=== PATIENT | male | born 1935 | race African-American/Black ===

== ENCOUNTER 2017-02-04 09:37 | Day surgery (SDC) | payer MEDICARE, MEDICAID ==
--- NOTE | 2017-02-03 21:59 | Pre-op HX & Phy Repo 2 SIG ---
DATE OF ADMISSION: 02/04/2017 DATE OF SURGERY: This patient is scheduled for surgery tomorrow, which is 02/04/2017. CHIEF COMPLAINT: Lump in the right groin. HISTORY OF PRESENT ILLNESS: This is an 81-year-old male, who presented with a lump in the right groin for about for 7-8 months. The patient stated that the lump has gradually enlarged and in the mornings it is small, but at night it gets larger. He claimed that there is no pain. He denies any signs and symptoms of strangulation. PAST MEDICAL HISTORY: The patient denied allergies, asthma or renal diseases. He has a history of hypertension, diabetes and cardiac arrhythmia. PAST SURGICAL HISTORY: TURP 30 years ago. MEDICATIONS: Pradaxa, amlodipine, simvastatin, metoprolol, metformin, amiodarone, and omeprazole. SOCIAL HISTORY: The patient is an 81-year-old male, who is single without children. He is a retired nurse's aide. He claimed that he quit smoking and drinking many years ago. REVIEW OF SYSTEMS: He complains of back pain and weakness. PHYSICAL EXAMINATION: GENERAL: The patient appeared to be a well-developed and well-nourished, moderately obese, 81-year-old male, who walks with a cane. VITAL SIGNS: Blood pressure 155/72 and pulse rate 107. HEENT: Head is normocephalic and atraumatic. Eyes, pupils are equal, round, and reactive to light. Mouth is clear. NECK: There is no palpable thyromegaly or adenopathy. CHEST: Clear to auscultation and percussion. HEART: There is no gallop or murmur. S1 and S2 are within normal limits. ABDOMEN: Obese, but soft and nontender. There is no palpable organomegaly and bowel sounds are audible. GENITAL: He has a normal uncircumcised penis. His testicles are normal for his age. He has right inguinal hernia, which extends to his testicle and difficult to reduce. EXTREMITIES: Within normal limits. ASSESSMENT: Right inguinal hernia. PLAN: The patient has been scheduled for right inguinal herniorrhaphy with application of mesh on 02/04/2017. The risks and benefits have been explained to him. He understood and will jeremias the consent form. Brad Morrison M.D. DR: ROMI JOB#: [id number] CC:
[~2017-02-04] VITALS: Ht 172.7 cm; Wt 106.6 kg
[2017-02-04] VITALS (12 sets, daily range): BP systolic 108–144; BP diastolic 56–76
[~2017-02-04 09:37] MED LIST: ALLOPURINOL300 M1 ORAL; AMLODIPINE BESY10 MG ORAL; DICYCLOMINE HCL10 MG PO; DIURIL25 MG ORAL; GLYBURIDE-METF1 EAC1 PO; HYDROCHLOROTHIA50 MG ORAL; JANUMET 50-5001 EACH ORAL; METOPROLOL TAR100 M1 ORAL; METOPROLOL TAR100 MG ORAL; OMEPRAZOLE20 M2 ORAL; POTASSIUM CHLO10 MEQ ORAL; SIMVASTATIN20 MG ORAL; VITAMIN D35000 UNIT PO; XARELTO10 MG ORAL
[2017-02-04] MEDS ORDERED: SIMVASTATIN20 MG ORAL (10:53)
[2017-02-04] MEDS ORDERED: AMIODARONE HCL200 MG ORAL (10:53)
[2017-02-04] MEDS ORDERED: FERROUS SULFAT325 M2 ORAL (10:53)
[2017-02-04] MEDS ORDERED: METFORMIN HCL500 M5 PO (10:53)
[2017-02-04] MEDS ORDERED: SYNTHROID50 MCG ORAL (10:53)
[2017-02-04] MEDS ORDERED: PRADAXA150 MG ORAL (10:53)
[2017-02-04] MEDS ORDERED: CIPRO500 MG PO (10:53)
[2017-02-04] MEDS ORDERED: ceFAZolin sod 1 GM in NS 55 ML IVPB ONE (11:00)
[2017-02-04] MEDS ORDERED: Bupivacaine 0.25% Inj 30ml INJ ONE (11:41)
[2017-02-04] MEDS ORDERED: Bupivacaine w/Epi 0.25% 30ml Vial INJ ONE (11:41)
[2017-02-04] MEDS ORDERED: Bacitracin 50000 Units Vial ONE (11:41)
[2017-02-04] MEDS ORDERED: Lidocaine 1% MPF 10mg/ml 5ml ONE (12:00)
[2017-02-04] MEDS ORDERED: LR 1000ml ONE (12:00)
[2017-02-04] MEDS ORDERED: Glycopyrrolate 0.2mg/ml 1ml Vial ONE (12:00)
[2017-02-04] MEDS ORDERED: Midazolam 2mg/2ml Inj ONE (12:00)
[2017-02-04] MEDS ORDERED: NS Irrig 1000ml ONE (12:00)
[2017-02-04] MEDS ORDERED: Zemuron 50mg/5ml Inj IV ONE (12:00)
[2017-02-04] MEDS ORDERED: Alfentanil 2ml Inj ONE (12:00)
[2017-02-04] MEDS ORDERED: Propofol 10mg/ml 20ml IV ONE (12:00)
[2017-02-04] MEDS ORDERED: Neostigmine 1mg/ml 10ml Inj ONE (12:00)
[2017-02-04] MEDS ORDERED: Sterile Water Irrig 1000ml IRRIG ONE (12:00)
--- NOTE | 2017-02-04 12:12 | Pre-Procedure Note/Attestation ---
Pre-Procedure Note/Attestation Complete Prior to Procedure Planned Procedure: right Procedure Narrative: Right Inguinal Herniorrhaphy Indications for Procedure Pre-Operative Diagnosis: Right Inguinal Hernia Attestation I attest that I discussed the nature of the procedure; its benefits; risks and complications; and alternatives (and the risks and benefits of such alternatives ), prior to the procedure, with the patient (or the patient's legal sales representative malt liquors). I attest that, if there was a reasonable possibility of needing a blood transfusion, the patient (or the patient's legal sales representative malt liquors) was given the [facility] standardized written summary, pursuant to the Earl Axel Blood Safety Act ([place] Health and Safety Code # 1645, as amended). I attest that I re-evaluated the patient just prior to the surgery and that there has been no change in the patient's H&P, except as documented below: BABS THOMAS February 04, 2017 12:12
[2017-02-04] MEDS ORDERED: Metoclopramide 10mg/2ml Inj IVP PRN (12:15)
[2017-02-04] MEDS ORDERED: Atropine Inj 1mg/10ml Syr IV PRN (12:15)
[2017-02-04] MEDS ORDERED: Hydromorphone 0.5mg/0.5ml inj IVP PRN (12:15)
[2017-02-04] MEDS ORDERED: Meperidine 25mg/0.5ml Inj IV PRN (12:15)
[2017-02-04] MEDS ORDERED: LR 1000ml 1,000 ML IVLG SCH (12:15)
[2017-02-04] MEDS ORDERED: Ketorolac 60mg Inj IV PRN (12:15)
[2017-02-04] MEDS ORDERED: Norco 5mg/325mg tab ORAL PRN (12:15)
[2017-02-04] MEDS ORDERED: Norco 7.5mg/325mg tab ORAL PRN (12:15)
[2017-02-04] MEDS ORDERED: Oxycodone/Acetaminophen 5-325 ORAL PRN (12:15)
[2017-02-04] MEDS ORDERED: fentaNYL 100 mcg/2 mL IV PRN (12:15)
[2017-02-04] MEDS ORDERED: LORazepam Inj 2mg/ml 1ml IV PRN (12:15)
[2017-02-04] MEDS ORDERED: Midazolam 2mg/2ml Inj IVP PRN (12:15)
[2017-02-04] MEDS ORDERED: Ketorolac 30mg Inj IV PRN (12:15)
[2017-02-04] MEDS ORDERED: DiphenhydrAMINE 50mg/ml Inj IVP PRN (12:15)
--- NOTE | 2017-02-04 12:17 | Anethesia Preoperative Eval ---
Anesthesia Pre-op PMH/ROS General Date of Evaluation: February 04, 2017 Time of Evaluation: 12:07 Anesthesiologist: Flor ASA Score: ASA 3 Mallampati Score Class I : Soft palate, uvula, fauces, pillars visible Class II: Soft palate, uvula, fauces visible Class III: Soft palate, base of uvula visible Class IV: Only hard plate visible Mallampati Classification: Class III Surgeon: Prince Diagnosis: R Inguinal Hernia Surgical Procedure: R Inguinal Hernia Repair Anesthesia History: none Family History: no anesthesia problems Allergies: Coded Allergies: No Known Allergies (Verified Allergy, Mild, 06/18/10) Medications: see eMAR Past Medical History Cardiovascular: Reports: HTN, other - HL Gastrointestinal/Genitourinary: Reports: GERD, other - Prostate Hypertrophy, GI Bleed Endocrine: Reports: DM Hematology/Immune: Reports: anemia Musculoskeletal/Integumentary: Reports: other - Gout Other: obesity - BMI 36 PSxH Narrative: Prostatectomy Anesthesia Pre-op Phys. Exam Physician Exam Last Vital Signs Date Time Temp Pulse Resp B/P Pulse Ox O2 Delivery O2 Flow Rate FiO2 02/04/17 10:13 98.5 65 18 144/75 99 Room Air Constitutional: NAD Neurologic: CN 2-12 intact Cardiovascular: RRR Respiratory: CTA Gastrointestinal: S/NT/ND Airway Exam Mallampati Score: Class III MO: full ROM: limited Teeth: missing, intact Anesthesia Pre-op A/P Pre-Antibiotics Dru Grams Ancef IV Given Within 1 Hr of Incision: Yes Time Given: 12:26 Alexander Ray MD February 04, 2017 12:17
--- NOTE | 2017-02-04 12:47 | Immediate Post-Op Evaluation ---
Immediate Post-Op Evalulation Immediate Post-Op Evalulation Procedure: R Inguinal Hernia Repair Date of Evaluation: February 04, 2017 Time of Evaluation: 14:34 IV Fluids: 900 LR Blood Products: 0 Estimated Blood Loss: 15 Urinary Output: 0 Blood Pressure Systolic: 132 Blood Pressure Diastolic: 71 Pulse Rate: 66 Respiratory Rate: 16 O2 Sat by Pulse Oximetry: 98 Temperature (Fahrenheit): 97.9 Pain Score (1-10): 2 Nausea: No Vomiting: No Complications 0 Patient Status: awake, reacts, patent, extubated, none Hydration Status: adequate Dru Grams Ancef IV Given Within 1 Hr of Incision: Yes Time Given: 12:26 Alexander Ray MD February 04, 2017 12:47
--- NOTE | 2017-02-04 12:48 | 48 Hour Post Anesthesia Eval ---
Post Anesthesia Evaluation Procedure: R Inguinal Hernia Repair Date of Evaluation: February 04, 2017 Time of Evaluation: 16:53 Blood Pressure Systolic: 128 0: 68 Pulse Rate: 61 Respiratory Rate: 18 Temperature (Fahrenheit): 98.2 O2 Sat by Pulse Oximetry: 99 Airway: patent Nausea: No Vomiting: No Pain Intensity: 2 Hydration Status: adequate Cardiopulmonary Status: Stable Mental Status/LOC: patient returned to baseline Follow-up Care/Observations: 0 Post-Anesthesia Complications: 0 Follow-up care needed: ready to discharge Alexander Ray MD February 04, 2017 12:48
--- NOTE | 2017-02-04 14:26 | Brief Operative Note ---
Immediate Post Operative Note Operative Note Pre-op Diagnosis: Right Inguinal Hernia Post-op Diagnosis: sliding right inguinal hernia Findings: consistent w/pre-op dx studies Surgeon: Joseph Byproducts Maker: none Anesthesiologist: Dr. Ray Anesthesia: general Specimen: yes Complications: none Condition: stable Estimated Blood Loss: volume - 20ml Drains: none Implant(s) used?: Yes BABS THOMAS February 04, 2017 14:26
--- NOTE | 2017-02-04 14:30 | Discharge Instructions ---
Discharge Instructions Discharge Instructions Follow up with: my office one week Diet: 4 GM sodium (no salt added), low fat Additional Diet Information: continue his own diet Resume Normal Activity?: Yes Activity: as tolerated Special Instructions apply ice pack on right groin. continue home meds as before except for Paradaxa start it tomorrow For Surgical Patients Dressing Care: other - will be removed by surgeon May shower: Yes For Congestive Heart Failure Reminder Report to your physician any weight gain of 5 pounds or more in one week. BABS THOMAS February 04, 2017 14:30
--- NOTE | 2017-02-05 00:08 | Operative Note - Dictated ---
DATE OF OPERATION: 02/04/2017 PREOPERATIVE DIAGNOSIS: Right inguinal hernia. POSTOPERATIVE DIAGNOSIS: Sliding indirect right inguinal hernia. OPERATION: 1. Right inguinal herniorrhaphy with application of mesh. 2. Resection of the lipoma of the cord. 3. Blockage of the nerves to the right groin for the postoperative pain control. COMPLICATIONS: None. SURGEON: Brad Morrison M.D. SENIOR NET SOFTWARE DEVELOPER: None ANESTHESIA: General with endotracheal tube. ANESTHESIOLOGIST: Dr. Ray. INDICATION: This is an 81-year-old male who presented with a lump in the right groin for about 8 to 9 months. Lump has gradually enlarged and protrudes with standing and straining. Physical examination showed very large right inguinal hernia which extended to his testicle and was difficult to reduce. PROCEDURE: The patient was placed supine on the operating table and after general anesthesia with endotracheal tube initially under the anesthesia the hernia was reduced and then the right groin was properly prepped and draped. Large transverse right inguinal incision was given and was carried sharply through the subcutaneous tissue and Halley's fascia. The aponeurosis of the external oblique was reached and was opened along the fibers towards the external ring. The spermatic cord was identified and isolated. The exploration of the cord was performed which showed very large indirect sac which extended all the way to the testicle. The sac was gradually dissected and isolated. It was opened up. It was noticed that there was sliding component of bowel. This was gradually released and returned into the intraperitoneal cavity. The sac was trans ligated with 4-0 silk at the neck and the distal part resected and removed. Extreme care was exercised not to harm the organs in the abdomen. The sac was opened up and it was noticed that there was a small component of the sliding. The sliding was released and returned into the intraperitoneal cavity and then the hernia sac was first ligated at the neck with 0 silk and distal part was transected and removed. At the time of removal of the sac extreme care was exercised not to injure the intraabdominal organs. After the removal of the sac, attention was given to the spermatic cord which did contain a few large lipomas. At least three lipomas were dissected and isolated and removed. After this attention was given to the floor of the inguinal canal and a piece of Prolene mesh was selected and was tailored to size of the floor of the inguinal canal. This mesh was secured in place with multiple interrupted suture of 2-0 Vicryl. The spermatic cord was mostly at the lower part of the mesh. During the dissection and repair, both the ilioinguinal and iliohypogastric nerves were identified and preserved. After the application of the mesh, the incision was thoroughly irrigated with antibiotic solution and was infiltrated with total of 20 mL of Marcaine 0.25%. The nerves to the right groin were blocked with infiltration of 10 mL of Marcaine for the postoperative pain control. after this, the aponeurosis on the external oblique was approximated with running suture of 2-0 Vicryl. The subcutaneous tissue was approximated in two layers with 3-0 plain catgut and the skin incision was approximated with running subcuticular suture of 4-0 chromic. The patient tolerated the procedure very well and was transferred to recovery room in stable condition and extubated. The sponge and needle count correct. ESTIMATED BLOOD LOSS: 20 mL. CONDITION: Condition of the patient at the end of the procedure is stable. Brad Morrison M.D. DR: Twin JOB#: [id number] CC: JOI
== END 2017-02-04 11:30 | disposition home or self-care (01) ==
LOC: SUR 09:37
DX: K40.90 Unilateral inguinal hernia, without obstruction or gangrene, not specified as recurrent (principal); D17.6 Benign lipomatous neoplasm of spermatic cord; I10 Essential (primary) hypertension; E11.9 Type 2 diabetes mellitus without complications; I49.9 Cardiac arrhythmia, unspecified; D64.9 Anemia, unspecified; E66.9 Obesity, unspecified; Z68.36 Body mass index [BMI] 36.0-36.9, adult; K21.9 Gastro-esophageal reflux disease without esophagitis; E78.5 Hyperlipidemia, unspecified; N40.0 Benign prostatic hyperplasia without lower urinary tract symptoms; M10.9 Gout, unspecified; Z90.79 Acquired absence of other genital organ(s); Z79.84 Long term (current) use of oral hypoglycemic drugs; Z87.891 Personal history of nicotine dependence
CPT/HCPCS: 49525; 82962; C1781; J2250; J2405; J2704; J2710; J2765; J3490; J7120; 94003; 94150

== ENCOUNTER 2020-09-11 11:24 | Inpatient (IN) | payer MEDICAID, MEDICARE ==
[~2020-09-11] VITALS: Ht 167.6 cm; Wt 84.4 kg
[~2020-09-11 11:24] MED LIST changes: +AMIODARONE HCL200 MG ORAL; +CIPRO500 MG PO; +FERROUS SULFAT325 M2 ORAL; +METFORMIN HCL500 M5 PO; +PRADAXA150 MG ORAL; +SYNTHROID50 MCG ORAL
--- NOTE | 2020-09-11 11:40 | NUR ---
ED Nurse Note: patient walked in from home s/p fall and head injury two weeks ago. pt states that Dr. Tse sent him in to get checked out. pt denies LOC, states he is taking xarelto, appears to have a knot on L side of forehead. bp 151/77, other vss. nad noted.
[2020-09-11] MEDS ORDERED: Omnipaque 350 100ml vial INJ PRN (11:45)
[2020-09-11 11:46] VITALS: BP 151/77
[2020-09-11 12:23] LABS: BASOPHILS % (AUTO) 1.3 % (0.0-2.0); EOSINOPHILS % (AUTO) 2.9 % (0.0-3.0); HEMATOCRIT 36.3 % (42.0-52.0); HEMOGLOBIN 11.7 G/DL (14.2-18.0); LYMPHOCYTES % (AUTO) 23.6 % (20.0-45.0); MEAN CORPUSCULAR VOLUME 86 FL (80-99); MONOCYTES % (AUTO) 9.2 % (1.0-10.0); PLATELET COUNT 205 K/UL (150-450); RED BLOOD COUNT 4.21 M/UL (4.70-6.10); RED CELL DISTRIBUTION WIDTH 15.2 % (11.6-14.8); WHITE BLOOD COUNT 4.4 K/UL (4.8-10.8)
--- NOTE | 2020-09-11 12:24 | NUR ---
ED Nurse Note: patient off floor for ct scan.
[2020-09-11 12:33] LABS: CALCIUM 9.3 MG/DL (8.5-10.1); CREATININE 1.6 MG/DL (0.55-1.30); POTASSIUM 5.1 MMOL/L (3.5-5.1)
[2020-09-11 12:34] LABS: INR 1.1 (0.9-1.1)
[2020-09-11 12:38] LABS: ALBUMIN/GLOBULIN RATIO 1.2 (1.0-2.7); BILIRUBIN,TOTAL 0.3 MG/DL (0.2-1.0)
--- NOTE | 2020-09-11 12:38 | Emergency Room Report ---
History of Present Illness General Chief Complaint: Head Injury Present Illness HPI Disclaimer: Please note that this report is being documented using [employer] technology. This can lead to erroneous entry secondary to incorrect interpretation by the dictating instrument. HPI: 84-year-old male presents for hematoma. Patient has a history of hypertension, heart disease, diabetes, reports a mechanical fall about 2 weeks ago. Was seen by his primary doctor and noted to have a hematoma of the left forehead and was referred to surgery seen by surgery today in clinic and the hematoma was noted to be pulsatile. Patient denies any headache nausea vomiting or vision changes. He was ambulatory and neurologically intact on arrival. PMH: As above Allergies: Coded Allergies: No Known Allergies (Verified Allergy, Mild, 06/18/10) COVID-19 Screening Contact w/high risk pt: No Experienced COVID-19 symptoms?: No COVID-19 Testing performed PLASTERER MAINTENANCE: No Patient History Reviewed Nursing Documentation: PMH: Agreed; PSxH: Agreed Nursing Documentation-PMH Hx Cardiac Problems: Yes Hx Hypertension: Yes Hx Diabetes: Yes Hx Cancer: No Hx Gastrointestinal Problems: Yes - GI bleed in 2008 Hx Neurological Problems: No Review of Systems All Other Systems: negative except mentioned in HPI Physical Exam Vital Signs Date Time Temp Pulse Resp B/P (MAP) Pulse Ox O2 Delivery O2 Flow Rate FiO2 09/11/20 11:26 97.9 88 18 151/77 (101) 97 Room Air Sp02 EP Interpretation: reviewed, normal General Appearance: well appearing, no apparent distress Head: normocephalic, other - Cystic-like lesion noted to the left frontal scalp, ballotable and pulsatile, approximately 2 x 2 centimeter Eyes: bilateral eye PERRL, bilateral eye EOMI ENT: hearing grossly normal, moist mucus membranes Neck: full range of motion, supple Respiratory: lungs clear, normal breath sounds, no rhonchi, no respiratory distress, no retraction, no wheezing Cardiovascular #1: normal peripheral pulses, regular rate, rhythm, no murmur Gastrointestinal: non tender, soft, non-distended, no guarding Neurologic: alert, oriented x3, no focal defects Skin: normal color, warm/dry Medical Decision Making Diagnostic Impression: Primary Impression: Pseudoaneurysm ER Course MDM: Differential included hematoma, aneurysm, cyst Clinical course-IV inserted basic laboratory studies were sent CT angiogram of the head ordered. CT angiogram of the head did demonstrate pseudoaneurysm of the scalp. Measuring approximately 2 cm. The case was discussed with general surgery, Dr. betts who wished to admit for resection. Patient will be admitted to the medical floor. Labs - Laboratory Tests Test 09/11/20 11:54 White Blood Count 4.4 K/UL (4.8-10.8) L Red Blood Count 4.21 M/UL (4.70-6.10) L Hemoglobin 11.7 G/DL (14.2-18.0) L Hematocrit 36.3 % (42.0-52.0) L Mean Corpuscular Volume 86 FL (80-99) Mean Corpuscular Hemoglobin 27.9 PG (27.0-31.0) Mean Corpuscular Hemoglobin Concent 32.3 G/DL (32.0-36.0) Red Cell Distribution Width 15.2 % (11.6-14.8) H Platelet Count 205 K/UL (150-450) Mean Platelet Volume 7.6 FL (6.5-10.1) Neutrophils (%) (Auto) 63.0 % (45.0-75.0) Lymphocytes (%) (Auto) 23.6 % (20.0-45.0) Monocytes (%) (Auto) 9.2 % (1.0-10.0) Eosinophils (%) (Auto) 2.9 % (0.0-3.0) Basophils (%) (Auto) 1.3 % (0.0-2.0) Prothrombin Time 11.6 SEC (9.30-11.50) H Prothrombin Time INR 1.1 (0.9-1.1) Activated Partial Thromboplast Time 27 SEC (23-33) Sodium Level 142 MMOL/L (136-145) Potassium Level 5.1 MMOL/L (3.5-5.1) Chloride Level 106 MMOL/L (98-107) Carbon Dioxide Level 26 MMOL/L (21-32) Anion Gap 10 mmol/L (5-15) Blood Urea Nitrogen 21 mg/dL (7-18) H Creatinine 1.6 MG/DL (0.55-1.30) H Estimated Glomerular Filtration Rate 50.2 mL/min (>60) Glucose Level 137 MG/DL (74-106) H Calcium Level 9.3 MG/DL (8.5-10.1) Total Bilirubin 0.3 MG/DL (0.2-1.0) Aspartate Amino Transferase (AST) 19 U/L (15-37) Alanine Aminotransferase (ALT) 18 U/L (12-78) Alkaline Phosphatase 70 U/L (46-116) Total Protein 7.4 G/DL (6.4-8.2) Albumin 4.0 G/DL (3.4-5.0) Globulin 3.4 g/dL Albumin/Globulin Ratio 1.2 (1.0-2.7) On reevaluation: Patient remained in no acute distress Plan-admission to the medical floor CT/MRI/US Diagnostic Results CT/MRI/US Diagnostic Results : Imaging Test Ordered: CT angio Impression Discussed with radiology noted pseudoaneurysm of the left scalp approximately 17 mm Last Vital Signs Date Time Temp Pulse Resp B/P (MAP) Pulse Ox O2 Delivery O2 Flow Rate FiO2 09/11/20 11:46 97.9 18 151/77 97 Room Air 09/11/20 11:26 88 Status: unchanged Disposition: ADMITTED INPATIENT Condition: Serious Referrals: Amy Dodd MD (PCP) Bandar Cho M.D. Sep 11, 2020 12:38
--- NOTE | 2020-09-11 12:50 | NUR ---
ED Nurse Note: Patient went down for CTA via wheelchair in stable condition.
[2020-09-11] MEDS ORDERED: Sodium Chloride 550 ML IV SCH (13:00)
--- NOTE | 2020-09-11 13:00 | NUR ---
ED Nurse Note: dr. betts at bedside.
--- NOTE | 2020-09-11 13:16 | NUR ---
ED Nurse Note: patient back on floor from ct scan.
[2020-09-11 13:27] VITALS: BP 149/71
--- NOTE | 2020-09-11 14:35 | Diagnostic Imaging Report ---
Indication: Head trauma, left forehead pulsatile mass Technique: Precontrast spiral acquisitions obtained through the brain. IV administration nonionic contrast. Arterial and delayed phase spiral acquisitions obtained through the brain. Multiplanar and 3-D reconstructions were generated on an integrated workstation. Total dose length product 2982 mGycm. CTDIvol(s) 53, 5, 112, 53, 53 mGy. Dose reduction achieved using automated exposure control Comparison: none Findings: In the left frontal region, presumably corresponding to the palpable abnormality, there is an intensely enhancing lesion, consistent with an arterial pseudoaneurysm, measuring 11 x 17 x 13 mm. This demonstrates a neck that is approximately 3 mm in length. The proximal portion of the neck measures 4 mm in diameter but then abruptly narrows to 3 mm diameter just proximal to the fundus. This comes off of the anterior division of the superficial temporal artery approximately 2 cm beyond the anterior division origin. A downward going branch vessel takes off just before the pseudoaneurysm. No definite outflow vessel is seen coming off of the neck. There is an arterial branch which appears to head cephalad and medial from the pseudoaneurysm, but a definite connection to the lumen of the pseudoaneurysm is not visualized, and on the sagittal and coronal reconstructed images, there appears to be approximately 2 mm of nonenhancing tissue this vessel from the lumen of the pseudoaneurysm, so this vessel may be reconstituting via retrograde flow. No active extravasation of contrast is visualized. No rapid venous filling to suggest arteriovenous fistula is demonstrated. Precontrast images demonstrate no acute intracranial hemorrhage or edema. There is mild age-related enlargement of ventricles and extra-axial CSF spaces. There is minimal periventricular deep white matter high attenuation, consistent with chronic microvascular ischemic change. The calvarium is intact. The mastoids are clear. Somewhat unusual calcifications are seen in the right supraorbital subcutaneous fat. The bilateral distal vertebral arteries are codominant. The bilateral PICAs are patent. The bilateral anterior inferior cerebellar arteries and superior cerebellar arteries are patent. No significant stenosis of the basilar artery is noted. The posterior cerebral arteries are patent and nonstenotic. A sizable patent right posterior communicating artery is demonstrated. No left posterior communicating artery is visualized. Anterior circulation demonstrates patent bilateral distal internal carotid arteries without evidence of significant stenosis. Patent bilateral middle cerebral arteries and proximal branches. Patent bilateral anterior cerebral arteries and proximal branches. There is increasing equivocal demonstration of a small anterior communicating artery. There is no evidence of cerebral aneurysm or vascular malformation. No unusual contrast enhancement is demonstrated on the delayed phase images. 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 No evidence of active extravasation or arteriovenous fistula Negative for acute intracranial bleed or mass effect Mild age-related volume loss Negative for evidence of intracranial cerebrovascular insufficiency, vascular malformation, or aneurysm No intracranial contrast enhancing lesion demonstrated. The CT scanner at [facility] is accredited by the [employer] and the scans are performed using protocols designed to limit radiation exposure to as low as reasonably achievable to attain images of sufficient resolution adequate for diagnostic evaluation. Brain
--- NOTE | 2020-09-11 15:43 | Consultation ---
History of Present Illness General Date patient seen: Sep 11, 2020 Reason for Hospitalization: Head Injury Present Illness HPI This is a very pleasant 84-year-old male with multiple medical comorbidities on Xarelto that was referred to my office by his primary care physician Dr. Amy Dodd for evaluation of of left forehead hematoma status post fall. Patient states that he has been having falls recently. He tripped over something few days ago fell and hit his head. Denies loss of consciousness but cannot recall how he fell or where he hit his head or what he hit his head on. Has since had a lump on his left forehead which may have been increasing in size. When seen in the office patient was identified to have a pulsatile mass with above history on his left forehead was urgently sent to the emergency department for evaluation. 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 Patient needed further care and management surgery for evaluation. Allergies: Coded Allergies: No Known Allergies (Verified Allergy, Mild, 06/18/10) COVID-19 Screening Contact w/high risk pt: No Experienced COVID-19 symptoms?: No Medication History Scheduled Amiodarone Hcl* (Cordarone*), 200 MG ORAL DAILY, (Reported) Amlodipine Besylate* (Amlodipine Besylate*), 10 MG ORAL DAILY, (Reported) Ciprofloxacin* (Cipro*), 500 MG PO BID, (Reported) Dabigatran Etexilate Mesylate* (Pradaxa*), 150 MG ORAL EVERY 12 HOURS, (Repo rted) Dicyclomine Hcl* (Dicyclomine Hcl*), 20 MG PO PRN, (Reported) Ferrous Sulfate (Ferrous Sulfate), 325 MG ORAL DAILY, (Reported) Levothyroxine Sodium (Synthroid*), 50 MCG ORAL DAILY, (Reported) Metformin HCl (Metformin HCl ER), 500 MG PO BID, (Reported) Metoprolol Tartrate* (Metoprolol Tartrate*), 100 MG ORAL Q12HR Omeprazole (Omeprazole), 20 MG ORAL BID, (Reported) Simvastatin (Zocor), 20 MG ORAL BEDTIME, (Reported) Patient History History Provided By: Patient, Medical Record, PMD Healthcare decision maker Resuscitation status Advanced Directive on File Past Medical/Surgical History Past Medical/Surgical History: (1) Hyperlipidemia (2) Hypertension (3) Diabetes (4) Arrhythmia (5) Abdominal pain (6) Hematoma (7) Pseudoaneurysm Review of Systems Review of Symptoms General ROS: no weight loss or fever Psychological ROS: no depression or mood changes, no memory loss Ophthalmic ROS: no visual changes or eye irritation ENT ROS: no nasal congestion, hearing loss, dizziness Allergy and Immunology ROS: no allergic symptoms or urticaria Hematological and Lymphatic ROS: no swollen glands, unusual bleeding or bruising Endocrine ROS: no polyuria, polydipsia, weight changes, temperature intolerance Respiratory ROS: no cough, shortness of breath, or wheezing Cardiovascular ROS: no chest pain or dyspnea on exertion Gastrointestinal ROS: denies abdominal pain, bright red blood in stool. Musculoskeletal ROS: no myalgias or arthralgias Neurological ROS: no TIA or stroke symptoms Dermatological ROS: no new or changing skin lesions, rashes or pruritis Physical Exam Physical Exam General appearance: alert, cooperative, no distress, appears stated age Head: Normocephalic, traumatic left forehead pulsating mass Eyes: conjunctivae/corneas clear. PERRL, EOM's intact. Fundi benign Throat: Lips, mucosa, and tongue normal. Teeth and gums normal Neck: supple, symmetrical, trachea midline, no adenopathy, thyroid: not enlarged, symmetric, no tenderness/mass/nodules, no carotid bruit and no JVD Lungs: clear to auscultation bilaterally Heart: regular rate and rhythm, S1, S2 normal, no murmur, click, rub or gallop Abdomen: soft, non-tender. Bowel sounds normal. No masses, no organomegaly Extremities: extremities normal, atraumatic, no cyanosis or edema Pulses: 2+ and symmetric Skin: Skin color, texture, turgor normal. No rashes or lesions Neurologic: Grossly normal Last 24 Hour Vital Signs Date Time Temp Pulse Resp B/P (MAP) Pulse Ox O2 Delivery O2 Flow Rate FiO2 09/11/20 13:27 97.9 75 18 149/71 97 Room Air 09/11/20 11:46 97.9 18 151/77 97 Room Air 09/11/20 11:26 97.9 88 18 151/77 (101) 97 Room Air Laboratory Tests Test 09/11/20 11:54 White Blood Count 4.4 K/UL (4.8-10.8) L Red Blood Count 4.21 M/UL (4.70-6.10) L Hemoglobin 11.7 G/DL (14.2-18.0) L Hematocrit 36.3 % (42.0-52.0) L Mean Corpuscular Volume 86 FL (80-99) Mean Corpuscular Hemoglobin 27.9 PG (27.0-31.0) Mean Corpuscular Hemoglobin Concent 32.3 G/DL (32.0-36.0) Red Cell Distribution Width 15.2 % (11.6-14.8) H Platelet Count 205 K/UL (150-450) Mean Platelet Volume 7.6 FL (6.5-10.1) Neutrophils (%) (Auto) 63.0 % (45.0-75.0) Lymphocytes (%) (Auto) 23.6 % (20.0-45.0) Monocytes (%) (Auto) 9.2 % (1.0-10.0) Eosinophils (%) (Auto) 2.9 % (0.0-3.0) Basophils (%) (Auto) 1.3 % (0.0-2.0) Prothrombin Time 11.6 SEC (9.30-11.50) H Prothromb Time International Ratio 1.1 (0.9-1.1) Activated Partial Thromboplast Time 27 SEC (23-33) Sodium Level 142 MMOL/L (136-145) Potassium Level 5.1 MMOL/L (3.5-5.1) Chloride Level 106 MMOL/L (98-107) Carbon Dioxide Level 26 MMOL/L (21-32) Anion Gap 10 mmol/L (5-15) Blood Urea Nitrogen 21 mg/dL (7-18) H Creatinine 1.6 MG/DL (0.55-1.30) H Estimat Glomerular Filtration Rate 50.2 mL/min (>60) Glucose Level 137 MG/DL (74-106) H Calcium Level 9.3 MG/DL (8.5-10.1) Total Bilirubin 0.3 MG/DL (0.2-1.0) Aspartate Amino Transf (AST/SGOT) 19 U/L (15-37) Alanine Aminotransferase (ALT/SGPT) 18 U/L (12-78) Alkaline Phosphatase 70 U/L (46-116) Total Protein 7.4 G/DL (6.4-8.2) Albumin 4.0 G/DL (3.4-5.0) Globulin 3.4 g/dL Albumin/Globulin Ratio 1.2 (1.0-2.7) Microbiology Date/Time Source Procedure Growth Status 09/11/20 14:00 Nasopharynx SARS-CoV-2 RdRp Gene Assay - Final Complete Height (Feet): 5 Height (Inches): 7.00 Weight (Pounds): 195 Medications Current Medications Medications (Trade) Dose Ordered Sig/Radha Route PRN Reason Start Time Stop Time Status Last Admin Dose Admin Iohexol (Omnipaque 350 100ml) 100 ml NOW PRN INJ Radiology Procedure 09/11/20 11:45 09/13/20 11:44 Sodium Chloride 550 ml @ 0 mls/hr Q0M IV 09/11/20 13:00 10/11/20 12:59 Assessment/Plan Problem List: (1) Hematoma ICD Codes: T14.8XXA - Other injury of unspecified body region, initial encounter SNOMED: 294533690 (2) Pseudoaneurysm Assessment & Plan: This is a 84-year-old male 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 Patient identified abnormal labs. I had a long session with the patient and his family. He has been falling recently had multiple falls but does not recall all of them. Patient furthermore has multiple medications though may not have full compliance or understanding. Patient with a pulsatile potentially expanding mass in his left forehead aneurysm CT noted discussed with radiology. Given the above I do not feel safe for patient to go home and electively participate in ligation. He is at high risk for another fall potential injury potential aneurysm expansion or even worse potential rupture with potential catastrophic event and considerations given this discussion with the family and patient's interest given his medical history and abnormal labs and work-up necessary it is in his interest to be admitted worked up and taken to the operating room when stable and off anticoagulation for ligation of the pseudoaneurysm and removal. Admit to medical service Consultants as below Okay for diet for now Hold anticoagulation Monitor for bleeding or expansion We will take the operating room in stable Preop work-up thank you for let me participation's care Covid test ICD Codes: I72.9 - Aneurysm of unspecified site SNOMED: 605126130, 47029777, 10461949 (3) Arrhythmia ICD Codes: I49.9 - Arrhythmia SNOMED: 01294016 (4) Diabetes ICD Codes: E11.9 - Diabetes SNOMED: 82396217 (5) Hyperlipidemia ICD Codes: E78.5 - Hyperlipidemia SNOMED: 30357289 (6) Abdominal pain ICD Codes: R10.9 - Abdominal pain SNOMED: 90730538 (7) Hypertension ICD Codes: I10 - Hypertension SNOMED: 52055554 Vernon Tse Sep 11, 2020 15:43
[2020-09-11] MEDS ORDERED: LORazepam 1mg tab ORAL PRN (15:45)
[2020-09-11] MEDS ORDERED: Mylanta II UD 30ml ORAL PRN (15:45)
[2020-09-11] MEDS ORDERED: Milk of Magnesia 30ml Ud ORAL PRN (15:45)
[2020-09-11] MEDS ORDERED: Nitroglycerin Subl 0.4mg tab SL PRN (15:45)
[2020-09-11] MEDS ORDERED: Morphine Sulfate 2mg/ml Inj(IV/IM USE ONLY) IVP PRN (15:45)
[2020-09-11 15:54] VITALS: BP 126/66
--- NOTE | 2020-09-11 16:13 | NUR ---
ED Nurse Note: gave report to ulisses brown
--- NOTE | 2020-09-11 16:20 | NUR ---
ED Nurse Note: patient admitted to med surg unit for pseudoanuerysm. pt transferred via wheelchair with all belongings in stable condition. vss, nad noted.
[2020-09-11] MEDS ORDERED: XARELTO10 MG ORAL (17:39)
[2020-09-11] MEDS ORDERED: ALLOPURINOL100 M1 ORAL (17:40)
[2020-09-11] MEDS ORDERED: URECHOLINE25 MG ORAL (17:43)
[2020-09-11] MEDS ORDERED: D5NS 1,000 ML IV SCH (18:00)
[2020-09-11 19:01] VITALS: BP 146/72
--- NOTE | 2020-09-11 19:11 | NUR ---
NURSE NOTES: Patient admitted from emergency room, [facility], Charge Nurse took report. Patient's family picked up wallet, car keys, and medications. Dr. Uriarte placed order to transfer to medical surgical. Began admission orders and will transfer to telemetry.
--- NOTE | 2020-09-11 19:25 | Consultation ---
History of Present Illness General Chief Complaint: Head Injury Reason for Consultation: ERIK Present Illness HPI 84 year old male with a PMHx DM, HTN, atrial fibrillation on Xarelto and gout who presents for head pain. Recently the patient had a mechanical fall although hazy on the details. Does not think he lost consciousness but not a good historian. No associated chest pain or SOB or palpitations. He has had other falls recently due to mechanical fall. C/o LE weakness. No focal symptoms. No back pain. No urinary symptoms, dysuria, fever or chills or nausea. He has felt well otherwise recently. The patient's most recent fall resulted in head trauma resultin in lump on left forehead. No headaches, blurry vision or double vision. He was seen by his PCP and then referred to Gen Surgery who sent to ER to be evaluated. 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 Surgery recommending admission for possible surgery. Holding xarelto. Allergies: Coded Allergies: No Known Allergies (Verified Allergy, Mild, 06/18/10) Medication History Scheduled Allopurinol* (Allopurinol*), 100 MG ORAL DAILY, (Reported) Amiodarone Hcl* (Cordarone*), 200 MG ORAL DAILY, (Reported) Amlodipine Besylate* (Amlodipine Besylate*), 10 MG ORAL DAILY, (Reported) Bethanechol Chl (Bethanechol Chloride), 25 MG ORAL THREE TIMES A DAY, (Reported) Ciprofloxacin* (Cipro*), 500 MG PO BID, (Reported) Dabigatran Etexilate Mesylate* (Pradaxa*), 150 MG ORAL EVERY 12 HOURS, (Reported) Dicyclomine Hcl* (Dicyclomine Hcl*), 20 MG PO PRN, (Reported) Ferrous Sulfate (Ferrous Sulfate), 325 MG ORAL DAILY, (Reported) Levothyroxine Sodium (Synthroid*), 44 MCG ORAL DAILY, (Reported) Metformin HCl (Metformin HCl ER), 1,000 MG PO BID, (Reported) Metoprolol Tartrate* (Metoprolol Tartrate*), 100 MG ORAL Q12HR Omeprazole (Omeprazole), 20 MG ORAL BID, (Reported) Rivaroxaban (Xarelto*), 15 MG ORAL DAILY, (Reported) Simvastatin (Zocor), 20 MG ORAL BEDTIME, (Reported) Patient History Healthcare decision maker Resuscitation status Advanced Directive on File Review of Systems All Other Systems: negative except mentioned in HPI Physical Exam General Appearance: no apparent distress Lines, tubes and drains: peripheral, central line HEENT: normocephalic, atraumatic Neck: non-tender, normal alignment Respiratory/Chest: chest wall non-tender, lungs clear, normal breath sounds Cardiovascular/Chest: normal peripheral pulses, normal rate Abdomen: normal bowel sounds, non tender, soft Extremities: normal range of motion, non-tender Neurologic: alert, oriented x 3 Last 24 Hour Vital Signs Date Time Temp Pulse Resp B/P (MAP) Pulse Ox O2 Delivery O2 Flow Rate FiO2 09/11/20 19:01 97.7 91 16 146/72 (96) 97 09/11/20 16:19 97.9 76 18 126/66 97 Room Air 09/11/20 15:54 97.9 76 18 126/66 97 Room Air 09/11/20 13:27 97.9 75 18 149/71 97 Room Air 09/11/20 11:46 97.9 18 151/77 97 Room Air 09/11/20 11:26 97.9 88 18 151/77 (101) 97 Room Air Laboratory Tests Test 09/11/20 11:54 White Blood Count 4.4 K/UL (4.8-10.8) L Red Blood Count 4.21 M/UL (4.70-6.10) L Hemoglobin 11.7 G/DL (14.2-18.0) L Hematocrit 36.3 % (42.0-52.0) L Mean Corpuscular Volume 86 FL (80-99) Mean Corpuscular Hemoglobin 27.9 PG (27.0-31.0) Mean Corpuscular Hemoglobin Concent 32.3 G/DL (32.0-36.0) Red Cell Distribution Width 15.2 % (11.6-14.8) H Platelet Count 205 K/UL (150-450) Mean Platelet Volume 7.6 FL (6.5-10.1) Neutrophils (%) (Auto) 63.0 % (45.0-75.0) Lymphocytes (%) (Auto) 23.6 % (20.0-45.0) Monocytes (%) (Auto) 9.2 % (1.0-10.0) Eosinophils (%) (Auto) 2.9 % (0.0-3.0) Basophils (%) (Auto) 1.3 % (0.0-2.0) Prothrombin Time 11.6 SEC (9.30-11.50) H Prothromb Time International Ratio 1.1 (0.9-1.1) Activated Partial Thromboplast Time 27 SEC (23-33) Sodium Level 142 MMOL/L (136-145) Potassium Level 5.1 MMOL/L (3.5-5.1) Chloride Level 106 MMOL/L (98-107) Carbon Dioxide Level 26 MMOL/L (21-32) Anion Gap 10 mmol/L (5-15) Blood Urea Nitrogen 21 mg/dL (7-18) H Creatinine 1.6 MG/DL (0.55-1.30) H Estimat Glomerular Filtration Rate 50.2 mL/min (>60) Glucose Level 137 MG/DL (74-106) H Calcium Level 9.3 MG/DL (8.5-10.1) Total Bilirubin 0.3 MG/DL (0.2-1.0) Aspartate Amino Transf (AST/SGOT) 19 U/L (15-37) Alanine Aminotransferase (ALT/SGPT) 18 U/L (12-78) Alkaline Phosphatase 70 U/L (46-116) Total Protein 7.4 G/DL (6.4-8.2) Albumin 4.0 G/DL (3.4-5.0) Globulin 3.4 g/dL Albumin/Globulin Ratio 1.2 (1.0-2.7) Microbiology Date/Time Source Procedure Growth Status 09/11/20 14:00 Nasopharynx SARS-CoV-2 RdRp Gene Assay - Final Complete Height (Feet): 5 Height (Inches): 7.00 Weight (Pounds): 195 Medications Current Medications Medications (Trade) Dose Ordered Sig/Radha Route PRN Reason Start Time Stop Time Status Last Admin Dose Admin Acetaminophen (Tylenol) 650 mg Q4H PRN ORAL Temp >100.5 09/11/20 15:45 10/11/20 15:44 Al Hydroxide/Mg Hydroxide (Mylanta II) 30 ml Q6H PRN ORAL dyspepsia 09/11/20 15:45 10/11/20 15:44 Amiodarone HCl (Cordarone) 200 mg DAILY ORAL 09/11/20 19:00 12/10/20 18:59 Amlodipine Besylate (Norvasc) 10 mg DAILY ORAL 09/11/20 19:00 10/11/20 18:59 Bisacodyl (Dulcolax) 10 mg HSPRN PRN RECTAL Constipation 09/11/20 15:45 12/10/20 15:44 Dextrose (Dextrose 50%) 25 ml Q30M PRN IV Hypoglycemia 09/11/20 18:00 12/10/20 17:59 Dextrose (Dextrose 50%) 50 ml Q30M PRN IV Hypoglycemia 09/11/20 18:00 12/10/20 17:59 Dextrose/Sodium Chloride 1,000 ml @ 50 mls/hr Q20H IV 09/11/20 18:00 10/11/20 17:59 Diphenhydramine HCl (Benadryl) 25 mg Q6H PRN ORAL Itching/Pruritis 09/11/20 15:45 10/11/20 15:44 Docusate Sodium (Colace) 100 mg EVERY 12 HOURS ORAL 09/11/20 21:00 10/11/20 20:59 Famotidine (Pepcid) 40 mg DAILY ORAL 09/12/20 09:00 12/11/20 08:59 Insulin Aspart (NovoLOG) BEFORE MEALS AND HS SUBQ 09/11/20 21:00 12/10/20 20:59 Iohexol (Omnipaque 350 100ml) 100 ml NOW PRN INJ Radiology Procedure 09/11/20 11:45 09/13/20 11:44 Levothyroxine Sodium (Synthroid) 44 mcg DAILY@0630 ORAL 09/12/20 06:30 10/12/20 06:29 Lorazepam (Ativan) 1 mg Q4H PRN ORAL For Anxiety 09/11/20 15:45 09/18/20 15:44 Magnesium Hydroxide (Mom) 30 ml HSPRN PRN ORAL Constipation 09/11/20 15:45 10/11/20 15:44 Morphine Sulfate (Morphine Sulfate) 2 mg Q4H PRN IVP pain 4-10 09/11/20 15:45 09/18/20 15:44 Nitroglycerin (Ntg) 0.4 mg Q5M X 3 DOSES PRN SL Prn Chest Pain 09/11/20 15:45 10/11/20 15:44 Ondansetron HCl (Zofran) 4 mg Q6H PRN IVP Nausea & Vomiting 09/11/20 15:45 10/11/20 15:44 Sodium Chloride 550 ml @ 0 mls/hr Q0M IV 09/11/20 13:00 10/11/20 12:59 Temazepam (Restoril) 15 mg HSPRN PRN ORAL Insomnia 09/11/20 15:45 09/18/20 15:44 Assessment/Plan Diagnosis [place]: #ERIK #HTN #Left temporal artery pseudoanerysm #head trauma #Mechanical Fall #DM #BPH - continue IVF - monitor UOP - defer renal US for now - neurology eval - continue flomax 0.4mg daily - continue amlodipine 10mg daily - on amiodarone - holding xarelto - monitor renal function - avoid nephrotoxins time spent 65 min Judah Richmond M.D. Sep 11, 2020 19:25
--- NOTE | 2020-09-11 19:38 | History and Physical ---
History of Present Illness General Reason for Hospitalization: Head Injury Present Illness HPI This is an 84 year old male with a PMHx DM, HTN, atrial fibrillation on Xarelto and gout who presents for head pain. Recently the patient had a mechanical fall although hazy on the details. Does not think he lost consciousness but not a good historian. No associated chest pain or SOB or palpitations. He has had other falls recently due to mechanical fall. C/o LE weakness. No focal symptoms. No back pain. No urinary symptoms, dysuria, fever or chills or nausea. He has felt well otherwise recently. The patient's most recent fall resulted in head trauma resultin in lump on left forehead. No headaches, blurry vision or double vision. He was seen by his PCP and then referred to Gen Surgery who sent to ER to be evaluated. 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 Surgery recommending admission for possible surgery. Holding xarelto. Allergies: NKDA Meds: reviewed PMHx: See HPI Surg Hx: Hernia repair, Colonoscopy Family history: No cancers Social history: Quit tobacco and alcohol 60 years ago. No drug use LIves alone in apartment. Has family around Allergies: Coded Allergies: No Known Allergies (Verified Allergy, Mild, 06/18/10) COVID-19 Screening Contact w/high risk pt: No Experienced COVID-19 symptoms?: No Medication History Scheduled Allopurinol* (Allopurinol*), 100 MG ORAL DAILY, (Reported) Amiodarone Hcl* (Cordarone*), 200 MG ORAL DAILY, (Reported) Amlodipine Besylate* (Amlodipine Besylate*), 10 MG ORAL DAILY, (Reported) Bethanechol Chl (Bethanechol Chloride), 25 MG ORAL THREE TIMES A DAY, (Reported) Ciprofloxacin* (Cipro*), 500 MG PO BID, (Reported) Dabigatran Etexilate Mesylate* (Pradaxa*), 150 MG ORAL EVERY 12 HOURS, (Reported) Dicyclomine Hcl* (Dicyclomine Hcl*), 20 MG PO PRN, (Reported) Ferrous Sulfate (Ferrous Sulfate), 325 MG ORAL DAILY, (Reported) Levothyroxine Sodium (Synthroid*), 44 MCG ORAL DAILY, (Reported) Metformin HCl (Metformin HCl ER), 1,000 MG PO BID, (Reported) Metoprolol Tartrate* (Metoprolol Tartrate*), 100 MG ORAL Q12HR Omeprazole (Omeprazole), 20 MG ORAL BID, (Reported) Rivaroxaban (Xarelto*), 15 MG ORAL DAILY, (Reported) Simvastatin (Zocor), 20 MG ORAL BEDTIME, (Reported) Patient History Healthcare decision maker Resuscitation status Advanced Directive on File Review of Systems ROS Narrative Review of systems: Constitutional: Denies: chills, diaphoresis, fever, malaise, weakness, HEENT: See HPI Cardiovascular: Denies: chest pain, edema, lightheadedness, palpitations, syncope, Respiratory: Denies: cough, orthopnea, shortness of breath, SOB with excertion, SOB at rest, Gastrointestinal/Abdominal: Denies: abdomen distended, abdominal pain, black stools, tarry stools, blood in stool, constipated, diarrhea, difficulty swallowing, nausea, poor appetite, poor fluid intake, rectal bleeding, vomiting, other Genitourinary: Denies: burning, discharge, frequency, flank pain, hematuria, in continence, pain, urgency, other Neurologic/Psychiatric: Denies: anxiety, depressed, emotional problems, headache, numbness, paresthesia, pre-existing deficit, seizure, tingling, tremors, weakness, other Endocrine: Denies: excessive sweating, flushing, intolerance to cold, intolerance to heat, increased hunger, increased thirst MSK: denies joint pains, swelling, stiffness Hematologic/Lymphatic: Denies: anemia, easy bleeding, easy bruising, Physical Exam Physical Exam Narrative General: WDWN male/female in NAD, A&O x 4 HEENT: Normocephalic cephalic atraumatic, pupils equal round reactive to light and accommodation, nares patent and no symmetrical, no tonsillar exudates, mucous membranes moist + left temporal mass No bleeding CV: Regular rate regular rhythm, no murmurs, rubs, or gallops Pulm: Lungs clear to auscultation bilaterally. No wheezes, rhonchi, or rales GI: Soft, nontender, nondistended, bowel sounds present Neuro: CN 2-12 intact bilaterally, no focal signs. Ext: No lower extremity edema bilaterally + 3+ LE edema Skin: no rashes lesions or ulcers Msk: Joints symmetrical in upper extremity and lower extremity bilaterally, no joint swelling. Lymph: No lymphadenopathy in upper extremity and lower extremity Last 24 Hour Vital Signs Date Time Temp Pulse Resp B/P (MAP) Pulse Ox O2 Delivery O2 Flow Rate FiO2 09/11/20 19:01 97.7 91 16 146/72 (96) 97 09/11/20 16:19 97.9 76 18 126/66 97 Room Air 09/11/20 15:54 97.9 76 18 126/66 97 Room Air 09/11/20 13:27 97.9 75 18 149/71 97 Room Air 09/11/20 11:46 97.9 18 151/77 97 Room Air 09/11/20 11:26 97.9 88 18 151/77 (101) 97 Room Air Laboratory Tests Test 09/11/20 11:54 White Blood Count 4.4 K/UL (4.8-10.8) L Red Blood Count 4.21 M/UL (4.70-6.10) L Hemoglobin 11.7 G/DL (14.2-18.0) L Hematocrit 36.3 % (42.0-52.0) L Mean Corpuscular Volume 86 FL (80-99) Mean Corpuscular Hemoglobin 27.9 PG (27.0-31.0) Mean Corpuscular Hemoglobin Concent 32.3 G/DL (32.0-36.0) Red Cell Distribution Width 15.2 % (11.6-14.8) H Platelet Count 205 K/UL (150-450) Mean Platelet Volume 7.6 FL (6.5-10.1) Neutrophils (%) (Auto) 63.0 % (45.0-75.0) Lymphocytes (%) (Auto) 23.6 % (20.0-45.0) Monocytes (%) (Auto) 9.2 % (1.0-10.0) Eosinophils (%) (Auto) 2.9 % (0.0-3.0) Basophils (%) (Auto) 1.3 % (0.0-2.0) Prothrombin Time 11.6 SEC (9.30-11.50) H Prothromb Time International Ratio 1.1 (0.9-1.1) Activated Partial Thromboplast Time 27 SEC (23-33) Sodium Level 142 MMOL/L (136-145) Potassium Level 5.1 MMOL/L (3.5-5.1) Chloride Level 106 MMOL/L (98-107) Carbon Dioxide Level 26 MMOL/L (21-32) Anion Gap 10 mmol/L (5-15) Blood Urea Nitrogen 21 mg/dL (7-18) H Creatinine 1.6 MG/DL (0.55-1.30) H Estimat Glomerular Filtration Rate 50.2 mL/min (>60) Glucose Level 137 MG/DL (74-106) H Calcium Level 9.3 MG/DL (8.5-10.1) Total Bilirubin 0.3 MG/DL (0.2-1.0) Aspartate Amino Transf (AST/SGOT) 19 U/L (15-37) Alanine Aminotransferase (ALT/SGPT) 18 U/L (12-78) Alkaline Phosphatase 70 U/L (46-116) Total Protein 7.4 G/DL (6.4-8.2) Albumin 4.0 G/DL (3.4-5.0) Globulin 3.4 g/dL Albumin/Globulin Ratio 1.2 (1.0-2.7) Microbiology Date/Time Source Procedure Growth Status 09/11/20 14:00 Nasopharynx SARS-CoV-2 RdRp Gene Assay - Final Complete Height (Feet): 5 Height (Inches): 7.00 Weight (Pounds): 195 Medications Current Medications Medications (Trade) Dose Ordered Sig/Radha Route PRN Reason Start Time Stop Time Status Last Admin Dose Admin Acetaminophen (Tylenol) 650 mg Q4H PRN ORAL Temp >100.5 09/11/20 15:45 10/11/20 15:44 Al Hydroxide/Mg Hydroxide (Mylanta II) 30 ml Q6H PRN ORAL dyspepsia 09/11/20 15:45 10/11/20 15:44 Amiodarone HCl (Cordarone) 200 mg DAILY ORAL 09/11/20 19:00 12/10/20 18:59 Amlodipine Besylate (Norvasc) 10 mg DAILY ORAL 09/11/20 19:00 10/11/20 18:59 Bisacodyl (Dulcolax) 10 mg HSPRN PRN RECTAL Constipation 09/11/20 15:45 12/10/20 15:44 Dextrose (Dextrose 50%) 25 ml Q30M PRN IV Hypoglycemia 09/11/20 18:00 12/10/20 17:59 Dextrose (Dextrose 50%) 50 ml Q30M PRN IV Hypoglycemia 09/11/20 18:00 12/10/20 17:59 Dextrose/Sodium Chloride 1,000 ml @ 50 mls/hr Q20H IV 09/11/20 18:00 10/11/20 17:59 Diphenhydramine HCl (Benadryl) 25 mg Q6H PRN ORAL Itching/Pruritis 09/11/20 15:45 10/11/20 15:44 Docusate Sodium (Colace) 100 mg EVERY 12 HOURS ORAL 09/11/20 21:00 10/11/20 20:59 Famotidine (Pepcid) 40 mg DAILY ORAL 09/12/20 09:00 12/11/20 08:59 Insulin Aspart (NovoLOG) BEFORE MEALS AND HS SUBQ 09/11/20 21:00 12/10/20 20:59 Iohexol (Omnipaque 350 100ml) 100 ml NOW PRN INJ Radiology Procedure 09/11/20 11:45 09/13/20 11:44 Levothyroxine Sodium (Synthroid) 44 mcg DAILY@0630 ORAL 09/12/20 06:30 10/12/20 06:29 Lorazepam (Ativan) 1 mg Q4H PRN ORAL For Anxiety 09/11/20 15:45 09/18/20 15:44 Magnesium Hydroxide (Mom) 30 ml HSPRN PRN ORAL Constipation 09/11/20 15:45 10/11/20 15:44 Morphine Sulfate (Morphine Sulfate) 2 mg Q4H PRN IVP pain 4-10 09/11/20 15:45 09/18/20 15:44 Nitroglycerin (Ntg) 0.4 mg Q5M X 3 DOSES PRN SL Prn Chest Pain 09/11/20 15:45 10/11/20 15:44 Ondansetron HCl (Zofran) 4 mg Q6H PRN IVP Nausea & Vomiting 09/11/20 15:45 10/11/20 15:44 Sodium Chloride 550 ml @ 0 mls/hr Q0M IV 09/11/20 13:00 10/11/20 12:59 Temazepam (Restoril) 15 mg HSPRN PRN ORAL Insomnia 09/11/20 15:45 09/18/20 15:44 Assessment/Plan Assessment/Plan: #Left temporal artery pseudoanerysm #head trauma #Mechanical Fall #Rule out syncope/near syncope #LE weakness, suspect due to deconditioning - Admit to telemetry - EKG - Orthostatics - Gentle IV fluids - Appreciate Cardiology Consult: Dr. Elaine (patient's Payroll Human Resources Assistant) - Troponin - Appreciate Neurology consult: Dr. Brown - Appreciate gen surgery consult: Dr. Tse - Possible ligation in next days per surgery - check CK #Pre-op risk stratification - METS >4. Patient able to walk up flight of stairs without chest pain or SOB. No difficulty with anesthesia in the past. - CXR - EKG - Coags #Atrial fibrillation on Xarelto - Continue amiodarone - Continue Metoprolol - Holding Xarelto as above - Appreciate Cards consult - check CK #HTN - continue metop - COntinue amlodipine #ERIK, suspect pre-renal etiology #h/o BPH s/p TURP - IV fluids - urine lytes - renal ultrasound - outside urologist is Dr. Dunlap #Chronic LE edema, non painful - Venous duplex LE bilaterally - CTM - diuretics per cardiology #Diabetes Mellitus Type 2 - holding home metformin - SSI - Accuchecks - hypoglycemia protocol 72 minutes spent on this encounter, and 40 minutes spent on counseling and care coordination. Discussed with Surgery, Cardiology, Neurology. Time of note may not reflect time patient was seen. Harpreet Waters D.O. Sep 11, 2020 19:38
[2020-09-11 20:00] VITALS: BP 135/78
--- NOTE | 2020-09-11 20:15 | NUR ---
NURSE NOTES: Received pt via hospital bed from 4E with 2 RNs; report given by Wei RN and Jairo RN; pt AOX4; able to verbalize needs; ambulatory with supervision; pt in stable condition. call light within reach; bed locked and in low position; side rails x 2; will continue to monitor.
--- NOTE | 2020-09-11 20:23 | NUR ---
NURSE HAND-OFF: Important Events on Shift: Diamond Piper RN Patient Status: Stable Diet: Renal Pending Orders: Admission Orders Pending Results/Labs:am labs. Pending MD notification:EKG results when given. Latest Vital Signs: Temperature 97.7 , Pulse 91 , B/P 146 /72 , Respiratory Rate 16 , O2 SAT 97 , Room Air, O2 Flow Rate . Vital Sign Comment: Stable Latest Yang Fall Score: 85 Fall Risk: High Risk Safety Measures: Call light Within Reach, Bed Alarm Zone 2, Side Rails Side Rails x2, Bed position Low and Locked. Fall Precautions: Report given to Diamond Piper RN.
[2020-09-11 20:27] LABS: CREATINE KINASE 73 U/L (26-308)
--- NOTE | 2020-09-11 20:52 | NUR ---
NURSE NOTES: HARSH Gill handed me paper report about this patient. Transferred patient to tele unit with charge nurse help. Belongings with the patient. Report given to Erika.
[2020-09-11] MEDS: NovoLOG Insulin Flexpen SUBQ SCH (21:00)
--- NOTE | 2020-09-11 22:59 | Neurology Progress Note ---
Interim History Interim History Interim History 84 year old male with a PMHx DM, HTN, atrial fibrillation on Xarelto and gout who presents for head pain. Recently the patient had a mechanical fall although hazy on the details. Does not think he lost consciousness but not a good historian. No associated chest pain or SOB or palpitations. He has had other falls recently due to mechanical fall. C/o LE weakness. No focal symptoms. No back pain. No urinary symptoms, dysuria, fever or chills or nausea. He has felt well otherwise recently. The patient's most recent fall resulted in head trauma resultin in lump on left forehead. No headaches, blurry vision or double vision. He was seen by his PCP and then referred to Gen Surgery who sent to ER to be evaluated. 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 Surgery recommending admission for possible surgery. Holding xarelto. Allergies: NKDA Objective Physical Exam Last Vital Signs Date Time Temp Pulse Resp B/P (MAP) Pulse Ox O2 Delivery O2 Flow Rate FiO2 09/11/20 19:34 Room Air 09/11/20 19:01 97.7 91 16 146/72 (96) 97 Laboratory Tests Test 09/11/20 11:54 09/11/20 19:25 White Blood Count 4.4 K/UL (4.8-10.8) L Red Blood Count 4.21 M/UL (4.70-6.10) L Hemoglobin 11.7 G/DL (14.2-18.0) L Hematocrit 36.3 % (42.0-52.0) L Mean Corpuscular Volume 86 FL (80-99) Mean Corpuscular Hemoglobin 27.9 PG (27.0-31.0) Mean Corpuscular Hemoglobin Concent 32.3 G/DL (32.0-36.0) Red Cell Distribution Width 15.2 % (11.6-14.8) H Platelet Count 205 K/UL (150-450) Mean Platelet Volume 7.6 FL (6.5-10.1) Neutrophils (%) (Auto) 63.0 % (45.0-75.0) Lymphocytes (%) (Auto) 23.6 % (20.0-45.0) Monocytes (%) (Auto) 9.2 % (1.0-10.0) Eosinophils (%) (Auto) 2.9 % (0.0-3.0) Basophils (%) (Auto) 1.3 % (0.0-2.0) Prothrombin Time 11.6 SEC (9.30-11.50) H Prothromb Time International Ratio 1.1 (0.9-1.1) Activated Partial Thromboplast Time 27 SEC (23-33) Sodium Level 142 MMOL/L (136-145) Potassium Level 5.1 MMOL/L (3.5-5.1) Chloride Level 106 MMOL/L (98-107) Carbon Dioxide Level 26 MMOL/L (21-32) Anion Gap 10 mmol/L (5-15) Blood Urea Nitrogen 21 mg/dL (7-18) H Creatinine 1.6 MG/DL (0.55-1.30) H Estimat Glomerular Filtration Rate 50.2 mL/min (>60) Glucose Level 137 MG/DL (74-106) H Calcium Level 9.3 MG/DL (8.5-10.1) Total Bilirubin 0.3 MG/DL (0.2-1.0) Aspartate Amino Transf (AST/SGOT) 19 U/L (15-37) Alanine Aminotransferase (ALT/SGPT) 18 U/L (12-78) Alkaline Phosphatase 70 U/L (46-116) Total Protein 7.4 G/DL (6.4-8.2) Albumin 4.0 G/DL (3.4-5.0) Globulin 3.4 g/dL Albumin/Globulin Ratio 1.2 (1.0-2.7) Total Creatine Kinase 73 U/L (26-308) Troponin I 0.016 ng/mL (0.000-0.056) Head: normocophalic Neck: no rigidity EENT: benign Neurologic Exam Mental Status: awake, alert Cranial Nerve II: fundus normal Cranial Nerves III, IV, : PERRLA Cranial Nerve V: normal facial sensations Cranial Nerve VII: no facial asymmetry Cranial Nerve VIII: normal hearing Cranial Nerve IX: normal palate elevation Cranial Nerve X: no voice hoarseness Cranial Nerve XI: SCM symmetric Cranial Nerve XII: tongue midline Motor System: normal muscle tone Objective non focal exam ataxic Impression/Recommendations Problems: (1) Hematoma (2) Arrhythmia (3) Diabetes (4) Hyperlipidemia (5) Abdominal pain (6) Hypertension (7) Pseudoaneurysm Diagnostic Impression sp fall , seems mechanical more than syncope left forehead expansile mass, pseudoaneurysm cta noted tele mri brain agree with OR Marbin Brown MD Sep 11, 2020 22:58
[2020-09-11] MEDS: Docusate 100mg cap ORAL SCH (23:11)
[2020-09-11] MEDS: Amiodarone 200mg tab ORAL SCH (23:12)
[2020-09-12] VITALS: BP 130/74
--- NOTE | 2020-09-12 00:25 | NUR ---
NURSE NOTES: Left message to Dr. Ruano for DVT prophylaxis order; pt ambulatory; awaiting response
[2020-09-12 04:00] VITALS: BP 128/57
[2020-09-12] MEDS: NovoLOG Insulin Flexpen SUBQ SCH ×4 (06:08→21:00)
--- NOTE | 2020-09-12 07:15 | NUR ---
NURSE HAND-OFF REPORT: Important Events on Shift: Transferred from 4E to 2E room 203-2; EKG done at bedside; urine specimen collected, cxr AND mri BRAIN WITHOUT CONTRAST for today Patient Status: AOX4; stable Diet: CCHO, low Pending Orders: DVT px Pending Results/Labs: morning labs Pending notification: Dr. Ruano Latest Vital Signs: Temperature 98.2 , Pulse 69 , B/P 128 /57 , Respiratory Rate 18 , O2 SAT 97 , Room Air, O2 Flow Rate . Vital Sign Comment: stable EKG Rhythm: SR WITH BBB Rhythm change?: N Notified?: - N Response: Latest Yang Fall Score: 85 Fall Risk: High Risk Safety Measures: Call light Within Reach, Bed Alarm Zone 1, Side Rails Side Rails x2, Bed position Low and Locked. Fall Precautions: Yellow Gown Patient Fall Education Report given to HARSH Gan.
--- NOTE | 2020-09-12 07:35 | NUR ---
NURSE NOTES: Received patient in bed. Awake, A/O x4. On room air, respirations unlabored. Iv in the Right Ac, site intact. Left temporal skin raised. Patient denies pain. Bed at the lowest position, bed alarm on high sensitivity, side rails up x2, yellow gown on, yellow socks on, call light within reach with return demonstration. Patient placed in a room close to the nurse's station for safety. CN and OFFSET PRESS OPERATOR made aware.
[2020-09-12 08:00] VITALS: BP 139/68
--- NOTE | 2020-09-12 08:15 | NUR ---
CASE MANAGEMENT:REVIEW WALKED INTO ER CC: S/P FALL AND HEAD INJURY [address] MACDONALD REFERRED PATIENT TO ER SI:HEMATOMA. PSEUDOANEURYSM 97.9 88 18 151/77 97% ON RA PT+11.6 INR=1.1 APTT=27 BUN+21 CR+1.6 IS: 500CC NS BOLUS CTA HEAD : TO TELEMETRY PLAN: LIGATION AND REMOVAL OF PSEUDOANEURYSM WHEN STABLE HOLD ANTICOAGULATION MONITOR FOR BLEEDING OR EXPANSION
[2020-09-12 08:34] LABS: PHOSPHORUS 3.3 MG/DL (2.5-4.9)
[2020-09-12 08:46] LABS: BASOPHILS % (AUTO) 0.8 % (0.0-2.0); EOSINOPHILS % (AUTO) 3.2 % (0.0-3.0); HEMATOCRIT 32.5 % (42.0-52.0); HEMOGLOBIN 10.5 G/DL (14.2-18.0); LYMPHOCYTES % (AUTO) 25.4 % (20.0-45.0); MEAN CORPUSCULAR VOLUME 86 FL (80-99); MONOCYTES % (AUTO) 11.6 % (1.0-10.0); PLATELET COUNT 172 K/UL (150-450); RED BLOOD COUNT 3.78 M/UL (4.70-6.10); RED CELL DISTRIBUTION WIDTH 14.7 % (11.6-14.8); WHITE BLOOD COUNT 3.6 K/UL (4.8-10.8)
[2020-09-12 09:02] LABS: ALANINE AMINOTRANSFERASE 18 U/L (12-78); ALBUMIN 3.4 G/DL (3.4-5.0); ALBUMIN/GLOBULIN RATIO 1.2 (1.0-2.7); ALKALINE PHOSPHATASE 57 U/L (46-116); ANION GAP 8 mmol/L (5-15); ASPARTATE AMINO TRANSFERASE 14 U/L (15-37); BILIRUBIN,TOTAL 0.3 MG/DL (0.2-1.0); BLOOD UREA NITROGEN 16 mg/dL (7-18); CALCIUM 8.7 MG/DL (8.5-10.1); CARBON DIOXIDE 27 MMOL/L (21-32); CHLORIDE 107 MMOL/L (98-107); CHOLESTEROL 135 MG/DL (< 200); CREATININE 1.3 MG/DL (0.55-1.30); HDL CHOLESTEROL 57 MG/DL (40-60); SODIUM 142 MMOL/L (136-145); TRIGLYCERIDES 46 MG/DL (30-150)
[2020-09-12] MEDS: Docusate 100mg cap ORAL SCH ×2 (09:23→21:00)
[2020-09-12] MEDS: Amiodarone 200mg tab ORAL SCH (09:24)
--- NOTE | 2020-09-12 09:54 | Diagnostic Imaging Report ---
Indication: Bilateral lower extremity edema Technique: Grayscale and duplex images of the bilateral lower extremity veins Comparison: Findings: Bilaterally, grayscale and duplex images demonstrate no evidence of intraluminal thrombus. Normal phasic Doppler waveforms, demonstrating normal augmentation response and no evidence of valvular insufficiency. Greater saphenous vein(s) and tibial veins are patent. Normal compressibility. Impression: Negative for evidence of lower extremity deep venous thrombosis bilaterally
--- NOTE | 2020-09-12 09:58 | Diagnostic Imaging Report ---
Indication: Acute renal failure, abnormal renal function tests Technique: Grayscale and duplex images of the kidneys, retroperitoneum, and bladder were obtained. Comparison: none Findings: Right kidney measures 10.5 cm in length. Left kidney measures 11.5 cm in length. Both kidneys demonstrate slightly increased echogenicity. Mild left hydronephrosis. However, bilateral urinary jets are demonstrated. The right kidney demonstrates a tiny cyst. With kidneys demonstrates small echogenic renal sinus foci which could represent small calyceal calculi. Normal inferior vena cava. Bladder is distended. Calculated volume is at 496 mL. Impression: Mild left hydronephrosis. Etiology/significance uncertain; note that a left ureteral jet was visualized, indicating at least partial patency of the left ureter. Mildly echogenic kidneys bilaterally, likely indicating medical renal disease Possible nonobstructive bilateral intrarenal calyceal calculi Incidental finding tiny left renal cyst.
--- NOTE | 2020-09-12 10:15 | Diagnostic Imaging Report ---
Indication: Trauma, left superficial temporal artery pseudoaneurysm seen on prior imaging studies Technique: sagittal T1 fast spin echo, axial T1 FLAIR, axial T2 FLAIR, axial T2 FS PROPELLER, axial T2* GRE, axial diffusion weighted images. ADC and exponential ADC maps generated. Axial 3-D [id number] ASSET angiographic images were also obtained and MIP reconstructions generated Comparison: No comparison MRI. Reference made to recent CT scan dated 09/11/2020 Findings: In the left superficial frontal scalp, there is an area of signal abnormality corresponding to the pseudoaneurysm described on recent CT scan. This does not demonstrates grade flow related enhancement on the angiographic images. There is absence of signal void on all of the conventional sequences. The lesion is heterogeneous, with a hyperintense periphery and central intermediate signal on the T2 and T2 FLAIR images, mostly intermediate with some low signal on the T1-weighted images, heterogeneous signal on the GRE images with central mixed high and intermediate signal, peripheral low signal, and nearly absent signal on the diffusion-weighted images. No abnormal areas of restricted diffusion to suggest acute infarction. There is a punctate focus of susceptibility artifact in the right posterior cranial radiata on the GRE images.. No acute hemorrhage or edema. No mass effect nor midline shift. There is mild age-related enlargement of the ventricles and extra axial CSF spaces. There is minimal confluent and punctate periventricular deep white matter high T2 signal. Visualized orbits and sinuses are unremarkable. The mastoids are clear. Impression: Left frontal scalp lesion, demonstrated to be a pseudoaneurysm on recent CT angiogram, is noted. On the current exam, there is signal within the lesion on the conventional sequences and absence of flow related enhancement on angiographic images. This may indicate interim thrombosis, or could just be an artifact of sluggish/to and fro flow Negative for acute intracranial bleed or mass effect Chronic and age-related changes as described
--- NOTE | 2020-09-12 10:21 | Diagnostic Imaging Report ---
Indication: Cough Technique: One view of the chest Comparison: none Findings: Lungs and pleural spaces are clear. Heart size is normal. Impression: No acute process
[2020-09-12 11:59] VITALS: BP 125/67
--- NOTE | 2020-09-12 13:19 | Nephrology Progress Note ---
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 #DM #BPH - continue IVF - plan for ligation of the pseudoaneurysm and removal - monitor UOP - defer renal US for now - neurology eval - continue flomax 0.4mg daily - continue amlodipine 10mg daily - on amiodarone - holding xarelto - monitor renal function - avoid nephrotoxins time spent 65 min Subjective ROS Limited/Unobtainable: No Constitutional: Reports: weakness HEENT: Denies: no symptoms, eye pain, blurred vision, tearing, double vision, ear pain, ear discharge, nose pain, nose congestion, throat pain, throat swelling, mouth pain, mouth swelling, other Genitourinary: Denies: no symptoms, burning, discharge, frequency, flank pain, hematuria, incontinence, pain, urgency, other Neurologic/Psychiatric: Denies: no symptoms, anxiety, depressed, emotional pr oblems, headache, numbness, paresthesia, pre-existing deficit, seizure, tingling, tremors, weakness, other Subjective cr down to 1.3 DC IVF Objective Objective Last 24 Hour Vital Signs Date Time Temp Pulse Resp B/P (MAP) Pulse Ox O2 Delivery O2 Flow Rate FiO2 09/12/20 11:59 97.5 86 20 125/67 (86) 98 09/12/20 09:25 102 139/68 09/12/20 09:00 Room Air 09/12/20 08:00 98.6 102 20 139/68 (91) 97 09/12/20 08:00 79 09/12/20 04:00 71 77 91 09/12/20 04:00 69 09/12/20 04:00 98.2 71 18 128/57 (80) 97 09/12/20 00:00 97.7 68 18 130/74 (92) 97 09/12/20 00:00 68 09/11/20 23:11 78 138/73 09/11/20 21:07 82 09/11/20 21:00 Room Air 09/11/20 20:00 97.8 78 18 135/78 (97) 97 09/11/20 19:34 Room Air 09/11/20 19:01 97.7 91 16 146/72 (96) 97 09/11/20 16:19 97.9 76 18 126/66 97 Room Air 09/11/20 15:54 97.9 76 18 126/66 97 Room Air 09/11/20 13:27 97.9 75 18 149/71 97 Room Air Intake and Output 09/11/20 09/12/20 19:00 07:00 Intake Total 480 ml 400 ml Output Total 950 ml Balance 480 ml -550 ml Intake Oral 480 ml 400 ml Output Urine Total 950 ml # Voids 2 # Bowel Movements 1 Laboratory Tests 09/11/20 19:25: Total Creatine Kinase 73, Troponin I 0.016 09/11/20 23:06: POC Whole Blood Glucose 128H 09/11/20 23:30: Urine Random Sodium 115H, Urine Creatinine 34.6 09/12/20 06:20: White Blood Count 3.6L, Red Blood Count 3.78L, Hemoglobin 10.5L, Hematocrit 32.5L, Mean Corpuscular Volume 86, Mean Corpuscular Hemoglobin 27.8, Mean Corpuscular Hemoglobin Concent 32.3, Red Cell Distribution Width 14.7, Platelet Count 172, Mean Platelet Volume 7.8, Neutrophils (%) (Auto) 59.0, Lymphocytes (%) (Auto) 25.4, Monocytes (%) (Auto) 11.6H, Eosinophils (%) (Auto) 3.2H, Basophils (%) (Auto) 0.8, Prothrombin Time 11.4, Prothromb Time International Ratio 1.0, Activated Partial Thromboplast Time 24, Sodium Level 142, Potassium Level 4.0, Chloride Level 107, Carbon Dioxide Level 27, Anion Gap 8, Blood Urea Nitrogen 16, Creatinine 1.3, Estimat Glomerular Filtration Rate > 60, Glucose Level 105, Hemoglobin A1c 6.3H, Calcium Level 8.7, Phosphorus Level 3.3, Magnesium Level 1.5L, Total Bilirubin 0.3, Aspartate Amino Transf (AST/SGOT) 14L , Alanine Aminotransferase (ALT/SGPT) 18, Alkaline Phosphatase 57, Pro-B-Type Natriuretic Peptide [Pending], Total Protein 6.3L, Albumin 3.4, Globulin 2.9, Albumin/Globulin Ratio 1.2, Triglycerides Level 46, Cholesterol Level 135, LDL Cholesterol 58, HDL Cholesterol 57, Cholesterol/HDL Ratio 2.4L, Prostate Specific Antigen 0.21, Thyroid Stimulating Hormone (TSH) 22.186H, Free Thyroxine 1.00 09/12/20 11:28: POC Whole Blood Glucose 170H Height (Feet): 5 Height (Inches): 7.00 Weight (Pounds): 195 Judah Richmond M.D. Sep 12, 2020 13:19
--- NOTE | 2020-09-12 13:58 | NUR ---
P.T Note: P.T evaluation completed and tx initiated. Please refer to P.T evaluation for current functional status. Pt is alert, O x 4 , pleasant and cooperative. Pt denied c/o pain but reports feeling generally weak. Pt stated he resided alone on a 2nd floor apt.w/o elevator access. Pt stated he was independent in all areas of functional mobilities , was ambulating using the straight cane and still driving his car despite reports of multiple fall incidents at home at least 4x in a month. Upon assessment:ROM of BUE are WFL pain free, Strength on BUE/BLE are grossly graded 4-/5. Pt is independent in bed mobilities however needed CGA x 1 on transfers and gait/ambulation activities using the cane due to pt being impulsive resulting to multiple onsets of loss of balance episodes during ambulation activities. Overall fair activity tolerance. Pt will be seen for skilled P.T services to address strength, balance and safety for return to PLOF. Recommend SNF VS home P.T for further rehab intervention depending on progress.
[2020-09-12] MEDS: Heparin 5000 units/ml inj SUBQ SCH ×2 (14:04→22:00)
--- NOTE | 2020-09-12 14:34 | Surgery Progress Note ---
Surgery Progress Note Subjective Additional Comments doing well pending cardiology eval for clearance neuro and nephro noted no n/v feels okay Objective Last 24 Hour Vital Signs Date Time Temp Pulse Resp B/P (MAP) Pulse Ox O2 Delivery O2 Flow Rate FiO2 09/12/20 12:00 100 09/12/20 11:59 97.5 86 20 125/67 (86) 98 09/12/20 09:25 102 139/68 09/12/20 09:00 Room Air 09/12/20 08:00 98.6 102 20 139/68 (91) 97 09/12/20 08:00 79 09/12/20 04:00 71 77 91 09/12/20 04:00 69 09/12/20 04:00 98.2 71 18 128/57 (80) 97 09/12/20 00:00 97.7 68 18 130/74 (92) 97 09/12/20 00:00 68 09/11/20 23:11 78 138/73 09/11/20 21:07 82 09/11/20 21:00 Room Air 09/11/20 20:00 97.8 78 18 135/78 (97) 97 09/11/20 19:34 Room Air 09/11/20 19:01 97.7 91 16 146/72 (96) 97 09/11/20 16:19 97.9 76 18 126/66 97 Room Air 09/11/20 15:54 97.9 76 18 126/66 97 Room Air I&O Intake and Output 09/11/20 09/12/20 19:00 07:00 Intake Total 480 ml 400 ml Output Total 950 ml Balance 480 ml -550 ml Intake Oral 480 ml 400 ml Output Urine Total 950 ml # Voids 2 # Bowel Movements 1 Cardiovascular: RSR Respiratory: clear Abdomen: soft, non-tender, present bowel sounds Extremities: no edema, no tenderness, no cyanosis Laboratory Tests Test 09/11/20 19:25 09/11/20 23:06 09/11/20 23:30 09/12/20 06:20 Total Creatine Kinase 73 U/L (26-308) Troponin I 0.016 ng/mL (0.000-0.056) POC Whole Blood Glucose 128 MG/DL (74-106) H Urine Random Sodium 115 mmol/L (20-110) H Urine Creatinine 34.6 MG/DL (30.0-125.0) White Blood Count 3.6 K/UL (4.8-10.8) L Red Blood Count 3.78 M/UL (4.70-6.10) L Hemoglobin 10.5 G/DL (14.2-18.0) L Hematocrit 32.5 % (42.0-52.0) L Mean Corpuscular Volume 86 FL (80-99) Mean Corpuscular Hemoglobin 27.8 PG (27.0-31.0) Mean Corpuscular Hemoglobin Concent 32.3 G/DL (32.0-36.0) Red Cell Distribution Width 14.7 % (11.6-14.8) Platelet Count 172 K/UL (150-450) Mean Platelet Volume 7.8 FL (6.5-10.1) Neutrophils (%) (Auto) 59.0 % (45.0-75.0) Lymphocytes (%) (Auto) 25.4 % (20.0-45.0) Monocytes (%) (Auto) 11.6 % (1.0-10.0) H Eosinophils (%) (Auto) 3.2 % (0.0-3.0) H Basophils (%) (Auto) 0.8 % (0.0-2.0) Prothrombin Time 11.4 SEC (9.30-11.50) Prothromb Time International Ratio 1.0 (0.9-1.1) Activated Partial Thromboplast Time 24 SEC (23-33) Sodium Level 142 MMOL/L (136-145) Potassium Level 4.0 MMOL/L (3.5-5.1) Chloride Level 107 MMOL/L (98-107) Carbon Dioxide Level 27 MMOL/L (21-32) Anion Gap 8 mmol/L (5-15) Blood Urea Nitrogen 16 mg/dL (7-18) Creatinine 1.3 MG/DL (0.55-1.30) Estimat Glomerular Filtration Rate > 60 mL/min (>60) Glucose Level 105 MG/DL (74-106) Hemoglobin A1c 6.3 % (4.3-6.0) H Calcium Level 8.7 MG/DL (8.5-10.1) Phosphorus Level 3.3 MG/DL (2.5-4.9) Magnesium Level 1.5 MG/DL (1.8-2.4) L Total Bilirubin 0.3 MG/DL (0.2-1.0) Aspartate Amino Transf (AST/SGOT) 14 U/L (15-37) L Alanine Aminotransferase (ALT/SGPT) 18 U/L (12-78) Alkaline Phosphatase 57 U/L (46-116) Pro-B-Type Natriuretic Peptide Pending Total Protein 6.3 G/DL (6.4-8.2) L Albumin 3.4 G/DL (3.4-5.0) Globulin 2.9 g/dL Albumin/Globulin Ratio 1.2 (1.0-2.7) Triglycerides Level 46 MG/DL (30-150) Cholesterol Level 135 MG/DL (< 200) LDL Cholesterol 58 mg/dL (<100) HDL Cholesterol 57 MG/DL (40-60) Cholesterol/HDL Ratio 2.4 (3.3-4.4) L Prostate Specific Antigen 0.21 ng/mL (0.13-4.0) Thyroid Stimulating Hormone (TSH) 22.186 uiU/mL (0.358-3.740) Free Thyroxine 1.00 NG/DL (0.76-1.46) Test 09/12/20 11:28 POC Whole Blood Glucose 170 MG/DL (74-106) H Plan Problems: (1) Hematoma (2) Pseudoaneurysm Assessment & Plan: This is a 84-year-old male 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 Patient identified abnormal labs. I had a long session with the patient and his family. He has been falling recently had multiple falls but does not recall all of them. Patient furthermore has multiple medications though may not have full compliance or understanding. Patient with a pulsatile potentially expanding mass in his left forehead aneurys m CT noted discussed with radiology. Given the above I do not feel safe for patient to go home and electively participate in ligation. He is at high risk for another fall potential injury potential aneurysm expansion or even worse potential rupture with potential catastrophic event and considerations given this discussion with the family and patient's interest given his medical history and abnormal labs and work-up necessary it is in his interest to be admitted worked up and taken to the operating room when stable and off anticoagulation for ligation of the pseudoaneurysm and removal. Admit to medical service Consultants as below Okay for diet for now Hold anticoagulation Monitor for bleeding or expansion We will take the operating room in stable Preop work-up thank you for let me participation's care Covid test pending cardiology and clearance by consultants (3) Arrhythmia (4) Diabetes (5) Hyperlipidemia (6) Abdominal pain (7) Hypertension Vernon Tse Sep 12, 2020 14:34
--- NOTE | 2020-09-12 15:31 | Cardiac Electrophysiology PN ---
Subjective Subjective [id number] Objective Last 24 Hour Vital Signs Date Time Temp Pulse Resp B/P (MAP) Pulse Ox O2 Delivery O2 Flow Rate FiO2 09/12/20 14:49 70 78 88 09/12/20 12:00 100 09/12/20 11:59 97.5 86 20 125/67 (86) 98 09/12/20 09:25 102 139/68 09/12/20 09:00 Room Air 09/12/20 08:00 98.6 102 20 139/68 (91) 97 09/12/20 08:00 79 09/12/20 04:00 71 77 91 09/12/20 04:00 69 09/12/20 04:00 98.2 71 18 128/57 (80) 97 09/12/20 00:00 97.7 68 18 130/74 (92) 97 09/12/20 00:00 68 09/11/20 23:11 78 138/73 09/11/20 21:07 82 09/11/20 21:00 Room Air 09/11/20 20:00 97.8 78 18 135/78 (97) 97 09/11/20 19:34 Room Air 09/11/20 19:01 97.7 91 16 146/72 (96) 97 09/11/20 16:19 97.9 76 18 126/66 97 Room Air 09/11/20 15:54 97.9 76 18 126/66 97 Room Air Intake and Output 09/11/20 09/12/20 19:00 07:00 Intake Total 480 ml 400 ml Output Total 950 ml Balance 480 ml -550 ml Intake Oral 480 ml 400 ml Output Urine Total 950 ml # Voids 2 # Bowel Movements 1 Laboratory Tests Test 09/11/20 19:25 09/11/20 23:06 09/11/20 23:30 09/12/20 06:20 Total Creatine Kinase 73 U/L (26-308) Troponin I 0.016 ng/mL (0.000-0.056) POC Whole Blood Glucose 128 MG/DL (74-106) H Urine Random Sodium 115 mmol/L (20-110) H Urine Creatinine 34.6 MG/DL (30.0-125.0) White Blood Count 3.6 K/UL (4.8-10.8) L Red Blood Count 3.78 M/UL (4.70-6.10) L Hemoglobin 10.5 G/DL (14.2-18.0) L Hematocrit 32.5 % (42.0-52.0) L Mean Corpuscular Volume 86 FL (80-99) Mean Corpuscular Hemoglobin 27.8 PG (27.0-31.0) Mean Corpuscular Hemoglobin Concent 32.3 G/DL (32.0-36.0) Red Cell Distribution Width 14.7 % (11.6-14.8) Platelet Count 172 K/UL (150-450) Mean Platelet Volume 7.8 FL (6.5-10.1) Neutrophils (%) (Auto) 59.0 % (45.0-75.0) Lymphocytes (%) (Auto) 25.4 % (20.0-45.0) Monocytes (%) (Auto) 11.6 % (1.0-10.0) H Eosinophils (%) (Auto) 3.2 % (0.0-3.0) H Basophils (%) (Auto) 0.8 % (0.0-2.0) Prothrombin Time 11.4 SEC (9.30-11.50) Prothromb Time International Ratio 1.0 (0.9-1.1) Activated Partial Thromboplast Time 24 SEC (23-33) Sodium Level 142 MMOL/L (136-145) Potassium Level 4.0 MMOL/L (3.5-5.1) Chloride Level 107 MMOL/L (98-107) Carbon Dioxide Level 27 MMOL/L (21-32) Anion Gap 8 mmol/L (5-15) Blood Urea Nitrogen 16 mg/dL (7-18) Creatinine 1.3 MG/DL (0.55-1.30) Estimat Glomerular Filtration Rate > 60 mL/min (>60) Glucose Level 105 MG/DL (74-106) Hemoglobin A1c 6.3 % (4.3-6.0) H Calcium Level 8.7 MG/DL (8.5-10.1) Phosphorus Level 3.3 MG/DL (2.5-4.9) Magnesium Level 1.5 MG/DL (1.8-2.4) L Total Bilirubin 0.3 MG/DL (0.2-1.0) Aspartate Amino Transf (AST/SGOT) 14 U/L (15-37) L Alanine Aminotransferase (ALT/SGPT) 18 U/L (12-78) Alkaline Phosphatase 57 U/L (46-116) Pro-B-Type Natriuretic Peptide Pending Total Protein 6.3 G/DL (6.4-8.2) L Albumin 3.4 G/DL (3.4-5.0) Globulin 2.9 g/dL Albumin/Globulin Ratio 1.2 (1.0-2.7) Triglycerides Level 46 MG/DL (30-150) Cholesterol Level 135 MG/DL (< 200) LDL Cholesterol 58 mg/dL (<100) HDL Cholesterol 57 MG/DL (40-60) Cholesterol/HDL Ratio 2.4 (3.3-4.4) L Prostate Specific Antigen 0.21 ng/mL (0.13-4.0) Thyroid Stimulating Hormone (TSH) 22.186 uiU/mL (0.358-3.740) Free Thyroxine 1.00 NG/DL (0.76-1.46) Test 09/12/20 11:28 POC Whole Blood Glucose 170 MG/DL (74-106) H Microbiology Date/Time Source Procedure Growth Status 09/11/20 14:00 Nasopharynx SARS-CoV-2 RdRp Gene Assay - Final Complete Joseph Montes De Oca MD Sep 12, 2020 15:31
[2020-09-12 16:00] VITALS: BP 122/59
--- NOTE | 2020-09-12 16:30 | Consultation ---
DATE OF CONSULTATION: 09/12/2020 CARDIOLOGY CONSULTATION REFERRING PHYSICIAN: Bentley Ruano M.D. REASON FOR CONSULTATION: Management of hypertension, atrial fibrillation. HISTORY OF PRESENT ILLNESS: The patient is an 84-year-old gentleman with history of hypertension, diabetes, and paroxysmal atrial fibrillation, on Xarelto, as well as history of gout, who presented with headache after he had a mechanical fall and he felt dizzy. The patient is not sure if he lost consciousness. The patient denies any chest pain, shortness of breath, or palpitation. The patient was seen by his primary care physician as the patient had developed a lump on his forehead. His primary care physician was referred for general surgery and was found to have a left temporal aneurysm. REVIEW OF SYSTEMS: Negative other than what was mentioned in history of present illness. PAST MEDICAL HISTORY: As mentioned above. MEDICATIONS: At home include amiodarone 200 mg daily, amlodipine 10 mg daily, Pradaxa 150 mg b.i.d., metoprolol 100 mg b.i.d., and Xarelto 50 mg daily. FAMILY HISTORY: Noncontributory. SOCIAL HISTORY: Does not smoke or drink alcohol. PHYSICAL EXAMINATION: VITAL SIGNS: Blood pressure of 124/67, pulse is 80, respirations 18, temperature 97.5. HEAD AND NECK: No JVD. LUNGS: Coarse rhonchi. CARDIOVASCULAR: Regular S1. No gallop or murmur. ABDOMEN: Soft, nontender. EXTREMITIES: No pitting edema. He has a bump in his forehead. LABORATORY AND DIAGNOSTIC DATA: White count of 3.6, hemoglobin 10.4, hematocrit 32.5, and platelet count of 172. Sodium is 142, potassium 4.0, BUN of 16 . is 22. Troponin is negative. His EKG showed sinus rhythm, right bundle-branch block, and left anterior fascicular block. His lower extremity has bilateral 2+ edema. ASSESSMENT AND PLAN: 1. Paroxysmal atrial fibrillation. Anticoagulation is held in preparation for his surgery. He denies any chest pain or shortness of breath. Currently sinus rhythm. 2. 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 I am not sure if the patient really passed out as the patient has bifascicular block and at risk of intermittent complete heart block. 3. Paroxysmal atrial fibrillation. Amiodarone 200 mg daily will be continued. Anticoagulation is on hold. 4. Hypothyroidism, on Synthroid. 5. Hypertension, on amlodipine 10 mg daily. 6. Left frontal scalp pseudoaneurysm. Further evaluation by Surgery. His echocardiogram is pending. Thank you very much for allowing me to participate in the care of this patient. Please do not hesitate to contact me for any questions regarding my evaluation. Joseph Montes De Oca M.D. DR: JACLYN JOB#: [id number] CC:
--- NOTE | 2020-09-12 17:45 | General Progress Note ---
Subjective Allergies: Coded Allergies: No Known Allergies (Verified Allergy, Mild, 06/18/10) Subjective No acute events overnight per nursing. Patient feels like left temporal mass has slightly increased .Pain is stable . no bleeding. no chest pain or SOB. Review of systems: Constitutional: Denies: chills, diaphoresis, fever, malaise, weakness, HEENT: Denies: eye pain, blurred vision, tearing, Cardiovascular: Denies: chest pain, lightheadedness, palpitations, syncope, Respiratory: Denies: cough, orthopnea, shortness of breath, SOB with excertion, SOB at rest, Gastrointestinal/Abdominal: Denies: abdomen distended, abdominal pain, melena, blood in stool, constipated, diarrhea, difficulty swallowing, nausea, poor appetite, poor fluid intake, rectal bleeding, vomiting, other Genitourinary: Denies: burning, discharge, frequency, flank pain, hematuria, incontinence, pain, urgency, other Neurologic/Psychiatric: Denies: anxiety, depressed, emotional problems, headache, numbness, paresthesia, pre-existing deficit, seizure, tingling, tremors, weakness, other Endocrine: Denies: excessive sweating, flushing, intolerance to cold, intolerance to heat, increased hunger, increased thirst MSK: denies joint pains, swelling, stiffness Hematologic/Lymphatic: Denies: anemia, easy bleeding, easy bruising, Objective Last 24 Hour Vital Signs Date Time Temp Pulse Resp B/P (MAP) Pulse Ox O2 Delivery O2 Flow Rate FiO2 09/12/20 16:00 98.4 79 20 122/59 (80) 98 09/12/20 14:49 70 78 88 09/12/20 12:00 100 09/12/20 11:59 97.5 86 20 125/67 (86) 98 09/12/20 09:25 102 139/68 09/12/20 09:00 Room Air 09/12/20 08:00 98.6 102 20 139/68 (91) 97 09/12/20 08:00 79 09/12/20 04:00 71 77 91 09/12/20 04:00 69 09/12/20 04:00 98.2 71 18 128/57 (80) 97 09/12/20 00:00 97.7 68 18 130/74 (92) 97 09/12/20 00:00 68 09/11/20 23:11 78 138/73 09/11/20 21:07 82 09/11/20 21:00 Room Air 09/11/20 20:00 97.8 78 18 135/78 (97) 97 09/11/20 19:34 Room Air 09/11/20 19:01 97.7 91 16 146/72 (96) 97 Intake and Output 09/11/20 09/12/20 19:00 07:00 Intake Total 480 ml 400 ml Output Total 950 ml Balance 480 ml -550 ml Intake Oral 480 ml 400 ml Output Urine Total 950 ml # Voids 2 # Bowel Movements 1 Laboratory Tests 09/11/20 19:25: Total Creatine Kinase 73, Troponin I 0.016 09/11/20 23:06: POC Whole Blood Glucose 128H 09/11/20 23:30: Urine Random Sodium 115H, Urine Creatinine 34.6 09/12/20 06:20: White Blood Count 3.6L, Red Blood Count 3.78L, Hemoglobin 10.5L, Hematocrit 32.5L, Mean Corpuscular Volume 86, Mean Corpuscular Hemoglobin 27.8, Mean Corpuscular Hemoglobin Concent 32.3, Red Cell Distribution Width 14.7, Platelet Count 172, Mean Platelet Volume 7.8, Neutrophils (%) (Auto) 59.0, Lymphocytes (%) (Auto) 25.4, Monocytes (%) (Auto) 11.6H, Eosinophils (%) (Auto) 3.2H, Basophils (%) (Auto) 0.8, Prothrombin Time 11.4, Prothromb Time International Ratio 1.0, Activated Partial Thromboplast Time 24, Sodium Level 142, Potassium Level 4.0, Chloride Level 107, Carbon Dioxide Level 27, Anion Gap 8, Blood Urea Nitrogen 16, Creatinine 1.3, Estimat Glomerular Filtration Rate > 60, Glucose Level 105, Hemoglobin A1c 6.3H, Calcium Level 8.7, Phosphorus Level 3.3, Magne sium Level 1.5L, Total Bilirubin 0.3, Aspartate Amino Transf (AST/SGOT) 14L, Alanine Aminotransferase (ALT/SGPT) 18, Alkaline Phosphatase 57, Pro-B-Type Natriuretic Peptide [Pending], Total Protein 6.3L, Albumin 3.4, Globulin 2.9, Albumin/Globulin Ratio 1.2, Triglycerides Level 46, Cholesterol Level 135, LDL Cholesterol 58, HDL Cholesterol 57, Cholesterol/HDL Ratio 2.4L, Prostate Specific Antigen 0.21, Thyroid Stimulating Hormone (TSH) 22.186H, Free Thyroxine 1.00 09/12/20 11:28: POC Whole Blood Glucose 170H Height (Feet): 5 Height (Inches): 7.00 Weight (Pounds): 195 Objective General: WDWN male in NAD, A&O x 4 HEENT: Normocephalic cephalic atraumatic, pupils equal round reactive to light and accommodation, nares patent and no symmetrical, no tonsillar exudates, mucous membranes moist + left temporal mass is pulsatile. Not warm to touch. CV: Regular rate regular rhythm, no murmurs, rubs, or gallops Pulm: Lungs clear to auscultation bilaterally. No wheezes, rhonchi, or rales GI: Soft, nontender, nondistended, bowel sounds present Neuro: CN 2-12 intact bilaterally, no focal signs. Ext: 2+ LE edema bilaterally. No tenderness Skin: no rashes lesions or ulcers Msk: Joints symmetrical in upper extremity and lower extremity bilaterally, no joint swelling. Lymph: No lymphadenopathy in upper extremity and lower extremity Assessment/Plan Assessment/Plan: #Left temporal artery pseudoanerysm #head trauma #Mechanical Fall #Rule out syncope/near syncope #LE weakness, suspect due to deconditioning - Admit to telemetry - EKG - Orthostatics - Gentle IV fluids - Appreciate Cardiology Consult: Dr. Montes De Oca - Troponin - Appreciate Neurology consult: Dr. Brown - Appreciate gen surgery consult: Dr. Tse - check CK - MRI brain - Possible surgery tomorrow or next day. D/w Surgery #Pre-op risk stratification - METS >4. Patient able to walk up flight of stairs without chest pain or SOB. No difficulty with anesthesia in the past. - Appreciate Cardiology eval #Atrial fibrillation on Xarelto - Continue amiodarone - Continue Metoprolol - Holding Xarelto as above - Appreciate Cards consult - check CK #HTN - continue metop - COntinue amlodipine #ERIK, suspect pre-renal etiology #h/o BPH s/p TURP - IV fluids - urine lytes - renal ultrasound - outside urologist is Dr. Dunlap #Chronic LE edema, non painful - Venous duplex LE bilaterally: negative - CTM - diuretics per cardiology #Diabetes Mellitus Type 2 - holding home metformin - SSI - Accuchecks - hypoglycemia protocol #Hypothyroidism - check TSH: 23 - continue synthroid. - Endocrinology consult 38 minutes spent on this encounter, and 20 minutes spent on counseling and care coordination. Discussed with Surgery, Cardiology, Neurology. Time of note may not reflect time patient was seen. Harpreet Waters D.O. Sep 12, 2020 17:45
--- NOTE | 2020-09-12 19:26 | NUR ---
NURSE HAND-OFF REPORT: Important Events on Shift:[PT eval, MRI brain, orthostatic VS] Patient Status: [FULL CODE] Diet: [CCHO low, NPO past midnight] Pending Orders: [] Pending Results/Labs:[] Pending MD notification:[] Latest Vital Signs: Temperature 98.4 , Pulse 79 , B/P 122 /59 , Respiratory Rate 20 , O2 SAT 98 , Room Air, O2 Flow Rate . Vital Sign Comment: [] EKG Rhythm: SR WITH BBB, 1 PVC Rhythm change?: N MD Notified?: - MD Response: Latest Yang Fall Score: 85 Fall Risk: High Risk Safety Measures: Call light Within Reach, Bed Alarm Zone 1, Side Rails Side Rails x2, Bed position Low and Locked. Fall Precautions: Yellow Socks Yellow Gown Door Sign Patient Fall Education Report given to [[facility]].
[2020-09-12 20:00] VITALS: BP 140/71
[2020-09-12] MEDS: Tamsulosin 0.4mg cap ORAL SCH (21:00)
[2020-09-12] MEDS ORDERED: Tubing IV Secondary IV ONE (22:18)
--- NOTE | 2020-09-12 23:29 | Neurology Progress Note ---
Interim History Interim History ROS Limited/Unobtainable: No Interim History pending OR MRI noted Objective Physical Exam Last Vital Signs Date Time Temp Pulse Resp B/P (MAP) Pulse Ox O2 Delivery O2 Flow Rate FiO2 09/12/20 20:00 97.6 69 20 140/71 (94) 97 09/12/20 09:00 Room Air Laboratory Tests Test 09/11/20 23:30 09/12/20 06:20 09/12/20 11:28 09/12/20 22:21 Urine Random Sodium 115 mmol/L (20-110) H Urine Creatinine 34.6 MG/DL (30.0-125.0) White Blood Count 3.6 K/UL (4.8-10.8) L Red Blood Count 3.78 M/UL (4.70-6.10) L Hemoglobin 10.5 G/DL (14.2-18.0) L Hematocrit 32.5 % (42.0-52.0) L Mean Corpuscular Volume 86 FL (80-99) Mean Corpuscular Hemoglobin 27.8 PG (27.0-31.0) Mean Corpuscular Hemoglobin Concent 32.3 G/DL (32.0-36.0) Red Cell Distribution Width 14.7 % (11.6-14.8) Platelet Count 172 K/UL (150-450) Mean Platelet Volume 7.8 FL (6.5-10.1) Neutrophils (%) (Auto) 59.0 % (45.0-75.0) Lymphocytes (%) (Auto) 25.4 % (20.0-45.0) Monocytes (%) (Auto) 11.6 % (1.0-10.0) H Eosinophils (%) (Auto) 3.2 % (0.0-3.0) H Basophils (%) (Auto) 0.8 % (0.0-2.0) Prothrombin Time 11.4 SEC (9.30-11.50) Prothromb Time International Ratio 1.0 (0.9-1.1) Activated Partial Thromboplast Time 24 SEC (23-33) Sodium Level 142 MMOL/L (136-145) Potassium Level 4.0 MMOL/L (3.5-5.1) Chloride Level 107 MMOL/L (98-107) Carbon Dioxide Level 27 MMOL/L (21-32) Anion Gap 8 mmol/L (5-15) Blood Urea Nitrogen 16 mg/dL (7-18) Creatinine 1.3 MG/DL (0.55-1.30) Estimat Glomerular Filtration Rate > 60 mL/min (>60) Glucose Level 105 MG/DL (74-106) Hemoglobin A1c 6.3 % (4.3-6.0) H Calcium Level 8.7 MG/DL (8.5-10.1) Phosphorus Level 3.3 MG/DL (2.5-4.9) Magnesium Level 1.5 MG/DL (1.8-2.4) L Total Bilirubin 0.3 MG/DL (0.2-1.0) Aspartate Amino Transf (AST/SGOT) 14 U/L (15-37) L Alanine Aminotransferase (ALT/SGPT) 18 U/L (12-78) Alkaline Phosphatase 57 U/L (46-116) Pro-B-Type Natriuretic Peptide Pending Total Protein 6.3 G/DL (6.4-8.2) L Albumin 3.4 G/DL (3.4-5.0) Globulin 2.9 g/dL Albumin/Globulin Ratio 1.2 (1.0-2.7) Triglycerides Level 46 MG/DL (30-150) Cholesterol Level 135 MG/DL (< 200) LDL Cholesterol 58 mg/dL (<100) HDL Cholesterol 57 MG/DL (40-60) Cholesterol/HDL Ratio 2.4 (3.3-4.4) L Prostate Specific Antigen 0.21 ng/mL (0.13-4.0) Thyroid Stimulating Hormone (TSH) 22.186 uiU/mL (0.358-3.740) Free Thyroxine 1.00 NG/DL (0.76-1.46) POC Whole Blood Glucose 170 MG/DL (74-106) H 106 MG/DL (74-106) Head: normocophalic Neck: no rigidity EENT: benign Neurologic Exam Mental Status: awake, alert Cranial Nerve II: fundus normal Cranial Nerves III, IV, : PERRLA Cranial Nerve V: normal facial sensations Cranial Nerve VII: no facial asymmetry Cranial Nerve VIII: normal hearing Cranial Nerve IX: normal palate elevation Cranial Nerve X: no voice hoarseness Cranial Nerve XI: SCM symmetric Cranial Nerve XII: tongue midline Motor System: normal muscle tone Objective non focal exam ataxic Impression/Recommendations Problems: (1) Hematoma (2) Arrhythmia (3) Diabetes (4) Hyperlipidemia (5) Abdominal pain (6) Hypertension (7) Pseudoaneurysm Diagnostic Impression sp fall , seems mechanical more than syncope left forehead expansile mass, pseudoaneurysm cta noted tele mri brain agree with OR Marbin Brown MD Sep 12, 2020 23:29
[2020-09-13] VITALS (7 sets, daily range): BP systolic 94–137; BP diastolic 52–81
[2020-09-13] MEDS: Heparin 5000 units/ml inj SUBQ SCH ×2 (06:00→10:54)
[2020-09-13] MEDS: NovoLOG Insulin Flexpen SUBQ SCH ×4 (06:18→21:00)
[2020-09-13 07:05] LABS: BASOPHILS % (AUTO) 0.6 % (0.0-2.0); EOSINOPHILS % (AUTO) 3.1 % (0.0-3.0); HEMATOCRIT 30.7 % (42.0-52.0); LYMPHOCYTES % (AUTO) 27.4 % (20.0-45.0); MEAN CORPUSCULAR VOLUME 85 FL (80-99); MONOCYTES % (AUTO) 12.6 % (1.0-10.0); NEUTROPHILS % (AUTO) 56.3 % (45.0-75.0); PLATELET COUNT 168 K/UL (150-450); RED BLOOD COUNT 3.61 M/UL (4.70-6.10); RED CELL DISTRIBUTION WIDTH 14.9 % (11.6-14.8); WHITE BLOOD COUNT 3.8 K/UL (4.8-10.8)
[2020-09-13 07:27] LABS: ANION GAP 7 mmol/L (5-15); BLOOD UREA NITROGEN 14 mg/dL (7-18); CALCIUM 8.4 MG/DL (8.5-10.1); CARBON DIOXIDE 28 MMOL/L (21-32); CHLORIDE 108 MMOL/L (98-107); CREATININE 1.2 MG/DL (0.55-1.30); PHOSPHORUS 3.7 MG/DL (2.5-4.9); POTASSIUM 4.4 MMOL/L (3.5-5.1); SODIUM 142 MMOL/L (136-145)
--- NOTE | 2020-09-13 07:40 | NUR ---
NURSE HAND-OFF REPORT: Important Events on Shift: Possible surgical intervention on aneurysm per MD notes, no orders or MD consult yet. Patient Status: stable, mild tachycardia (<115 bpm with exertion) Diet: NPO (CCHO low) Pending Orders: 2D echo Pending Results/Labs: none Pending MD notification: none Latest Vital Signs: Temperature 97.7 , Pulse 99 , B/P 128 /81 , Respiratory Rate 18 , O2 SAT 99 , Room Air, O2 Flow Rate . Vital Sign Comment: stable thorughout shift, mild tachycardia EKG Rhythm: SR w/ BBB Rhythm change?: N MD Notified?: - MD Response: Latest Yang Fall Score: 85 Fall Risk: High Risk Safety Measures: Call light Within Reach, Bed Alarm Zone 1, Side Rails Side Rails x2, Bed position Low and Locked. Fall Precautions: YES Yellow Socks YES Yellow Gown YES Door Sign YES Patient Fall Education YES Report given to Ping Anderson RN.
--- NOTE | 2020-09-13 07:44 | NUR ---
NURSE NOTES: Received report from HARSH Sequeira. Pt is stable on RA, unlabored and even respirations. Pt NPO for procedure today, verbalized understanding. Pt has a L forehead lump noted. BLE edema, nonpitting. Pt IV on RAC 20g noted. 2Decho bedside diagnostic at this time. Pt bed low and locked, call light in reach and bed alarm on. Pt verbalized understanding to call for help.
--- NOTE | 2020-09-13 07:45 | NUR ---
CASE MANAGEMENT:REVIEW 09/13/20 SI:LT TEMPORAL ARTERY PSEUDOANEURYSM S/P FALL WITH HEAD TRAUMA 97.7 110 18 128/81 99% ON RA WBC-3.8 H/H-10.1/30.7 IS: SYNTHROID PO QD FLOMAX PO QHS HEPARIN SQ Q8HRS PEPCID PO QD NORVASC PO QD AMIODARONE PO QD : TELEMETRY STATUS DCP: FROM HOME PLAN: SURGERY FOR LIGATION AND REMOVAL OF HEMATOMA ~ ONCE CLEARED
[2020-09-13] MEDS: Docusate 100mg cap ORAL SCH ×2 (08:59→21:33)
[2020-09-13] MEDS: Amiodarone 200mg tab ORAL SCH (08:59)
--- NOTE | 2020-09-13 09:03 | Nephrology Progress Note ---
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 #DM #BPH - dc IVF - plan for ligation of the pseudoaneurysm and removal - monitor UOP - defer renal US for now - neurology eval - continue flomax 0.4mg daily - continue amlodipine 10mg daily - on amiodarone - holding xarelto - monitor renal function - avoid nephrotoxins time spent 65 min Subjective ROS Limited/Unobtainable: No Constitutional: Reports: weakness HEENT: Denies: no symptoms, eye pain, blurred vision, tearing, double vision, ear pain, ear discharge, nose pain, nose congestion, throat pain, throat swelling, mouth pain, mouth swelling, other Genitourinary: Denies: no symptoms, burning, discharge, frequency, flank pain, hematuria, incontinence, pain, urgency, other Neurologic/Psychiatric: Denies: no symptoms, anxiety, depressed, emotional problems, headache, numbness, paresthesia, pre-existing deficit, seizure, tingling, tremors, weakness, other Subjective cr stable DC IVF Objective Objective Last 24 Hour Vital Signs Date Time Temp Pulse Resp B/P (MAP) Pulse Ox O2 Delivery O2 Flow Rate FiO2 09/13/20 08:00 97.9 88 18 123/68 (86) 96 09/13/20 04:00 97.7 99 18 128/81 (97) 99 09/13/20 04:00 99 09/13/20 04:00 98 110 115 09/13/20 00:00 82 09/13/20 00:00 97.1 83 20 136/64 (88) 98 09/12/20 21:00 Room Air 09/12/20 20:00 97.6 69 20 140/71 (94) 97 09/12/20 20:00 76 09/12/20 16:00 79 09/12/20 16:00 98.4 79 20 122/59 (80) 98 09/12/20 14:49 70 78 88 09/12/20 12:00 100 09/12/20 11:59 97.5 86 20 125/67 (86) 98 09/12/20 09:25 102 139/68 Intake and Output 09/12/20 09/13/20 19:00 07:00 Intake Total 810 ml Output Total 450 ml 700 ml Balance 360 ml -700 ml Intake Oral 810 ml Output Urine Total 450 ml 700 ml Laboratory Tests 09/12/20 11:28: POC Whole Blood Glucose 170H 09/12/20 22:21: POC Whole Blood Glucose 106 09/13/20 05:00: White Blood Count 3.8L, Red Blood Count 3.61L, Hemoglobin 10.0L, Hematocrit 30.7L, Mean Corpuscular Volume 85, Mean Corpuscular Hemoglobin 27.7, Mean Corpuscular Hemoglobin Concent 32.6, Red Cell Distribution Width 14.9H, Platelet Count 168, Mean Platelet Volume 6.3L, Neutrophils (%) (Auto) 56.3, Lymphocytes (%) (Auto) 27.4, Monocytes (%) (Auto) 12.6H, Eosinophils (%) (Auto) 3.1H, Basophils (%) (Auto) 0.6, Sodium Level 142, Potassium Level 4.4, Chloride Level 108H, Carbon Dioxide Level 28, Anion Gap 7, Blood Urea Nitrogen 14, Creatinine 1.2, Estimat Glomerular Filtration Rate > 60, Glucose Level 106, Calcium Level 8.4L, Phosphorus Level 3.7, Magnesium Level 2.1, Troponin I 0.020 Height (Feet): 5 Height (Inches): 7.00 Weight (Pounds): 195 Judah Richmond M.D. Sep 13, 2020 09:03
--- NOTE | 2020-09-13 09:18 | Cardiology Progress Note ---
Assessment/Plan Assessment/Plan I was consulted by Dr. Waters to see my office patient Mr. Christensen in cardiology consultation. The patient is seen and examined, full consult note dictated. Objective Last 24 Hour Vital Signs Date Time Temp Pulse Resp B/P (MAP) Pulse Ox O2 Delivery O2 Flow Rate FiO2 09/13/20 09:00 Room Air 09/13/20 08:59 88 123/68 09/13/20 08:00 97.9 88 18 123/68 (86) 96 09/13/20 08:00 86 09/13/20 04:00 97.7 99 18 128/81 (97) 99 09/13/20 04:00 99 09/13/20 04:00 98 110 115 09/13/20 00:00 82 09/13/20 00:00 97.1 83 20 136/64 (88) 98 09/12/20 21:00 Room Air 09/12/20 20:00 97.6 69 20 140/71 (94) 97 09/12/20 20:00 76 09/12/20 16:00 79 09/12/20 16:00 98.4 79 20 122/59 (80) 98 09/12/20 14:49 70 78 88 09/12/20 12:00 100 09/12/20 11:59 97.5 86 20 125/67 (86) 98 09/12/20 09:25 102 139/68 Intake and Output 09/12/20 09/13/20 19:00 07:00 Intake Total 810 ml Output Total 450 ml 700 ml Balance 360 ml -700 ml Intake Oral 810 ml Output Urine Total 450 ml 700 ml Laboratory Tests Test 09/12/20 11:28 09/12/20 22:21 09/13/20 05:00 POC Whole Blood Glucose 170 MG/DL (74-106) H 106 MG/DL (74-106) White Blood Count 3.8 K/UL (4.8-10.8) L Red Blood Count 3.61 M/UL (4.70-6.10) L Hemoglobin 10.0 G/DL (14.2-18.0) L Hematocrit 30.7 % (42.0-52.0) L Mean Corpuscular Volume 85 FL (80-99) Mean Corpuscular Hemoglobin 27.7 PG (27.0-31.0) Mean Corpuscular Hemoglobin Concent 32.6 G/DL (32.0-36.0) Red Cell Distribution Width 14.9 % (11.6-14.8) H Platelet Count 168 K/UL (150-450) Mean Platelet Volume 6.3 FL (6.5-10.1) L Neutrophils (%) (Auto) 56.3 % (45.0-75.0) Lymphocytes (%) (Auto) 27.4 % (20.0-45.0) Monocytes (%) (Auto) 12.6 % (1.0-10.0) H Eosinophils (%) (Auto) 3.1 % (0.0-3.0) H Basophils (%) (Auto) 0.6 % (0.0-2.0) Sodium Level 142 MMOL/L (136-145) Potassium Level 4.4 MMOL/L (3.5-5.1) Chloride Level 108 MMOL/L (98-107) H Carbon Dioxide Level 28 MMOL/L (21-32) Anion Gap 7 mmol/L (5-15) Blood Urea Nitrogen 14 mg/dL (7-18) Creatinine 1.2 MG/DL (0.55-1.30) Estimat Glomerular Filtration Rate > 60 mL/min (>60) Glucose Level 106 MG/DL (74-106) Calcium Level 8.4 MG/DL (8.5-10.1) L Phosphorus Level 3.7 MG/DL (2.5-4.9) Magnesium Level 2.1 MG/DL (1.8-2.4) Troponin I 0.020 ng/mL (0.000-0.056) Microbiology Date/Time Source Procedure Growth Status 09/11/20 14:00 Nasopharynx SARS-CoV-2 RdRp Gene Assay - Final Complete Joseph Elaine MD Sep 13, 2020 09:18
--- NOTE | 2020-09-13 09:50 | NUR ---
PT NOTE Attempted to see patient for PT treatment. Patient declining to participate with PT treatment due to pending surgical procedure. Ping [facility]SE notified, will follow post-op pending MD order to resume PT.
--- NOTE | 2020-09-13 10:00 | NUR ---
NURSE NOTES: Pt forgets to utlize call hall for help going to bathroom. Found Pt with bed alarm going off trying to go to bathroom by himself. Assisted pt to bathroom with his golf club. Pt instructed to not strain d/t pseudoaneurysm. Pt verbalized understanding. Pt went to restroom and back to chair bedside without incident. BMx1. Pt instructed to call for help going back to bed. Pt verbalized understanding, return demonstration done. Urinal and call light bedside.
--- NOTE | 2020-09-13 11:30 | NUR ---
NURSE NOTES: Clarified with Dr. Tse via telephone. Pt is to have surgery Wednesday, not today. Ordered to restart Pt diet, order acknowledged and carried out.
--- NOTE | 2020-09-13 11:55 | NUR ---
NURSE NOTES: Pt called out for help, said he wanted to go back to bed because he "dont feel right" Pt reported feeling lightheaded. Pt dosing off. Dr Tse bedside at this time speaking to Pt and assisted Pt w/ 2RN assist back to bed. Vitals taken as shown: 120/66, 97% on RA, 67 HR, 96.1 ax, 17RR. After a few minutes lying down, Pt reported "feeling much better now" Pt is now eating, high fowlers in bed, stable. Pt educated to utilize call light again, verbalized understanding, return demo done. Tele monitor on.
--- NOTE | 2020-09-13 12:34 | Surgery Progress Note ---
Surgery Progress Note Subjective Additional Comments patient states today he cannot walk as well. requires help lower extremity edema significant no n/v Objective Last 24 Hour Vital Signs Date Time Temp Pulse Resp B/P (MAP) Pulse Ox O2 Delivery O2 Flow Rate FiO2 09/13/20 09:00 Room Air 09/13/20 08:59 88 123/68 09/13/20 08:00 97.9 88 18 123/68 (86) 96 09/13/20 08:00 86 09/13/20 04:00 97.7 99 18 128/81 (97) 99 09/13/20 04:00 99 09/13/20 04:00 98 110 115 09/13/20 00:00 82 09/13/20 00:00 97.1 83 20 136/64 (88) 98 09/12/20 21:00 Room Air 09/12/20 20:00 97.6 69 20 140/71 (94) 97 09/12/20 20:00 76 09/12/20 16:00 79 09/12/20 16:00 98.4 79 20 122/59 (80) 98 09/12/20 14:49 70 78 88 I&O Intake and Output 09/12/20 09/13/20 19:00 07:00 Intake Total 810 ml Output Total 450 ml 700 ml Balance 360 ml -700 ml Intake Oral 810 ml Output Urine Total 450 ml 700 ml Cardiovascular: RSR Respiratory: clear Abdomen: soft, non-tender, present bowel sounds, non-distended Extremities: edema, no tenderness, no cyanosis, pulses, other Laboratory Tests Test 09/12/20 22:21 09/13/20 05:00 09/13/20 11:34 POC Whole Blood Glucose 106 MG/DL (74-106) 170 MG/DL (74-106) H White Blood Count 3.8 K/UL (4.8-10.8) L Red Blood Count 3.61 M/UL (4.70-6.10) L Hemoglobin 10.0 G/DL (14.2-18.0) L Hematocrit 30.7 % (42.0-52.0) L Mean Corpuscular Volume 85 FL (80-99) Mean Corpuscular Hemoglobin 27.7 PG (27.0-31.0) Mean Corpuscular Hemoglobin Concent 32.6 G/DL (32.0-36.0) Red Cell Distribution Width 14.9 % (11.6-14.8) H Platelet Count 168 K/UL (150-450) Mean Platelet Volume 6.3 FL (6.5-10.1) L Neutrophils (%) (Auto) 56.3 % (45.0-75.0) Lymphocytes (%) (Auto) 27.4 % (20.0-45.0) Monocytes (%) (Auto) 12.6 % (1.0-10.0) H Eosinophils (%) (Auto) 3.1 % (0.0-3.0) H Basophils (%) (Auto) 0.6 % (0.0-2.0) Sodium Level 142 MMOL/L (136-145) Potassium Level 4.4 MMOL/L (3.5-5.1) Chloride Level 108 MMOL/L (98-107) H Carbon Dioxide Level 28 MMOL/L (21-32) Anion Gap 7 mmol/L (5-15) Blood Urea Nitrogen 14 mg/dL (7-18) Creatinine 1.2 MG/DL (0.55-1.30) Estimat Glomerular Filtration Rate > 60 mL/min (>60) Glucose Level 106 MG/DL (74-106) Calcium Level 8.4 MG/DL (8.5-10.1) L Phosphorus Level 3.7 MG/DL (2.5-4.9) Magnesium Level 2.1 MG/DL (1.8-2.4) Troponin I 0.020 ng/mL (0.000-0.056) Plan Problems: (1) Hematoma (2) Pseudoaneurysm Assessment & Plan: This is a 84-year-old male 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 Patient identified abnormal labs. I had a long session with the patient and his family. He has been falling recently had multiple falls but does not recall all of them. Patient furthermore has multiple medications though may not have full compliance or understanding. Patient with a pulsatile potentially expanding mass in his left forehead aneurysm CT noted discussed with radiology. Given the above I do not feel safe for patient to go home and electively participate in ligation. He is at high risk for another fall potential injury potential aneurysm expansion or even worse potential rupture with potential catastrophic event and considerations given this discussion with the family and patient's interest given his medical history and abnormal labs and work-up necessary it is in his interest to be admitted worked up and taken to the operating room when stable and off anticoagulation for ligation of the pseudoaneurysm and removal. Admit to medical service Consultants as below Okay for diet for now Hold anticoagulation Monitor for bleeding or expansion We will take the operating room in stable Preop work-up thank you for let me participation's care Covid test pending cardiology and clearance by consultants difficulty walking le edema duplex negative echo? (3) Arrhythmia (4) Diabetes (5) Hyperlipidemia (6) Abdominal pain (7) Hypertension Vernon Tse Sep 13, 2020 12:34
--- NOTE | 2020-09-13 13:29 | Consultation ---
DATE OF CONSULTATION: 09/13/2020 ENDOCRINOLOGY CONSULTATION CONSULTING PHYSICIAN: Zeeshan Fischer MD. REFERRING PHYSICIAN: Harpreet Reyes DO. REASON FOR CONSULTATION: 1. Hypothyroidism. 2. Diabetes. HISTORY OF PRESENT ILLNESS: The patient is an 84-year-old male with past medical history of diabetes and hypothyroidism, who presented to the hospital for headache after he had a mechanical fall, felt dizzy. TSH was 23, free T4 1.0. Glucose was in fair control. Endocrinology was consulted. PAST MEDICAL HISTORY: 1. Hypertension. 2. Diabetes. 3. Paroxysmal AFib, on Xarelto and amiodarone. FAMILY HISTORY: Noncontributory. SOCIAL HISTORY: No smoking, alcohol, or drug use. MEDICATIONS: Reviewed and reconciled. REVIEW OF SYSTEMS: As per HPI. PHYSICAL EXAMINATION: VITAL SIGNS: Blood pressure 124/67, heart rate 80, temperature 97. HEENT: Pupils are equal and reactive to light. Sclerae are anicteric. NECK: No JVD. HEART: Regular. LUNGS: Clear. ABDOMEN: Positive bowel sounds. EXTREMITIES: No clubbing, cyanosis, or edema. LABORATORY DATA: Sodium 142, potassium 4.0, chloride 107, bicarb 27, BUN 16, creatinine 0.8, glucose of 105. A1c 6.3. DIAGNOSES: 1. Diabetes. 2. Atrial fibrillation. 3. Hypothyroidism with elevated TSH. PLAN: 1. Increase levothyroxine from 44 to 88 mcg daily. 2. May hold metformin for contrast exposure. 3. NovoLog sliding scale before meals and at bedtime. 4. Further adjustment according to blood glucose values. 5. I will follow the patient closely during hospital stay. Thank you, Dr. Harpreet Anguiano for the courtesy of this consultation. Zeeshan Fischer M.D. DR: EVANS JOB#: [id number] CC: JOI
--- NOTE | 2020-09-13 14:03 | NUR ---
PT NOTE Patient's surgical procedure postponed until Wednesday. [facility] requesting to defer PT treatment today as patient was c/o fatigue and wanting to rest. Will follow up tomorrow.
--- NOTE | 2020-09-13 14:32 | Anethesia Preoperative Eval ---
Anesthesia Pre-op PMH/ROS General Date of Evaluation: Sep 13, 2020 Time of Evaluation: 17:10 Anesthesiologist: Flor ASA Score: ASA 3 Mallampati Score Class I : Soft palate, uvula, fauces, pillars visible Class II: Soft palate, uvula, fauces visible Class III: Soft palate, base of uvula visible Class IV: Only hard plate visible Mallampati Classification: Class III Surgeon: Dedrick Diagnosis: Temporal Pseudoaneurysm Surgical Procedure: Ligate Temporal Pseudoaneurysm Anesthesia History: none Family History: no anesthesia problems Allergies: Coded Allergies: No Known Allergies (Verified Allergy, Mild, 06/18/10) Medications: see eMAR Patient NPO?: Yes Past Medical History Cardiovascular: Reports: HTN, other - HL Gastrointestinal/Genitourinary: Reports: GERD, other - GI Bleed, BPH Endocrine: Reports: DM Hematology/Immune: Reports: anemia Musculoskeletal/Integumentary: Reports: other - Gout, Edema Other: obesity - BMI 31 PSxH Narrative: Prostatectomy Anesthesia Pre-op Phys. Exam Physician Exam Last Vital Signs Date Time Temp Pulse Resp B/P (MAP) Pulse Ox O2 Delivery O2 Flow Rate FiO2 09/13/20 12:00 118 09/13/20 11:55 96.1 17 120/66 (84) 96 09/13/20 09:00 Room Air Constitutional: NAD Neurologic: CN 2-12 intact Cardiovascular: RRR Respiratory: CTA Gastrointestinal: S/NT/ND Airway Exam Mallampati Score: Class III MO: full ROM: limited Teeth: missing, intact Anesthesia Pre-op A/P Labs Hematology Test 09/13/20 05:00 White Blood Count 3.8 K/UL (4.8-10.8) L Red Blood Count 3.61 M/UL (4.70-6.10) L Hemoglobin 10.0 G/DL (14.2-18.0) L Hematocrit 30.7 % (42.0-52.0) L Mean Corpuscular Volume 85 FL (80-99) Mean Corpuscular Hemoglobin 27.7 PG (27.0-31.0) Mean Corpuscular Hemoglobin Concent 32.6 G/DL (32.0-36.0) Red Cell Distribution Width 14.9 % (11.6-14.8) H Platelet Count 168 K/UL (150-450) Mean Platelet Volume 6.3 FL (6.5-10.1) L Neutrophils (%) (Auto) 56.3 % (45.0-75.0) Lymphocytes (%) (Auto) 27.4 % (20.0-45.0) Monocytes (%) (Auto) 12.6 % (1.0-10.0) H Eosinophils (%) (Auto) 3.1 % (0.0-3.0) H Basophils (%) (Auto) 0.6 % (0.0-2.0) Chemistry Test 09/12/20 22:21 09/13/20 05:00 09/13/20 11:34 POC Whole Blood Glucose 106 MG/DL (74-106) 170 MG/DL (74-106) H Sodium Level 142 MMOL/L (136-145) Potassium Level 4.4 MMOL/L (3.5-5.1) Chloride Level 108 MMOL/L (98-107) H Carbon Dioxide Level 28 MMOL/L (21-32) Anion Gap 7 mmol/L (5-15) Blood Urea Nitrogen 14 mg/dL (7-18) Creatinine 1.2 MG/DL (0.55-1.30) Estimat Glomerular Filtration Rate > 60 mL/min (>60) Glucose Level 106 MG/DL (74-106) Calcium Level 8.4 MG/DL (8.5-10.1) L Phosphorus Level 3.7 MG/DL (2.5-4.9) Magnesium Level 2.1 MG/DL (1.8-2.4) Troponin I 0.020 ng/mL (0.000-0.056) Risk Assessment & Plan Assessment: ASA 3 Plan: GA Status Change Before Surgery: No Pre-Antibiotics Drug: Alexander Lama MD Sep 13, 2020 14:32
--- NOTE | 2020-09-13 18:00 | NUR ---
NURSE HAND-OFF REPORT: Important Events on Shift: Pt had episode of fatigue, vitals WNL, Bendeannamini aware/ Surgery to be done wednesday/ 2d echo 60% result/ Pt SR to Afib, left message for Dr magana, no call back Patient Status: fc, stable Diet: ccho low, soft easy chew Pending Orders: Pending Results/Labs: Pending MD notification: Latest Vital Signs: Temperature 97.7 , Pulse 69 , B/P 94 /52 , Respiratory Rate 20 , O2 SAT 95 , Room Air, O2 Flow Rate . Vital Sign Comment: EKG Rhythm: Sinus Rhythm Rhythm change?: N Notified?: Steve Garcia MD Response: Message left await call Latest Yang Fall Score: 85 Fall Risk: High Risk Safety Measures: Call light Within Reach, Bed Alarm Zone 1, Side Rails Side Rails x2, Bed position Low and Locked. Fall Precautions: Yellow Socks Yellow Gown Door Sign Patient Fall Education Report to be given. Addendum: 09/13/20 at 1930 by Ping Holland RN RN Report given to HARSH Hoyos. Pt is stable.
--- NOTE | 2020-09-13 18:06 | Consultation ---
DATE OF CONSULTATION: 09/13/2020 CARDIOLOGY CONSULTATION CONSULTING PHYSICIAN: Joseph Elaine MD. REFERRING PHYSICIAN: Dr. Turpin. REASON FOR CONSULTATION: Preoperative cardiac assessment for noncardiac surgery. HISTORY OF PRESENT ILLNESS: The patient is a very unfortunate 84-year-old gentleman who I saw in the office just about four days prior to arrival to this facility for regular followup. He stated that he had a mechanical fall on August 27 as a result of a trip and injured the left facial area including the left orbital and left temporal area. He did not seek any medical advice at that time. The bruises faded spontaneously. At the time of my evaluation, he was asymptomatic. Denied any nausea, vomiting, headaches, however, he had small induration over his left temporal area. He stated that he had not lost consciousness. He was hemodynamically stable and continued to take his medication. His last 2D echocardiography had shown normal LV systolic function with LVEF approximately 55% with grade 1 LV diastolic dysfunction or impaired LV relaxation as well as mild left atrial enlargement. His cardiovascular history is significant for paroxysmal atrial fibrillation, rhythm controlled in sinus rhythm with the use of amiodarone as a maintenance therapy. He suffers from chronic kidney disease under the care of Dr. Hoang. I was consulted by Dr. Turpin as apparently CT of head showed pseudoaneurysm of the scalp that requires to be dissected by Dr. Tse. The last Xarelto use in this patient was September 11. He currently denies any chest pain or shortness of breath. His activity is physically active and besides knee pain does not have any other limitations. PAST MEDICAL HISTORY: 1. Chronic kidney disease. 2. Paroxysmal atrial fibrillation. 3. Hypertension. 4. Hypertensive heart disease with LVEF approximately 55%. 5. History of gastrointestinal bleed in the past, no evidence of bleeding with the Xarelto. 6. Increase mechanical fall due to the knee pain and lower extremity weakness. 7. History of diabetes mellitus type 2. 8. Dyslipidemia. ALLERGIES: No known drug allergies. SOCIAL HISTORY: Denies any tobacco, alcohol, or illicit drug use. FAMILY HISTORY: No premature coronary artery disease in the first-degree relatives. REVIEW OF SYSTEMS: HEENT: Complains of induration and bump over the left head, nontender. Denies any headache, blurred vision, diplopia. CONSTITUTIONAL: Denies any fever, chills, night sweats, or weight loss. CARDIOVASCULAR: Denies any chest pain, shortness of breath, PND, orthopnea, leg swelling. PULMONARY: Denies any cough, hemoptysis, wheezing. GASTROINTESTINAL: Denies any nausea, vomiting, diarrhea, constipation, abdominal pain, or GI bleed. GENITOURINARY: Denies any hematuria, dysuria, incontinence. NEUROLOGY: Denies any motor dysfunction, sensory deficit, or altered speech. 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 MEDICATIONS: List of medication includes metoprolol 100 mg twice daily, bethanechol 25 mg three times daily for overactive bladder, allopurinol 100 mg p.o. daily, Xarelto 15 mg daily, the patient is no longer on Pradaxa. Cipro, ferrous sulfate 325 mg daily, simvastatin 20 mg at bedtime, amiodarone 200 mg daily, levothyroxine 44 mcg daily, metformin 1000 mg twice daily, dicyclomine 20 mg as needed for abdominal pain, amlodipine 10 mg daily, omeprazole 20 mg daily. PHYSICAL EXAMINATION: VITAL SIGNS: At the time of arrival to the hospital, blood pressure was 151/77, respirations 18, pulse of 88, temperature 97.9 degrees Fahrenheit, O2 saturation 97% on room air. GENERAL: The patient is a very pleasant 84-year-old gentleman, seen in Cardiology consultation. No apparent respiratory distress. HEENT: Atraumatic. There is a 3 x 3 hematoma that is pulsatile in the left temporal region, otherwise pupils are equal, round, and reactive to light and accommodation. Extraocular muscles intact. NECK: JVP less than 5 cm. No carotid bruit. Carotid upstrokes 2+ bilaterally. CARDIOVASCULAR: Normal S1 and S2. Regular rate and rhythm. Somewhat tachycardic. No murmurs, gallops, or rubs. LUNGS: Clear to auscultation bilaterally. ABDOMEN: Soft, nontender, nondistended. No hepatosplenomegaly. Positive bowel sounds. EXTREMITIES: No evidence of edema, clubbing, or cyanosis. LABORATORY FINDINGS: WBC is 4.4, hemoglobin of 11.7, hematocrit 36.3, platelet count of 205. Sodium 142, potassium 5.1, chloride 106, bicarbonate 26, BUN of 21, creatinine 1.6, glucose 137, calcium 9.2. 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 ASSESSMENT AND PLAN: The patient is a very pleasant 84-year-old gentleman whose plan for resection of pseudoaneurysm of the scalp by Dr. Tse. The patient is asymptomatic from the cardiac standpoint. A 12-lead electrocardiogram does not show any evidence of ischemia. Recent 2D echocardiography with no wall motion abnormality and LV systolic function of 55%. The patient is cleared from the cardiac standpoint for low risk hematoma resection . Joseph Elaine M.D. DR: Harjit JOB#: [id number] CC:
--- NOTE | 2020-09-13 18:16 | General Progress Note ---
Subjective Allergies: Coded Allergies: No Known Allergies (Verified Allergy, Mild, 06/18/10) Subjective No acute events overnight per nursing. Patient feels like left temporal mass is about the same. NPO for possible surgery today. no bleeding. no chest pain or SOB. Review of systems: Constitutional: Denies: chills, diaphoresis, fever, malaise, weakness, HEENT: Denies: eye pain, blurred vision, tearing, Cardiovascular: Denies: chest pain, lightheadedness, palpitations, syncope, Respiratory: Denies: cough, orthopnea, shortness of breath, SOB with excertion, SOB at rest, Gastrointestinal/Abdominal: Denies: abdomen distended, abdominal pain, melena, blood in stool, constipated, diarrhea, difficulty swallowing, nausea, poor appetite, poor fluid intake, rectal bleeding, vomiting, other Genitourinary: Denies: burning, discharge, frequency, flank pain, hematuria, incontinence, pain, urgency, other Neurologic/Psychiatric: Denies: anxiety, depressed, emotional problems, headache, numbness, paresthesia, pre-existing deficit, seizure, tingling, tremors, weakness, other Endocrine: Denies: excessive sweating, flushing, intolerance to cold, intolerance to heat, increased hunger, increased thirst MSK: denies joint pains, swelling, stiffness Hematologic/Lymphatic: Denies: anemia, easy bleeding, easy bruising, Objective Last 24 Hour Vital Signs Date Time Temp Pulse Resp B/P (MAP) Pulse Ox O2 Delivery O2 Flow Rate FiO2 09/13/20 16:00 69 09/13/20 16:00 82 100 102 09/13/20 16:00 97.7 93 20 94/52 (66) 95 09/13/20 12:00 118 09/13/20 11:55 96.1 67 17 120/66 (84) 96 09/13/20 11:30 96.4 93 18 94/52 (66) 96 09/13/20 09:00 Room Air 09/13/20 08:59 88 123/68 09/13/20 08:00 97.9 88 18 123/68 (86) 96 09/13/20 08:00 86 09/13/20 04:00 97.7 99 18 128/81 (97) 99 09/13/20 04:00 99 09/13/20 04:00 98 110 115 09/13/20 00:00 82 09/13/20 00:00 97.1 83 20 136/64 (88) 98 09/12/20 21:00 Room Air 09/12/20 20:00 97.6 69 20 140/71 (94) 97 09/12/20 20:00 76 Intake and Output 09/12/20 09/13/20 19:00 07:00 Intake Total 810 ml Output Total 450 ml 700 ml Balance 360 ml -700 ml Intake Oral 810 ml Output Urine Total 450 ml 700 ml Laboratory Tests 09/12/20 22:21: POC Whole Blood Glucose 106 09/13/20 05:00: White Blood Count 3.8L, Red Blood Count 3.61L, Hemoglobin 10.0L, Hematocrit 30.7L, Mean Corpuscular Volume 85, Mean Corpuscular Hemoglobin 27.7, Mean Corpuscular Hemoglobin Concent 32.6, Red Cell Distribution Width 14.9H, Platelet Count 168, Mean Platelet Volume 6.3L, Neutrophils (%) (Auto) 56.3, Lymphocytes (%) (Auto) 27.4, Monocytes (%) (Auto) 12.6H, Eosinophils (%) (Auto) 3.1H, Basophils (%) (Auto) 0.6, Sodium Level 142, Potassium Level 4.4, Chloride Level 108H, Carbon Dioxide Level 28, Anion Gap 7, Blood Urea Nitrogen 14, Creatinine 1.2, Estimat Glomerular Filtration Rate > 60, Glucose Level 106, Calcium Level 8.4L, Phosphorus Level 3.7, Magnesium Level 2.1, Troponin I 0.020 09/13/20 11:34: POC Whole Blood Glucose 170H 09/13/20 16:01: POC Whole Blood Glucose 147H Height (Feet): 5 Height (Inches): 7.00 Weight (Pounds): 195 Objective General: WDWN male in NAD, A&O x 4 HEENT: Normocephalic cephalic atraumatic, pupils equal round reactive to light and accommodation, nares patent and no symmetrical, no tonsillar exudates, mucous membranes moist + left temporal mass is pulsatile. Not warm to touch (stable) CV: Regular rate regular rhythm, no murmurs, rubs, or gallops Pulm: Lungs clear to auscultation bilaterally. No wheezes, rhonchi, or rales GI: Soft, nontender, nondistended, bowel sounds present Neuro: CN 2-12 intact bilaterally, no focal signs. Ext: 2+ LE edema bilaterally. No tenderness Skin: no rashes lesions or ulcers Msk: Joints symmetrical in upper extremity and lower extremity bilaterally, no joint swelling. Lymph: No lymphadenopathy in upper extremity and lower extremity Assessment/Plan Assessment/Plan: #Left temporal artery pseudoanerysm (stabl) #head trauma #Mechanical Fall #Rule out syncope/near syncope #LE weakness, suspect due to deconditioning - Admit to telemetry - EKG: reviewed - Orthostatics: normal - s/p Gentle IV fluids - Appreciate Cardiology Consult: Dr. Montes De Oca - Troponin: normal - Appreciate Neurology consult: Dr. Brown - Appreciate gen surgery consult: Dr. Tse - check CK: normal - MRI brain: reviewed - Possible surgery planned for Wednesday #Pre-op risk stratification - METS >4. Patient able to walk up flight of stairs without chest pain or SOB. No difficulty with anesthesia in the past. - Appreciate Cardiology eval - TTE pending #Atrial fibrillation on Xarelto - Continue amiodarone - Continue Metoprolol - Holding Xarelto as above - Appreciate Cards consult - check CK #HTN - continue metop - COntinue amlodipine #ERIK, suspect pre-renal etiology #h/o BPH s/p TURP - IV fluids - urine lytes - renal ultrasound - outside urologist is Dr. Dunlap #Chronic LE edema, non painful - Venous duplex LE bilaterally: negative - CTM - diuretics per cardiology - elevate legs #Diabetes Mellitus Type 2 - holding home metformin - SSI - Accuchecks - hypoglycemia protocol #Hypothyroidism - check TSH: 23 - continue synthroid. - IV synthroid 50mcg x 1 - Endocrinology consult: Dr. Fischer 36 minutes spent on this encounter, and 22 minutes spent on counseling and care coordination. Discussed with Surgery, Cardiology, Neurology. Time of note may not reflect time patient was seen. Harpreet Waters D.O. Sep 13, 2020 18:16
[2020-09-13] MEDS: Tamsulosin 0.4mg cap ORAL SCH (21:33)
--- NOTE | 2020-09-13 21:42 | Neurology Progress Note ---
Interim History Interim History ROS Limited/Unobtainable: No Interim History pending surgery Objective Physical Exam Last Vital Signs Date Time Temp Pulse Resp B/P (MAP) Pulse Ox O2 Delivery O2 Flow Rate FiO2 09/13/20 16:00 69 09/13/20 16:00 97.7 20 94/52 (66) 95 09/13/20 09:00 Room Air Laboratory Tests Test 09/12/20 22:21 09/13/20 05:00 09/13/20 11:34 09/13/20 16:01 POC Whole Blood Glucose 106 MG/DL (74-106) 170 MG/DL (74-106) H 147 MG/DL (74-106) H White Blood Count 3.8 K/UL (4.8-10.8) L Red Blood Count 3.61 M/UL (4.70-6.10) L Hemoglobin 10.0 G/DL (14.2-18.0) L Hematocrit 30.7 % (42.0-52.0) L Mean Corpuscular Volume 85 FL (80-99) Mean Corpuscular Hemoglobin 27.7 PG (27.0-31.0) Mean Corpuscular Hemoglobin Concent 32.6 G/DL (32.0-36.0) Red Cell Distribution Width 14.9 % (11.6-14.8) H Platelet Count 168 K/UL (150-450) Mean Platelet Volume 6.3 FL (6.5-10.1) L Neutrophils (%) (Auto) 56.3 % (45.0-75.0) Lymphocytes (%) (Auto) 27.4 % (20.0-45.0) Monocytes (%) (Auto) 12.6 % (1.0-10.0) H Eosinophils (%) (Auto) 3.1 % (0.0-3.0) H Basophils (%) (Auto) 0.6 % (0.0-2.0) Sodium Level 142 MMOL/L (136-145) Potassium Level 4.4 MMOL/L (3.5-5.1) Chloride Level 108 MMOL/L (98-107) H Carbon Dioxide Level 28 MMOL/L (21-32) Anion Gap 7 mmol/L (5-15) Blood Urea Nitrogen 14 mg/dL (7-18) Creatinine 1.2 MG/DL (0.55-1.30) Estimat Glomerular Filtration Rate > 60 mL/min (>60) Glucose Level 106 MG/DL (74-106) Calcium Level 8.4 MG/DL (8.5-10.1) L Phosphorus Level 3.7 MG/DL (2.5-4.9) Magnesium Level 2.1 MG/DL (1.8-2.4) Troponin I 0.020 ng/mL (0.000-0.056) Head: normocophalic Neck: no rigidity EENT: benign Neurologic Exam Mental Status: awake, alert Cranial Nerve II: fundus normal Cranial Nerves III, IV, : PERRLA Cranial Nerve V: normal facial sensations Cranial Nerve VII: no facial asymmetry Cranial Nerve VIII: normal hearing Cranial Nerve IX: normal palate elevation Cranial Nerve X: no voice hoarseness Cranial Nerve XI: SCM symmetric Cranial Nerve XII: tongue midline Motor System: normal muscle tone Objective non focal exam ataxic Impression/Recommendations Problems: (1) Hematoma (2) Arrhythmia (3) Diabetes (4) Hyperlipidemia (5) Abdominal pain (6) Hypertension (7) Pseudoaneurysm Diagnostic Impression sp fall , seems mechanical more than syncope left forehead expansile mass, pseudoaneurysm cta noted tele mri brain agree with OR Marbin Brown MD Sep 13, 2020 21:42
[2020-09-14] VITALS: BP 156/97
[2020-09-14 04:00] VITALS: BP 140/70
[2020-09-14] MEDS: NovoLOG Insulin Flexpen SUBQ SCH ×4 (06:30→20:46)
--- NOTE | 2020-09-14 06:44 | NUR ---
NURSE HAND-OFF REPORT: Important Events on Shift:[UNEVENTFUL NIGHT-POSSIBLE SURGERY FOR LIGATION AND REMOVAL OF PSEUDOANEURYSM WHEN STABLE/HOLD ANTICOAGULATION/MONITOR FOR BLEEDING OR EXPANSION - BENYAMINI/SURGEON] Patient Status: [STABLE, AFEBRILE Diet: [CCHO LOW SOFT EASY CHEW] Pending Orders: [[facility]] Pending Results/Labs:[] Pending MD notification:[] Latest Vital Signs: Temperature 97.7 , Pulse 83 , B/P 140 /70 , Respiratory Rate 20 , O2 SAT 95 , Room Air, O2 Flow Rate . Vital Sign Comment: [ORTHOSTATIC VITALS] EKG Rhythm: SR BBB Rhythm change?: N Notified?: Steve Garcia MD Response: Message left await call Latest Yang Fall Score: 85 Fall Risk: High Risk Safety Measures: Call light Within Reach, Bed Alarm Zone 1, Side Rails Side Rails x2, Bed position Low and Locked. Fall Precautions: Yellow Socks Yellow Gown Door Sign Patient Fall Education Report given to [Laisha ARMSTRONG].
[2020-09-14 07:23] LABS: HEMATOCRIT 30.7 % (42.0-52.0); HEMOGLOBIN 9.9 G/DL (14.2-18.0); MEAN CORPUSCULAR VOLUME 86 FL (80-99); PLATELET COUNT 146 K/UL (150-450); RED BLOOD COUNT 3.59 M/UL (4.70-6.10); RED CELL DISTRIBUTION WIDTH 15.2 % (11.6-14.8); WHITE BLOOD COUNT 3.6 K/UL (4.8-10.8)
[2020-09-14 07:53] LABS: BILIRUBIN,TOTAL 0.6 MG/DL (0.2-1.0); CALCIUM 8.4 MG/DL (8.5-10.1); CREATININE 1.4 MG/DL (0.55-1.30); PHOSPHORUS 2.7 MG/DL (2.5-4.9); POTASSIUM 4.1 MMOL/L (3.5-5.1)
[2020-09-14 08:00] VITALS: BP 110/65
--- NOTE | 2020-09-14 08:35 | NUR ---
NURSE NOTES: Received patient report from AIDA Fitzpatrick. Patient is AO x4 awake and able to make needs known. Patient shows no signs of distress or pain at the time. Patient is on room air and shows no signs of respiratory distress. IV is intact and patent. There are no signs of erythema, infiltration, or bleeding. Walker is at bedside. Bed is in the lowest position, call light is within reach, side rails up x3.Will continue to monitor.
[2020-09-14] MEDS: Docusate 100mg cap ORAL SCH ×2 (09:25→20:43)
[2020-09-14] MEDS: Amiodarone 200mg tab ORAL SCH (09:26)
--- NOTE | 2020-09-14 10:18 | General Progress Note ---
Subjective Allergies: Coded Allergies: No Known Allergies (Verified Allergy, Mild, 06/18/10) All Systems: reviewed and negative except above Subjective events noted interval notes reviewed Item Value Date Time Bedside Blood Glucose 118 mg/dl 09/14/20 0630 Bedside Blood Glucose 132 mg/dl H 09/13/20 2100 Bedside Blood Glucose 147 mg/dl H 09/13/20 1620 Bedside Blood Glucose 170 mg/dl H 09/13/20 1134 Bedside Blood Glucose 116 mg/dl 09/13/20 0624 Objective Last 24 Hour Vital Signs Date Time Temp Pulse Resp B/P (MAP) Pulse Ox O2 Delivery O2 Flow Rate FiO2 09/14/20 09:27 104 110/65 09/14/20 04:00 97.7 83 20 140/70 (93) 95 09/14/20 04:00 83 110 111 09/14/20 04:00 87 09/14/20 00:00 99.3 96 16 156/97 (116) 100 09/14/20 00:00 87 09/13/20 21:00 Room Air 09/13/20 20:00 69 09/13/20 20:00 97.7 84 20 137/67 (90) 96 09/13/20 16:00 69 09/13/20 16:00 82 100 102 09/13/20 16:00 97.7 93 20 94/52 (66) 95 09/13/20 12:00 118 09/13/20 11:55 96.1 67 17 120/66 (84) 96 09/13/20 11:30 96.4 93 18 94/52 (66) 96 Intake and Output 09/13/20 09/14/20 19:00 07:00 Intake Total 240 ml 360 ml Output Total 400 ml 600 ml Balance -160 ml -240 ml Intake Oral 240 ml 360 ml Output Urine Total 400 ml 600 ml # Bowel Movements 2 Laboratory Tests 09/13/20 11:34: POC Whole Blood Glucose 170H 09/13/20 16:01: POC Whole Blood Glucose 147H 09/14/20 06:05: White Blood Count 3.6L, Red Blood Count 3.59L, Hemoglobin 9.9L, Hematocrit 30.7L , Mean Corpuscular Volume 86, Mean Corpuscular Hemoglobin 27.5, Mean Corpuscular Hemoglobin Concent 32.2, Red Cell Distribution Width 15.2H, Platelet Count 146L, Mean Platelet Volume 6.8, Neutrophils (%) (Auto) , Lymphocytes (%) (Auto) , Monocytes (%) (Auto) , Eosinophils (%) (Auto) , Basophils (%) (Auto) , Differential Total Cells Counted 100, Neutrophils % (Manual) 95H, Lymphocytes % (Manual) 3L, Monocytes % (Manual) 2, Eosinophils % (Manual) 0, Basophils % (Manual) 0, Band Neutrophils 0, Platelet Estimate DecreasedL, Platelet Morphology Normal, Anisocytosis 1+, Sodium Level 144, Potassium Level 4.1, Chloride Level 109H, Carbon Dioxide Level 27, Anion Gap 8, Blood Urea Nitrogen 13, Creatinine 1.4H, Estimat Glomerular Filtration Rate 58.5, Glucose Level 119H , Calcium Level 8.4L, Phosphorus Level 2.7, Magnesium Level 1.6L, Total Bilirubin 0.6, Aspartate Amino Transf (AST/SGOT) 16, Alanine Aminotransferase (ALT/SGPT) 17, Alkaline Phosphatase 57, Total Protein 5.9L, Albumin 3.0L, Globulin 2.9, Albumin/Globulin Ratio 1.0 Height (Feet): 5 Height (Inches): 7.00 Weight (Pounds): 195 General Appearance: no apparent distress Neck: normal alignment Cardiovascular: normal rate Respiratory/Chest: lungs clear Abdomen: normal bowel sounds Objective Current Medications Medications (Trade) Dose Ordered Sig/Radha Route PRN Reason Start Time Stop Time Status Last Admin Dose Admin Acetaminophen (Tylenol) 650 mg Q4H PRN ORAL Temp >100.5 09/11/20 15:45 10/11/20 15:44 Al Hydroxide/Mg Hydroxide (Mylanta II) 30 ml Q6H PRN ORAL dyspepsia 09/11/20 15:45 10/11/20 15:44 Amiodarone HCl (Cordarone) 200 mg DAILY ORAL 09/11/20 19:00 12/10/20 18:59 09/14/20 09:26 Amlodipine Besylate (Norvasc) 10 mg DAILY ORAL 09/11/20 19:00 10/11/20 18:59 09/14/20 09:27 Bisacodyl (Dulcolax) 10 mg HSPRN PRN RECTAL Constipation 09/11/20 15:45 12/10/20 15:44 Dextrose (Dextrose 50%) 25 ml Q30M PRN IV Hypoglycemia 09/11/20 18:00 12/10/20 17:59 Dextrose (Dextrose 50%) 50 ml Q30M PRN IV Hypoglycemia 09/11/20 18:00 12/10/20 17:59 Diphenhydramine HCl (Benadryl) 25 mg Q6H PRN ORAL Itching/Pruritis 09/11/20 15:45 10/11/20 15:44 Docusate Sodium (Colace) 100 mg EVERY 12 HOURS ORAL 09/11/20 21:00 10/11/20 20:59 09/14/20 09:25 Famotidine (Pepcid) 40 mg DAILY ORAL 09/12/20 09:00 12/11/20 08:59 09/14/20 09:27 Insulin Aspart (NovoLOG) BEFORE MEALS AND HS SUBQ 09/11/20 21:00 12/10/20 20:59 09/13/20 16:03 Levothyroxine Sodium (Synthroid) 88 mcg DAILY@0630 ORAL 09/14/20 06:30 10/12/20 06:29 09/14/20 06:30 Lorazepam (Ativan) 1 mg Q4H PRN ORAL For Anxiety 09/11/20 15:45 09/18/20 15:44 Magnesium Hydroxide (Mom) 30 ml HSPRN PRN ORAL Constipation 09/11/20 15:45 10/11/20 15:44 Morphine Sulfate (Morphine Sulfate) 2 mg Q4H PRN IVP pain 4-10 09/11/20 15:45 09/18/20 15:44 Nitroglycerin (Ntg) 0.4 mg Q5M X 3 DOSES PRN SL Prn Chest Pain 09/11/20 15:45 10/11/20 15:44 Sodium Chloride 550 ml @ 0 mls/hr Q0M IV 09/11/20 13:00 10/11/20 12:59 Tamsulosin HCl (Flomax) 0.4 mg BEDTIME ORAL 09/12/20 21:00 10/12/20 20:59 09/13/20 21:33 Temazepam (Restoril) 15 mg HSPRN PRN ORAL Insomnia 09/11/20 15:45 09/18/20 15:44 Assessment/Plan Problem List: (1) Hypothyroid ICD Codes: E03.9 - Hypothyroidism, unspecified SNOMED: 94190027 (2) Diabetes ICD Codes: E11.9 - Diabetes SNOMED: 04271069 (3) Pseudoaneurysm ICD Codes: I72.9 - Aneurysm of unspecified site SNOMED: 446008236, 95394531, 48784864 (4) Hypertension ICD Codes: I10 - Hypertension SNOMED: 52531528 Assessment/Plan: continue Levothyroxine 88 mcg daily repeat TSH, free T4 in 2-3 weeks continue Novolog sliding scale ac hs Zeeshan Fischer MD Sep 14, 2020 10:18
[2020-09-14 11:28] LABS: % IRON SATURATION 30 % (15-50); IRON 83 ug/dL (50-175); TOTAL IRON BINDING CAPACITY 274 ug/dL (250-450)
[2020-09-14 11:32] LABS: FERRITIN 18 NG/ML (8-388)
[2020-09-14 12:00] VITALS: BP 110/66
[2020-09-14] MEDS: Heparin 5000 units/ml inj SUBQ SCH ×2 (14:00→22:00)
--- NOTE | 2020-09-14 15:42 | Neurology Progress Note ---
Interim History Interim History ROS Limited/Unobtainable: No Interim History ambulating , no new deficits cleared for or Objective Physical Exam Last Vital Signs Date Time Temp Pulse Resp B/P (MAP) Pulse Ox O2 Delivery O2 Flow Rate FiO2 09/14/20 12:00 79 09/14/20 12:00 98.6 20 110/66 (81) 97 09/14/20 09:00 Room Air Laboratory Tests Test 09/13/20 16:01 09/14/20 06:05 POC Whole Blood Glucose 147 MG/DL (74-106) H White Blood Count 3.6 K/UL (4.8-10.8) L Red Blood Count 3.59 M/UL (4.70-6.10) L Hemoglobin 9.9 G/DL (14.2-18.0) L Hematocrit 30.7 % (42.0-52.0) L Mean Corpuscular Volume 86 FL (80-99) Mean Corpuscular Hemoglobin 27.5 PG (27.0-31.0) Mean Corpuscular Hemoglobin Concent 32.2 G/DL (32.0-36.0) Red Cell Distribution Width 15.2 % (11.6-14.8) H Platelet Count 146 K/UL (150-450) L Mean Platelet Volume 6.8 FL (6.5-10.1) Neutrophils (%) (Auto) % (45.0-75.0) Lymphocytes (%) (Auto) % (20.0-45.0) Monocytes (%) (Auto) % (1.0-10.0) Eosinophils (%) (Auto) % (0.0-3.0) Basophils (%) (Auto) % (0.0-2.0) Differential Total Cells Counted 100 Neutrophils % (Manual) 95 % (45-75) H Lymphocytes % (Manual) 3 % (20-45) L Monocytes % (Manual) 2 % (1-10) Eosinophils % (Manual) 0 % (0-3) Basophils % (Manual) 0 % (0-2) Band Neutrophils 0 % (0-8) Platelet Estimate Decreased L Platelet Morphology Normal Anisocytosis 1+ Sodium Level 144 MMOL/L (136-145) Potassium Level 4.1 MMOL/L (3.5-5.1) Chloride Level 109 MMOL/L (98-107) H Carbon Dioxide Level 27 MMOL/L (21-32) Anion Gap 8 mmol/L (5-15) Blood Urea Nitrogen 13 mg/dL (7-18) Creatinine 1.4 MG/DL (0.55-1.30) H Estimat Glomerular Filtration Rate 58.5 mL/min (>60) Glucose Level 119 MG/DL (74-106) H Calcium Level 8.4 MG/DL (8.5-10.1) L Phosphorus Level 2.7 MG/DL (2.5-4.9) Magnesium Level 1.6 MG/DL (1.8-2.4) L Iron Level 83 ug/dL (50-175) Total Iron Binding Capacity 274 ug/dL (250-450) Percent Iron Saturation 30 % (15-50) Unsaturated Iron Binding 191 ug/dL (112-346) Ferritin 18 NG/ML (8-388) Total Bilirubin 0.6 MG/DL (0.2-1.0) Aspartate Amino Transf (AST/SGOT) 16 U/L (15-37) Alanine Aminotransferase (ALT/SGPT) 17 U/L (12-78) Alkaline Phosphatase 57 U/L (46-116) Total Protein 5.9 G/DL (6.4-8.2) L Albumin 3.0 G/DL (3.4-5.0) L Globulin 2.9 g/dL Albumin/Globulin Ratio 1.0 (1.0-2.7) Vitamin B12 Level 385 PG/ML (193-986) Folate 17.7 NG/ML (8.6-58.9) Head: normocophalic Neck: no rigidity EENT: benign Neurologic Exam Mental Status: awake, alert Cranial Nerve II: fundus normal Cranial Nerves III, IV, : PERRLA Cranial Nerve V: normal facial sensations Cranial Nerve VII: no facial asymmetry Cranial Nerve VIII: normal hearing Cranial Nerve IX: normal palate elevation Cranial Nerve X: no voice hoarseness Cranial Nerve XI: SCM symmetric Cranial Nerve XII: tongue midline Motor System: normal muscle tone Objective non focal exam ataxic Impression/Recommendations Problems: (1) Hematoma (2) Arrhythmia (3) Diabetes (4) Hyperlipidemia (5) Abdominal pain (6) Hypertension (7) Pseudoaneurysm Diagnostic Impression sp fall , seems mechanical more than syncope left forehead expansile mass, pseudoaneurysm cta noted tele mri brain agree with OR Eskenazi ,Marbin MD Sep 14, 2020 15:42
[2020-09-14 16:00] VITALS: BP 111/61
--- NOTE | 2020-09-14 17:07 | Nephrology Progress Note ---
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 #DM #BPH - NS 250 bolus - plan for ligation of the pseudoaneurysm and removal - monitor UOP - defer renal US for now - neurology eval - continue flomax 0.4mg daily - continue amlodipine 10mg daily - on amiodarone - holding xarelto - monitor renal function - avoid nephrotoxins time spent 65 min Subjective ROS Limited/Unobtainable: No Constitutional: Reports: weakness Subjective cr 1.4 will give NS 250 bolus Objective Objective Last 24 Hour Vital Signs Date Time Temp Pulse Resp B/P (MAP) Pulse Ox O2 Delivery O2 Flow Rate FiO2 09/14/20 16:00 85 89 90 09/14/20 12:00 79 09/14/20 12:00 98.6 82 20 110/66 (81) 97 09/14/20 09:27 104 110/65 09/14/20 09:00 Room Air 09/14/20 08:00 99.8 104 20 110/65 (80) 96 09/14/20 08:00 97 09/14/20 04:00 97.7 83 20 140/70 (93) 95 09/14/20 04:00 83 110 111 09/14/20 04:00 87 09/14/20 00:00 99.3 96 16 156/97 (116) 100 09/14/20 00:00 87 09/13/20 21:00 Room Air 09/13/20 20:00 69 09/13/20 20:00 97.7 84 20 137/67 (90) 96 Intake and Output 09/13/20 09/14/20 19:00 07:00 Intake Total 240 ml 360 ml Output Total 400 ml 600 ml Balance -160 ml -240 ml Intake Oral 240 ml 360 ml Output Urine Total 400 ml 600 ml # Bowel Movements 2 Laboratory Tests 09/14/20 06:05: White Blood Count 3.6L, Red Blood Count 3.59L, Hemoglobin 9.9L, Hematocrit 30.7L , Mean Corpuscular Volume 86, Mean Corpuscular Hemoglobin 27.5, Mean Corpuscular Hemoglobin Concent 32.2, Red Cell Distribution Width 15.2H, Platelet Count 146L, Mean Platelet Volume 6.8, Neutrophils (%) (Auto) , Lymphocytes (%) (Auto) , Monocytes (%) (Auto) , Eosinophils (%) (Auto) , Basophils (%) (Auto) , Differential Total Cells Counted 100, Neutrophils % (Manual) 95H, Lymphocytes % (Manual) 3L, Monocytes % (Manual) 2, Eosinophils % (Manual) 0, Basophils % (Manual) 0, Band Neutrophils 0, Platelet Estimate DecreasedL, Platelet Morphology Normal, Anisocytosis 1+, Sodium Level 144, Potassium Level 4.1, Chloride Level 109H, Carbon Dioxide Level 27, Anion Gap 8, Blood Urea Nitrogen 13, Creatinine 1.4H, Estimat Glomerular Filtration Rate 58.5, Glucose Level 119H , Calcium Level 8.4L, Phosphorus Level 2.7, Magnesium Level 1.6L, Iron Level 83, Total Iron Binding Capacity 274, Percent Iron Saturation 30, Unsaturated Iron Binding 191, Ferritin 18, Total Bilirubin 0.6, Aspartate Amino Transf (AST/SGOT) 16, Alanine Aminotransferase (ALT/SGPT) 17, Alkaline Phosphatase 57, Total Protein 5.9L, Albumin 3.0L, Globulin 2.9, Albumin/Globulin Ratio 1.0, Vitamin B12 Level 385, Folate 17.7 Height (Feet): 5 Height (Inches): 7.00 Weight (Pounds): 195 Judah Richmond M.D. Sep 14, 2020 17:07
[2020-09-14] MEDS ORDERED: NS 250 ML IVPB SCH (17:15)
--- NOTE | 2020-09-14 17:55 | Surgery Progress Note ---
Surgery Progress Note Subjective Additional Comments improving no n/v walking better comfortable Objective Last 24 Hour Vital Signs Date Time Temp Pulse Resp B/P (MAP) Pulse Ox O2 Delivery O2 Flow Rate FiO2 09/14/20 16:00 85 89 90 09/14/20 16:00 97.9 74 20 111/61 (78) 97 09/14/20 16:00 70 09/14/20 12:00 79 09/14/20 12:00 98.6 82 20 110/66 (81) 97 09/14/20 09:27 104 110/65 09/14/20 09:00 Room Air 09/14/20 08:00 99.8 104 20 110/65 (80) 96 09/14/20 08:00 97 09/14/20 04:00 97.7 83 20 140/70 (93) 95 09/14/20 04:00 83 110 111 09/14/20 04:00 87 09/14/20 00:00 99.3 96 16 156/97 (116) 100 09/14/20 00:00 87 09/13/20 21:00 Room Air 09/13/20 20:00 69 09/13/20 20:00 97.7 84 20 137/67 (90) 96 I&O Intake and Output 09/13/20 09/14/20 19:00 07:00 Intake Total 240 ml 360 ml Output Total 400 ml 600 ml Balance -160 ml -240 ml Intake Oral 240 ml 360 ml Output Urine Total 400 ml 600 ml # Bowel Movements 2 Cardiovascular: RSR Respiratory: clear Abdomen: soft, non-tender, present bowel sounds, non-distended Extremities: edema, no tenderness, no cyanosis, pulses Laboratory Tests Test 09/14/20 06:05 White Blood Count 3.6 K/UL (4.8-10.8) L Red Blood Count 3.59 M/UL (4.70-6.10) L Hemoglobin 9.9 G/DL (14.2-18.0) L Hematocrit 30.7 % (42.0-52.0) L Mean Corpuscular Volume 86 FL (80-99) Mean Corpuscular Hemoglobin 27.5 PG (27.0-31.0) Mean Corpuscular Hemoglobin Concent 32.2 G/DL (32.0-36.0) Red Cell Distribution Width 15.2 % (11.6-14.8) H Platelet Count 146 K/UL (150-450) L Mean Platelet Volume 6.8 FL (6.5-10.1) Neutrophils (%) (Auto) % (45.0-75.0) Lymphocytes (%) (Auto) % (20.0-45.0) Monocytes (%) (Auto) % (1.0-10.0) Eosinophils (%) (Auto) % (0.0-3.0) Basophils (%) (Auto) % (0.0-2.0) Differential Total Cells Counted 100 Neutrophils % (Manual) 95 % (45-75) H Lymphocytes % (Manual) 3 % (20-45) L Monocytes % (Manual) 2 % (1-10) Eosinophils % (Manual) 0 % (0-3) Basophils % (Manual) 0 % (0-2) Band Neutrophils 0 % (0-8) Platelet Estimate Decreased L Platelet Morphology Normal Anisocytosis 1+ Sodium Level 144 MMOL/L (136-145) Potassium Level 4.1 MMOL/L (3.5-5.1) Chloride Level 109 MMOL/L (98-107) H Carbon Dioxide Level 27 MMOL/L (21-32) Anion Gap 8 mmol/L (5-15) Blood Urea Nitrogen 13 mg/dL (7-18) Creatinine 1.4 MG/DL (0.55-1.30) H Estimat Glomerular Filtration Rate 58.5 mL/min (>60) Glucose Level 119 MG/DL (74-106) H Calcium Level 8.4 MG/DL (8.5-10.1) L Phosphorus Level 2.7 MG/DL (2.5-4.9) Magnesium Level 1.6 MG/DL (1.8-2.4) L Iron Level 83 ug/dL (50-175) Total Iron Binding Capacity 274 ug/dL (250-450) Percent Iron Saturation 30 % (15-50) Unsaturated Iron Binding 191 ug/dL (112-346) Ferritin 18 NG/ML (8-388) Total Bilirubin 0.6 MG/DL (0.2-1.0) Aspartate Amino Transf (AST/SGOT) 16 U/L (15-37) Alanine Aminotransferase (ALT/SGPT) 17 U/L (12-78) Alkaline Phosphatase 57 U/L (46-116) Total Protein 5.9 G/DL (6.4-8.2) L Albumin 3.0 G/DL (3.4-5.0) L Globulin 2.9 g/dL Albumin/Globulin Ratio 1.0 (1.0-2.7) Vitamin B12 Level 385 PG/ML (193-986) Folate 17.7 NG/ML (8.6-58.9) Plan Problems: (1) Hematoma (2) Pseudoaneurysm Assessment & Plan: This is a 84-year-old male 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 Patient identified abnormal labs. I had a long session with the patient and his family. He has been falling recently had multiple falls but does not recall all of them. Patient furthermore has multiple medications though may not have full compliance or understanding. Patient with a pulsatile potentially expanding mass in his left forehead aneurysm CT noted discussed with radiology. Given the above I do not feel safe for patient to go home and electively participate in ligation. He is at high risk for another fall potential injury potential aneurysm expansion or even worse potential rupture with potential catastrophic event and considerations given this discussion with the family and patient's interest given his medical history and abnormal labs and work-up necessary it is in his interest to be admitted worked up and taken to the operating room when stable and off anticoagulation for ligation of the pseudoaneurysm and removal. Admit to medical service Consultants as below Okay for diet for now Hold anticoagulation Monitor for bleeding or expansion We will take the operating room in stable Preop work-up thank you for let me participation's care Covid test pending cardiology and clearance by consultants difficulty walking le edema duplex negative echo? cleared by cardio for surgery plan or wednesday (3) Arrhythmia (4) Diabetes (5) Hyperlipidemia (6) Abdominal pain (7) Hypertension Vernon Tse Sep 14, 2020 17:55
--- NOTE | 2020-09-14 18:50 | General Progress Note ---
Subjective Allergies: Coded Allergies: No Known Allergies (Verified Allergy, Mild, 06/18/10) Subjective No acute events overnight per nursing. Patient feels like left temporal mass is about the same. Surgery planned for Wednesday. Patient feels well otherwise. Patient with anemia but no signs of bleeding no melena or hematochezia. No other complaints Review of systems: Constitutional: Denies: chills, diaphoresis, fever, malaise, weakness, HEENT: Denies: eye pain, blurred vision, tearing, Cardiovascular: Denies: chest pain, lightheadedness, palpitations, syncope, Respiratory: Denies: cough, orthopnea, shortness of breath, SOB with excertion, SOB at rest, Gastrointestinal/Abdominal: Denies: abdomen distended, abdominal pain, melena, blood in stool, constipated, diarrhea, difficulty swallowing, nausea, poor appetite, poor fluid intake, rectal bleeding, vomiting, other Genitourinary: Denies: burning, discharge, frequency, flank pain, hematuria, incontinence, pain, urgency, other Neurologic/Psychiatric: Denies: anxiety, depressed, emotional problems, headache, numbness, paresthesia, pre-existing deficit, seizure, tingling, tremors, weakness, other Endocrine: Denies: excessive sweating, flushing, intolerance to cold, intolerance to heat, increased hunger, increased thirst MSK: denies joint pains, swelling, stiffness Hematologic/Lymphatic: Denies: anemia, easy bleeding, easy bruising, Objective Last 24 Hour Vital Signs Date Time Temp Pulse Resp B/P (MAP) Pulse Ox O2 Delivery O2 Flow Rate FiO2 09/14/20 16:00 85 89 90 09/14/20 16:00 97.9 74 20 111/61 (78) 97 09/14/20 16:00 70 09/14/20 12:00 79 09/14/20 12:00 98.6 82 20 110/66 (81) 97 09/14/20 09:27 104 110/65 09/14/20 09:00 Room Air 09/14/20 08:00 99.8 104 20 110/65 (80) 96 09/14/20 08:00 97 09/14/20 04:00 97.7 83 20 140/70 (93) 95 09/14/20 04:00 83 110 111 09/14/20 04:00 87 09/14/20 00:00 99.3 96 16 156/97 (116) 100 09/14/20 00:00 87 09/13/20 21:00 Room Air 09/13/20 20:00 69 09/13/20 20:00 97.7 84 20 137/67 (90) 96 Intake and Output 09/13/20 09/14/20 19:00 07:00 Intake Total 240 ml 360 ml Output Total 400 ml 600 ml Balance -160 ml -240 ml Intake Oral 240 ml 360 ml Output Urine Total 400 ml 600 ml # Bowel Movements 2 Laboratory Tests 09/14/20 06:05: White Blood Count 3.6L, Red Blood Count 3.59L, Hemoglobin 9.9L, Hematocrit 30.7L , Mean Corpuscular Volume 86, Mean Corpuscular Hemoglobin 27.5, Mean Corpuscular Hemoglobin Concent 32.2, Red Cell Distribution Width 15.2H, Platelet Count 146L, Mean Platelet Volume 6.8, Neutrophils (%) (Auto) , Lymphocytes (%) (Auto) , Monocytes (%) (Auto) , Eosinophils (%) (Auto) , Basophils (%) (Auto) , Differential Total Cells Counted 100, Neutrophils % (Manual) 95H, Lymphocytes % (Manual) 3L, Monocytes % (Manual) 2, Eosinophils % (Manual) 0, Basophils % (Manual) 0, Band Neutrophils 0, Platelet Estimate DecreasedL, Platelet Morphology Normal, Anisocytosis 1+, Sodium Level 144, Potassium Level 4.1, Chloride Level 109H, Carbon Dioxide Level 27, Anion Gap 8, Blood Urea Nitrogen 13, Creatinine 1.4H, Estimat Glomerular Filtration Rate 58.5, Glucose Level 119H , Calcium Level 8.4L, Phosphorus Level 2.7, Magnesium Level 1.6L, Iron Level 83, Total Iron Binding Capacity 274, Percent Iron Saturation 30, Unsaturated Iron Binding 191, Ferritin 18, Total Bilirubin 0.6, Aspartate Amino Transf (AST/SGOT) 16, Alanine Aminotransferase (ALT/SGPT) 17, Alkaline Phosphatase 57, Total Protein 5.9L, Albumin 3.0L, Globulin 2.9, Albumin/Globulin Ratio 1.0, Vitamin B12 Level 385, Folate 17.7 Height (Feet): 5 Height (Inches): 7.00 Weight (Pounds): 195 Objective General: WDWN male in [facility] A&O x 4 HEENT: Normocephalic cephalic atraumatic, pupils equal round reactive to light and accommodation, nares patent and no symmetrical, no tonsillar exudates, mucous membranes moist + left temporal mass is pulsatile. Not warm to touch (unchanged) CV: Regular rate regular rhythm, no murmurs, rubs, or gallops Pulm: Lungs clear to auscultation bilaterally. No wheezes, rhonchi, or rales GI: Soft, nontender, nondistended, bowel sounds present Neuro: CN 2-12 intact bilaterally, no focal signs. Ext: 2+ LE edema bilaterally. No tenderness Skin: no rashes lesions or ulcers Msk: Joints symmetrical in upper extremity and lower extremity bilaterally, no joint swelling. Lymph: No lymphadenopathy in upper extremity and lower extremity Assessment/Plan Assessment/Plan: #Left temporal artery pseudoanerysm (stable) #head trauma while on xarelto #Mechanical Fall #Rule out syncope/near syncope #LE weakness, suspect due to deconditioning - Admit to telemetry: Intermittent afib with tachycardia. - EKG: reviewed - Orthostatics: normal - s/p Gentle IV fluids - Appreciate Cardiology Consult: Dr. Montes De Oca - Troponin: normal - Appreciate Neurology consult: Dr. Brown - Appreciate gen surgery consult: Dr. Tse - check CK: normal - MRI brain: reviewed - Possible surgery planned for Wednesday #Normocytic anemia > No signs of bleeding -Check iron panel, ferritin, B12, folate -Check stool occult blood -Consider GI/heme consult #Pre-op risk stratification - METS >4. Patient able to walk up flight of stairs without chest pain or SOB. No difficulty with anesthesia in the past. - Appreciate Cardiology eval - > clear for surgery. - TTE pending #Atrial fibrillation on Xarelto - Continue amiodarone - Continue Metoprolol - Holding Xarelto as above - Appreciate Cards consult - check CK #HTN - continue metop - Continue amlodipine #ERIK, suspect pre-renal etiology #h/o BPH s/p TURP - IV fluids - urine lytes - renal ultrasound: reviewed - > mild left hydro - outside urologist is Dr. Dunlap #Chronic LE edema, non painful > Ddx venous insufficiency, hypothyroid, CCB? - Venous duplex LE bilaterally: negative - CTM - diuretics per cardiology - elevate legs #Diabetes Mellitus Type 2 - holding home metformin - SSI - Accuchecks - hypoglycemia protocol #Hypothyroidism - check TSH: 23 - continue synthroid. - Increase synthroid to 88mcg daily (from 44) - IV synthroid 50mcg x 1 - Endocrinology consult: Dr. Fischer 38 minutes spent on this encounter, and 20 minutes spent on counseling and care coordination. Discussed with Surgery, Cardiology, Neurology. Time of note may not reflect time patient was seen. Harpreet Waters D.O. Sep 14, 2020 18:50
--- NOTE | 2020-09-14 19:29 | NUR ---
NURSE HAND-OFF REPORT: Important Events on Shift:[Orthostatic Vitals done] Patient Status: [Full code] Diet: [CCHO low] Pending Orders: [] Pending Results/Labs:[] Pending MD notification:[] Latest Vital Signs: Temperature 97.9 , Pulse 70 , B/P 111 /61 , Respiratory Rate 20 , O2 SAT 97 , Room Air, O2 Flow Rate . Vital Sign Comment: [] EKG Rhythm: SR BBB Rhythm change?: N Notified?: Steve Garcia MD Response: Message left await call Latest Yang Fall Score: 85 Fall Risk: High Risk Safety Measures: Call light Within Reach, Bed Alarm Zone 1, Side Rails Side Rails x2, Bed position Low and Locked. Fall Precautions: Yellow Socks Yellow Gown Door Sign Patient Fall Education Report given to [AIDA Fitzpatrick].
[2020-09-14 20:00] VITALS: BP 128/63
--- NOTE | 2020-09-14 20:00 | NUR ---
NURSE NOTES: RECEIVED PATIENT LYING IN BED, AWAKE, ALERT/ORIENTED X4, VERBALLY RESPONSIVE, DENIES PAIN. NO SIGNS AND SYMPTOMS OF ACUTE CARDIO RESPIRATORY DISTRESS/SHORTNESS OF BREATH DENIES CHEST PAIN, NOTED WITH +2 NON PITTED EDEMA TO BILATERAL LOWER EXTREMITIES, ELEVATED ON PILLOWS WITH HEELS FLOATING, TOLERATING WELL. SINUS RHYTHM ON DRAFT ROLLER PICKER WITH BBB, MAD AWARE. ABDOMEN SOFT/NON DISTENDED/AUDIBLE BOWEL SOUNDS, NO REPORT OF N/V/D, BATHROOM PRIVILEGES WITH SUPERVISION. SIDE RAILS UP X3/BED IN LOWEST POSITION FOR SAFETY, ENCOURAGED PATIENT TO UTILIZE CALL LIGHT FOR ASSISTANCE, VERBALIZED UNDERSTANDING. CONTINUE WITH CURRENT PLAN OF CARE. RESTING WELL, NAD.
--- NOTE | 2020-09-14 22:00 | Consultation ---
DATE OF CONSULTATION: 09/14/2020 CONSULTING PHYSICIAN: Salvatore Dunlap M.D. REFERRING PHYSICIAN: Harpreet Waters D.O. REASON FOR CONSULTATION: Evaluation of hydronephrosis. HISTORY OF PRESENT ILLNESS: This is a pleasant 84-year-old gentleman who is very well known to me from office evaluations. I have been seeing him for a number of years because of BPH and lower urinary tract symptoms. In fact, I saw him just a few days ago before his admission. He was admitted to the hospital because of head trauma. He has had some fluctuations of his renal function. He had a renal ultrasound that showed mild left-sided hydronephrosis. Followup evaluation has been requested. The patient is currently voiding well. He has no flank pain. He has a history of TURP. He usually has high residuals because of a neurogenic bladder. His cystoscopy showed an open fossa and I did recently start him on Urecholine 25 mg t.i.d. PAST MEDICAL HISTORY: As above. Other history significant for hypertension, hypothyroidism. PAST SURGICAL HISTORY: As above. MEDICATIONS: Current medications in the hospital were reviewed. He is on heparin. He is on Synthroid, Flomax, Pepcid, insulin, Colace, Norvasc, Cardura, Mylanta, nitroglycerin, Benadryl, p.r.n. Restoril, Ativan, morphine. ALLERGIES: No known drug allergies. SOCIAL HISTORY: He is a nonsmoker. REVIEW OF SYSTEMS: As above. FAMILY HISTORY: Noncontributory. PHYSICAL EXAMINATION: GENERAL: An elderly male, in no acute distress. VITAL SIGNS: Temperature is 97.9, blood pressure 111/61, pulse is 89, respirations are 20. He was recently examined by me and he had no CVA tenderness or abdominal tenderness. LABORATORY DATA: His BUN is 13, creatinine 1.4. His creatinine did go down to 1.2 yesterday. His usual baseline creatinine as an outpatient is about 1.5 to 2. His white count is 3.6, hemoglobin 9.9, platelets 146. There is no urinalysis during this admission. DIAGNOSTIC IMAGING STUDIES: The patient had a renal ultrasound. This is from 3 days ago. There was evidence of mild left-sided hydronephrosis. There was a ureteral jet noted. There were echogenic kidneys bilaterally, likely indicating medical renal disease. There was also a questionable nonobstructive renal calculi and a tiny left renal cyst. IMPRESSION: 1. Left-sided hydronephrosis, which is mild and may be because of recent elevated postvoid residuals. 2. History of mild chronic kidney disease. 3. BPH history. 4. Atonic neurogenic bladder. 5. Nephrolithiasis. 6. Renal cyst. 7. UTI history. PLAN AND DISCUSSION: Again, as noted above, I have known him for a custodial. He has a history of BPH, TURP, and open fossa. At this time, I do not think Flomax is necessary. This can be discontinued. However, he needs to be on bethanechol, and I will restart him on 25 mg t.i.d. He does have chronic kidney disease with baseline creatinine in the 1.5 to 2 range. In fact, his creatinines during this admission are better than what he usually is at. He has had a recent history of UTIs, for which he had antibiotics and a repeat urinalysis and culture will be obtained. I will follow the patient. Other recommendations forthcoming. Thank you for this consultation. Salvatore Dunlap M.D. DR: ELLA JOB#: [id number] CC:
--- NOTE | 2020-09-14 23:58 | Cardiology Progress Note ---
Assessment/Plan Assessment/Plan 1. Clear for resection of the scalp pseudo-aneurysm. 2. Paroxysmal atrial fibrillation, Xarelto on hold.Continue amiodarone. 3. HTN, well controlled, continue amlodipine. 4. CKD. Subjective Subjective Sinus rhythm at rate of 81. Denies chest pain or SOB. Objective Last 24 Hour Vital Signs Date Time Temp Pulse Resp B/P (MAP) Pulse Ox O2 Delivery O2 Flow Rate FiO2 09/14/20 21:47 Room Air 09/14/20 20:00 81 09/14/20 20:00 97.2 81 20 128/63 (84) 97 09/14/20 16:00 85 89 90 09/14/20 16:00 97.9 74 20 111/61 (78) 97 09/14/20 16:00 70 09/14/20 12:00 79 09/14/20 12:00 98.6 82 20 110/66 (81) 97 09/14/20 09:27 104 110/65 09/14/20 09:00 Room Air 09/14/20 08:00 99.8 104 20 110/65 (80) 96 09/14/20 08:00 97 09/14/20 04:00 97.7 83 20 140/70 (93) 95 09/14/20 04:00 83 110 111 09/14/20 04:00 87 09/14/20 00:00 99.3 96 16 156/97 (116) 100 09/14/20 00:00 87 Intake and Output 09/13/20 09/14/20 19:00 07:00 Intake Total 240 ml 360 ml Output Total 400 ml 600 ml Balance -160 ml -240 ml Intake Oral 240 ml 360 ml Output Urine Total 400 ml 600 ml # Bowel Movements 2 Laboratory Tests Test 09/14/20 06:05 09/14/20 20:41 White Blood Count 3.6 K/UL (4.8-10.8) L Red Blood Count 3.59 M/UL (4.70-6.10) L Hemoglobin 9.9 G/DL (14.2-18.0) L Hematocrit 30.7 % (42.0-52.0) L Mean Corpuscular Volume 86 FL (80-99) Mean Corpuscular Hemoglobin 27.5 PG (27.0-31.0) Mean Corpuscular Hemoglobin Concent 32.2 G/DL (32.0-36.0) Red Cell Distribution Width 15.2 % (11.6-14.8) H Platelet Count 146 K/UL (150-450) L Mean Platelet Volume 6.8 FL (6.5-10.1) Neutrophils (%) (Auto) % (45.0-75.0) Lymphocytes (%) (Auto) % (20.0-45.0) Monocytes (%) (Auto) % (1.0-10.0) Eosinophils (%) (Auto) % (0.0-3.0) Basophils (%) (Auto) % (0.0-2.0) Differential Total Cells Counted 100 Neutrophils % (Manual) 95 % (45-75) H Lymphocytes % (Manual) 3 % (20-45) L Monocytes % (Manual) 2 % (1-10) Eosinophils % (Manual) 0 % (0-3) Basophils % (Manual) 0 % (0-2) Band Neutrophils 0 % (0-8) Platelet Estimate Decreased L Platelet Morphology Normal Anisocytosis 1+ Sodium Level 144 MMOL/L (136-145) Potassium Level 4.1 MMOL/L (3.5-5.1) Chloride Level 109 MMOL/L (98-107) H Carbon Dioxide Level 27 MMOL/L (21-32) Anion Gap 8 mmol/L (5-15) Blood Urea Nitrogen 13 mg/dL (7-18) Creatinine 1.4 MG/DL (0.55-1.30) H Estimat Glomerular Filtration Rate 58.5 mL/min (>60) Glucose Level 119 MG/DL (74-106) H Calcium Level 8.4 MG/DL (8.5-10.1) L Phosphorus Level 2.7 MG/DL (2.5-4.9) Magnesium Level 1.6 MG/DL (1.8-2.4) L Iron Level 83 ug/dL (50-175) Total Iron Binding Capacity 274 ug/dL (250-450) Percent Iron Saturation 30 % (15-50) Unsaturated Iron Binding 191 ug/dL (112-346) Ferritin 18 NG/ML (8-388) Total Bilirubin 0.6 MG/DL (0.2-1.0) Aspartate Amino Transf (AST/SGOT) 16 U/L (15-37) Alanine Aminotransferase (ALT/SGPT) 17 U/L (12-78) Alkaline Phosphatase 57 U/L (46-116) Total Protein 5.9 G/DL (6.4-8.2) L Albumin 3.0 G/DL (3.4-5.0) L Globulin 2.9 g/dL Albumin/Globulin Ratio 1.0 (1.0-2.7) Vitamin B12 Level 385 PG/ML (193-986) Folate 17.7 NG/ML (8.6-58.9) POC Whole Blood Glucose Pending Objective HEENT: Atraumatic. There is a 3 x 3 hematoma that is pulsatile in the left temporal region, otherwise pupils are equal, round, and reactive to light and accommodation. Extraocular muscles intact. NECK: JVP less than 5 cm. No carotid bruit. Carotid upstrokes 2+ bilaterally. CARDIOVASCULAR: Normal S1 and S2. Regular rate and rhythm. Somewhat tachycardic. No murmurs, gallops, or rubs. LUNGS: Clear to auscultation bilaterally. ABDOMEN: Soft, nontender, nondistended. No hepatosplenomegaly. Positive bowel sounds. EXTREMITIES: No evidence of edema, clubbing, or cyanosis. Joseph Elaine MD Sep 14, 2020 23:57
[2020-09-15] VITALS: BP 119/61
[2020-09-15 04:00] VITALS: BP 114/57
[2020-09-15] MEDS: Heparin 5000 units/ml inj SUBQ SCH ×4 (06:00→18:21)
[2020-09-15] MEDS: NovoLOG Insulin Flexpen SUBQ SCH ×4 (06:30→22:11)
--- NOTE | 2020-09-15 07:50 | NUR ---
NURSE NOTES: Received hand-off report from HARSH Hoyos. Patient AOX4, able to state name, , date and current president. Breathing even and unlabored on room air. Bed alarm on, bed in lowest and locked position, call light within reach, cardiac monitor technician on. Educated patient on prevention of falls. Patient verbalized understanding. Tolerated breakfast well. Yellow socks on.
[2020-09-15 08:00] VITALS: BP 138/68
[2020-09-15 08:09] LABS: BASOPHILS % (AUTO) 0.8 % (0.0-2.0); EOSINOPHILS % (AUTO) 2.1 % (0.0-3.0); HEMATOCRIT 32.1 % (42.0-52.0); HEMOGLOBIN 10.1 G/DL (14.2-18.0); MEAN CORPUSCULAR VOLUME 87 FL (80-99); MONOCYTES % (AUTO) 7.3 % (1.0-10.0); NEUTROPHILS % (AUTO) 77.8 % (45.0-75.0); PLATELET COUNT 138 K/UL (150-450); RED BLOOD COUNT 3.68 M/UL (4.70-6.10); RED CELL DISTRIBUTION WIDTH 15.1 % (11.6-14.8); WHITE BLOOD COUNT 7.6 K/UL (4.8-10.8)
--- NOTE | 2020-09-15 08:19 | NUR ---
NURSE HAND-OFF REPORT: Important Events on Shift:[UNEVENTFUL NIGHT] Patient Status: [STABLE, AFEBRILE] Diet: [CCHO L SOFT EASY CHEW] Pending Orders: [AM LABS/STOOL OB/URINE COLLECTED FOR UA] Pending Results/Labs:[] Pending MD notification:[] Latest Vital Signs: Temperature 98.6 , Pulse 82 , B/P 114 /57 , Respiratory Rate 20 , O2 SAT 96 , Room Air, O2 Flow Rate . Vital Sign Comment: [STABLE, AFEBRILE] EKG Rhythm: SR BBB Rhythm change?: N Notified?: Steve Garcia MD Response: Message left await call Latest Yang Fall Score: 85 Fall Risk: High Risk Safety Measures: Call light Within Reach, Bed Alarm Zone 1, Side Rails Side Rails x2, Bed position Low and Locked. Fall Precautions: Yellow Socks Yellow Gown Door Sign Patient Fall Education Report given to [HARSH VASQUEZ]. Addendum: 09/15/20 at 0822 by ISHMAEL FRYE LVN POSSIBLE SURGERY ON WEDNESDAY(LIGATION AND REMOVAL OF HEMATOMA / DR. MACDONALD,SURGEON)
[2020-09-15 08:37] LABS: ALBUMIN 3.1 G/DL (3.4-5.0); BILIRUBIN,TOTAL 0.3 MG/DL (0.2-1.0); CALCIUM 8.5 MG/DL (8.5-10.1); CREATININE 1.4 MG/DL (0.55-1.30); POTASSIUM 4.2 MMOL/L (3.5-5.1)
[2020-09-15 08:41] LABS: PHOSPHORUS 3.4 MG/DL (2.5-4.9)
[2020-09-15 09:17] LABS: APPEARANCE,URINE CLEAR; BILIRUBIN, URINE NEGATIVE (NEGATIVE); COLOR,URINE PALE YELLOW; GLUCOSE, URINE (UA) NEGATIVE (NEGATIVE); KETONES,URINE NEGATIVE (NEGATIVE); LEUKOCYTE ESTERASE ,URINE 2+ (NEGATIVE); NITRITE,URINE POSITIVE (NEGATIVE); PH,URINE 7 (4.5-8.0); PROTEIN,URINE NEGATIVE (NEGATIVE); UROBILINOGEN,URINE NORMAL MG/DL (0.0-1.0)
[2020-09-15] MEDS: Amiodarone 200mg tab ORAL SCH (09:31)
[2020-09-15] MEDS: Bethanechol 25mg Tab ORAL SCH ×3 (09:31→17:19)
[2020-09-15] MEDS: Docusate 100mg cap ORAL SCH ×2 (09:31→21:42)
--- NOTE | 2020-09-15 09:37 | NUR ---
NURSE NOTES: roller setter, AIDA Hoyos, took urine specimen down to the lab.
--- NOTE | 2020-09-15 10:46 | NUR ---
NURSE NOTES: [facility] [place] today despite platelets being 138 to avoid blood clots. NPO by midnight.
--- NOTE | 2020-09-15 10:53 | Urology Progress Note ---
Assessment/Plan Assessment/Plan: 1. Left-sided hydronephrosis, which is mild and may be because of recent elevated postvoid residuals. 2. History of mild chronic kidney disease. 3. BPH history. 4. Atonic neurogenic bladder. 5. Nephrolithiasis. 6. Renal cyst. 7. UTI history. monitor clinically flomax dc'd restarted urecholine check urine C+S add empiric abx consider CT A/P d/w pt fully Subjective Allergies: Coded Allergies: No Known Allergies (Verified Allergy, Mild, 06/18/10) Subjective all noted, voiding surg for tomorrow Objective Last 24 Hour Vital Signs Date Time Temp Pulse Resp B/P (MAP) Pulse Ox O2 Delivery O2 Flow Rate FiO2 09/15/20 09:31 91 138/68 09/15/20 08:00 98.8 91 18 138/68 (91) 98 09/15/20 08:00 82 09/15/20 04:00 82 91 99 09/15/20 04:00 98.6 82 20 114/57 (76) 96 09/15/20 00:00 83 09/15/20 00:00 99.8 80 20 119/61 (80) 95 09/14/20 21:47 Room Air 09/14/20 20:00 81 09/14/20 20:00 97.2 81 20 128/63 (84) 97 09/14/20 16:00 85 89 90 09/14/20 16:00 97.9 74 20 111/61 (78) 97 09/14/20 16:00 70 09/14/20 12:00 79 09/14/20 12:00 98.6 82 20 110/66 (81) 97 Intake and Output 09/14/20 09/15/20 19:00 07:00 Intake Total 400 ml 360 ml Output Total 450 ml 600 ml Balance -50 ml -240 ml Intake Oral 400 ml 360 ml Output Urine Total 450 ml 600 ml # Voids 3 Microbiology Date/Time Source Procedure Growth Status 09/11/20 14:00 Nasopharynx SARS-CoV-2 RdRp Gene Assay - Final Complete Current Medications Medications (Trade) Dose Ordered Sig/Radha Route PRN Reason Start Time Stop Time Status Last Admin Dose Admin Acetaminophen (Tylenol) 650 mg Q4H PRN ORAL Temp >100.5 09/11/20 15:45 10/11/20 15:44 Al Hydroxide/Mg Hydroxide (Mylanta II) 30 ml Q6H PRN ORAL dyspepsia 09/11/20 15:45 10/11/20 15:44 Amiodarone HCl (Cordarone) 200 mg DAILY ORAL 09/11/20 19:00 12/10/20 18:59 09/15/20 09:31 Amlodipine Besylate (Norvasc) 10 mg DAILY ORAL 09/11/20 19:00 10/11/20 18:59 09/15/20 09:31 Bethanechol Chloride (Urecholine) 25 mg THREE TIMES A DAY ORAL 09/15/20 09:00 10/15/20 08:59 09/15/20 09:31 Bisacodyl (Dulcolax) 10 mg HSPRN PRN RECTAL Constipation 09/11/20 15:45 12/10/20 15:44 Dextrose (Dextrose 50%) 25 ml Q30M PRN IV Hypoglycemia 09/11/20 18:00 12/10/20 17:59 Dextrose (Dextrose 50%) 50 ml Q30M PRN IV Hypoglycemia 09/11/20 18:00 12/10/20 17:59 Diphenhydramine HCl (Benadryl) 25 mg Q6H PRN ORAL Itching/Pruritis 09/11/20 15:45 10/11/20 15:44 Docusate Sodium (Colace) 100 mg EVERY 12 HOURS ORAL 09/11/20 21:00 10/11/20 20:59 09/15/20 09:31 Famotidine (Pepcid) 40 mg DAILY ORAL 09/12/20 09:00 12/11/20 08:59 09/15/20 09:32 Heparin Sodium (Porcine) (Heparin 5000 units/ml) 5,000 units EVERY 8 HOURS SUBQ 09/14/20 14:00 10/29/20 13:59 Insulin Aspart (NovoLOG) BEFORE MEALS AND HS SUBQ 09/11/20 21:00 12/10/20 20:59 09/14/20 20:46 Levothyroxine Sodium (Synthroid) 88 mcg DAILY@0630 ORAL 09/14/20 06:30 10/12/20 06:29 09/15/20 07:09 Lorazepam (Ativan) 1 mg Q4H PRN ORAL For Anxiety 09/11/20 15:45 09/18/20 15:44 Magnesium Hydroxide (Mom) 30 ml HSPRN PRN ORAL Constipation 09/11/20 15:45 10/11/20 15:44 Morphine Sulfate (Morphine Sulfate) 2 mg Q4H PRN IVP pain 4-10 09/11/20 15:45 09/18/20 15:44 Nitroglycerin (Ntg) 0.4 mg Q5M X 3 DOSES PRN SL Prn Chest Pain 09/11/20 15:45 10/11/20 15:44 Sodium Chloride 550 ml @ 0 mls/hr Q0M IV 09/11/20 13:00 10/11/20 12:59 Temazepam (Restoril) 15 mg HSPRN PRN ORAL Insomnia 09/11/20 15:45 09/18/20 15:44 Laboratory Tests 09/14/20 20:41: POC Whole Blood Glucose [Pending] 09/15/20 05:50: White Blood Count 7.6#, Red Blood Count 3.68L, Hemoglobin 10.1L, Hematocrit 32.1L, Mean Corpuscular Volume 87, Mean Corpuscular Hemoglobin 27.6, Mean Corpuscular Hemoglobin Concent 31.6L, Red Cell Distribution Width 15.1H, Platelet Count 138L, Mean Platelet Volume 7.4, Neutrophils (%) (Auto) 77.8H, Lymphocytes (%) (Auto) 12.0L, Monocytes (%) (Auto) 7.3, Eosinophils (%) (Auto) 2.1, Basophils (%) (Auto) 0.8, Sodium Level 144, Potassium Level 4.2, Chloride Level 109H, Carbon Dioxide Level 27, Anion Gap 8, Blood Urea Nitrogen 17, Creatinine 1.4H, Estimat Glomerular Filtration Rate 58.5, Glucose Level 107H, Calcium Level 8.5, Phosphorus Level 3.4, Magnesium Level 2.1, Total Bilirubin 0.3, Aspartate Amino Transf (AST/SGOT) 27, Alanine Aminotransferase (ALT/SGPT) 23, Alkaline Phosphatase 65, Total Protein 6.2L, Albumin 3.1L, Globulin 3.1, Albumin/Globulin Ratio 1.0 09/15/20 07:45: Urine Color Pale yellow, Urine Appearance Clear, Urine pH 7, Urine Specific [place] 1.010, Urine Protein Negative, Urine Glucose (UA) Negative, Urine Ketones Negative, Urine Blood Negative, Urine Nitrite PositiveH, Urine Bilirubin Negative, Urine Urobilinogen Normal, Urine Leukocyte Esterase 2+H, Urine RBC 0, Urine WBC 2-4, Urine Squamous Epithelial Cells Occasional, Urine Bacteria ModerateH Height (Feet): 5 Height (Inches): 7.00 Weight (Pounds): 195 Objective exam stable Salvatore Dunlap MD Sep 15, 2020 10:53
--- NOTE | 2020-09-15 11:13 | General Progress Note ---
Subjective ROS Limited/Unobtainable: Yes Allergies: Coded Allergies: No Known Allergies (Verified Allergy, Mild, 06/18/10) Subjective events noted interval notes reviewed glucose values are stable Item Value Date Time Bedside Blood Glucose 98 mg/dl 09/15/20 0630 Bedside Blood Glucose 147 mg/dl H 09/14/20 2046 Bedside Blood Glucose 108 mg/dl 09/14/20 1630 Bedside Blood Glucose 172 mg/dl H 09/14/20 1207 Bedside Blood Glucose 118 mg/dl 09/14/20 0630 Objective Last 24 Hour Vital Signs Date Time Temp Pulse Resp B/P (MAP) Pulse Ox O2 Delivery O2 Flow Rate FiO2 09/15/20 09:31 91 138/68 09/15/20 08:00 98.8 91 18 138/68 (91) 98 09/15/20 08:00 82 09/15/20 04:00 82 91 99 09/15/20 04:00 98.6 82 20 114/57 (76) 96 09/15/20 00:00 83 09/15/20 00:00 99.8 80 20 119/61 (80) 95 09/14/20 21:47 Room Air 09/14/20 20:00 81 09/14/20 20:00 97.2 81 20 128/63 (84) 97 09/14/20 16:00 85 89 90 09/14/20 16:00 97.9 74 20 111/61 (78) 97 09/14/20 16:00 70 09/14/20 12:00 79 09/14/20 12:00 98.6 82 20 110/66 (81) 97 Intake and Output 09/14/20 09/15/20 19:00 07:00 Intake Total 400 ml 360 ml Output Total 450 ml 600 ml Balance -50 ml -240 ml Intake Oral 400 ml 360 ml Output Urine Total 450 ml 600 ml # Voids 3 Laboratory Tests 09/14/20 20:41: POC Whole Blood Glucose [Pending] 09/15/20 05:50: White Blood Count 7.6#, Red Blood Count 3.68L, Hemoglobin 10.1L, Hematocrit 32.1L, Mean Corpuscular Volume 87, Mean Corpuscular Hemoglobin 27.6, Mean Corpuscular Hemoglobin Concent 31.6L, Red Cell Distribution Width 15.1H, Platelet Count 138L, Mean Platelet Volume 7.4, Neutrophils (%) (Auto) 77.8H, Lymphocytes (%) (Auto) 12.0L, Monocytes (%) (Auto) 7.3, Eosinophils (%) (Auto) 2.1, Basophils (%) (Auto) 0.8, Sodium Level 144, Potassium Level 4.2, Chloride Level 109H, Carbon Dioxide Level 27, Anion Gap 8, Blood Urea Nitrogen 17, Creatinine 1.4H, Estimat Glomerular Filtration Rate 58.5, Glucose Level 107H, Calcium Level 8.5, Phosphorus Level 3.4, Magnesium Level 2.1, Total Bilirubin 0.3, Aspartate Amino Transf (AST/SGOT) 27, Alanine Aminotransferase (ALT/SGPT) 23, Alkaline Phosphatase 65, Total Protein 6.2L, Albumin 3.1L, Globulin 3.1, Albumin/Globulin Ratio 1.0 09/15/20 07:45: Urine Color Pale yellow, Urine Appearance Clear, Urine pH 7, Urine Specific [place] 1.010, Urine Protein Negative, Urine Glucose (UA) Negative, Urine Ketones Negative, Urine Blood Negative, Urine Nitrite PositiveH, Urine Bilirubin Negative, Urine Urobilinogen Normal, Urine Leukocyte Esterase 2+H, Urine RBC 0, Urine WBC 2-4, Urine Squamous Epithelial Cells Occasional, Urine Bacteria ModerateH Height (Feet): 5 Height (Inches): 7.00 Weight (Pounds): 195 General Appearance: no apparent distress Neck: normal alignment Cardiovascular: regularly irregular Respiratory/Chest: decreased breath sounds Abdomen: normal bowel sounds Objective Current Medications Medications (Trade) Dose Ordered Sig/Radha Route PRN Reason Start Time Stop Time Status Last Admin Dose Admin Acetaminophen (Tylenol) 650 mg Q4H PRN ORAL Temp >100.5 09/11/20 15:45 10/11/20 15:44 Al Hydroxide/Mg Hydroxide (Mylanta II) 30 ml Q6H PRN ORAL dyspepsia 09/11/20 15:45 10/11/20 15:44 Amiodarone HCl (Cordarone) 200 mg DAILY ORAL 09/11/20 19:00 12/10/20 18:59 09/15/20 09:31 Amlodipine Besylate (Norvasc) 10 mg DAILY ORAL 09/11/20 19:00 10/11/20 18:59 09/15/20 09:31 Bethanechol Chloride (Urecholine) 25 mg THREE TIMES A DAY ORAL 09/15/20 09:00 10/15/20 08:59 09/15/20 09:31 Bisacodyl (Dulcolax) 10 mg HSPRN PRN RECTAL Constipation 09/11/20 15:45 12/10/20 15:44 Dextrose (Dextrose 50%) 25 ml Q30M PRN IV Hypoglycemia 09/11/20 18:00 12/10/20 17:59 Dextrose (Dextrose 50%) 50 ml Q30M PRN IV Hypoglycemia 09/11/20 18:00 12/10/20 17:59 Diphenhydramine HCl (Benadryl) 25 mg Q6H PRN ORAL Itching/Pruritis 09/11/20 15:45 10/11/20 15:44 Docusate Sodium (Colace) 100 mg EVERY 12 HOURS ORAL 09/11/20 21:00 10/11/20 20:59 09/15/20 09:31 Famotidine (Pepcid) 40 mg DAILY ORAL 09/12/20 09:00 12/11/20 08:59 09/15/20 09:32 Heparin Sodium (Porcine) (Heparin 5000 units/ml) 5,000 units EVERY 8 HOURS SUBQ 09/14/20 14:00 10/29/20 13:59 Insulin Aspart (NovoLOG) BEFORE MEALS AND HS SUBQ 09/11/20 21:00 12/10/20 20:59 09/14/20 20:46 Levothyroxine Sodium (Synthroid) 88 mcg DAILY@0630 ORAL 09/14/20 06:30 10/12/20 06:29 09/15/20 07:09 Lorazepam (Ativan) 1 mg Q4H PRN ORAL For Anxiety 09/11/20 15:45 09/18/20 15:44 Magnesium Hydroxide (Mom) 30 ml HSPRN PRN ORAL Constipation 09/11/20 15:45 10/11/20 15:44 Morphine Sulfate (Morphine Sulfate) 2 mg Q4H PRN IVP pain 4-10 09/11/20 15:45 09/18/20 15:44 Nitroglycerin (Ntg) 0.4 mg Q5M X 3 DOSES PRN SL Prn Chest Pain 09/11/20 15:45 10/11/20 15:44 Sodium Chloride 550 ml @ 0 mls/hr Q0M IV 09/11/20 13:00 10/11/20 12:59 Temazepam (Restoril) 15 mg HSPRN PRN ORAL Insomnia 09/11/20 15:45 09/18/20 15:44 Assessment/Plan Problem List: (1) Hypothyroid ICD Codes: E03.9 - Hypothyroidism, unspecified SNOMED: 25237575 (2) Diabetes ICD Codes: E11.9 - Diabetes SNOMED: 72670861 (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
--- NOTE | 2020-09-15 11:30 | NUR ---
NURSE NOTES: Per Dr. Tse, he gave in-person order to give heparin scheduled today at 14:00 but hold tonight and tomorrow morning heparin. Nothing to eat or drink after midnight.
--- NOTE | 2020-09-15 11:57 | Surgery Progress Note ---
Surgery Progress Note Subjective Symptoms: improved, pain absent, tolerating diet, passing flatus, BM Objective Last 24 Hour Vital Signs Date Time Temp Pulse Resp B/P (MAP) Pulse Ox O2 Delivery O2 Flow Rate FiO2 09/15/20 09:31 91 138/68 09/15/20 08:00 98.8 91 18 138/68 (91) 98 09/15/20 08:00 82 09/15/20 04:00 82 91 99 09/15/20 04:00 98.6 82 20 114/57 (76) 96 09/15/20 00:00 83 09/15/20 00:00 99.8 80 20 119/61 (80) 95 09/14/20 21:47 Room Air 09/14/20 20:00 81 09/14/20 20:00 97.2 81 20 128/63 (84) 97 09/14/20 16:00 85 89 90 09/14/20 16:00 97.9 74 20 111/61 (78) 97 09/14/20 16:00 70 09/14/20 12:00 79 09/14/20 12:00 98.6 82 20 110/66 (81) 97 I&O Intake and Output 09/14/20 09/15/20 19:00 07:00 Intake Total 400 ml 360 ml Output Total 450 ml 600 ml Balance -50 ml -240 ml Intake Oral 400 ml 360 ml Output Urine Total 450 ml 600 ml # Voids 3 Cardiovascular: RSR Respiratory: clear Abdomen: soft, non-tender, present bowel sounds, non-distended Extremities: edema, no tenderness, no cyanosis Laboratory Tests Test 09/14/20 20:41 09/15/20 05:50 09/15/20 07:45 POC Whole Blood Glucose Pending White Blood Count 7.6 K/UL (4.8-10.8) # Red Blood Count 3.68 M/UL (4.70-6.10) L Hemoglobin 10.1 G/DL (14.2-18.0) L Hematocrit 32.1 % (42.0-52.0) L Mean Corpuscular Volume 87 FL (80-99) Mean Corpuscular Hemoglobin 27.6 PG (27.0-31.0) Mean Corpuscular Hemoglobin Concent 31.6 G/DL (32.0-36.0) L Red Cell Distribution Width 15.1 % (11.6-14.8) H Platelet Count 138 K/UL (150-450) L Mean Platelet Volume 7.4 FL (6.5-10.1) Neutrophils (%) (Auto) 77.8 % (45.0-75.0) H Lymphocytes (%) (Auto) 12.0 % (20.0-45.0) L Monocytes (%) (Auto) 7.3 % (1.0-10.0) Eosinophils (%) (Auto) 2.1 % (0.0-3.0) Basophils (%) (Auto) 0.8 % (0.0-2.0) Sodium Level 144 MMOL/L (136-145) Potassium Level 4.2 MMOL/L (3.5-5.1) Chloride Level 109 MMOL/L (98-107) H Carbon Dioxide Level 27 MMOL/L (21-32) Anion Gap 8 mmol/L (5-15) Blood Urea Nitrogen 17 mg/dL (7-18) Creatinine 1.4 MG/DL (0.55-1.30) H Estimat Glomerular Filtration Rate 58.5 mL/min (>60) Glucose Level 107 MG/DL (74-106) H Calcium Level 8.5 MG/DL (8.5-10.1) Phosphorus Level 3.4 MG/DL (2.5-4.9) Magnesium Level 2.1 MG/DL (1.8-2.4) Total Bilirubin 0.3 MG/DL (0.2-1.0) Aspartate Amino Transf (AST/SGOT) 27 U/L (15-37) Alanine Aminotransferase (ALT/SGPT) 23 U/L (12-78) Alkaline Phosphatase 65 U/L (46-116) Total Protein 6.2 G/DL (6.4-8.2) L Albumin 3.1 G/DL (3.4-5.0) L Globulin 3.1 g/dL Albumin/Globulin Ratio 1.0 (1.0-2.7) Urine Color Pale yellow Urine Appearance Clear Urine pH 7 (4.5-8.0) Urine Specific [place] 1.010 (1.005-1.035) Urine Protein Negative (NEGATIVE) Urine Glucose (UA) Negative (NEGATIVE) Urine Ketones Negative (NEGATIVE) Urine Blood Negative (NEGATIVE) Urine Nitrite Positive (NEGATIVE) H Urine Bilirubin Negative (NEGATIVE) Urine Urobilinogen Normal MG/DL (0.0-1.0) Urine Leukocyte Esterase 2+ (NEGATIVE) H Urine RBC 0 /HPF (0 - 0) Urine WBC 2-4 /HPF (0 - 0) Urine Squamous Epithelial Cells Occasional /LPF Urine Bacteria Moderate /HPF (NONE) H Plan Problems: (1) Hematoma (2) Pseudoaneurysm Assessment & Plan: This is a 84-year-old male 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 Patient identified abnormal labs. I had a long session with the patient and his family. He has been falling recently had multiple falls but does not recall all of them. Patient furthermore has multiple medications though may not have full compliance or understanding. Patient with a pulsatile potentially expanding mass in his left forehead aneurysm CT noted discussed with radiology. Given the above I do not feel safe for patient to go home and electively participate in ligation. He is at high risk for another fall potential injury potential aneurysm expansion or even worse potential rupture with potential catastrophic event and considerations given this discussion with the family and patient's interest given his medical history and abnormal labs and work-up necessary it is in his interest to be admitted worked up and taken to the operating room when stable and off anticoagulation for ligation of the pseudoaneurysm and removal. Admit to medical service Consultants as below Okay for diet for now Hold anticoagulation Monitor for bleeding or expansion We will take the operating room in stable Preop work-up thank you for let me participation's care Covid test pending cardiology and clearance by consultants difficulty walking le edema duplex negative echo? cleared by cardio for surgery plan or wednesday OR tomorrow cleared by all consultants (3) Arrhythmia (4) Diabetes (5) Hyperlipidemia (6) Abdominal pain (7) Hypertension Vernon Tse Sep 15, 2020 11:57
--- NOTE | 2020-09-15 11:58 | Pre-Procedure Note/Attestation ---
Pre-Procedure Note/Attestation Complete Prior to Procedure Planned Procedure: left Procedure Narrative: left superficial temporal artery aneurysm resection Indications for Procedure Pre-Operative Diagnosis: pseudoaneurysm left superficial temporal artery Attestation I attest that I discussed the nature of the procedure; its benefits; risks and complications; and alternatives (and the risks and benefits of such alternatives), prior to the procedure, with the patient (or the patient's legal wire rope sales representative). I attest that, if there was a reasonable possibility of needing a blood transfusion, the patient (or the patient's legal wire rope sales representative) was given the [facility] standardized written summary, pursuant to the [place] Blood Safety Act ([place] Health and Safety Code # 1645, as amended). I attest that I re-evaluated the patient just prior to the surgery and that there has been no change in the patient's H&P, except as documented below: Vernon Tse Sep 15, 2020 11:57
[2020-09-15 12:00] VITALS: BP 145/75
--- NOTE | 2020-09-15 13:57 | Nephrology Progress Note ---
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 #DM #BPH - plan for ligation of the pseudoaneurysm and removal - monitor UOP - defer renal US for now - neurology eval - continue flomax 0.4mg daily - continue amlodipine 10mg daily - on amiodarone - holding xarelto - monitor renal function - avoid nephrotoxins time spent 65 min Subjective ROS Limited/Unobtainable: No Constitutional: Reports: weakness; Denies: no symptoms, chills, diaphoresis, fever, malaise, other HEENT: Denies: no symptoms, eye pain, blurred vision, tearing, double vision, ear pain, ear discharge, nose pain, nose congestion, throat pain, throat swelling, mouth pain, mouth swelling, other Genitourinary: Denies: no symptoms, burning, discharge, frequency, flank pain, hematuria, incontinence, pain, urgency, other Neurologic/Psychiatric: Denies: no symptoms, anxiety, depressed, emotional problems, headache, numbness, paresthesia, pre-existing deficit, seizure, tingling, tremors, weakness, other Subjective cr 1.4 stable Objective Objective Last 24 Hour Vital Signs Date Time Temp Pulse Resp B/P (MAP) Pulse Ox O2 Delivery O2 Flow Rate FiO2 09/15/20 09:31 91 138/68 09/15/20 08:00 98.8 91 18 138/68 (91) 98 09/15/20 08:00 82 09/15/20 04:00 82 91 99 09/15/20 04:00 98.6 82 20 114/57 (76) 96 09/15/20 00:00 83 09/15/20 00:00 99.8 80 20 119/61 (80) 95 09/14/20 21:47 Room Air 09/14/20 20:00 81 09/14/20 20:00 97.2 81 20 128/63 (84) 97 09/14/20 16:00 85 89 90 09/14/20 16:00 97.9 74 20 111/61 (78) 97 09/14/20 16:00 70 Intake and Output 09/14/20 09/15/20 19:00 07:00 Intake Total 400 ml 360 ml Output Total 450 ml 600 ml Balance -50 ml -240 ml Intake Oral 400 ml 360 ml Output Urine Total 450 ml 600 ml # Voids 3 Laboratory Tests 09/14/20 20:41: POC Whole Blood Glucose [Pending] 09/15/20 05:50: White Blood Count 7.6#, Red Blood Count 3.68L, Hemoglobin 10.1L, Hematocrit 32.1L, Mean Corpuscular Volume 87, Mean Corpuscular Hemoglobin 27.6, Mean Corpuscular Hemoglobin Concent 31.6L, Red Cell Distribution Width 15.1H, Platelet Count 138L, Mean Platelet Volume 7.4, Neutrophils (%) (Auto) 77.8H, Lymphocytes (%) (Auto) 12.0L, Monocytes (%) (Auto) 7.3, Eosinophils (%) (Auto) 2.1, Basophils (%) (Auto) 0.8, Sodium Level 144, Potassium Level 4.2, Chloride Level 109H, Carbon Dioxide Level 27, Anion Gap 8, Blood Urea Nitrogen 17, Creatinine 1.4H, Estimat Glomerular Filtration Rate 58.5, Glucose Level 107H, Calcium Level 8.5, Phosphorus Level 3.4, Magnesium Level 2.1, Total Bilirubin 0.3, Aspartate Amino Transf (AST/SGOT) 27, Alanine Aminotransferase (ALT/SGPT) 23, Alkaline Phosphatase 65, Total Protein 6.2L, Albumin 3.1L, Globulin 3.1, Albumin/Globulin Ratio 1.0 09/15/20 07:45: Urine Color Pale yellow, Urine Appearance Clear, Urine pH 7, Urine Specific [place] 1.010, Urine Protein Negative, Urine Glucose (UA) Negative, Urine Ketones Negative, Urine Blood Negative, Urine Nitrite PositiveH, Urine Bilirubin Negative, Urine Urobilinogen Normal, Urine Leukocyte Esterase 2+H, Urine RBC 0, Urine WBC 2-4, Urine Squamous Epithelial Cells Occasional, Urine Bacteria ModerateH Height (Feet): 5 Height (Inches): 7.00 Weight (Pounds): 195 Judah Richmond M.D. Sep 15, 2020 13:57
--- NOTE | 2020-09-15 14:05 | NUR ---
NURSE NOTES: Per Dr. Tse and darryn Colin to give heparin at 14:00.
[2020-09-15 16:00] VITALS: BP 150/80
[2020-09-15] MEDS: ceFAZolin sod 1 GM in D5W 55 ML IVPB SCH (17:41)
--- NOTE | 2020-09-15 17:57 | General Progress Note ---
Subjective Allergies: Coded Allergies: No Known Allergies (Verified Allergy, Mild, 06/18/10) Subjective No acute events overnight per nursing. Patient feels well. Pain is well controlled. N.p.o. after midnight for surgery tomorrow. Review of systems: Constitutional: Denies: chills, diaphoresis, fever, malaise, weakness, HEENT: Denies: eye pain, blurred vision, tearing, Cardiovascular: Denies: chest pain, lightheadedness, palpitations, syncope, Respiratory: Denies: cough, orthopnea, shortness of breath, SOB with excertion, SOB at rest, Gastrointestinal/Abdominal: Denies: abdomen distended, abdominal pain, melena, blood in stool, constipated, diarrhea, difficulty swallowing, nausea, poor appetite, poor fluid intake, rectal bleeding, vomiting, other Genitourinary: Denies: burning, discharge, frequency, flank pain, hematuria, incontinence, pain, urgency, other Neurologic/Psychiatric: Denies: anxiety, depressed, emotional problems, headac he, numbness, paresthesia, pre-existing deficit, seizure, tingling, tremors, weakness, other Endocrine: Denies: excessive sweating, flushing, intolerance to cold, intolerance to heat, increased hunger, increased thirst MSK: denies joint pains, swelling, stiffness Hematologic/Lymphatic: Denies: anemia, easy bleeding, easy bruising, Objective Last 24 Hour Vital Signs Date Time Temp Pulse Resp B/P (MAP) Pulse Ox O2 Delivery O2 Flow Rate FiO2 09/15/20 12:00 93 09/15/20 09:31 91 138/68 09/15/20 09:00 Room Air 09/15/20 08:00 98.8 91 18 138/68 (91) 98 09/15/20 08:00 82 09/15/20 04:00 82 91 99 09/15/20 04:00 98.6 82 20 114/57 (76) 96 09/15/20 00:00 83 09/15/20 00:00 99.8 80 20 119/61 (80) 95 09/14/20 21:47 Room Air 09/14/20 20:00 81 09/14/20 20:00 97.2 81 20 128/63 (84) 97 Intake and Output 09/14/20 09/15/20 19:00 07:00 Intake Total 400 ml 360 ml Output Total 450 ml 600 ml Balance -50 ml -240 ml Intake Oral 400 ml 360 ml Output Urine Total 450 ml 600 ml # Voids 3 Laboratory Tests 09/14/20 20:41: POC Whole Blood Glucose [Pending] 09/15/20 05:50: White Blood Count 7.6#, Red Blood Count 3.68L, Hemoglobin 10.1L, Hematocrit 32.1L, Mean Corpuscular Volume 87, Mean Corpuscular Hemoglobin 27.6, Mean Corpuscular Hemoglobin Concent 31.6L, Red Cell Distribution Width 15.1H, Platelet Count 138L, Mean Platelet Volume 7.4, Neutrophils (%) (Auto) 77.8H, Lymphocytes (%) (Auto) 12.0L, Monocytes (%) (Auto) 7.3, Eosinophils (%) (Auto) 2.1, Basophils (%) (Auto) 0.8, Sodium Level 144, Potassium Level 4.2, Chloride Level 109H, Carbon Dioxide Level 27, Anion Gap 8, Blood Urea Nitrogen 17, Creatinine 1.4H, Estimat Glomerular Filtration Rate 58.5, Glucose Level 107H, Calcium Level 8.5, Phosphorus Level 3.4, Magnesium Level 2.1, Total Bilirubin 0.3, Aspartate Amino Transf (AST/SGOT) 27, Alanine Aminotransferase (ALT/SGPT) 23, Alkaline Phosphatase 65, Total Protein 6.2L, Albumin 3.1L, Globulin 3.1, Albumin/Globulin Ratio 1.0 09/15/20 07:45: Urine Color Pale yellow, Urine Appearance Clear, Urine pH 7, Urine Specific [place] 1.010, Urine Protein Negative, Urine Glucose (UA) Negative, Urine Ketones Negative, Urine Blood Negative, Urine Nitrite PositiveH, Urine Bilirubin Negative, Urine Urobilinogen Normal, Urine Leukocyte Esterase 2+H, Urine RBC 0, Urine WBC 2-4, Urine Squamous Epithelial Cells Occasional, Urine Bacteria ModerateH 09/15/20 17:13: POC Whole Blood Glucose 165H Height (Feet): 5 Height (Inches): 7.00 Weight (Pounds): 195 Objective General: WDWN male in NAD, A&O x 4 HEENT: Normocephalic cephalic atraumatic, pupils equal round reactive to light and accommodation, nares patent and no symmetrical, no tonsillar exudates, mu cous membranes moist + left temporal mass is pulsatile. Not warm to touch (unchanged), slightly tender to touch CV: Regular rate regular rhythm, no murmurs, rubs, or gallops Pulm: Lungs clear to auscultation bilaterally. No wheezes, rhonchi, or rales GI: Soft, nontender, nondistended, bowel sounds present Neuro: CN 2-12 intact bilaterally, no focal signs. Ext: 2+ LE edema bilaterally. No tenderness Skin: no rashes lesions or ulcers Msk: Joints symmetrical in upper extremity and lower extremity bilaterally, no joint swelling. Lymph: No lymphadenopathy in upper extremity and lower extremity Assessment/Plan Assessment/Plan: #Left temporal artery pseudoanerysm (stable) #head trauma while on xarelto #Mechanical Fall #Rule out syncope/near syncope #LE weakness, suspect due to deconditioning - Admit to telemetry: Intermittent afib with tachycardia. - EKG: reviewed - Orthostatics: normal - s/p Gentle IV fluids - Appreciate Cardiology Consult: Dr. Elaine - Troponin: normal - Appreciate Neurology consult: Dr. Brown - Appreciate gen surgery consult: Dr. Tse - check CK: normal - MRI brain: reviewed - NPO after midnight for surgery tomorrow. D/w Dr. Tse #Normocytic anemia > No signs of bleeding -Check iron panel, ferritin, B12, folate -Check stool occult blood -Consider GI/heme consult #Pre-op risk stratification - METS >4. Patient able to walk up flight of stairs without chest pain or SOB. No difficulty with anesthesia in the past. - Appreciate Cardiology eval - > clear for surgery. - TTE pending #Atrial fibrillation on Xarelto - Continue amiodarone - Continue Metoprolol - Holding Xarelto as above - Appreciate Cards consult - check CK #HTN - continue metop - Continue amlodipine #ERIK, suspect pre-renal etiology #h/o BPH s/p TURP #mild left hydronephrosis on renal ultrasound - IV fluids - urine lytes - renal ultrasound: reviewed - > mild left hydro - > no intervention per urology - d/c flomax - Bethenacol TID per Urology - outside urologist is Dr. Dunlap #Chronic LE edema, non painful - improving > Ddx venous insufficiency, hypothyroid, CCB? - Venous duplex LE bilaterally: negative - CTM - diuretics per cardiology - elevate legs #Diabetes Mellitus Type 2 - holding home metformin - SSI - Accuchecks - hypoglycemia protocol #Hypothyroidism - check TSH: 23 - continue synthroid. - Increase synthroid to 88mcg daily (from 44) - IV synthroid 50mcg x 1 - Endocrinology consult: Dr. Fischer MIPS ([employer]-based Incentive Payment System) Applicable CPT: 54642, 48175 CHECK ALL THAT ARE MET: [] Measure #5 (CHF): All ages. Prescribe ADRIANA/ARB upon discharge for patients with left ventricular systolic dysfunction. If not, the reason is clearly documented in the medical chart [] Measure #8 (CHF): All ages. Prescribe a beta roderick upon discharge for patients with left ventricular systolic dysfunction. If not, the reason is clearly documented in the medical chart. [x] Measure #47: Advance care plan or surrogate decision maker documented in the medical record. [x] Measure #130 The provider has documented, updated, or reviewed the patients current medication list and has documented it in the patients note. [x] Measure #374 (All): Send report to referring provider. [] Measure #407(Sepsis due to MSSA bacteremia): Age 18+ Patient treated with a beta-lactam antibiotic (Nafcillin, Oxacillin or Cefazolin) as definitive therap y. MEDICAL COMPLEXITYHigh complexity medical decision making (need 2/3 categories)Problem - need 4 points [x]Acute/new problem with new plan for workup (4 points, 1 max) [] Acute/new problem without additional workup (3 points, 1 max) [x] Unstable chronic problem actively being managed (2 point each, 2 max) [x] Stable chronic problem actively being managed (1 point each, 2 max) [x] Self-limited/transient process (constipation, muscle ache, etc) (1 point each, 2 max) Data - need 4 points [x] Reviewed labs/imaging studies (1 points, 2 max) [x] Independent review of imaging (EKG, xrays, etc) (2 points, 2 max) [x] Discussed case with consult/other MD/RN (2 points, 2 max) High Risk - qualify if have one of the following: [] Severe exacerbation of acute problem, acute mental status change, IV narcotics, monitoring drug levels (vancomycin, INR, tacrolimus etc) I spent 36 minutes on this patient's case, and 22 mins was dedicated to counseling and/or care coordination. Discussed with cardiology, neurology, urology. Time of note may not reflect time of encounter Harpreet Waters D.O. Sep 15, 2020 17:57
--- NOTE | 2020-09-15 19:30 | NUR ---
NURSE NOTES: Receive a report from HARSH Baker. Pt is awake and alert. No acute distress noted. Denies pain. Noted bump on left front side of head. No discoloration noted. Pt is planning on having surgery tomorrow and going to [facility]. Noted L/E pitting edema noted. IV access got infiltrated and will going to reestablish. Provide fall precautions. Call light within reach. Will continue to monitor.
--- NOTE | 2020-09-15 19:30 | NUR ---
NURSE HAND-OFF REPORT: Important Events on Shift: Surgery scheduled for tomorrow, endorsed need for consent for surgery Patient Status: stable condition, vitals WNL Diet: NPO after midnight Pending Orders: [] Pending Results/Labs:[] Pending MD notification:[] Latest Vital Signs: Temperature 98.3 , Pulse 95 , B/P 150 /80 , Respiratory Rate 20 , O2 SAT 99 , Room Air, O2 Flow Rate . Vital Sign Comment: [] EKG Rhythm: Sinus Rhythm Rhythm change?: N Notified?: Steve Garcia MD Response: Message left await call Latest Yang Fall Score: 85 Fall Risk: High Risk Safety Measures: Call light Within Reach, Bed Alarm Zone 1, Side Rails Side Rails x2, Bed position Low and Locked. Fall Precautions: Yellow Socks Yellow Gown Door Sign Patient Fall Education Report given to HARSH Cancino.
[2020-09-15 20:00] VITALS: BP 146/95
--- NOTE | 2020-09-15 22:00 | Neurology Progress Note ---
Interim History Interim History ROS Limited/Unobtainable: No Interim History pending OR, cleared Objective Physical Exam Last Vital Signs Date Time Temp Pulse Resp B/P (MAP) Pulse Ox O2 Delivery O2 Flow Rate FiO2 09/15/20 16:00 80 09/15/20 16:00 98.3 20 150/80 (103) 99 09/15/20 09:00 Room Air Laboratory Tests Test 09/15/20 05:50 09/15/20 07:45 09/15/20 17:13 09/15/20 21:43 White Blood Count 7.6 K/UL (4.8-10.8) # Red Blood Count 3.68 M/UL (4.70-6.10) L Hemoglobin 10.1 G/DL (14.2-18.0) L Hematocrit 32.1 % (42.0-52.0) L Mean Corpuscular Volume 87 FL (80-99) Mean Corpuscular Hemoglobin 27.6 PG (27.0-31.0) Mean Corpuscular Hemoglobin Concent 31.6 G/DL (32.0-36.0) L Red Cell Distribution Width 15.1 % (11.6-14.8) H Platelet Count 138 K/UL (150-450) L Mean Platelet Volume 7.4 FL (6.5-10.1) Neutrophils (%) (Auto) 77.8 % (45.0-75.0) H Lymphocytes (%) (Auto) 12.0 % (20.0-45.0) L Monocytes (%) (Auto) 7.3 % (1.0-10.0) Eosinophils (%) (Auto) 2.1 % (0.0-3.0) Basophils (%) (Auto) 0.8 % (0.0-2.0) Sodium Level 144 MMOL/L (136-145) Potassium Level 4.2 MMOL/L (3.5-5.1) Chloride Level 109 MMOL/L (98-107) H Carbon Dioxide Level 27 MMOL/L (21-32) Anion Gap 8 mmol/L (5-15) Blood Urea Nitrogen 17 mg/dL (7-18) Creatinine 1.4 MG/DL (0.55-1.30) H Estimat Glomerular Filtration Rate 58.5 mL/min (>60) Glucose Level 107 MG/DL (74-106) H Calcium Level 8.5 MG/DL (8.5-10.1) Phosphorus Level 3.4 MG/DL (2.5-4.9) Magnesium Level 2.1 MG/DL (1.8-2.4) Total Bilirubin 0.3 MG/DL (0.2-1.0) Aspartate Amino Transf (AST/SGOT) 27 U/L (15-37) Alanine Aminotransferase (ALT/SGPT) 23 U/L (12-78) Alkaline Phosphatase 65 U/L (46-116) Total Protein 6.2 G/DL (6.4-8.2) L Albumin 3.1 G/DL (3.4-5.0) L Globulin 3.1 g/dL Albumin/Globulin Ratio 1.0 (1.0-2.7) Urine Color Pale yellow Urine Appearance Clear Urine pH 7 (4.5-8.0) Urine Specific [place] 1.010 (1.005-1.035) Urine Protein Negative (NEGATIVE) Urine Glucose (UA) Negative (NEGATIVE) Urine Ketones Negative (NEGATIVE) Urine Blood Negative (NEGATIVE) Urine Nitrite Positive (NEGATIVE) H Urine Bilirubin Negative (NEGATIVE) Urine Urobilinogen Normal MG/DL (0.0-1.0) Urine Leukocyte Esterase 2+ (NEGATIVE) H Urine RBC 0 /HPF (0 - 0) Urine WBC 2-4 /HPF (0 - 0) Urine Squamous Epithelial Cells Occasional /LPF Urine Bacteria Moderate /HPF (NONE) H POC Whole Blood Glucose 165 MG/DL (74-106) H 156 MG/DL (74-106) H Head: normocophalic Neck: no rigidity EENT: benign Neurologic Exam Mental Status: awake, alert Cranial Nerve II: fundus normal Cranial Nerves III, IV, : PERRLA Cranial Nerve V: normal facial sensations Cranial Nerve VII: no facial asymmetry Cranial Nerve VIII: normal hearing Cranial Nerve IX: normal palate elevation Cranial Nerve X: no voice hoarseness Cranial Nerve XI: SCM symmetric Cranial Nerve XII: tongue midline Motor System: normal muscle tone Objective non focal exam ataxic Impression/Recommendations Problems: (1) Hematoma (2) Arrhythmia (3) Diabetes (4) Hyperlipidemia (5) Abdominal pain (6) Hypertension (7) Pseudoaneurysm Diagnostic Impression sp fall , seems mechanical more than syncope left forehead expansile mass, pseudoaneurysm cta noted tele mri brain agree with OR Marbin Brown MD Sep 15, 2020 22:00
--- NOTE | 2020-09-15 22:15 | NUR ---
NURSE NOTES: Receive orders from Dr. Tse for fluid and procedure for tomorrow. Inform Pt and consent form got completed. Provide pre-op preparations. Will continue to monitor.
[2020-09-16] VITALS (12 sets, daily range): BP systolic 110–160; BP diastolic 55–86
[2020-09-16] MEDS: D5NS 1,000 ML IV SCH ×3 (01:15→21:43)
[2020-09-16] MEDS: Heparin 5000 units/ml inj SUBQ SCH ×3 (05:25→21:25)
[2020-09-16] MEDS: ceFAZolin sod 1 GM in D5W 55 ML IVPB SCH ×2 (05:33→18:21)
[2020-09-16] MEDS: NovoLOG Insulin Flexpen SUBQ SCH ×4 (06:26→21:00)
--- NOTE | 2020-09-16 06:40 | Consultation ---
History of Present Illness General Chief Complaint: Head Injury Reason for Consultation: ERIK Present Illness Allergies: Coded Allergies: No Known Allergies (Verified Allergy, Mild, 06/18/10) Medication History Scheduled Allopurinol* (Allopurinol*), 100 MG ORAL DAILY, (Reported) Amiodarone Hcl* (Cordarone*), 200 MG ORAL DAILY, (Reported) Amlodipine Besylate* (Amlodipine Besylate*), 10 MG ORAL DAILY, (Reported) Bethanechol Chl (Bethanechol Chloride), 25 MG ORAL THREE TIMES A DAY, (Reported) Ciprofloxacin* (Cipro*), 500 MG PO BID, (Reported) Dabigatran Etexilate Mesylate* (Pradaxa*), 150 MG ORAL EVERY 12 HOURS, (Reported) Dicyclomine Hcl* (Dicyclomine Hcl*), 20 MG PO PRN, (Reported) Ferrous Sulfate (Ferrous Sulfate), 325 MG ORAL DAILY, (Reported) Levothyroxine Sodium (Synthroid*), 44 MCG ORAL DAILY, (Reported) Metformin HCl (Metformin HCl ER), 1,000 MG PO BID, (Reported) Metoprolol Tartrate* (Metoprolol Tartrate*), 100 MG ORAL Q12HR Omeprazole (Omeprazole), 20 MG ORAL BID, (Reported) Rivaroxaban (Xarelto*), 15 MG ORAL DAILY, (Reported) Simvastatin (Zocor), 20 MG ORAL BEDTIME, (Reported) Patient History Healthcare decision maker Resuscitation status Advanced Directive on File Physical Exam Last 24 Hour Vital Signs Date Time Temp Pulse Resp B/P (MAP) Pulse Ox O2 Delivery O2 Flow Rate FiO2 09/16/20 00:00 97.3 104 18 153/86 (108) 97 09/16/20 00:00 101 09/15/20 21:00 Room Air 09/15/20 20:00 93 09/15/20 20:00 97.2 96 18 146/95 (112) 98 09/15/20 16:00 80 09/15/20 16:00 98.3 95 20 150/80 (103) 99 09/15/20 16:00 93 93 100 09/15/20 12:00 93 09/15/20 12:00 98.2 97 20 145/75 (98) 98 09/15/20 09:31 91 138/68 09/15/20 09:00 Room Air 09/15/20 08:00 98.8 91 18 138/68 (91) 98 09/15/20 08:00 82 Intake and Output 09/15/20 09/16/20 19:00 07:00 Intake Total 1200 ml Output Total 2 ml Balance 1198 ml Intake Oral 1200 ml Output Urine Total 2 ml Laboratory Tests Test 09/15/20 07:45 09/15/20 17:13 09/15/20 21:43 09/16/20 05:37 Urine Color Pale yellow Urine Appearance Clear Urine pH 7 (4.5-8.0) Urine Specific [place] 1.010 (1.005-1.035) Urine Protein Negative (NEGATIVE) Urine Glucose (UA) Negative (NEGATIVE) Urine Ketones Negative (NEGATIVE) Urine Blood Negative (NEGATIVE) Urine Nitrite Positive (NEGATIVE) H Urine Bilirubin Negative (NEGATIVE) Urine Urobilinogen Normal MG/DL (0.0-1.0) Urine Leukocyte Esterase 2+ (NEGATIVE) H Urine RBC 0 /HPF (0 - 0) Urine WBC 2-4 /HPF (0 - 0) Urine Squamous Epithelial Cells Occasional /LPF Urine Bacteria Moderate /HPF (NONE) H POC Whole Blood Glucose 165 MG/DL (74-106) H 156 MG/DL (74-106) H 151 MG/DL (74-106) H Height (Feet): 5 Height (Inches): 7.00 Weight (Pounds): 195 Medications Current Medications Medications (Trade) Dose Ordered Sig/Radha Route PRN Reason Start Time Stop Time Status Last Admin Dose Admin Acetaminophen (Tylenol) 650 mg Q4H PRN ORAL Temp >100.5 09/11/20 15:45 10/11/20 15:44 Al Hydroxide/Mg Hydroxide (Mylanta II) 30 ml Q6H PRN ORAL dyspepsia 09/11/20 15:45 10/11/20 15:44 Amiodarone HCl (Cordarone) 200 mg DAILY ORAL 09/11/20 19:00 12/10/20 18:59 09/15/20 09:31 Amlodipine Besylate (Norvasc) 10 mg DAILY ORAL 09/11/20 19:00 10/11/20 18:59 09/15/20 09:31 Bethanechol Chloride (Urecholine) 25 mg THREE TIMES A DAY ORAL 09/15/20 09:00 10/15/20 08:59 09/15/20 17:19 Bisacodyl (Dulcolax) 10 mg HSPRN PRN RECTAL Constipation 09/11/20 15:45 12/10/20 15:44 Cefazolin Sodium 1 gm/Dextrose 55 ml @ 110 mls/hr Q12H IVPB 09/15/20 18:00 09/22/20 17:59 09/16/20 05:33 Dextrose (Dextrose 50%) 25 ml Q30M PRN IV Hypoglycemia 09/11/20 18:00 12/10/20 17:59 Dextrose (Dextrose 50%) 50 ml Q30M PRN IV Hypoglycemia 09/11/20 18:00 12/10/20 17:59 Dextrose/Sodium Chloride 1,000 ml @ 75 mls/hr [id number] IV 09/15/20 22:00 10/15/20 21:59 09/16/20 01:15 Diphenhydramine HCl (Benadryl) 25 mg Q6H PRN ORAL Itching/Pruritis 09/11/20 15:45 10/11/20 15:44 Docusate Sodium (Colace) 100 mg EVERY 12 HOURS ORAL 09/11/20 21:00 10/11/20 20:59 09/15/20 21:42 Famotidine (Pepcid) 40 mg DAILY ORAL 09/12/20 09:00 12/11/20 08:59 09/15/20 09:32 Heparin Sodium (Porcine) (Heparin 5000 units/ml) 5,000 units EVERY 8 HOURS SUBQ 09/14/20 14:00 10/29/20 13:59 09/15/20 14:07 Insulin Aspart (NovoLOG) BEFORE MEALS AND HS SUBQ 09/11/20 21:00 12/10/20 20:59 09/16/20 06:26 Levothyroxine Sodium (Synthroid) 88 mcg DAILY@0630 ORAL 09/14/20 06:30 10/12/20 06:29 09/15/20 07:09 Lorazepam (Ativan) 1 mg Q4H PRN ORAL For Anxiety 09/11/20 15:45 09/18/20 15:44 Magnesium Hydroxide (Mom) 30 ml HSPRN PRN ORAL Constipation 09/11/20 15:45 10/11/20 15:44 Morphine Sulfate (Morphine Sulfate) 2 mg Q4H PRN IVP pain 4-10 09/11/20 15:45 09/18/20 15:44 Nitroglycerin (Ntg) 0.4 mg Q5M X 3 DOSES PRN SL Prn Chest Pain 09/11/20 15:45 10/11/20 15:44 Sodium Chloride 550 ml @ 0 mls/hr Q0M IV 09/11/20 13:00 10/11/20 12:59 Temazepam (Restoril) 15 mg HSPRN PRN ORAL Insomnia 09/11/20 15:45 09/18/20 15:44 Assessment/Plan Assessment/Plan: Hematology Consultation REQ MD: Alden Hagan & Vernon Tse DOS: 09/16/2020 RFC: Anemia and low platelets HPI This is an 84 year old male with a PMHx DM, HTN, atrial fibrillation on Xarelto and gout who presents for head pain. Recently the patient had a mechanical fall although hazy on the details. Does not think he lost consciousness but not a good historian. No associated chest pain or SOB or palpitations. He has had other falls recently due to mechanical fall. C/o LE weakness. No focal symptoms. No back pain. No urinary symptoms, dysuria, fever or chills or nausea. He has felt well otherwise recently. The patient's most recent fall resulted in head trauma resultin in lump on left forehead. No headaches, blurry vision or double vision. He was seen by his PCP and then referred to Gen Surgery who sent to ER to be evaluated. 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 Surgery recommending admission for possible surgery. Holding xarelto. Noted to have low platelets and will undergo surg today. Allergies: NKDA Meds: reviewed PMHx: See HPI Surg Hx: Hernia repair, Colonoscopy Family history: No cancers Social history: Quit tobacco and alcohol 60 years ago. No drug use LIves alone in apartment. Has family around Allergies: Coded Allergies: No Known Allergies (Verified Allergy, Mild, 06/18/10) COVID-19 Screening Contact w/high risk pt: No Experienced COVID-19 symptoms?: No Medication History Scheduled Allopurinol* (Allopurinol*), 100 MG ORAL DAILY, (Reported) Amiodarone Hcl* (Cordarone*), 200 MG ORAL DAILY, (Reported) Amlodipine Besylate* (Amlodipine Besylate*), 10 MG ORAL DAILY, (Reported) Bethanechol Chl (Bethanechol Chloride), 25 MG ORAL THREE TIMES A DAY, (Reported) Ciprofloxacin* (Cipro*), 500 MG PO BID, (Reported) Dabigatran Etexilate Mesylate* (Pradaxa*), 150 MG ORAL EVERY 12 HOURS, (Reported) Dicyclomine Hcl* (Dicyclomine Hcl*), 20 MG PO PRN, (Reported) Ferrous Sulfate (Ferrous Sulfate), 325 MG ORAL DAILY, (Reported) Levothyroxine Sodium (Synthroid*), 44 MCG ORAL DAILY, (Reported) Metformin HCl (Metformin HCl ER), 1,000 MG PO BID, (Reported) Metoprolol Tartrate* (Metoprolol Tartrate*), 100 MG ORAL Q12HR Omeprazole (Omeprazole), 20 MG ORAL BID, (Reported) Rivaroxaban (Xarelto*), 15 MG ORAL DAILY, (Reported) Simvastatin (Zocor), 20 MG ORAL BEDTIME, (Reported) Patient History Healthcare decision maker Resuscitation status Advanced Directive on File ROS Constitutional: Denies: chills, diaphoresis, fever HEENT: See HPI Cardiovascular: Denies: chest pain, edema, lightheadedness, palpitations, syncope, Respiratory: Denies: cough, orthopnea, shortness of breath, SOB with excertion, SOB at rest, Gastrointestinal/Abdominal: Denies: abdomen distended, abdominal pain, black stools Genitourinary: Denies: burning, discharge, frequency Neurologic/Psychiatric: Denies: anxiety, depressed Endocrine: Denies: excessive sweating, flushing MSK: denies joint pains, swelling, stiffness Hematologic/Lymphatic: Denies: anemia Physical Exam Narrative General: WDWN, NAD, A&O x 4 HEENT: Normocephalic cephalic atraumatic, + left temporal mass No bleeding CV: Regular rate regular rhythm, no murmurs, rubs, or gallops Pulm: Lungs clear to auscultation bilaterally. No wheezes, rhonchi, or rales GI: Soft, nontender, nondistended, bowel sounds present Neuro: CN 2-12 intact bilaterally, no focal signs. Ext: No lower extremity edema bilaterally + 3+ LE edema Skin: no rashes lesions or ulcers Msk: Joints symmetrical in upper extremity and lower extremity bilaterally Lymph: No lymphadenopathy in upper extremity and lower extremity Labs: noted Imaging: none Assessment and Recs # Thrombocytopenia is likely reactive, stable now is above >100 --> smear has been reviewed, no blasts --> hep and hiv ordered --> cbc ordered --> stable for surgery, if any bleeding given platelets --> xarelto effects out of system after 7 days # Anemia of iron deficiency --> No signs of bleeding ---> Check iron panel, ferritin, B12, folate-->shows jonathan -> per gi -> iv iron has been started x 5 d # Hypercoagulable disorder with Atrial fibrillation on Xarelto --> Continue amiodarone --> Continue Metoprolol --> Holding Xarelto as above --> per cards # Left temporal artery pseudoanerysm (stable) --> per 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 # Head trauma while on xarelto # Mechanical Fall # HTN # ERIK, suspect pre-renal etiology # h/o BPH s/p TURP # mild left hydronephrosis on renal ultrasound # Chronic LE edema, non painful - improving # Diabetes Mellitus Type 2 # Hypothyroidism --> synthroid Appreciate consultation and dw Brady Lopez MD Sep 16, 2020 06:40
[2020-09-16 07:25] LABS: BASOPHILS % (AUTO) 1.1 % (0.0-2.0); EOSINOPHILS % (AUTO) 1.9 % (0.0-3.0); HEMATOCRIT 30.4 % (42.0-52.0); HEMOGLOBIN 9.6 G/DL (14.2-18.0); LYMPHOCYTES % (AUTO) 10.1 % (20.0-45.0); MEAN CORPUSCULAR VOLUME 87 FL (80-99); MONOCYTES % (AUTO) 12.2 % (1.0-10.0); NEUTROPHILS % (AUTO) 74.7 % (45.0-75.0); PLATELET COUNT 154 K/UL (150-450); RED BLOOD COUNT 3.48 M/UL (4.70-6.10)
[2020-09-16 07:26] LABS: ALANINE AMINOTRANSFERASE 23 U/L (12-78); ALKALINE PHOSPHATASE 55 U/L (46-116); ANION GAP 5 mmol/L (5-15); ASPARTATE AMINO TRANSFERASE 23 U/L (15-37); BILIRUBIN,TOTAL 0.3 MG/DL (0.2-1.0); BLOOD UREA NITROGEN 15 mg/dL (7-18); CALCIUM 8.2 MG/DL (8.5-10.1); CARBON DIOXIDE 28 MMOL/L (21-32); CHLORIDE 109 MMOL/L (98-107); CREATININE 1.2 MG/DL (0.55-1.30); PHOSPHORUS 2.8 MG/DL (2.5-4.9); POTASSIUM 4.3 MMOL/L (3.5-5.1); SODIUM 142 MMOL/L (136-145)
--- NOTE | 2020-09-16 07:30 | NUR ---
NURSE HAND-OFF REPORT: Important Events on Shift: MNNPO for procedure today. Denies any chest pain/discomfort/ dizziness. Patient Status: [stable] Diet: [MNNPO] Pending Orders: [] Pending Results/Labs:[] Pending MD notification:[] Latest Vital Signs: Temperature 97.9 , Pulse 98 , B/P 160 /83 , Respiratory Rate 18 , O2 SAT 98 , Room Air, O2 Flow Rate . Vital Sign Comment: [] EKG Rhythm: SR w/ BBB Rhythm change?: N Notified?: Steve Garcia MD Response: Message left await call Latest Yang Fall Score: 85 Fall Risk: High Risk Safety Measures: Call light Within Reach, Bed Alarm Zone 1, Side Rails Side Rails x2, Bed position Low and Locked. Fall Precautions: Yellow Socks Yellow Gown Door Sign Patient Fall Education Report given to HARSH Tomas. Round is made.
--- NOTE | 2020-09-16 07:42 | General Progress Note ---
Subjective Allergies: Coded Allergies: No Known Allergies (Verified Allergy, Mild, 06/18/10) All Systems: reviewed and negative except above Subjective events noted interval notes reviewed glucose values are stable Item Value Date Time Bedside Blood Glucose 151 mg/dl H 09/16/20 0630 Bedside Blood Glucose 156 mg/dl H 09/15/20 2211 Bedside Blood Glucose 165 mg/dl H 09/15/20 1722 Bedside Blood Glucose 148 mg/dl H 09/15/20 1156 Bedside Blood Glucose 98 mg/dl 09/15/20 0630 Objective Last 24 Hour Vital Signs Date Time Temp Pulse Resp B/P (MAP) Pulse Ox O2 Delivery O2 Flow Rate FiO2 09/16/20 04:00 97.9 102 18 130/78 (95) 98 09/16/20 04:00 102 110 118 09/16/20 00:00 97.3 104 18 153/86 (108) 97 09/16/20 00:00 101 09/15/20 21:00 Room Air 09/15/20 20:00 93 09/15/20 20:00 97.2 96 18 146/95 (112) 98 09/15/20 16:00 80 09/15/20 16:00 98.3 95 20 150/80 (103) 99 09/15/20 16:00 93 93 100 09/15/20 12:00 93 09/15/20 12:00 98.2 97 20 145/75 (98) 98 09/15/20 09:31 91 138/68 09/15/20 09:00 Room Air 09/15/20 08:00 98.8 91 18 138/68 (91) 98 09/15/20 08:00 82 Intake and Output 09/15/20 09/16/20 19:00 07:00 Intake Total 1200 ml 350 ml Output Total 2 ml 850 ml Balance 1198 ml -500 ml Intake Oral 1200 ml 350 ml Output Urine Total 2 ml 850 ml # Voids 4 Laboratory Tests 09/15/20 07:45: Urine Color Pale yellow, Urine Appearance Clear, Urine pH 7, Urine Specific [place] 1.010, Urine Protein Negative, Urine Glucose (UA) Negative, Urine Ketones Negative, Urine Blood Negative, Urine Nitrite PositiveH, Urine Bilirubin Negative, Urine Urobilinogen Normal, Urine Leukocyte Esterase 2+H, Urine RBC 0, Urine WBC 2-4, Urine Squamous Epithelial Cells Occasional, Urine Bacteria ModerateH 09/15/20 17:13: POC Whole Blood Glucose 165H 09/15/20 21:43: POC Whole Blood Glucose 156H 09/16/20 05:30: White Blood Count [Pending], Red Blood Count [Pending], Hemoglobin [Pending], Hematocrit [Pending], Mean Corpuscular Volume [Pending], Mean Corpuscular Hemoglobin [Pending], Mean Corpuscular Hemoglobin Concent [Pending], Red Cell Distribution Width [Pending], Platelet Count [Pending], Mean Platelet Volume [Pending], Neutrophils (%) (Auto) [Pending], Lymphocytes (%) (Auto) [Pending], Monocytes (%) (Auto) [Pending], Eosinophils (%) (Auto) [Pending], Basophils (%) (Auto) [Pending], Sodium Level 142, Potassium Level 4.3, Chloride Level 109H, Carbon Dioxide Level 28, Anion Gap 5, Blood Urea Nitrogen 15, Creatinine 1.2, Estimat Glomerular Filtration Rate > 60, Glucose Level 149H, Calcium Level 8.2L, Phosphorus Level 2.8, Magnesium Level 1.8, Total Bilirubin 0.3, Aspartate Amino Transf (AST/SGOT) 23, Alanine Aminotransferase (ALT/SGPT) 23, Alkaline Phosphatase 55, Total Protein 6.0L, Albumin 3.0L, Globulin 3.0, Albumin/Globulin Ratio 1.0 09/16/20 05:37: POC Whole Blood Glucose 151H Height (Feet): 5 Height (Inches): 6.00 Weight (Pounds): 186 General Appearance: no apparent distress Neck: normal alignment Cardiovascular: regularly irregular Respiratory/Chest: decreased breath sounds Abdomen: normal bowel sounds Objective Current Medications Medications (Trade) Dose Ordered Sig/Radha Route PRN Reason Start Time Stop Time Status Last Admin Dose Admin Acetaminophen (Tylenol) 650 mg Q4H PRN ORAL Temp >100.5 09/11/20 15:45 10/11/20 15:44 Al Hydroxide/Mg Hydroxide (Mylanta II) 30 ml Q6H PRN ORAL dyspepsia 09/11/20 15:45 10/11/20 15:44 Amiodarone HCl (Cordarone) 200 mg DAILY ORAL 09/11/20 19:00 12/10/20 18:59 09/15/20 09:31 Amlodipine Besylate (Norvasc) 10 mg DAILY ORAL 09/11/20 19:00 10/11/20 18:59 09/15/20 09:31 Bethanechol Chloride (Urecholine) 25 mg THREE TIMES A DAY ORAL 09/15/20 09:00 10/15/20 08:59 09/15/20 17:19 Bisacodyl (Dulcolax) 10 mg HSPRN PRN RECTAL Constipation 09/11/20 15:45 12/10/20 15:44 Cefazolin Sodium 1 gm/Dextrose 55 ml @ 110 mls/hr Q12H IVPB 09/15/20 18:00 09/22/20 17:59 09/16/20 05:33 Dextrose (Dextrose 50%) 25 ml Q30M PRN IV Hypoglycemia 09/11/20 18:00 12/10/20 17:59 Dextrose (Dextrose 50%) 50 ml Q30M PRN IV Hypoglycemia 09/11/20 18:00 12/10/20 17:59 Dextrose/Sodium Chloride 1,000 ml @ 75 mls/hr [id number] IV 09/15/20 22:00 10/15/20 21:59 09/16/20 01:15 Diphenhydramine HCl (Benadryl) 25 mg Q6H PRN ORAL Itching/Pruritis 09/11/20 15:45 10/11/20 15:44 Docusate Sodium (Colace) 100 mg EVERY 12 HOURS ORAL 09/11/20 21:00 10/11/20 20:59 09/15/20 21:42 Famotidine (Pepcid) 40 mg DAILY ORAL 09/12/20 09:00 12/11/20 08:59 09/15/20 09:32 Heparin Sodium (Porcine) (Heparin 5000 units/ml) 5,000 units EVERY 8 HOURS SUBQ 09/14/20 14:00 10/29/20 13:59 09/15/20 14:07 Insulin Aspart (NovoLOG) BEFORE MEALS AND HS SUBQ 09/11/20 21:00 12/10/20 20:59 09/16/20 06:26 Iron Sucrose 100 mg/Sodium Chloride 60 ml @ 240 mls/hr BEDTIME IVPB 09/16/20 21:00 09/20/20 21:14 Levothyroxine Sodium (Synthroid) 88 mcg DAILY@0630 ORAL 09/14/20 06:30 10/12/20 06:29 09/15/20 07:09 Lorazepam (Ativan) 1 mg Q4H PRN ORAL For Anxiety 09/11/20 15:45 09/18/20 15:44 Magnesium Hydroxide (Mom) 30 ml HSPRN PRN ORAL Constipation 09/11/20 15:45 10/11/20 15:44 Morphine Sulfate (Morphine Sulfate) 2 mg Q4H PRN IVP pain 4-10 09/11/20 15:45 09/18/20 15:44 Nitroglycerin (Ntg) 0.4 mg Q5M X 3 DOSES PRN SL Prn Chest Pain 09/11/20 15:45 10/11/20 15:44 Sodium Chloride 550 ml @ 0 mls/hr Q0M IV 09/11/20 13:00 10/11/20 12:59 Temazepam (Restoril) 15 mg HSPRN PRN ORAL Insomnia 09/11/20 15:45 09/18/20 15:44 Assessment/Plan Problem List: (1) Hypothyroid ICD Codes: E03.9 - Hypothyroidism, unspecified SNOMED: 59530021 (2) Diabetes ICD Codes: E11.9 - Diabetes SNOMED: 51802067 (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
--- NOTE | 2020-09-16 07:53 | NUR ---
NURSE NOTES: Received patient report from HARSH Moss. Patient shows no signs of distress or paina the time time. Patient is AO x3 awake and able to make needs known. IV is intact and shows no signs of erythema, infiltration, or bleeding. Patient is on room air and shows no signs of respiratory distress at the time. Patient has been NPO prior to procedure this AM. Bed is in the lowest position, call light is within reach, side rails up x3. Will continue to monitor.
--- NOTE | 2020-09-16 08:01 | Urology Progress Note ---
Assessment/Plan Assessment/Plan: 1. Left-sided hydronephrosis, which is mild and may be because of recent elevated postvoid residuals. 2. History of mild chronic kidney disease. 3. BPH history. 4. Atonic neurogenic bladder. 5. Nephrolithiasis. 6. Renal cyst. 7. UTI history. monitor clinically flomax dc'd restarted urecholine f/u on urine C+S empiric abx added consider CT A/P check PVR Subjective Allergies: Coded Allergies: No Known Allergies (Verified Allergy, Mild, 06/18/10) Subjective all noted, voiding surg later today Objective Last 24 Hour Vital Signs Date Time Temp Pulse Resp B/P (MAP) Pulse Ox O2 Delivery O2 Flow Rate FiO2 09/16/20 04:00 97.9 102 18 130/78 (95) 98 09/16/20 04:00 102 110 118 09/16/20 00:00 97.3 104 18 153/86 (108) 97 09/16/20 00:00 101 09/15/20 21:00 Room Air 09/15/20 20:00 93 09/15/20 20:00 97.2 96 18 146/95 (112) 98 09/15/20 16:00 80 09/15/20 16:00 98.3 95 20 150/80 (103) 99 09/15/20 16:00 93 93 100 09/15/20 12:00 93 09/15/20 12:00 98.2 97 20 145/75 (98) 98 09/15/20 09:31 91 138/68 09/15/20 09:00 Room Air 09/15/20 08:00 98.8 91 18 138/68 (91) 98 09/15/20 08:00 82 Intake and Output 09/15/20 09/16/20 19:00 07:00 Intake Total 1200 ml 350 ml Output Total 2 ml 850 ml Balance 1198 ml -500 ml Intake Oral 1200 ml 350 ml Output Urine Total 2 ml 850 ml # Voids 4 Microbiology Date/Time Source Procedure Growth Status 09/11/20 14:00 Nasopharynx SARS-CoV-2 RdRp Gene Assay - Final Complete Current Medications Medications (Trade) Dose Ordered Sig/Radha Route PRN Reason Start Time Stop Time Status Last Admin Dose Admin Acetaminophen (Tylenol) 650 mg Q4H PRN ORAL Temp >100.5 09/11/20 15:45 10/11/20 15:44 Al Hydroxide/Mg Hydroxide (Mylanta II) 30 ml Q6H PRN ORAL dyspepsia 09/11/20 15:45 10/11/20 15:44 Amiodarone HCl (Cordarone) 200 mg DAILY ORAL 09/11/20 19:00 12/10/20 18:59 09/15/20 09:31 Amlodipine Besylate (Norvasc) 10 mg DAILY ORAL 09/11/20 19:00 10/11/20 18:59 09/15/20 09:31 Bethanechol Chloride (Urecholine) 25 mg THREE TIMES A DAY ORAL 09/15/20 09:00 10/15/20 08:59 09/15/20 17:19 Bisacodyl (Dulcolax) 10 mg HSPRN PRN RECTAL Constipation 09/11/20 15:45 12/10/20 15:44 Cefazolin Sodium 1 gm/Dextrose 55 ml @ 110 mls/hr Q12H IVPB 09/15/20 18:00 09/22/20 17:59 09/16/20 05:33 Dextrose (Dextrose 50%) 25 ml Q30M PRN IV Hypoglycemia 09/11/20 18:00 12/10/20 17:59 Dextrose (Dextrose 50%) 50 ml Q30M PRN IV Hypoglycemia 09/11/20 18:00 12/10/20 17:59 Dextrose/Sodium Chloride 1,000 ml @ 75 mls/hr [id number] IV 09/15/20 22:00 10/15/20 21:59 09/16/20 01:15 Diphenhydramine HCl (Benadryl) 25 mg Q6H PRN ORAL Itching/Pruritis 09/11/20 15:45 10/11/20 15:44 Docusate Sodium (Colace) 100 mg EVERY 12 HOURS ORAL 09/11/20 21:00 10/11/20 20:59 09/15/20 21:42 Famotidine (Pepcid) 40 mg DAILY ORAL 09/12/20 09:00 12/11/20 08:59 09/15/20 09:32 Heparin Sodium (Porcine) (Heparin 5000 units/ml) 5,000 units EVERY 8 HOURS SUBQ 09/14/20 14:00 10/29/20 13:59 09/15/20 14:07 Insulin Aspart (NovoLOG) BEFORE MEALS AND HS SUBQ 09/11/20 21:00 12/10/20 20:59 09/16/20 06:26 Iron Sucrose 100 mg/Sodium Chloride 60 ml @ 240 mls/hr BEDTIME IVPB 09/16/20 21:00 09/20/20 21:14 Levothyroxine Sodium (Synthroid) 88 mcg DAILY@0630 ORAL 09/14/20 06:30 10/12/20 06:29 09/15/20 07:09 Lorazepam (Ativan) 1 mg Q4H PRN ORAL For Anxiety 09/11/20 15:45 09/18/20 15:44 Magnesium Hydroxide (Mom) 30 ml HSPRN PRN ORAL Constipation 09/11/20 15:45 10/11/20 15:44 Morphine Sulfate (Morphine Sulfate) 2 mg Q4H PRN IVP pain 4-10 09/11/20 15:45 09/18/20 15:44 Nitroglycerin (Ntg) 0.4 mg Q5M X 3 DOSES PRN SL Prn Chest Pain 09/11/20 15:45 10/11/20 15:44 Sodium Chloride 550 ml @ 0 mls/hr Q0M IV 09/11/20 13:00 10/11/20 12:59 Temazepam (Restoril) 15 mg HSPRN PRN ORAL Insomnia 09/11/20 15:45 09/18/20 15:44 Laboratory Tests 09/15/20 17:13: POC Whole Blood Glucose 165H 09/15/20 21:43: POC Whole Blood Glucose 156H 09/16/20 05:30: White Blood Count 5.0, Red Blood Count 3.48L, Hemoglobin 9.6L, Hematocrit 30.4L, Mean Corpuscular Volume 87, Mean Corpuscular Hemoglobin 27.7, Mean Corpuscular Hemoglobin Concent 31.7L, Red Cell Distribution Width 15.0H, Platelet Count 154, Mean Platelet Volume 7.2, Neutrophils (%) (Auto) 74.7, Lymphocytes (%) (Auto) 10.1L, Monocytes (%) (Auto) 12.2H, Eosinophils (%) (Auto) 1.9, Basophils (%) (Auto) 1.1, Sodium Level 142, Potassium Level 4.3, Chloride Level 109H, Carbon Dioxide Level 28, Anion Gap 5, Blood Urea Nitrogen 15, Creatinine 1.2, Estimat Glomerular Filtration Rate > 60, Glucose Level 149H, Calcium Level 8.2L, Phosphorus Level 2.8, Magnesium Level 1.8, Total Bilirubin 0.3, Aspartate Amino Transf (AST/SGOT) 23, Alanine Aminotransferase (ALT/SGPT) 23, Alkaline Phosphatase 55, Total Protein 6.0L, Albumin 3.0L, Globulin 3.0, Albumin/Globulin Ratio 1.0 09/16/20 05:37: POC Whole Blood Glucose 151H Height (Feet): 5 Height (Inches): 6.00 Weight (Pounds): 186 Objective exam stable Salvatore Dunlap MD Sep 16, 2020 08:01
[2020-09-16] MEDS: Amiodarone 200mg tab ORAL SCH (08:30)
--- NOTE | 2020-09-16 08:30 | NUR ---
CASE MANAGEMENT:REVIEW 09/16/20 SI:HEMATOMA. 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
[2020-09-16] MEDS: Docusate 100mg cap ORAL SCH ×2 (08:31→18:20)
[2020-09-16] MEDS: Bethanechol 25mg Tab ORAL SCH ×3 (08:31→18:20)
[2020-09-16] MEDS ORDERED: EPINEPHrine 1mg/1ml Amp ONE (09:08)
[2020-09-16] MEDS ORDERED: Bupivacaine 0.25% Inj 30ml INJ ONE (09:09)
[2020-09-16] MEDS ORDERED: Bacitracin 50000 Units Vial ONE (09:15)
[2020-09-16] MEDS ORDERED: fentaNYL 100 mcg/2 mL IV ONE (09:16)
[2020-09-16] MEDS ORDERED: Lidocaine 1% MPF 10mg/ml 5ml ONE (09:27)
--- NOTE | 2020-09-16 09:47 | Nephrology Progress Note ---
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 #DM #BPH - plan for ligation of the pseudoaneurysm and removal - monitor UOP - defer renal US for now - neurology eval - continue flomax 0.4mg daily - continue amlodipine 10mg daily - on amiodarone - holding xarelto - monitor renal function - avoid nephrotoxins time spent 65 min Subjective Subjective cr 1.2 stable Objective Objective Last 24 Hour Vital Signs Date Time Temp Pulse Resp B/P (MAP) Pulse Ox O2 Delivery O2 Flow Rate FiO2 09/16/20 08:30 98 160/83 09/16/20 04:00 97.9 102 18 130/78 (95) 98 09/16/20 04:00 102 110 118 09/16/20 04:00 77 09/16/20 00:00 97.3 104 18 153/86 (108) 97 09/16/20 00:00 101 09/15/20 21:00 Room Air 09/15/20 20:00 93 09/15/20 20:00 97.2 96 18 146/95 (112) 98 09/15/20 16:00 80 09/15/20 16:00 98.3 95 20 150/80 (103) 99 09/15/20 16:00 93 93 100 09/15/20 12:00 93 09/15/20 12:00 98.2 97 20 145/75 (98) 98 Intake and Output 09/15/20 09/16/20 19:00 07:00 Intake Total 1200 ml 350 ml Output Total 2 ml 850 ml Balance 1198 ml -500 ml Intake Oral 1200 ml 350 ml Output Urine Total 2 ml 850 ml # Voids 4 Laboratory Tests 09/15/20 17:13: POC Whole Blood Glucose 165H 09/15/20 21:43: POC Whole Blood Glucose 156H 09/16/20 05:30: White Blood Count 5.0, Red Blood Count 3.48L, Hemoglobin 9.6L, Hematocrit 30.4L, Mean Corpuscular Volume 87, Mean Corpuscular Hemoglobin 27.7, Mean Corpuscular Hemoglobin Concent 31.7L, Red Cell Distribution Width 15.0H, Platelet Count 154, Mean Platelet Volume 7.2, Neutrophils (%) (Auto) 74.7, Lymphocytes (%) (Auto) 10.1L, Monocytes (%) (Auto) 12.2H, Eosinophils (%) (Auto) 1.9, Basophils (%) (Auto) 1.1, Sodium Level 142, Potassium Level 4.3, Chloride Level 109H, Carbon Dioxide Level 28, Anion Gap 5, Blood Urea Nitrogen 15, Creatinine 1.2, Estimat Glomerular Filtration Rate > 60, Glucose Level 149H, Calcium Level 8.2L, Phosphorus Level 2.8, Magnesium Level 1.8, Total Bilirubin 0.3, Aspartate Amino Transf (AST/SGOT) 23, Alanine Aminotransferase (ALT/SGPT) 23, Alkaline Phosphatase 55, Total Protein 6.0L, Albumin 3.0L, Globulin 3.0, Albumin/Globulin Ratio 1.0 09/16/20 05:37: POC Whole Blood Glucose 151H 09/16/20 08:35: Reticulocyte Count [Pending], Prothrombin Time [Pending], Prothromb Time International Ratio [Pending], Ferritin [Pending], Folate [Pending], Hepatitis A IgM Antibody [Pending], Hepatitis B Surface Antigen [Pending], Hepatitis B Core IgM Antibody [Pending], Hepatitis C Antibody [Pending], HIV (1&2) Antibody Rapid [Pending] Height (Feet): 5 Height (Inches): 6.00 Weight (Pounds): 186 Judah Richmond M.D. Sep 16, 2020 09:47
[2020-09-16] MEDS ORDERED: fentaNYL 100 mcg/2 mL IV PRN (10:00)
--- NOTE | 2020-09-16 10:00 | NUR ---
PT NOTE Patient off the floor for surgical procedure, will follow.
--- NOTE | 2020-09-16 10:12 | NUR ---
NURSE NOTES: Patient went downstairs for surgery. night monitor off. Off tele order placed. Patient shows no signs of distress.
[2020-09-16] MEDS ORDERED: ePHEDrine 50mg/ml Inj ONE (10:35)
[2020-09-16] MEDS ORDERED: Bacitracin Oint 15gm Tube TOPIC ONE (11:25)
--- NOTE | 2020-09-16 11:40 | Immediate Post-Op Evaluation ---
Immediate Post-Op Evalulation Immediate Post-Op Evalulation Procedure: Ligation and excision of pseudoaneurysm of L temporal art. Date of Evaluation: Sep 16, 2020 Time of Evaluation: 11:39 IV Fluids: 300 Blood Products: none Estimated Blood Loss: min Urinary Output: none Blood Pressure Systolic: 110 Blood Pressure Diastolic: 58 Pulse Rate: 67 Respiratory Rate: 20 O2 Sat by Pulse Oximetry: 99 Temperature (Fahrenheit): 98.7 Pain Score (1-10): 1 Nausea: No Vomiting: No Complications NONE Patient Status: reacts, patent, none Hydration Status: adequate Leon Berrios MD Sep 16, 2020 11:40
--- NOTE | 2020-09-16 11:43 | NUR ---
*-*DISCHARGE PLAN*-* PATIENT HAS BEEN ACCEPTED WITH: [facility] P: [phone] S/W EMETERIO , WILL SERVICE THIS PATIENT UPON DISCHARGE.
--- NOTE | 2020-09-16 12:51 | Brief Operative Note ---
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
[2020-09-16] MEDS ORDERED: Milk of Magnesia 30ml Ud ORAL PRN (13:00)
--- NOTE | 2020-09-16 19:25 | General Progress Note ---
Subjective Allergies: Coded Allergies: No Known Allergies (Verified Allergy, Mild, 06/18/10) Subjective No acute events overnight per nursing. Patient n.p.o. for surgery today. Went well. Seen post op. Denies any pain, chest pain, shortness of breath, fever or chills. Review of systems: Constitutional: Denies: chills, diaphoresis, fever, malaise, weakness, HEENT: Denies: eye pain, blurred vision, tearing, Cardiovascular: Denies: chest pain, lightheadedness, palpitations, syncope, Respiratory: Denies: cough, orthopnea, shortness of breath, SOB with excertion, SOB at rest, Gastrointestinal/Abdominal: Denies: abdomen distended, abdominal pain, melena, blood in stool, constipated, diarrhea, difficulty swallowing, nausea, poor appetite, poor fluid intake, rectal bleeding, vomiting, other Genitourinary: Denies: burning, discharge, frequency, flank pain, hematuria, incontinence, pain, urgency, other Neurologic/Psychiatric: Denies: anxiety, depressed, emotional problems, headache, numbness, paresthesia, pre-existing deficit, seizure, tingling, tremors, weakness, other Endocrine: Denies: excessive sweating, flushing, intolerance to cold, intolerance to heat, increased hunger, increased thirst MSK: denies joint pains, swelling, stiffness Hematologic/Lymphatic: Denies: anemia, easy bleeding, easy bruising, Objective Last 24 Hour Vital Signs Date Time Temp Pulse Resp B/P (MAP) Pulse Ox O2 Delivery O2 Flow Rate FiO2 09/16/20 16:00 97.6 98 20 135/70 (91) 98 09/16/20 16:00 88 90 98 09/16/20 16:00 80 09/16/20 12:30 98.5 73 17 129/71 98 Nasal Cannula 3 09/16/20 12:15 71 16 128/66 96 Nasal Cannula 3 09/16/20 12:00 72 19 125/67 97 Nasal Cannula 3 09/16/20 12:00 76 09/16/20 11:50 68 15 121/64 98 Simple Mask 6 09/16/20 11:45 68 16 115/65 100 Simple Mask 6 09/16/20 11:40 68 15 116/55 99 Simple Mask 6 09/16/20 11:40 67 20 99 09/16/20 11:33 99.0 68 20 110/56 68 Simple Mask 6 09/16/20 09:00 Room Air 09/16/20 08:30 98 160/83 09/16/20 08:00 90 09/16/20 08:00 98.1 98 20 160/83 (108) 98 09/16/20 04:00 97.9 102 18 130/78 (95) 98 09/16/20 04:00 102 110 118 09/16/20 04:00 77 09/16/20 00:00 97.3 104 18 153/86 (108) 97 09/16/20 00:00 101 09/15/20 21:00 Room Air 09/15/20 20:00 93 09/15/20 20:00 97.2 96 18 146/95 (112) 98 Intake and Output 09/15/20 09/16/20 19:00 07:00 Intake Total 1200 ml 350 ml Output Total 2 ml 850 ml Balance 1198 ml -500 ml Intake Oral 1200 ml 350 ml Output Urine Total 2 ml 850 ml # Voids 4 Laboratory Tests 09/15/20 21:43: POC Whole Blood Glucose 156H 09/16/20 05:30: White Blood Count 5.0, Red Blood Count 3.48L, Hemoglobin 9.6L, Hematocrit 30.4L, Mean Corpuscular Volume 87, Mean Corpuscular Hemoglobin 27.7, Mean Corpuscular Hemoglobin Concent 31.7L, Red Cell Distribution Width 15.0H, Platelet Count 154, Mean Platelet Volume 7.2, Neutrophils (%) (Auto) 74.7, Lymphocytes (%) (Auto) 10.1L, Monocytes (%) (Auto) 12.2H, Eosinophils (%) (Auto) 1.9, Basophils (%) (Auto) 1.1, Differential Total Cells Counted 100, Neutrophils % (Manual) 74, Lymphocytes % (Manual) 14L, Monocytes % (Manual) 11H, Eosinophils % (Manual) 1, Basophils % (Manual) 0, Band Neutrophils 0, Platelet Estimate DecreasedL, Platelet Morphology Normal, Anisocytosis 1+, Sodium Level 142, Potassium Level 4.3, Chloride Level 109H, Carbon Dioxide Level 28, Anion Gap 5, Blood Urea Nitrogen 15, Creatinine 1.2, Estimat Glomerular Filtration Rate > 60, Glucose Level 149H, Calcium Level 8.2L, Phosphorus Level 2.8, Magnesium Level 1.8, Total Bilirubin 0.3, Aspartate Amino Transf (AST/SGOT) 23, Alanine Aminotransferase (ALT/SGPT) 23, Alkaline Phosphatase 55, Total Protein 6.0L, Albumin 3.0L, Globulin 3.0, Albumin/Globulin Ratio 1.0 09/16/20 05:37: POC Whole Blood Glucose 151H 09/16/20 08:35: Reticulocyte Count 1.0, Prothrombin Time 10.7, Prothromb Time International Ratio 1.0, Ferritin 22, Folate 17.0, Hepatitis A IgM Antibody [Pending], Hepatitis B Surface Antigen [Pending], Hepatitis B Core IgM Antibody [Pending], Hepatitis C Antibody [Pending], HIV (1&2) Antibody Rapid Negative 09/16/20 16:03: POC Whole Blood Glucose 176H Height (Feet): 5 Height (Inches): 6.00 Weight (Pounds): 186 Objective General: WDWN male in NAD, A&O x 4 HEENT: Normocephalic cephalic atraumatic, pupils equal round reactive to light and accommodation, nares patent and no symmetrical, no tonsillar exudates, mucou s membranes moist + left temporal area with bandage over. NO signs of bleeding. Mass resolved CV: Regular rate regular rhythm, no murmurs, rubs, or gallops Pulm: Lungs clear to auscultation bilaterally. No wheezes, rhonchi, or rales GI: Soft, nontender, nondistended, bowel sounds present Neuro: CN 2-12 intact bilaterally, no focal signs. Ext: 2+ LE edema bilaterally. No tenderness Skin: no rashes lesions or ulcers Msk: Joints symmetrical in upper extremity and lower extremity bilaterally, no joint swelling. Lymph: No lymphadenopathy in upper extremity and lower extremity Assessment/Plan Assessment/Plan: #Left temporal artery pseudoanerysm (stable) #head trauma while on xarelto #Mechanical Fall #Rule out syncope/near syncope #LE weakness, suspect due to deconditioning - Admit to telemetry: Intermittent afib with tachycardia. - EKG: reviewed - Orthostatics: normal - s/p Gentle IV fluids - Appreciate Cardiology Consult: Dr. Elaine - Troponin: normal - Appreciate Neurology consult: Dr. Brown - Appreciate gen surgery consult: Dr. Tse - check CK: normal - MRI brain: reviewed - Restart xarelto once OK by surgery. D/c once cleared by surgery #Iron deficiency anemia #thrombocytopenia > No signs of bleeding -Check iron panel, ferritin, B12, folate -Check stool occult blood -Heme consulted: Dr. Treviño - hepatitis panel - HIV pending - retic count - smear - IV iron started (09/16 - ) #Pre-op risk stratification - METS >4. Patient able to walk up flight of stairs without chest pain or SOB. No difficulty with anesthesia in the past. - Appreciate Cardiology eval - > clear for surgery. #Atrial fibrillation on Xarelto - Continue amiodarone - Continue Metoprolol - Holding Xarelto as above - Appreciate Cards consult - check CK: normal #HTN - continue metop - Continue amlodipine #ERIK, suspect pre-renal etiology #h/o BPH s/p TURP #mild left hydronephrosis on renal ultrasound - IV fluids - urine lytes - renal ultrasound: reviewed - > mild left hydro - > no intervention per urology - d/c flomax - Bethenacol TID per Urology - outside urologist is Dr. Dunlap #Chronic LE edema, non painful - improving > Ddx venous insufficiency, hypothyroid, CCB? - Venous duplex LE bilaterally: negative - CTM - diuretics per cardiology - elevate legs #Diabetes Mellitus Type 2 - holding home metformin - SSI - Accuchecks - hypoglycemia protocol #Hypothyroidism - check TSH: 23 - continue synthroid. - Increase synthroid to 88mcg daily (from 44) - IV synthroid 50mcg x 1 - Endocrinology consult: Dr. Fischer - recheck TSh in 2-3 weeks MIPS ([employer]-based Incentive Payment System) Applicable CPT: 99342, 64381 CHECK ALL THAT ARE MET: [] Measure #5 (CHF): All ages. Prescribe ADRIANA/ARB upon discharge for patients with left ventricular systolic dysfunction. If not, the reason is clearly documented in the medical chart [] Measure #8 (CHF): All ages. Prescribe a beta roderick upon discharge for patients with left ventricular systolic dysfunction. If not, the reason is clearly documented in the medical chart. [x] Measure #47: Advance care plan or surrogate decision maker documented in the medical record. [x] Measure #130 The provider has documented, updated, or reviewed the patients current medication list and has documented it in the patients note. [x] Measure #374 (All): Send report to referring provider. [] Measure #407(Sepsis due to MSSA bacteremia): Age 18+ Patient treated with a beta-lactam antibiotic (Nafcillin, Oxacillin or Cefazolin) as definitive therapy. MEDICAL COMPLEXITYHigh complexity medical decision making (need 2/3 categories)Problem - need 4 points [x]Acute/new problem with new plan for workup (4 points, 1 max) [] Acute/new problem without additional workup (3 points, 1 max) [x] Unstable chronic problem actively being managed (2 point each, 2 max) [x] Stable chronic problem actively being managed (1 point each, 2 max) [x] Self-limited/transient process (constipation, muscle ache, etc) (1 point each, 2 max) Data - need 4 points [x] Reviewed labs/imaging studies (1 points, 2 max) [x] Independent review of imaging (EKG, xrays, etc) (2 points, 2 max) [x] Discussed case with consult/other MD/RN (2 points, 2 max) High Risk - qualify if have one of the following: [] Severe exacerbation of acute problem, acute mental status change, IV narcotics, monitoring drug levels (vancomycin, INR, tacrolimus etc) I spent 38 minutes on this patient's case, and 20 mins was dedicated to counseling and/or care coordination. Discussed with cardiology, neurology, urology. Time of note may not reflect time of encounter Harpreet Waters D.O. Sep 16, 2020 19:25
--- NOTE | 2020-09-16 19:30 | Operative Note - Dictated ---
DATE OF OPERATION: 09/16/2020 PREOPERATIVE DIAGNOSIS: Aneurysm left superficial temporal artery, traumatic, acute, unstable. POSTOPERATIVE DIAGNOSIS: Aneurysm left superficial temporal artery, traumatic, acute, unstable. OPERATION PERFORMED: Ligation and excision of left superficial temporal artery aneurysm. ATTENDING SURGEON: Vernon Tse MD. CASINO CAGE SUPERVISOR: None. ANESTHESIOLOGIST: Leon Berrios MD. ANESTHESIA: General CHECK OUT CLERK plus local. ESTIMATED BLOOD LOSS: Minimal. IV FLUIDS: Please see anesthesia records. COMPLICATIONS: None. DRAINS: None. COUNTS: Sponge and needle count correct x2. WOUND CLASSIFICATION: Class 1. SPECIMENS: Yes. INDICATIONS FOR PROCEDURE: This 84-year-old male with unstable left superficial temporal artery aneurysm. The patient approximately two weeks ago had a ground-level fall and has been having such falls recently as per family and the patient and has slowly developed a growing mass pulsating on his left forehead. He was seen in my office at which time a pulsatile mass was noted on the left forehead and the patient was sent for urgent imaging, which identified clearly a pseudoaneurysm of the left superficial temporal artery pulsating, filling and the patient is on Xarelto for AFib. He is at risk for multiple falls got them recently and given the above along with lower extremity edema, abnormal laboratories, the patient was admitted for further care and management. The patient was optimized and scheduled for surgery 09/16/2020. OPERATIVE NOTE: The patient was taken to the operating room and placed on the operating room table in supine position with bilateral arms down. All bony prominences were padded. SCDs placed. Preoperative time-out taken identifying the patient, procedure, operative site, surgical staff. General anesthesia was induced. The patient was intubated. The left forehead was prepped and draped in standard surgical fashion. Local anesthetic was infiltrated. A fresh #15 scalpel was used and incision was made above the level of the aneurysm. The incision was carried down and dissected towards the aneurysm on both the afferent and efferent portion. The afferent feeding artery was identified and a vessel loop was placed around it. Proximal control was obtained. In a similar fashion, the distal artery was identified. Vessel replaced after circumferentially dissected out and distal control was obtained. Once proximal distal control was obtained, the pseudoaneurysm and aneurysm was circumferentially dissected out. Once this was completed, the aneurysm was clipped through its feeding vessel using surgical clips and then distally as well. Once the inflow and outflow were clipped and hemostasis obtained, the aneurysm was ligated, divided and sent to pathology for review. The wound bed was irrigated clean. Hemostasis obtained using electrocautery and surgical clips as necessary. The dermis was then reapproximated using 3-0 Vicryl sutures followed by a running 4-0 Monocryl and a running chromic. Dressings were applied. The patient tolerated the procedure well, was extubated, taken to postanesthetic care unit in stable condition. Vernon Tse M.D. DR: KAMILLE JOB#: [id number] CC:
--- NOTE | 2020-09-16 19:35 | NUR ---
NURSE HAND-OFF REPORT: Important Events on Shift:[Patient had surgery. ] Patient Status: [Full code] Diet: [Regular] Pending Orders: [] Pending Results/Labs:[] Pending MD notification:[] Latest Vital Signs: Temperature 97.6 , Pulse 80 , B/P 135 /70 , Respiratory Rate 20 , O2 SAT 98 , Nasal Cannula, O2 Flow Rate 3 . Vital Sign Comment: [] EKG Rhythm: SR w/ BBB Rhythm change?: N MD Notified?: Steve Garcia MD Response: Message left await call Latest Yang Fall Score: 85 Fall Risk: High Risk Safety Measures: Call light Within Reach, Bed Alarm Zone 1, Side Rails Side Rails x2, Bed position Low and Locked. Fall Precautions: Yellow Socks Yellow Gown Door Sign Patient Fall Education Report given to [Jamie, RN].
--- NOTE | 2020-09-16 19:40 | NUR ---
NURSE NOTES: Pt received from HARSH Tomas alert and oriented x4 with no acute s/s of distress noted. On room air. IV site asymptomatic and patent on L fa 22g, running to D5NS at 75. Bed in lowest position, bed alarm on. Fall precautions implemented and educated to patient, pt verbalized understanding. Call light and belongings within reach.
--- NOTE | 2020-09-16 19:48 | Neurology Progress Note ---
Interim History Interim History ROS Limited/Unobtainable: No Interim History post op no complications Objective Physical Exam Last Vital Signs Date Time Temp Pulse Resp B/P (MAP) Pulse Ox O2 Delivery O2 Flow Rate FiO2 09/16/20 16:00 97.6 98 20 135/70 (91) 98 09/16/20 12:30 Nasal Cannula 3 Laboratory Tests Test 09/15/20 21:43 09/16/20 05:30 09/16/20 05:37 09/16/20 08:35 POC Whole Blood Glucose 156 MG/DL (74-106) H 151 MG/DL (74-106) H White Blood Count 5.0 K/UL (4.8-10.8) Red Blood Count 3.48 M/UL (4.70-6.10) L Hemoglobin 9.6 G/DL (14.2-18.0) L Hematocrit 30.4 % (42.0-52.0) L Mean Corpuscular Volume 87 FL (80-99) Mean Corpuscular Hemoglobin 27.7 PG (27.0-31.0) Mean Corpuscular Hemoglobin Concent 31.7 G/DL (32.0-36.0) L Red Cell Distribution Width 15.0 % (11.6-14.8) H Platelet Count 154 K/UL (150-450) Mean Platelet Volume 7.2 FL (6.5-10.1) Neutrophils (%) (Auto) 74.7 % (45.0-75.0) Lymphocytes (%) (Auto) 10.1 % (20.0-45.0) L Monocytes (%) (Auto) 12.2 % (1.0-10.0) H Eosinophils (%) (Auto) 1.9 % (0.0-3.0) Basophils (%) (Auto) 1.1 % (0.0-2.0) Differential Total Cells Counted 100 Neutrophils % (Manual) 74 % (45-75) Lymphocytes % (Manual) 14 % (20-45) L Monocytes % (Manual) 11 % (1-10) H Eosinophils % (Manual) 1 % (0-3) Basophils % (Manual) 0 % (0-2) Band Neutrophils 0 % (0-8) Platelet Estimate Decreased L Platelet Morphology Normal Anisocytosis 1+ Sodium Level 142 MMOL/L (136-145) Potassium Level 4.3 MMOL/L (3.5-5.1) Chloride Level 109 MMOL/L (98-107) H Carbon Dioxide Level 28 MMOL/L (21-32) Anion Gap 5 mmol/L (5-15) Blood Urea Nitrogen 15 mg/dL (7-18) Creatinine 1.2 MG/DL (0.55-1.30) Estimat Glomerular Filtration Rate > 60 mL/min (>60) Glucose Level 149 MG/DL (74-106) H Calcium Level 8.2 MG/DL (8.5-10.1) L Phosphorus Level 2.8 MG/DL (2.5-4.9) Magnesium Level 1.8 MG/DL (1.8-2.4) Total Bilirubin 0.3 MG/DL (0.2-1.0) Aspartate Amino Transf (AST/SGOT) 23 U/L (15-37) Alanine Aminotransferase (ALT/SGPT) 23 U/L (12-78) Alkaline Phosphatase 55 U/L (46-116) Total Protein 6.0 G/DL (6.4-8.2) L Albumin 3.0 G/DL (3.4-5.0) L Globulin 3.0 g/dL Albumin/Globulin Ratio 1.0 (1.0-2.7) Reticulocyte Count 1.0 % (0.5-2.0) Prothrombin Time 10.7 SEC (9.30-11.50) Prothromb Time International Ratio 1.0 (0.9-1.1) Ferritin 22 NG/ML (8-388) Folate 17.0 NG/ML (8.6-58.9) Hepatitis A IgM Antibody Pending Hepatitis B Surface Antigen Pending Hepatitis B Core IgM Antibody Pending Hepatitis C Antibody Pending HIV (1&2) Antibody Rapid Negative (NEGATIVE) Test 09/16/20 16:03 POC Whole Blood Glucose 176 MG/DL (74-106) H Head: normocophalic Neck: no rigidity EENT: benign Neurologic Exam Mental Status: awake, alert Cranial Nerve II: fundus normal Cranial Nerves III, IV, : PERRLA Cranial Nerve V: normal facial sensations Cranial Nerve VII: no facial asymmetry Cranial Nerve VIII: normal hearing Cranial Nerve IX: normal palate elevation Cranial Nerve X: no voice hoarseness Cranial Nerve XI: SCM symmetric Cranial Nerve XII: tongue midline Motor System: normal muscle tone Objective non focal exam ataxic Impression/Recommendations Problems: (1) Hematoma (2) Arrhythmia (3) Diabetes (4) Hyperlipidemia (5) Abdominal pain (6) Hypertension (7) Pseudoaneurysm Diagnostic Impression sp fall , seems mechanical more than syncope left forehead expansile mass, pseudoaneurysm sp resection post op pt ot Marbin Brown MD Sep 16, 2020 19:48
[2020-09-16] MEDS: Iron Sucrose 100 MG in NS 55 ML IVPB SCH (21:19)
[2020-09-16] MEDS: HYDROcodone/Acetamin 5/325 tab ORAL PRN (21:42)
--- NOTE | 2020-09-16 23:58 | Cardiology Progress Note ---
Assessment/Plan Assessment/Plan 1. 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. 2. Paroxysmal atrial fibrillation, resume Xarelto.Continue amiodarone. 3. HTN, well controlled, continue amlodipine. 4. ERIK on CKD, creat at 1.2. Subjective Subjective Sinus rhythm at rate of 80. Ligation and resection of left superficial temporal artery aneurysm Denies chest pain or SOB. Objective Last 24 Hour Vital Signs Date Time Temp Pulse Resp B/P (MAP) Pulse Ox O2 Delivery O2 Flow Rate FiO2 09/16/20 21:00 Room Air 09/16/20 20:00 97.5 80 20 126/67 (86) 99 09/16/20 20:00 77 09/16/20 16:00 97.6 98 20 135/70 (91) 98 09/16/20 16:00 88 90 98 09/16/20 16:00 80 09/16/20 12:30 98.5 73 17 129/71 98 Nasal Cannula 3 09/16/20 12:15 71 16 128/66 96 Nasal Cannula 3 09/16/20 12:00 72 19 125/67 97 Nasal Cannula 3 09/16/20 12:00 76 09/16/20 11:50 68 15 121/64 98 Simple Mask 6 09/16/20 11:45 68 16 115/65 100 Simple Mask 6 09/16/20 11:40 68 15 116/55 99 Simple Mask 6 09/16/20 11:40 67 20 99 09/16/20 11:33 99.0 68 20 110/56 68 Simple Mask 6 09/16/20 09:00 Room Air 09/16/20 08:30 98 160/83 09/16/20 08:00 90 09/16/20 08:00 98.1 98 20 160/83 (108) 98 09/16/20 04:00 97.9 102 18 130/78 (95) 98 09/16/20 04:00 102 110 118 09/16/20 04:00 77 09/16/20 00:00 97.3 104 18 153/86 (108) 97 09/16/20 00:00 101 Intake and Output 09/15/20 09/16/20 19:00 07:00 Intake Total 1200 ml 350 ml Output Total 2 ml 850 ml Balance 1198 ml -500 ml Intake Oral 1200 ml 350 ml Output Urine Total 2 ml 850 ml # Voids 4 2D Echo: LVEF 60%, DALIA, RVSP 13 mmHg Laboratory Tests Test 09/16/20 05:30 09/16/20 05:37 09/16/20 08:35 09/16/20 16:03 White Blood Count 5.0 K/UL (4.8-10.8) Red Blood Count 3.48 M/UL (4.70-6.10) L Hemoglobin 9.6 G/DL (14.2-18.0) L Hematocrit 30.4 % (42.0-52.0) L Mean Corpuscular Volume 87 FL (80-99) Mean Corpuscular Hemoglobin 27.7 PG (27.0-31.0) Mean Corpuscular Hemoglobin Concent 31.7 G/DL (32.0-36.0) L Red Cell Distribution Width 15.0 % (11.6-14.8) H Platelet Count 154 K/UL (150-450) Mean Platelet Volume 7.2 FL (6.5-10.1) Neutrophils (%) (Auto) 74.7 % (45.0-75.0) Lymphocytes (%) (Auto) 10.1 % (20.0-45.0) L Monocytes (%) (Auto) 12.2 % (1.0-10.0) H Eosinophils (%) (Auto) 1.9 % (0.0-3.0) Basophils (%) (Auto) 1.1 % (0.0-2.0) Differential Total Cells Counted 100 Neutrophils % (Manual) 74 % (45-75) Lymphocytes % (Manual) 14 % (20-45) L Monocytes % (Manual) 11 % (1-10) H Eosinophils % (Manual) 1 % (0-3) Basophils % (Manual) 0 % (0-2) Band Neutrophils 0 % (0-8) Platelet Estimate Decreased L Platelet Morphology Normal Anisocytosis 1+ Sodium Level 142 MMOL/L (136-145) Potassium Level 4.3 MMOL/L (3.5-5.1) Chloride Level 109 MMOL/L (98-107) H Carbon Dioxide Level 28 MMOL/L (21-32) Anion Gap 5 mmol/L (5-15) Blood Urea Nitrogen 15 mg/dL (7-18) Creatinine 1.2 MG/DL (0.55-1.30) Estimat Glomerular Filtration Rate > 60 mL/min (>60) Glucose Level 149 MG/DL (74-106) H Calcium Level 8.2 MG/DL (8.5-10.1) L Phosphorus Level 2.8 MG/DL (2.5-4.9) Magnesium Level 1.8 MG/DL (1.8-2.4) Total Bilirubin 0.3 MG/DL (0.2-1.0) Aspartate Amino Transf (AST/SGOT) 23 U/L (15-37) Alanine Aminotransferase (ALT/SGPT) 23 U/L (12-78) Alkaline Phosphatase 55 U/L (46-116) Total Protein 6.0 G/DL (6.4-8.2) L Albumin 3.0 G/DL (3.4-5.0) L Globulin 3.0 g/dL Albumin/Globulin Ratio 1.0 (1.0-2.7) POC Whole Blood Glucose 151 MG/DL (74-106) H 176 MG/DL (74-106) H Reticulocyte Count 1.0 % (0.5-2.0) Prothrombin Time 10.7 SEC (9.30-11.50) Prothromb Time International Ratio 1.0 (0.9-1.1) Ferritin 22 NG/ML (8-388) Folate 17.0 NG/ML (8.6-58.9) Hepatitis A IgM Antibody Pending Hepatitis B Surface Antigen Pending Hepatitis B Core IgM Antibody Pending Hepatitis C Antibody Pending HIV (1&2) Antibody Rapid Negative (NEGATIVE) Test 09/16/20 19:59 POC Whole Blood Glucose 149 MG/DL (74-106) H Objective HEENT: Atraumatic. Dressing on the left temporal region, otherwise pupils are equal, round, and reactive to light and accommodation. Extraocular muscles intact. NECK: JVP less than 5 cm. No carotid bruit. Carotid upstrokes 2+ bilaterally. CARDIOVASCULAR: Normal S1 and S2. Regular rate and rhythm. No murmurs, gallops, or rubs. LUNGS: Clear to auscultation bilaterally. ABDOMEN: Soft, nontender, nondistended. No hepatosplenomegaly. Positive bowel sounds. EXTREMITIES: No evidence of edema, clubbing, or cyanosis. Joseph Elaine MD Sep 16, 2020 23:58
[2020-09-17] VITALS: BP 134/68
[2020-09-17 04:11] VITALS: BP 132/61
[2020-09-17] MEDS: NovoLOG Insulin Flexpen SUBQ SCH ×4 (05:12→21:25)
[2020-09-17] MEDS: ceFAZolin sod 1 GM in D5W 55 ML IVPB SCH ×2 (05:58→18:43)
[2020-09-17] MEDS: Heparin 5000 units/ml inj SUBQ SCH ×3 (06:00→21:24)
[2020-09-17] MEDS: HYDROcodone/Acetamin 5/325 tab ORAL PRN (06:06)
--- NOTE | 2020-09-17 06:30 | Hematology/Onc Progress Note ---
Assessment/Plan Assessment/Plan Assessment and Recs # Thrombocytopenia is likely reactive, stable now is above >100 --> smear has been reviewed, no blasts --> hep and hiv ordered-->neg --> plt 110-->162 --> stable for surgery, if any bleeding given platelets --> xarelto effects out of system after 7 days # Anemia of iron deficiency --> No signs of bleeding ---> Check iron panel, ferritin, B12, folate-->shows jonathan -> per gi -> iv iron has been started x 5 d # Hypercoagulable disorder with Atrial fibrillation on Xarelto --> Continue amiodarone --> Continue Metoprolol --> Holding Xarelto as above --> per cards # Left temporal artery pseudoanerysm (stable) --> per 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 # Head trauma while on xarelto # Mechanical Fall # HTN # ERIK, suspect pre-renal etiology # h/o BPH s/p TURP # mild left hydronephrosis on renal ultrasound # Chronic LE edema, non painful - improving # Diabetes Mellitus Type 2 # Hypothyroidism --> synthroid Appreciate consultation and aba Rn Subjective HEENT: Denies: no symptoms, eye pain, blurred vision, tearing, double vision, ear pain, ear discharge, nose pain, nose congestion, throat pain, throat swelling, mouth pain, mouth swelling, other Cardiovascular: Denies: no symptoms, chest pain, edema, irregular heart rate, lightheadedness, palpitations, syncope, other Respiratory: Denies: no symptoms, cough, shortness of breath, SOB with excertion, SOB at rest, sputum, wheezing, other Genitourinary: Denies: no symptoms, burning, discharge, frequency, flank pain, hematuria, incontinence, pain, urgency, other Neurologic/Psychiatric: Denies: no symptoms, anxiety, depressed, emotional problems, headache, numbness, paresthesia, pre-existing deficit, seizure, tingling, tremors, weakness, other Endocrine: Denies: no symptoms, excessive sweating, flushing, intolerance to cold, intolerance to heat, increased hunger, increased thirst, increased urine, unexplained weight gain, unexplained weight loss, other Hematologic/Lymphatic: Denies: no symptoms, anemia, easy bleeding, easy bruising, adenopathy, other Allergies: Coded Allergies: No Known Allergies (Verified Allergy, Mild, 06/18/10) Subjective 09/17 labs reviewed, meds noted, plt better, s/p surgery Objective Objective Current Medications Medications (Trade) Dose Ordered Sig/Radha Route PRN Reason Start Time Stop Time Status Last Admin Dose Admin Acetaminophen (Tylenol) 650 mg Q4H PRN ORAL FEVER 09/16/20 13:00 10/16/20 12:59 Acetaminophen/ Hydrocodone Bitart ([place] 5/325) 1 tab Q4H PRN ORAL Moderate Pain (Pain Scale 4-6) 09/16/20 13:00 09/23/20 12:59 09/17/20 06:06 Al Hydroxide/Mg Hydroxide (Mylanta) 15 ml Q6H PRN ORAL DYSPEPSIA 09/16/20 13:00 10/16/20 12:59 Amiodarone HCl (Cordarone) 200 mg DAILY ORAL 09/11/20 19:00 12/10/20 18:59 09/16/20 08:30 Amlodipine Besylate (Norvasc) 10 mg DAILY ORAL 09/11/20 19:00 10/11/20 18:59 09/16/20 08:30 Bethanechol Chloride (Urecholine) 25 mg THREE TIMES A DAY ORAL 09/15/20 09:00 10/15/20 08:59 09/16/20 18:20 Bisacodyl (Dulcolax) 10 mg HSPRN PRN RECTAL Constipation 09/11/20 15:45 12/10/20 15:44 Cefazolin Sodium 1 gm/Dextrose 55 ml @ 110 mls/hr Q12H IVPB 09/15/20 18:00 09/22/20 17:59 09/17/20 05:58 Dextrose (Dextrose 50%) 25 ml Q30M PRN IV Hypoglycemia 09/11/20 18:00 12/10/20 17:59 Dextrose (Dextrose 50%) 50 ml Q30M PRN IV Hypoglycemia 09/11/20 18:00 12/10/20 17:59 Dextrose/Sodium Chloride 1,000 ml @ 75 mls/hr [id number] IV 09/15/20 22:00 10/15/20 21:59 09/16/20 21:43 Diphenhydramine HCl (Benadryl) 25 mg Q8H PRN ORAL Itching/Pruritis 09/16/20 13:00 10/16/20 12:59 Docusate Sodium (Colace) 100 mg TWICE A DAY ORAL 09/16/20 18:00 10/16/20 17:59 09/16/20 18:20 Famotidine (Pepcid) 40 mg DAILY ORAL 09/12/20 09:00 12/11/20 08:59 09/15/20 09:32 Heparin Sodium (Porcine) (Heparin 5000 units/ml) 5,000 units EVERY 8 HOURS SUBQ 09/14/20 14:00 10/29/20 13:59 09/17/20 06:00 Insulin Aspart (NovoLOG) BEFORE MEALS AND HS SUBQ 09/11/20 21:00 12/10/20 20:59 09/16/20 16:15 Iron Sucrose 100 mg/Sodium Chloride 60 ml @ 240 mls/hr BEDTIME IVPB 09/16/20 21:00 09/20/20 21:14 09/16/20 21:19 Levothyroxine Sodium (Synthroid) 88 mcg DAILY@0630 ORAL 09/14/20 06:30 10/12/20 06:29 09/17/20 05:58 Lorazepam (Ativan) 1 mg Q4H PRN ORAL For Anxiety 09/11/20 15:45 09/18/20 15:44 Magnesium Hydroxide (Mom) 30 ml BIDPRN PRN ORAL Constipation 09/16/20 13:00 10/16/20 12:59 Morphine Sulfate (Morphine Sulfate) 2 mg Q4H PRN IVP pain 7-10 09/11/20 15:45 09/18/20 15:44 Nitroglycerin (Ntg) 0.4 mg Q5M X 3 DOSES PRN SL Prn Chest Pain 09/11/20 15:45 10/11/20 15:44 Ondansetron HCl (Zofran) 4 mg Q6H PRN IVP Nausea & Vomiting 09/16/20 13:00 10/16/20 12:59 Sodium Chloride 550 ml @ 0 mls/hr Q0M IV 09/11/20 13:00 10/11/20 12:59 Temazepam (RestoriL) 7.5 mg DAILYPRN PRN ORAL Insomnia 09/16/20 13:00 09/23/20 12:59 Last 24 Hour Vital Signs Date Time Temp Pulse Resp B/P (MAP) Pulse Ox O2 Delivery O2 Flow Rate FiO2 09/17/20 04:11 97.6 101 20 132/61 (84) 99 09/17/20 04:00 68 09/17/20 04:00 101 98 99 09/17/20 00:00 71 09/17/20 00:00 97.8 92 20 134/68 (90) 98 09/16/20 21:00 Room Air 09/16/20 20:16 98 Room Air 21 09/16/20 20:00 97.5 80 20 126/67 (86) 99 09/16/20 20:00 77 09/16/20 16:00 97.6 98 20 135/70 (91) 98 09/16/20 16:00 88 90 98 09/16/20 16:00 80 09/16/20 12:30 98.5 73 17 129/71 98 Nasal Cannula 3 09/16/20 12:15 71 16 128/66 96 Nasal Cannula 3 09/16/20 12:00 72 19 125/67 97 Nasal Cannula 3 09/16/20 12:00 76 09/16/20 11:50 68 15 121/64 98 Simple Mask 6 09/16/20 11:45 68 16 115/65 100 Simple Mask 6 09/16/20 11:40 68 15 116/55 99 Simple Mask 6 09/16/20 11:40 67 20 99 09/16/20 11:33 99.0 68 20 110/56 68 Simple Mask 6 09/16/20 09:00 Room Air 09/16/20 08:30 98 160/83 09/16/20 08:00 90 09/16/20 08:00 98.1 98 20 160/83 (108) 98 09/16/20 04:00 97.9 102 18 130/78 (95) 98 09/16/20 04:00 102 110 118 09/16/20 04:00 77 09/16/20 00:00 97.3 104 18 153/86 (108) 97 09/16/20 00:00 101 09/15/20 21:00 Room Air 09/15/20 20:00 93 09/15/20 20:00 97.2 96 18 146/95 (112) 98 09/15/20 16:00 80 09/15/20 16:00 98.3 95 20 150/80 (103) 99 09/15/20 16:00 93 93 100 09/15/20 12:00 93 09/15/20 12:00 98.2 97 20 145/75 (98) 98 09/15/20 09:31 91 138/68 09/15/20 09:00 Room Air 09/15/20 08:00 98.8 91 18 138/68 (91) 98 09/15/20 08:00 82 Intake and Output 09/16/20 09/17/20 19:00 07:00 Intake Total 485 ml 675 ml Output Total 400 ml Balance 85 ml 675 ml Intake Oral 250 ml IV Total 235 ml 675 ml Output Urine Total 400 ml Labs Test 09/14/20 20:41 09/15/20 05:50 09/15/20 07:45 09/15/20 17:13 White Blood Count 7.6 K/UL (4.8-10.8) Red Blood Count 3.68 M/UL (4.70-6.10) Hemoglobin 10.1 G/DL (14.2-18.0) Hematocrit 32.1 % (42.0-52.0) Mean Corpuscular Volume 87 FL (80-99) Mean Corpuscular Hemoglobin 27.6 PG (27.0-31.0) Mean Corpuscular Hemoglobin Concent 31.6 G/DL (32.0-36.0) Red Cell Distribution Width 15.1 % (11.6-14.8) Platelet Count 138 K/UL (150-450) Mean Platelet Volume 7.4 FL (6.5-10.1) Neutrophils (%) (Auto) 77.8 % (45.0-75.0) Lymphocytes (%) (Auto) 12.0 % (20.0-45.0) Monocytes (%) (Auto) 7.3 % (1.0-10.0) Eosinophils (%) (Auto) 2.1 % (0.0-3.0) Basophils (%) (Auto) 0.8 % (0.0-2.0) Sodium Level 144 MMOL/L (136-145) Potassium Level 4.2 MMOL/L (3.5-5.1) Chloride Level 109 MMOL/L (98-107) Carbon Dioxide Level 27 MMOL/L (21-32) Anion Gap 8 mmol/L (5-15) Blood Urea Nitrogen 17 mg/dL (7-18) Creatinine 1.4 MG/DL (0.55-1.30) Estimat Glomerular Filtration Rate 58.5 mL/min (>60) Glucose Level 107 MG/DL (74-106) Calcium Level 8.5 MG/DL (8.5-10.1) Phosphorus Level 3.4 MG/DL (2.5-4.9) Magnesium Level 2.1 MG/DL (1.8-2.4) Total Bilirubin 0.3 MG/DL (0.2-1.0) Aspartate Amino Transf (AST/SGOT) 27 U/L (15-37) Alanine Aminotransferase (ALT/SGPT) 23 U/L (12-78) Alkaline Phosphatase 65 U/L (46-116) Total Protein 6.2 G/DL (6.4-8.2) Albumin 3.1 G/DL (3.4-5.0) Globulin 3.1 g/dL Albumin/Globulin Ratio 1.0 (1.0-2.7) Urine Color Pale yellow Urine Appearance Clear Urine pH 7 (4.5-8.0) Urine Specific [place] 1.010 (1.005-1.035) Urine Protein Negative (NEGATIVE) Urine Glucose (UA) Negative (NEGATIVE) Urine Ketones Negative (NEGATIVE) Urine Blood Negative (NEGATIVE) Urine Nitrite Positive (NEGATIVE) Urine Bilirubin Negative (NEGATIVE) Urine Urobilinogen Normal MG/DL (0.0-1.0) Urine Leukocyte Esterase 2+ (NEGATIVE) Urine RBC 0 /HPF (0 - 0) Urine WBC 2-4 /HPF (0 - 0) Urine Squamous Epithelial Cells Occasional /LPF Urine Bacteria Moderate /HPF (NONE) POC Whole Blood Glucose 165 MG/DL (74-106) Test 09/15/20 21:43 09/16/20 05:30 09/16/20 05:37 09/16/20 08:35 POC Whole Blood Glucose 156 MG/DL (74-106) 151 MG/DL (74-106) White Blood Count 5.0 K/UL (4.8-10.8) Red Blood Count 3.48 M/UL (4.70-6.10) Hemoglobin 9.6 G/DL (14.2-18.0) Hematocrit 30.4 % (42.0-52.0) Mean Corpuscular Volume 87 FL (80-99) Mean Corpuscular Hemoglobin 27.7 PG (27.0-31.0) Mean Corpuscular Hemoglobin Concent 31.7 G/DL (32.0-36.0) Red Cell Distribution Width 15.0 % (11.6-14.8) Platelet Count 154 K/UL (150-450) Mean Platelet Volume 7.2 FL (6.5-10.1) Neutrophils (%) (Auto) 74.7 % (45.0-75.0) Lymphocytes (%) (Auto) 10.1 % (20.0-45.0) Monocytes (%) (Auto) 12.2 % (1.0-10.0) Eosinophils (%) (Auto) 1.9 % (0.0-3.0) Basophils (%) (Auto) 1.1 % (0.0-2.0) Differential Total Cells Counted 100 Neutrophils % (Manual) 74 % (45-75) Lymphocytes % (Manual) 14 % (20-45) Monocytes % (Manual) 11 % (1-10) Eosinophils % (Manual) 1 % (0-3) Basophils % (Manual) 0 % (0-2) Band Neutrophils 0 % (0-8) Platelet Estimate Decreased Platelet Morphology Normal Anisocytosis 1+ Sodium Level 142 MMOL/L (136-145) Potassium Level 4.3 MMOL/L (3.5-5.1) Chloride Level 109 MMOL/L (98-107) Carbon Dioxide Level 28 MMOL/L (21-32) Anion Gap 5 mmol/L (5-15) Blood Urea Nitrogen 15 mg/dL (7-18) Creatinine 1.2 MG/DL (0.55-1.30) Estimat Glomerular Filtration Rate > 60 mL/min (>60) Glucose Level 149 MG/DL (74-106) Calcium Level 8.2 MG/DL (8.5-10.1) Phosphorus Level 2.8 MG/DL (2.5-4.9) Magnesium Level 1.8 MG/DL (1.8-2.4) Total Bilirubin 0.3 MG/DL (0.2-1.0) Aspartate Amino Transf (AST/SGOT) 23 U/L (15-37) Alanine Aminotransferase (ALT/SGPT) 23 U/L (12-78) Alkaline Phosphatase 55 U/L (46-116) Total Protein 6.0 G/DL (6.4-8.2) Albumin 3.0 G/DL (3.4-5.0) Globulin 3.0 g/dL Albumin/Globulin Ratio 1.0 (1.0-2.7) Reticulocyte Count 1.0 % (0.5-2.0) Prothrombin Time 10.7 SEC (9.30-11.50) Prothromb Time International Ratio 1.0 (0.9-1.1) Ferritin 22 NG/ML (8-388) Folate 17.0 NG/ML (8.6-58.9) Hepatitis A IgM Antibody Negative (Negative) Hepatitis B Surface Antigen Negative (Negative) Hepatitis B Core IgM Antibody Negative (Negative) Hepatitis C Antibody <0.1 s/co ratio HIV (1&2) Antibody Rapid Negative (NEGATIVE) Test 09/16/20 16:03 09/16/20 19:59 09/17/20 05:04 POC Whole Blood Glucose 176 MG/DL (74-106) 149 MG/DL (74-106) 141 MG/DL (74-106) Height (Feet): 5 Height (Inches): 6.00 Weight (Pounds): 186 Objective Physical Exam Narrative General: WDWN, NAD, A&O x 4 HEENT: Normocephalic cephalic atraumatic, + left temporal mass No bleeding CV: Regular rate regular rhythm, no murmurs, rubs, or gallops Pulm: Lungs clear to auscultation bilaterally. No wheezes, rhonchi, or rales GI: Soft, nontender, nondistended, bowel sounds present Neuro: CN 2-12 intact bilaterally, no focal signs. Ext: No lower extremity edema bilaterally + 3+ LE edema Skin: no rashes lesions or ulcers Msk: Joints symmetrical in upper extremity and lower extremity bilaterally Lymph: No lymphadenopathy in upper extremity and lower extremity Brady Treviño MD Sep 17, 2020 06:30
--- NOTE | 2020-09-17 06:30 | General Progress Note ---
Subjective ROS Limited/Unobtainable: Yes Allergies: Coded Allergies: No Known Allergies (Verified Allergy, Mild, 06/18/10) Subjective events noted interval notes reviewed glucose values are stable Item Value Date Time Bedside Blood Glucose 141 mg/dl H 09/17/20 0512 Bedside Blood Glucose 149 mg/dl H 09/16/20 2100 Bedside Blood Glucose 176 mg/dl H 09/16/20 1630 Bedside Blood Glucose 151 mg/dl H 09/16/20 0630 Objective Last 24 Hour Vital Signs Date Time Temp Pulse Resp B/P (MAP) Pulse Ox O2 Delivery O2 Flow Rate FiO2 09/17/20 04:11 97.6 101 20 132/61 (84) 99 09/17/20 04:00 68 09/17/20 04:00 101 98 99 09/17/20 00:00 71 09/17/20 00:00 97.8 92 20 134/68 (90) 98 09/16/20 21:00 Room Air 09/16/20 20:16 98 Room Air 21 09/16/20 20:00 97.5 80 20 126/67 (86) 99 09/16/20 20:00 77 09/16/20 16:00 97.6 98 20 135/70 (91) 98 09/16/20 16:00 88 90 98 09/16/20 16:00 80 09/16/20 12:30 98.5 73 17 129/71 98 Nasal Cannula 3 09/16/20 12:15 71 16 128/66 96 Nasal Cannula 3 09/16/20 12:00 72 19 125/67 97 Nasal Cannula 3 09/16/20 12:00 76 09/16/20 11:50 68 15 121/64 98 Simple Mask 6 09/16/20 11:45 68 16 115/65 100 Simple Mask 6 09/16/20 11:40 68 15 116/55 99 Simple Mask 6 09/16/20 11:40 67 20 99 09/16/20 11:33 99.0 68 20 110/56 68 Simple Mask 6 09/16/20 09:00 Room Air 09/16/20 08:30 98 160/83 09/16/20 08:00 90 09/16/20 08:00 98.1 98 20 160/83 (108) 98 Intake and Output 09/16/20 09/17/20 18:59 06:59 Intake Total 300 ml 860 ml Output Total 400 ml Balance -100 ml 860 ml Intake Oral 250 ml IV Total 50 ml 860 ml Output Urine Total 400 ml Laboratory Tests 09/16/20 08:35: Reticulocyte Count 1.0, Prothrombin Time 10.7, Prothromb Time International Ratio 1.0, Ferritin 22, Folate 17.0, Hepatitis A IgM Antibody Negative, Hepatitis B Surface Antigen Negative, Hepatitis B Core IgM Antibody Negative, Hepatitis C Antibody <0.1, HIV (1&2) Antibody Rapid Negative 09/16/20 16:03: POC Whole Blood Glucose 176H 09/16/20 19:59: POC Whole Blood Glucose 149H 09/17/20 05:04: POC Whole Blood Glucose 141H Height (Feet): 5 Height (Inches): 6.00 Weight (Pounds): 186 General Appearance: no apparent distress Neck: normal alignment Cardiovascular: normal rate Respiratory/Chest: lungs clear Objective Current Medications Medications (Trade) Dose Ordered Sig/Radha Route PRN Reason Start Time Stop Time Status Last Admin Dose Admin Acetaminophen (Tylenol) 650 mg Q4H PRN ORAL FEVER 09/16/20 13:00 10/16/20 12:59 Acetaminophen/ Hydrocodone Bitart ([place] 5/325) 1 tab Q4H PRN ORAL Moderate Pain (Pain Scale 4-6) 09/16/20 13:00 09/23/20 12:59 09/17/20 06:06 Al Hydroxide/Mg Hydroxide (Mylanta) 15 ml Q6H PRN ORAL DYSPEPSIA 09/16/20 13:00 10/16/20 12:59 Amiodarone HCl (Cordarone) 200 mg DAILY ORAL 09/11/20 19:00 12/10/20 18:59 09/16/20 08:30 Amlodipine Besylate (Norvasc) 10 mg DAILY ORAL 09/11/20 19:00 10/11/20 18:59 09/16/20 08:30 Bethanechol Chloride (Urecholine) 25 mg THREE TIMES A DAY ORAL 09/15/20 09:00 10/15/20 08:59 09/16/20 18:20 Bisacodyl (Dulcolax) 10 mg HSPRN PRN RECTAL Constipation 09/11/20 15:45 12/10/20 15:44 Cefazolin Sodium 1 gm/Dextrose 55 ml @ 110 mls/hr Q12H IVPB 09/15/20 18:00 09/22/20 17:59 09/17/20 05:58 Dextrose (Dextrose 50%) 25 ml Q30M PRN IV Hypoglycemia 09/11/20 18:00 12/10/20 17:59 Dextrose (Dextrose 50%) 50 ml Q30M PRN IV Hypoglycemia 09/11/20 18:00 12/10/20 17:59 Dextrose/Sodium Chloride 1,000 ml @ 75 mls/hr [id number] IV 09/15/20 22:00 10/15/20 21:59 09/16/20 21:43 Diphenhydramine HCl (Benadryl) 25 mg Q8H PRN ORAL Itching/Pruritis 09/16/20 13:00 10/16/20 12:59 Docusate Sodium (Colace) 100 mg TWICE A DAY ORAL 09/16/20 18:00 10/16/20 17:59 09/16/20 18:20 Famotidine (Pepcid) 40 mg DAILY ORAL 09/12/20 09:00 12/11/20 08:59 09/15/20 09:32 Heparin Sodium (Porcine) (Heparin 5000 units/ml) 5,000 units EVERY 8 HOURS SUBQ 09/14/20 14:00 10/29/20 13:59 09/17/20 06:00 Insulin Aspart (NovoLOG) BEFORE MEALS AND HS SUBQ 09/11/20 21:00 12/10/20 20:59 09/16/20 16:15 Iron Sucrose 100 mg/Sodium Chloride 60 ml @ 240 mls/hr BEDTIME IVPB 09/16/20 21:00 09/20/20 21:14 09/16/20 21:19 Levothyroxine Sodium (Synthroid) 88 mcg DAILY@0630 ORAL 09/14/20 06:30 10/12/20 06:29 09/17/20 05:58 Lorazepam (Ativan) 1 mg Q4H PRN ORAL For Anxiety 09/11/20 15:45 09/18/20 15:44 Magnesium Hydroxide (Mom) 30 ml BIDPRN PRN ORAL Constipation 09/16/20 13:00 10/16/20 12:59 Morphine Sulfate (Morphine Sulfate) 2 mg Q4H PRN IVP pain 7-10 09/11/20 15:45 09/18/20 15:44 Nitroglycerin (Ntg) 0.4 mg Q5M X 3 DOSES PRN SL Prn Chest Pain 09/11/20 15:45 10/11/20 15:44 Ondansetron HCl (Zofran) 4 mg Q6H PRN IVP Nausea & Vomiting 09/16/20 13:00 10/16/20 12:59 Sodium Chloride 550 ml @ 0 mls/hr Q0M IV 09/11/20 13:00 10/11/20 12:59 Temazepam (RestoriL) 7.5 mg DAILYPRN PRN ORAL Insomnia 09/16/20 13:00 09/23/20 12:59 Assessment/Plan Problem List: (1) Hypothyroid ICD Codes: E03.9 - Hypothyroidism, unspecified SNOMED: 78003735 (2) Diabetes ICD Codes: E11.9 - Diabetes SNOMED: 42436224 (3) Pseudoaneurysm ICD Codes: I72.9 - Aneurysm of unspecified site SNOMED: 333133100, 18068307, 20416064 (4) Hypertension ICD Codes: I10 - Hypertension SNOMED: 62959642 Assessment/Plan: continue Levothyroxine 88 mcg daily repeat TSH, free T4 in 2-3 weeks continue Novolog sliding scale ac hs Zeeshan Fischer MD Sep 17, 2020 06:30
--- NOTE | 2020-09-17 07:20 | NUR ---
NURSE HAND-OFF REPORT: Important Events on Shift: Pt afebrile during shift, VS WNL. [place] pain med PRN given twice for pain relief. Patient Status: Ongoing Diet: regular Pending Orders: n/a Pending Results/Labs: n/a Pending MD notification:n/a Latest Vital Signs: Temperature 97.6 , Pulse 101 , B/P 132 /61 , Respiratory Rate 20 , O2 SAT 99 , Nasal Cannula, O2 Flow Rate 3 . Vital Sign Comment: WNL EKG Rhythm: Sinus Rhythm Rhythm change?: N Notified?: Steve Garcia MD Response: Message left await call Latest Yang Fall Score: 85 Fall Risk: High Risk Safety Measures: Call light Within Reach, Bed Alarm Zone 1, Side Rails Side Rails x2, Bed position Low and Locked. Fall Precautions: Yes Yellow Socks Yellow Gown Door Sign Patient Fall Education Report given to HARSH Zazueta.
--- NOTE | 2020-09-17 07:42 | NUR ---
NURSE NOTES: pt is in bed awake and eating breakfast. pt is on secured entrance monitor showing no signs of cardiac or respiratory distress.bed is locked in lowest position, call light is within reach pt verbalizes understanding of the use of call light. pt has no complaints of pain. IV is patent running D5NS.will continue to monitor.
[2020-09-17 08:00] VITALS: BP 129/69
--- NOTE | 2020-09-17 08:27 | Nephrology Progress Note ---
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 #DM #BPH -s/p ligation of the pseudoaneurysm and removal - monitor UOP - defer renal US for now - neurology eval - continue flomax 0.4mg daily - continue amlodipine 10mg daily - on amiodarone - holding xarelto - monitor renal function - avoid nephrotoxins time spent 65 min Subjective Subjective cr 1.2 stable Objective Objective Last 24 Hour Vital Signs Date Time Temp Pulse Resp B/P (MAP) Pulse Ox O2 Delivery O2 Flow Rate FiO2 09/17/20 04:11 97.6 101 20 132/61 (84) 99 09/17/20 04:00 68 09/17/20 04:00 101 98 99 09/17/20 00:00 71 09/17/20 00:00 97.8 92 20 134/68 (90) 98 09/16/20 21:00 Room Air 09/16/20 20:16 98 Room Air 21 09/16/20 20:00 97.5 80 20 126/67 (86) 99 09/16/20 20:00 77 09/16/20 16:00 97.6 98 20 135/70 (91) 98 09/16/20 16:00 88 90 98 09/16/20 16:00 80 09/16/20 12:30 98.5 73 17 129/71 98 Nasal Cannula 3 09/16/20 12:15 71 16 128/66 96 Nasal Cannula 3 09/16/20 12:00 72 19 125/67 97 Nasal Cannula 3 09/16/20 12:00 76 09/16/20 11:50 68 15 121/64 98 Simple Mask 6 09/16/20 11:45 68 16 115/65 100 Simple Mask 6 09/16/20 11:40 68 15 116/55 99 Simple Mask 6 09/16/20 11:40 67 20 99 09/16/20 11:33 99.0 68 20 110/56 68 Simple Mask 6 09/16/20 09:00 Room Air 09/16/20 08:30 98 160/83 Intake and Output 09/16/20 09/17/20 19:00 07:00 Intake Total 485 ml 1240 ml Output Total 400 ml 600 ml Balance 85 ml 640 ml Intake Oral 250 ml 340 ml IV Total 235 ml 900 ml Output Urine Total 400 ml 600 ml Laboratory Tests 09/16/20 08:35: Reticulocyte Count 1.0, Prothrombin Time 10.7, Prothromb Time International Ratio 1.0, Ferritin 22, Folate 17.0, Hepatitis A IgM Antibody Negative, Hepatitis B Surface Antigen Negative, Hepatitis B Core IgM Antibody Negative, Hepatitis C Antibody <0.1, HIV (1&2) Antibody Rapid Negative 09/16/20 16:03: POC Whole Blood Glucose 176H 09/16/20 19:59: POC Whole Blood Glucose 149H 09/17/20 05:04: POC Whole Blood Glucose 141H Height (Feet): 5 Height (Inches): 6.00 Weight (Pounds): 186 Judah Richmond M.D. Sep 17, 2020 08:27
--- NOTE | 2020-09-17 09:07 | Urology Progress Note ---
Assessment/Plan Assessment/Plan: 1. Left-sided hydronephrosis, which is mild and may be because of recent elevated postvoid residuals. 2. History of mild chronic kidney disease. 3. BPH history. 4. Atonic neurogenic bladder. 5. Nephrolithiasis. 6. Renal cyst. 7. UTI history. monitor clinically flomax dc'd restarted urecholine f/u on urine C+S empiric abx added consider CT A/P f/u on PVR Subjective Allergies: Coded Allergies: No Known Allergies (Verified Allergy, Mild, 06/18/10) Subjective all noted, voiding, PVR ? 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 09/16 Objective Last 24 Hour Vital Signs Date Time Temp Pulse Resp B/P (MAP) Pulse Ox O2 Delivery O2 Flow Rate FiO2 09/17/20 04:11 97.6 101 20 132/61 (84) 99 09/17/20 04:00 68 09/17/20 04:00 101 98 99 09/17/20 00:00 71 09/17/20 00:00 97.8 92 20 134/68 (90) 98 09/16/20 21:00 Room Air 09/16/20 20:16 98 Room Air 21 09/16/20 20:00 97.5 80 20 126/67 (86) 99 09/16/20 20:00 77 09/16/20 16:00 97.6 98 20 135/70 (91) 98 09/16/20 16:00 88 90 98 09/16/20 16:00 80 09/16/20 12:30 98.5 73 17 129/71 98 Nasal Cannula 3 09/16/20 12:15 71 16 128/66 96 Nasal Cannula 3 09/16/20 12:00 72 19 125/67 97 Nasal Cannula 3 09/16/20 12:00 76 09/16/20 11:50 68 15 121/64 98 Simple Mask 6 09/16/20 11:45 68 16 115/65 100 Simple Mask 6 09/16/20 11:40 68 15 116/55 99 Simple Mask 6 09/16/20 11:40 67 20 99 09/16/20 11:33 99.0 68 20 110/56 68 Simple Mask 6 Intake and Output 09/16/20 09/17/20 19:00 07:00 Intake Total 485 ml 1240 ml Output Total 400 ml 600 ml Balance 85 ml 640 ml Intake Oral 250 ml 340 ml IV Total 235 ml 900 ml Output Urine Total 400 ml 600 ml Microbiology Date/Time Source Procedure Growth Status 09/15/20 07:45 Urine,Clean Catch Urine Culture - Preliminary Gram Negative Gelacio Resulted 09/11/20 14:00 Nasopharynx SARS-CoV-2 RdRp Gene Assay - Final Complete Current Medications Medications (Trade) Dose Ordered Sig/Radha Route PRN Reason Start Time Stop Time Status Last Admin Dose Admin Acetaminophen (Tylenol) 650 mg Q4H PRN ORAL FEVER 09/16/20 13:00 10/16/20 12:59 Acetaminophen/ Hydrocodone Bitart (Crook 5/325) 1 tab Q4H PRN ORAL Moderate Pain (Pain Scale 4-6) 09/16/20 13:00 09/23/20 12:59 09/17/20 06:06 Al Hydroxide/Mg Hydroxide (Mylanta) 15 ml Q6H PRN ORAL DYSPEPSIA 09/16/20 13:00 10/16/20 12:59 Amiodarone HCl (Cordarone) 200 mg DAILY ORAL 09/11/20 19:00 12/10/20 18:59 09/16/20 08:30 Amlodipine Besylate (Norvasc) 10 mg DAILY ORAL 09/11/20 19:00 10/11/20 18:59 09/16/20 08:30 Bethanechol Chloride (Urecholine) 25 mg THREE TIMES A DAY ORAL 09/15/20 09:00 10/15/20 08:59 09/16/20 18:20 Bisacodyl (Dulcolax) 10 mg HSPRN PRN RECTAL Constipation 09/11/20 15:45 12/10/20 15:44 Cefazolin Sodium 1 gm/Dextrose 55 ml @ 110 mls/hr Q12H IVPB 09/15/20 18:00 09/22/20 17:59 09/17/20 05:58 Dextrose (Dextrose 50%) 25 ml Q30M PRN IV Hypoglycemia 09/11/20 18:00 12/10/20 17:59 Dextrose (Dextrose 50%) 50 ml Q30M PRN IV Hypoglycemia 09/11/20 18:00 12/10/20 17:59 Dextrose/Sodium Chloride 1,000 ml @ 75 mls/hr [id number] IV 09/15/20 22:00 10/15/20 21:59 09/16/20 21:43 Diphenhydramine HCl (Benadryl) 25 mg Q8H PRN ORAL Itching/Pruritis 09/16/20 13:00 10/16/20 12:59 Docusate Sodium (Colace) 100 mg TWICE A DAY ORAL 09/16/20 18:00 10/16/20 17:59 09/16/20 18:20 Famotidine (Pepcid) 40 mg DAILY ORAL 09/12/20 09:00 12/11/20 08:59 09/15/20 09:32 Heparin Sodium (Porcine) (Heparin 5000 units/ml) 5,000 units EVERY 8 HOURS SUBQ 09/14/20 14:00 10/29/20 13:59 09/17/20 06:00 Insulin Aspart (NovoLOG) BEFORE MEALS AND HS SUBQ 09/11/20 21:00 12/10/20 20:59 09/16/20 16:15 Iron Sucrose 100 mg/Sodium Chloride 60 ml @ 240 mls/hr BEDTIME IVPB 09/16/20 21:00 09/20/20 21:14 09/16/20 21:19 Levothyroxine Sodium (Synthroid) 88 mcg DAILY@0630 ORAL 09/14/20 06:30 10/12/20 06:29 09/17/20 05:58 Lorazepam (Ativan) 1 mg Q4H PRN ORAL For Anxiety 09/11/20 15:45 09/18/20 15:44 Magnesium Hydroxide (Mom) 30 ml BIDPRN PRN ORAL Constipation 09/16/20 13:00 10/16/20 12:59 Morphine Sulfate (Morphine Sulfate) 2 mg Q4H PRN IVP pain 7-10 09/11/20 15:45 09/18/20 15:44 Nitroglycerin (Ntg) 0.4 mg Q5M X 3 DOSES PRN SL Prn Chest Pain 09/11/20 15:45 10/11/20 15:44 Ondansetron HCl (Zofran) 4 mg Q6H PRN IVP Nausea & Vomiting 09/16/20 13:00 10/16/20 12:59 Sodium Chloride 550 ml @ 0 mls/hr Q0M IV 09/11/20 13:00 10/11/20 12:59 Temazepam (RestoriL) 7.5 mg DAILYPRN PRN ORAL Insomnia 09/16/20 13:00 09/23/20 12:59 Laboratory Tests 09/16/20 16:03: POC Whole Blood Glucose 176H 09/16/20 19:59: POC Whole Blood Glucose 149H 09/17/20 05:04: POC Whole Blood Glucose 141H Height (Feet): 5 Height (Inches): 6.00 Weight (Pounds): 186 Objective exam stable Salvatore Dunlap MD Sep 17, 2020 09:07
[2020-09-17] MEDS: Bethanechol 25mg Tab ORAL SCH ×3 (09:16→18:40)
[2020-09-17] MEDS: Docusate 100mg cap ORAL SCH ×2 (09:16→18:40)
[2020-09-17] MEDS: Amiodarone 200mg tab ORAL SCH (09:17)
--- NOTE | 2020-09-17 09:25 | 48 Hour Post Anesthesia Eval ---
Post Anesthesia Evaluation Procedure: Ligation and excision of pseudoaneurysm of L temporal art. Date of Evaluation: Sep 17, 2020 Time of Evaluation: 09:23 Blood Pressure Systolic: 132 0: 74 Pulse Rate: 68 Respiratory Rate: 20 Temperature (Fahrenheit): 97.8 O2 Sat by Pulse Oximetry: 98 Airway: patent Nausea: No Vomiting: No Pain Intensity: 2 Hydration Status: adequate Cardiopulmonary Status: stable Mental Status/LOC: patient returned to baseline Follow-up Care/Observations: n/a Post-Anesthesia Complications: none Follow-up care needed: N/A Leon Berrios MD Sep 17, 2020 09:25
[2020-09-17 10:19] LABS: BASOPHILS % (AUTO) 1.2 % (0.0-2.0); HEMATOCRIT 30.7 % (42.0-52.0); HEMOGLOBIN 10.1 G/DL (14.2-18.0); MEAN CORPUSCULAR VOLUME 83 FL (80-99); MONOCYTES % (AUTO) 13.1 % (1.0-10.0); NEUTROPHILS % (AUTO) 62.6 % (45.0-75.0); PLATELET COUNT 166 K/UL (150-450); RED BLOOD COUNT 3.71 M/UL (4.70-6.10); RED CELL DISTRIBUTION WIDTH 16.2 % (11.6-14.8); WHITE BLOOD COUNT 4.5 K/UL (4.8-10.8)
[2020-09-17 10:39] LABS: PHOSPHORUS 2.6 MG/DL (2.5-4.9)
[2020-09-17 11:03] LABS: ANION GAP 5 mmol/L (5-15); BLOOD UREA NITROGEN 13 mg/dL (7-18); CALCIUM 7.8 MG/DL (8.5-10.1); CARBON DIOXIDE 27 MMOL/L (21-32); CHLORIDE 109 MMOL/L (98-107); CREATININE 1.2 MG/DL (0.55-1.30); POTASSIUM 4.3 MMOL/L (3.5-5.1); SODIUM 141 MMOL/L (136-145)
[2020-09-17 12:00] VITALS: BP 138/68
--- NOTE | 2020-09-17 12:37 | Surgery Progress Note ---
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 Additional Comments doing well post op no n/v pain minimal d/c planning will discuss with cardiology when to resume meds planned f/u office 1 week Objective Last 24 Hour Vital Signs Date Time Temp Pulse Resp B/P (MAP) Pulse Ox O2 Delivery O2 Flow Rate FiO2 09/17/20 09:25 68 20 98 09/17/20 09:17 83 129/69 09/17/20 08:00 97.9 83 20 129/69 (89) 99 09/17/20 08:00 86 09/17/20 04:11 97.6 101 20 132/61 (84) 99 09/17/20 04:00 68 09/17/20 04:00 101 98 99 09/17/20 00:00 71 09/17/20 00:00 97.8 92 20 134/68 (90) 98 09/16/20 21:00 Room Air 09/16/20 20:16 98 Room Air 21 09/16/20 20:00 97.5 80 20 126/67 (86) 99 09/16/20 20:00 77 09/16/20 16:00 97.6 98 20 135/70 (91) 98 09/16/20 16:00 88 90 98 09/16/20 16:00 80 I&O Intake and Output 09/16/20 09/17/20 19:00 07:00 Intake Total 485 ml 1240 ml Output Total 400 ml 600 ml Balance 85 ml 640 ml Intake Oral 250 ml 340 ml IV Total 235 ml 900 ml Output Urine Total 400 ml 600 ml Dressing: dry Wound: clean Cardiovascular: RSR Respiratory: clear Abdomen: soft, non-tender, present bowel sounds Extremities: no edema, no tenderness, no cyanosis Laboratory Tests Test 09/16/20 16:03 09/16/20 19:59 09/17/20 05:04 09/17/20 09:40 POC Whole Blood Glucose 176 MG/DL (74-106) H 149 MG/DL (74-106) H 141 MG/DL (74-106) H White Blood Count 4.5 K/UL (4.8-10.8) L Red Blood Count 3.71 M/UL (4.70-6.10) L Hemoglobin 10.1 G/DL (14.2-18.0) L Hematocrit 30.7 % (42.0-52.0) L Mean Corpuscular Volume 83 FL (80-99) Mean Corpuscular Hemoglobin 27.1 PG (27.0-31.0) Mean Corpuscular Hemoglobin Concent 32.8 G/DL (32.0-36.0) Red Cell Distribution Width 16.2 % (11.6-14.8) H Platelet Count 166 K/UL (150-450) Mean Platelet Volume 6.8 FL (6.5-10.1) Neutrophils (%) (Auto) 62.6 % (45.0-75.0) Lymphocytes (%) (Auto) 20.0 % (20.0-45.0) Monocytes (%) (Auto) 13.1 % (1.0-10.0) H Eosinophils (%) (Auto) 3.0 % (0.0-3.0) Basophils (%) (Auto) 1.2 % (0.0-2.0) Sodium Level 141 MMOL/L (136-145) Potassium Level 4.3 MMOL/L (3.5-5.1) Chloride Level 109 MMOL/L (98-107) H Carbon Dioxide Level 27 MMOL/L (21-32) Anion Gap 5 mmol/L (5-15) Blood Urea Nitrogen 13 mg/dL (7-18) Creatinine 1.2 MG/DL (0.55-1.30) Estimat Glomerular Filtration Rate > 60 mL/min (>60) Glucose Level 168 MG/DL (74-106) H Calcium Level 7.8 MG/DL (8.5-10.1) L Phosphorus Level 2.6 MG/DL (2.5-4.9) Magnesium Level 1.7 MG/DL (1.8-2.4) L Plan Problems: (1) Hematoma (2) Pseudoaneurysm Assessment & Plan: This is a 84-year-old male 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 Patient identified abnormal labs. I had a long session with the patient and his family. He has been falling recently had multiple falls but does not recall all of them. Patient furthermore has multiple medications though may not have full compliance or understanding. Patient with a pulsatile potentially expanding mass in his left forehead an eurysm CT noted discussed with radiology. Given the above I do not feel safe for patient to go home and electively participate in ligation. He is at high risk for another fall potential injury potential aneurysm expansion or even worse potential rupture with potential catastrophic event and considerations given this discussion with the family and patient's interest given his medical history and abnormal labs and work-up necessary it is in his interest to be admitted worked up and taken to the operating room when stable and off anticoagulation for ligation of the pseudoaneurysm and removal. Admit to medical service Consultants as below Okay for diet for now Hold anticoagulation Monitor for bleeding or expansion We will take the operating room in stable Preop work-up thank you for let me participation's care Covid test pending cardiology and clearance by consultants difficulty walking le edema duplex negative echo? cleared by cardio for surgery plan or wednesday OR tomorrow cleared by all consultants s/p ligation and resection 09/16 d/c planning hh f/u 1 week (3) Arrhythmia (4) Diabetes (5) Hyperlipidemia (6) Abdominal pain (7) Hypertension Vernon Tse Sep 17, 2020 12:37
[2020-09-17] MEDS: D5NS 1,000 ML IV SCH (14:00)
[2020-09-17] MEDS ORDERED: D5NS 1000ml IV ONE ×2 (14:50→16:39)
[2020-09-17] MEDS ORDERED: Tubing IV Secondary IV ONE (14:50)
[2020-09-17 16:00] VITALS: BP 141/72
--- NOTE | 2020-09-17 16:42 | General Progress Note ---
Subjective Date patient seen: Sep 17, 2020 ROS Limited/Unobtainable: No Allergies: Coded Allergies: No Known Allergies (Verified Allergy, Mild, 06/18/10) Subjective No acute events overnight Patient had surgery yesterday, no post-op complications. Doing well today, no new symptoms, pain well controlled. Review of systems: Constitutional: Denies: chills, diaphoresis, fever, malaise, weakness, HEENT: Denies: eye pain, blurred vision, tearing, Cardiovascular: Denies: chest pain, lightheadedness, palpitations, syncope, Respiratory: Denies: cough, orthopnea, shortness of breath, SOB with exertion, SOB at rest, Gastrointestinal/Abdominal: Denies: abdomen distended, abdominal pain, melena, blood in stool, constipated, diarrhea, difficulty swallowing, nausea, poor appetite, poor fluid intake, rectal bleeding, vomiting, other Genitourinary: Denies: burning, discharge, frequency, flank pain, hematuria, incontinence, pain, urgency, other Neurologic/Psychiatric: Denies: anxiety, depressed, emotional problems, headache, numbness, paresthesia, pre-existing deficit, seizure, tingling, tremors, weakness, other Endocrine: Denies: excessive sweating, flushing, intolerance to cold, intolerance to heat, increased hunger, increased thirst MSK: denies joint pains, swelling, stiffness Hematologic/Lymphatic: Denies: anemia, easy bleeding, easy bruising, Objective Last 24 Hour Vital Signs Date Time Temp Pulse Resp B/P (MAP) Pulse Ox O2 Delivery O2 Flow Rate FiO2 09/17/20 12:00 97.2 78 138/68 (91) 09/17/20 12:00 68 09/17/20 09:25 68 20 98 09/17/20 09:17 83 129/69 09/17/20 09:00 Room Air 09/17/20 08:00 97.9 83 20 129/69 (89) 99 09/17/20 08:00 86 09/17/20 04:11 97.6 101 20 132/61 (84) 99 09/17/20 04:00 68 09/17/20 04:00 101 98 99 09/17/20 00:00 71 09/17/20 00:00 97.8 92 20 134/68 (90) 98 09/16/20 21:00 Room Air 09/16/20 20:16 98 Room Air 21 09/16/20 20:00 97.5 80 20 126/67 (86) 99 09/16/20 20:00 77 Intake and Output 09/16/20 09/17/20 19:00 07:00 Intake Total 485 ml 1240 ml Output Total 400 ml 600 ml Balance 85 ml 640 ml Intake Oral 250 ml 340 ml IV Total 235 ml 900 ml Output Urine Total 400 ml 600 ml Laboratory Tests 09/16/20 19:59: POC Whole Blood Glucose 149H 09/17/20 05:04: POC Whole Blood Glucose 141H 09/17/20 09:40: White Blood Count 4.5L, Red Blood Count 3.71L, Hemoglobin 10.1L, Hematocrit 30.7L, Mean Corpuscular Volume 83, Mean Corpuscular Hemoglobin 27.1, Mean Corpuscular Hemoglobin Concent 32.8, Red Cell Distribution Width 16.2H, Platelet Count 166, Mean Platelet Volume 6.8, Neutrophils (%) (Auto) 62.6, Lymphocytes (%) (Auto) 20.0, Monocytes (%) (Auto) 13.1H, Eosinophils (%) (Auto) 3.0, Basophils (%) (Auto) 1.2, Sodium Level 141, Potassium Level 4.3, Chloride Level 109H, Carbon Dioxide Level 27, Anion Gap 5, Blood Urea Nitrogen 13, Creatinine 1.2, Estimat Glomerular Filtration Rate > 60, Glucose Level 168H, Calcium Level 7.8L, Phosphorus Level 2.6, Magnesium Level 1.7L 09/17/20 16:30: POC Whole Blood Glucose 125H Height (Feet): 5 Height (Inches): 6.00 Weight (Pounds): 186 Objective General: WDWN male in NAD, A&O x 4 HEENT: Normocephalic cephalic atraumatic, pupils equal round reactive to light and accommodation, nares patent and no symmetrical, no tonsillar exudates, mucous membranes moist + left temporal area with bandage, clean, dry intact. CV: Regular rate regular rhythm, no murmurs, rubs, or gallops Pulm: Lungs clear to auscultation bilaterally. No wheezes, rhonchi, or rales GI: Soft, nontender, nondistended, bowel sounds present Neuro: CN 2-12 intact bilaterally, no focal signs. Ext: 2+ LE edema bilaterally. No tenderness Skin: no rashes lesions or ulcers Msk: Joints symmetrical in upper extremity and lower extremity bilaterally, no joint swelling. Lymph: No lymphadenopathy in upper extremity and lower extremity Assessment/Plan Status Narrative #Left temporal artery pseudoanerysm (stable) - s/p surgery 09/16/20 #head trauma while on xarelto #Mechanical Fall #Rule out syncope/near syncope #LE weakness, suspect due to deconditioning - Admit to telemetry: Intermittent afib with tachycardia. - EKG: reviewed - Orthostatics: normal - s/p Gentle IV fluids - Appreciate Cardiology Consult: Dr. Elaine - Troponin: normal - Appreciate Neurology consult: Dr. Brown - Appreciate gen surgery consult: Dr. Tse - check CK: normal - MRI brain: reviewed - Restart xarelto once OK by surgery and cardiology. D/c once cleared by surgery #Iron deficiency anemia #thrombocytopenia > No signs of bleeding -Check iron panel, ferritin, B12, folate -Check stool occult blood -Heme consulted: Dr. Treviño - hepatitis panel - HIV pending - retic count - smear - IV iron started (09/16 - ) #Pre-op risk stratification - METS >4. Patient able to walk up flight of stairs without chest pain or SOB. No difficulty with anesthesia in the past. - Appreciate Cardiology eval - > clear for surgery. #Atrial fibrillation on Xarelto - Continue amiodarone - Continue Metoprolol - Holding Xarelto as above - Appreciate Cards consult - check CK: normal #HTN - continue metop - Continue amlodipine #ERIK, suspect pre-renal etiology #h/o BPH s/p TURP #mild left hydronephrosis on renal ultrasound - IV fluids - urine lytes - renal ultrasound: reviewed - > mild left hydro - > no intervention per urology - d/c flomax - Bethenacol TID per Urology - outside urologist is Dr. Dunlap #Chronic LE edema, non painful - improving > Ddx venous insufficiency, hypothyroid, CCB? - Venous duplex LE bilaterally: negative - CTM - diuretics per cardiology - elevate legs #Diabetes Mellitus Type 2 - holding home metformin - SSI - Accuchecks - hypoglycemia protocol #Hypothyroidism - check TSH: 23 - continue synthroid. - Increase synthroid to 88mcg daily (from 44) - IV synthroid 50mcg x 1 - Endocrinology consult: Dr. Fischer - recheck TSh in 2-3 weeks MIPS ([employer]-based [employer]centive Payment System) Applicable CPT: 44032, 87170 CHECK ALL THAT ARE MET: [] Measure #5 (CHF): All ages. Prescribe ADRIANA/ARB upon discharge for patients with left ventricular systolic dysfunction. If not, the reason is clearly documented in the medical chart [] Measure #8 (CHF): All ages. Prescribe a beta roderick upon discharge for patients with left ventricular systolic dysfunction. If not, the reason is clearly documented in the medical chart. [x] Measure #47: Advance care plan or surrogate decision maker documented in the medical record. [x] Measure #130 The provider has documented, updated, or reviewed the patients current medication list and has documented it in the patients note. [x] Measure #374 (All): Send report to referring provider. [] Measure #407(Sepsis due to MSSA bacteremia): Age 18+ Patient treated with a beta-lactam antibiotic (Nafcillin, Oxacillin or Cefazolin) as definitive therapy. MEDICAL COMPLEXITYHigh complexity medical decision making (need 2/3 categories)Problem - need 4 points [x]Acute/new problem with new plan for workup (4 points, 1 max) [] Acute/new problem without additional workup (3 points, 1 max) [x] Unstable chronic problem actively being managed (2 point each, 2 max) [x] Stable chronic problem actively being managed (1 point each, 2 max) [x] Self-limited/transient process (constipation, muscle ache, etc) (1 point each, 2 max) Data - need 4 points [x] Reviewed labs/imaging studies (1 points, 2 max) [x] Independent review of imaging (EKG, xrays, etc) (2 points, 2 max) [x] Discussed case with consult/other MD/RN (2 points, 2 max) High Risk - qualify if have one of the following: [] Severe exacerbation of acute problem, acute mental status change, IV narcotics, monitoring drug levels (vancomycin, INR, tacrolimus etc) I spent 36 minutes on this patient's case, and 20 mins were dedicated to counseling and/or care coordination. Discussed with RN, cardiology, neurology, urology. Time of note may not reflect time of encounter Antonino Andrea M.D. Sep 17, 2020 16:42
--- NOTE | 2020-09-17 17:16 | Cardiology Progress Note ---
Assessment/Plan Assessment/Plan 1. 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 2. Paroxysmal atrial fibrillation, resume Xarelto once clear by the surgical team. Continue amiodarone. 3. HTN, well controlled, continue amlodipine. 4. ERIK on CKD, creat at 1.2. Subjective Subjective Sinus rhythm at rate of 75. 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 Objective Last 24 Hour Vital Signs Date Time Temp Pulse Resp B/P (MAP) Pulse Ox O2 Delivery O2 Flow Rate FiO2 09/17/20 16:00 97.9 75 18 141/72 (95) 99 09/17/20 16:00 80 84 89 09/17/20 12:00 97.2 78 138/68 (91) 09/17/20 12:00 68 09/17/20 09:25 68 20 98 09/17/20 09:17 83 129/69 09/17/20 09:00 Room Air 09/17/20 08:00 97.9 83 20 129/69 (89) 99 09/17/20 08:00 86 09/17/20 04:11 97.6 101 20 132/61 (84) 99 09/17/20 04:00 68 09/17/20 04:00 101 98 99 09/17/20 00:00 71 09/17/20 00:00 97.8 92 20 134/68 (90) 98 09/16/20 21:00 Room Air 09/16/20 20:16 98 Room Air 21 09/16/20 20:00 97.5 80 20 126/67 (86) 99 09/16/20 20:00 77 Intake and Output 09/16/20 09/17/20 19:00 07:00 Intake Total 485 ml 1240 ml Output Total 400 ml 600 ml Balance 85 ml 640 ml Intake Oral 250 ml 340 ml IV Total 235 ml 900 ml Output Urine Total 400 ml 600 ml 2D Echo: LVEF 60%, DALIA, RVSP 13 mmHg Laboratory Tests Test 09/16/20 19:59 09/17/20 05:04 09/17/20 09:40 09/17/20 16:30 POC Whole Blood Glucose 149 MG/DL (74-106) H 141 MG/DL (74-106) H 125 MG/DL (74-106) H White Blood Count 4.5 K/UL (4.8-10.8) L Red Blood Count 3.71 M/UL (4.70-6.10) L Hemoglobin 10.1 G/DL (14.2-18.0) L Hematocrit 30.7 % (42.0-52.0) L Mean Corpuscular Volume 83 FL (80-99) Mean Corpuscular Hemoglobin 27.1 PG (27.0-31.0) Mean Corpuscular Hemoglobin Concent 32.8 G/DL (32.0-36.0) Red Cell Distribution Width 16.2 % (11.6-14.8) H Platelet Count 166 K/UL (150-450) Mean Platelet Volume 6.8 FL (6.5-10.1) Neutrophils (%) (Auto) 62.6 % (45.0-75.0) Lymphocytes (%) (Auto) 20.0 % (20.0-45.0) Monocytes (%) (Auto) 13.1 % (1.0-10.0) H Eosinophils (%) (Auto) 3.0 % (0.0-3.0) Basophils (%) (Auto) 1.2 % (0.0-2.0) Sodium Level 141 MMOL/L (136-145) Potassium Level 4.3 MMOL/L (3.5-5.1) Chloride Level 109 MMOL/L (98-107) H Carbon Dioxide Level 27 MMOL/L (21-32) Anion Gap 5 mmol/L (5-15) Blood Urea Nitrogen 13 mg/dL (7-18) Creatinine 1.2 MG/DL (0.55-1.30) Estimat Glomerular Filtration Rate > 60 mL/min (>60) Glucose Level 168 MG/DL (74-106) H Calcium Level 7.8 MG/DL (8.5-10.1) L Phosphorus Level 2.6 MG/DL (2.5-4.9) Magnesium Level 1.7 MG/DL (1.8-2.4) L Microbiology Date/Time Source Procedure Growth Status 09/15/20 07:45 Urine,Clean Catch Urine Culture - Preliminary Gram Negative Gelacio Resulted Objective HEENT: Atraumatic. Dressing on the left temporal region, otherwise pupils are equal, round, and reactive to light and accommodation. Extraocular muscles intact. NECK: JVP less than 5 cm. No carotid bruit. Carotid upstrokes 2+ bilaterally. CARDIOVASCULAR: Normal S1 and S2. Regular rate and rhythm. No murmurs, gallops, or rubs. LUNGS: Clear to auscultation bilaterally. ABDOMEN: Soft, nontender, nondistended. No hepatosplenomegaly. Positive bowel sounds. EXTREMITIES: No evidence of edema, clubbing, or cyanosis. Joseph Elaine MD Sep 17, 2020 17:16
--- NOTE | 2020-09-17 18:00 | NUR ---
Dr Elaine wants to know if pt is clear for dc home from dr cline, notified dr betts and according to him he is clear for discharge tomorrow, dr elaine was notified and stated okay for tomorrow.
--- NOTE | 2020-09-17 19:38 | NUR ---
NURSE HAND-OFF REPORT: Important Events on Shift:[] DC plans for home tomorrow per orders Patient Status: [] full code Diet: [] regular Pending Orders: [] no Pending Results/Labs:[] no Pending MD notification:[] Latest Vital Signs: Temperature 97.9 , Pulse 80 , B/P 141 /72 , Respiratory Rate 18 , O2 SAT 99 , Nasal Cannula, O2 Flow Rate 3 . Vital Sign Comment: [] EKG Rhythm: SR w/ BBB Rhythm change?: N Notified?: Steve Garcia MD Response: Message left await call Latest Yang Fall Score: 85 Fall Risk: High Risk Safety Measures: Call light Within Reach, Bed Alarm Zone 1, Side Rails Side Rails x2, Bed position Low and Locked. Fall Precautions: Yellow Socks Yellow Gown Door Sign Patient Fall Education Report given to []Randi HOUSE
--- NOTE | 2020-09-17 19:40 | NUR ---
NURSE NOTES: The patient is alert and oriented x4, he is calm and cooperative with his care and doesn't seem to be in any distress at this time.He is on room air with Resp even and unlabored.The patient has a left FA 22g that is patent and asymptomatic.The bed in low and locked level, call light within easy reach and siderails up x2. will continue to monitor as indicated.
[2020-09-17 20:00] VITALS: BP 141/77
[2020-09-17] MEDS: Iron Sucrose 100 MG in NS 55 ML IVPB SCH (21:29)
--- NOTE | 2020-09-17 22:11 | Neurology Progress Note ---
Interim History Interim History ROS Limited/Unobtainable: No Interim History doing well dc planning Objective Physical Exam Last Vital Signs Date Time Temp Pulse Resp B/P (MAP) Pulse Ox O2 Delivery O2 Flow Rate FiO2 09/17/20 20:00 81 09/17/20 20:00 97.7 20 141/77 (98) 97 09/17/20 09:00 Room Air 09/16/20 20:16 21 09/16/20 12:30 3 Laboratory Tests Test 09/17/20 05:04 09/17/20 09:40 09/17/20 16:30 09/17/20 20:11 POC Whole Blood Glucose 141 MG/DL (74-106) H 125 MG/DL (74-106) H 170 MG/DL (74-106) H White Blood Count 4.5 K/UL (4.8-10.8) L Red Blood Count 3.71 M/UL (4.70-6.10) L Hemoglobin 10.1 G/DL (14.2-18.0) L Hematocrit 30.7 % (42.0-52.0) L Mean Corpuscular Volume 83 FL (80-99) Mean Corpuscular Hemoglobin 27.1 PG (27.0-31.0) Mean Corpuscular Hemoglobin Concent 32.8 G/DL (32.0-36.0) Red Cell Distribution Width 16.2 % (11.6-14.8) H Platelet Count 166 K/UL (150-450) Mean Platelet Volume 6.8 FL (6.5-10.1) Neutrophils (%) (Auto) 62.6 % (45.0-75.0) Lymphocytes (%) (Auto) 20.0 % (20.0-45.0) Monocytes (%) (Auto) 13.1 % (1.0-10.0) H Eosinophils (%) (Auto) 3.0 % (0.0-3.0) Basophils (%) (Auto) 1.2 % (0.0-2.0) Sodium Level 141 MMOL/L (136-145) Potassium Level 4.3 MMOL/L (3.5-5.1) Chloride Level 109 MMOL/L (98-107) H Carbon Dioxide Level 27 MMOL/L (21-32) Anion Gap 5 mmol/L (5-15) Blood Urea Nitrogen 13 mg/dL (7-18) Creatinine 1.2 MG/DL (0.55-1.30) Estimat Glomerular Filtration Rate > 60 mL/min (>60) Glucose Level 168 MG/DL (74-106) H Calcium Level 7.8 MG/DL (8.5-10.1) L Phosphorus Level 2.6 MG/DL (2.5-4.9) Magnesium Level 1.7 MG/DL (1.8-2.4) L Head: normocophalic Neck: no rigidity EENT: benign Neurologic Exam Mental Status: awake, alert Cranial Nerve II: fundus normal Cranial Nerves III, IV, : PERRLA Cranial Nerve V: normal facial sensations Cranial Nerve VII: no facial asymmetry Cranial Nerve VIII: normal hearing Cranial Nerve IX: normal palate elevation Cranial Nerve X: no voice hoarseness Cranial Nerve XI: SCM symmetric Cranial Nerve XII: tongue midline Motor System: normal muscle tone Objective non focal exam ataxic Impression/Recommendations Problems: (1) Hematoma (2) Arrhythmia (3) Diabetes (4) Hyperlipidemia (5) Abdominal pain (6) Hypertension (7) Pseudoaneurysm Diagnostic Impression sp fall , seems mechanical more than syncope left forehead expansile mass, pseudoaneurysm sp resection post op pt ot Marbin Brown MD Sep 17, 2020 22:11
[2020-09-18] VITALS: BP 140/80
[2020-09-18] MEDS: D5NS 1,000 ML IV SCH (03:23)
[2020-09-18 04:00] VITALS: BP 139/74
[2020-09-18 04:39] LABS: HEMATOCRIT 30.9 % (42.0-52.0); HEMOGLOBIN 10.2 G/DL (14.2-18.0); MEAN CORPUSCULAR VOLUME 83 FL (80-99); PLATELET COUNT 158 K/UL (150-450); RED BLOOD COUNT 3.73 M/UL (4.70-6.10); RED CELL DISTRIBUTION WIDTH 15.7 % (11.6-14.8); WHITE BLOOD COUNT 3.4 K/UL (4.8-10.8)
[2020-09-18 04:42] LABS: ANION GAP 4 mmol/L (5-15); BLOOD UREA NITROGEN 9 mg/dL (7-18); CALCIUM 8.1 MG/DL (8.5-10.1); CARBON DIOXIDE 29 MMOL/L (21-32); CHLORIDE 110 MMOL/L (98-107); CREATININE 1.2 MG/DL (0.55-1.30); SODIUM 143 MMOL/L (136-145)
[2020-09-18] MEDS: ceFAZolin sod 1 GM in D5W 55 ML IVPB SCH (05:58)
[2020-09-18] MEDS: Heparin 5000 units/ml inj SUBQ SCH ×2 (06:00→14:00)
--- NOTE | 2020-09-18 06:24 | General Progress Note ---
Subjective Allergies: Coded Allergies: No Known Allergies (Verified Allergy, Mild, 06/18/10) Subjective events noted interval notes reviewed glucose values are stable Item Value Date Time Bedside Blood Glucose 128 mg/dl H 09/18/20 0549 Bedside Blood Glucose 170 mg/dl H 09/17/20 2125 Bedside Blood Glucose 125 mg/dl H 09/17/20 1630 Bedside Blood Glucose 129 mg/dl H 09/17/20 1130 Bedside Blood Glucose 141 mg/dl H 09/17/20 0630 Objective Last 24 Hour Vital Signs Date Time Temp Pulse Resp B/P (MAP) Pulse Ox O2 Delivery O2 Flow Rate FiO2 09/18/20 04:00 79 86 84 09/18/20 04:00 79 09/18/20 04:00 97.9 82 20 139/74 (95) 97 09/18/20 00:00 77 09/18/20 00:00 97.7 85 20 140/80 (100) 97 09/17/20 21:00 Room Air 09/17/20 21:00 95 Room Air 21 09/17/20 20:00 81 09/17/20 20:00 97.7 88 20 141/77 (98) 97 09/17/20 16:00 97.9 75 18 141/72 (95) 99 09/17/20 16:00 80 84 89 09/17/20 16:00 80 09/17/20 12:00 97.2 78 138/68 (91) 09/17/20 12:00 68 09/17/20 09:25 68 20 98 09/17/20 09:17 83 129/69 09/17/20 09:00 Room Air 09/17/20 08:00 97.9 83 20 129/69 (89) 99 09/17/20 08:00 86 Intake and Output 09/17/20 09/18/20 19:00 07:00 Intake Total 435 ml 915 ml Output Total 550 ml 2100 ml Balance -115 ml -1185 ml Intake Oral 360 ml 240 ml IV Total 75 ml 675 ml Output Urine Total 550 ml 2100 ml # Voids 6 Laboratory Tests 09/17/20 09:40: White Blood Count 4.5L, Red Blood Count 3.71L, Hemoglobin 10.1L, Hematocrit 30.7L, Mean Corpuscular Volume 83, Mean Corpuscular Hemoglobin 27.1, Mean Corpuscular Hemoglobin Concent 32.8, Red Cell Distribution Width 16.2H, Platelet Count 166, Mean Platelet Volume 6.8, Neutrophils (%) (Auto) 62.6, Lymphocytes (%) (Auto) 20.0, Monocytes (%) (Auto) 13.1H, Eosinophils (%) (Auto) 3.0, Basophils (%) (Auto) 1.2, Sodium Level 141, Potassium Level 4.3, Chloride Level 109H, Carbon Dioxide Level 27, Anion Gap 5, Blood Urea Nitrogen 13, Creatinine 1.2, Estimat Glomerular Filtration Rate > 60, Glucose Level 168H, Calcium Level 7.8L, Phosphorus Level 2.6, Magnesium Level 1.7L 09/17/20 16:30: POC Whole Blood Glucose 125H 09/17/20 20:11: POC Whole Blood Glucose 170H 09/18/20 04:14: White Blood Count 3.4L, Red Blood Count 3.73L, Hemoglobin 10.2L, Hematocrit 30.9L, Mean Corpuscular Volume 83, Mean Corpuscular Hemoglobin 27.2, Mean Corpuscular Hemoglobin Concent 32.8, Red Cell Distribution Width 15.7H, Platelet Count 158, Mean Platelet Volume 6.8, Neutrophils (%) (Auto) , Lymphocytes (%) (A uto) , Monocytes (%) (Auto) , Eosinophils (%) (Auto) , Basophils (%) (Auto) , Sodium Level 143, Potassium Level 4.0, Chloride Level 110H, Carbon Dioxide Level 29, Anion Gap 4L, Blood Urea Nitrogen 9, Creatinine 1.2, Estimat Glomerular Filtration Rate > 60, Glucose Level 143H, Calcium Level 8.1L Height (Feet): 5 Height (Inches): 6.00 Weight (Pounds): 186 General Appearance: no apparent distress Neck: normal alignment Cardiovascular: regularly irregular Respiratory/Chest: lungs clear Abdomen: normal bowel sounds Objective Current Medications Medications (Trade) Dose Ordered Sig/Radha Route PRN Reason Start Time Stop Time Status Last Admin Dose Admin Acetaminophen (Tylenol) 650 mg Q4H PRN ORAL FEVER 09/16/20 13:00 10/16/20 12:59 Acetaminophen/ Hydrocodone Bitart ([place] 5/325) 1 tab Q4H PRN ORAL Moderate Pain (Pain Scale 4-6) 09/16/20 13:00 09/23/20 12:59 09/17/20 06:06 Al Hydroxide/Mg Hydroxide (Mylanta) 15 ml Q6H PRN ORAL DYSPEPSIA 09/16/20 13:00 10/16/20 12:59 Amiodarone HCl (Cordarone) 200 mg DAILY ORAL 09/11/20 19:00 12/10/20 18:59 09/17/20 09:17 Amlodipine Besylate (Norvasc) 10 mg DAILY ORAL 09/11/20 19:00 10/11/20 18:59 09/17/20 09:17 Bethanechol Chloride (Urecholine) 25 mg THREE TIMES A DAY ORAL 09/15/20 09:00 10/15/20 08:59 09/17/20 18:40 Bisacodyl (Dulcolax) 10 mg HSPRN PRN RECTAL Constipation 09/11/20 15:45 12/10/20 15:44 Cefazolin Sodium 1 gm/Dextrose 55 ml @ 110 mls/hr Q12H IVPB 09/15/20 18:00 09/22/20 17:59 09/18/20 05:58 Dextrose (Dextrose 50%) 25 ml Q30M PRN IV Hypoglycemia 09/11/20 18:00 12/10/20 17:59 Dextrose (Dextrose 50%) 50 ml Q30M PRN IV Hypoglycemia 09/11/20 18:00 12/10/20 17:59 Dextrose/Sodium Chloride 1,000 ml @ 75 mls/hr [id number] IV 09/15/20 22:00 10/15/20 21:59 09/18/20 03:23 Diphenhydramine HCl (Benadryl) 25 mg Q8H PRN ORAL Itching/Pruritis 09/16/20 13:00 10/16/20 12:59 Docusate Sodium (Colace) 100 mg TWICE A DAY ORAL 09/16/20 18:00 10/16/20 17:59 09/17/20 18:40 Famotidine (Pepcid) 40 mg DAILY ORAL 09/12/20 09:00 12/11/20 08:59 09/17/20 09:17 Heparin Sodium (Porcine) (Heparin 5000 units/ml) 5,000 units EVERY 8 HOURS SUBQ 09/14/20 14:00 10/29/20 13:59 09/18/20 06:00 Insulin Aspart (NovoLOG) BEFORE MEALS AND HS SUBQ 09/11/20 21:00 12/10/20 20:59 09/17/20 21:25 Iron Sucrose 100 mg/Sodium Chloride 60 ml @ 240 mls/hr BEDTIME IVPB 09/16/20 21:00 09/20/20 21:14 09/17/20 21:29 Levothyroxine Sodium (Synthroid) 88 mcg DAILY@0630 ORAL 09/14/20 06:30 10/12/20 06:29 09/18/20 05:58 Lorazepam (Ativan) 1 mg Q4H PRN ORAL For Anxiety 09/11/20 15:45 09/18/20 15:44 Magnesium Hydroxide (Mom) 30 ml BIDPRN PRN ORAL Constipation 09/16/20 13:00 10/16/20 12:59 Morphine Sulfate (Morphine Sulfate) 2 mg Q4H PRN IVP pain 7-10 09/11/20 15:45 09/18/20 15:44 Nitroglycerin (Ntg) 0.4 mg Q5M X 3 DOSES PRN SL Prn Chest Pain 09/11/20 15:45 10/11/20 15:44 Ondansetron HCl (Zofran) 4 mg Q6H PRN IVP Nausea & Vomiting 09/16/20 13:00 10/16/20 12:59 Sodium Chloride 550 ml @ 0 mls/hr Q0M IV 09/11/20 13:00 10/11/20 12:59 Temazepam (RestoriL) 7.5 mg DAILYPRN PRN ORAL Insomnia 09/16/20 13:00 09/23/20 12:59 Assessment/Plan Problem List: (1) Hypothyroid ICD Codes: E03.9 - Hypothyroidism, unspecified SNOMED: 61231396 (2) Diabetes ICD Codes: E11.9 - Diabetes SNOMED: 24265194 (3) Pseudoaneurysm ICD Codes: I72.9 - Aneurysm of unspecified site SNOMED: 199536932, 87223298, 71680869 (4) Hypertension ICD Codes: I10 - Hypertension SNOMED: 38535620 Assessment/Plan: continue Levothyroxine 88 mcg daily repeat TSH, free T4 in 2 weeks continue Novolog sliding scale ac hs Nazemi,Zeeshan MD Sep 18, 2020 06:24
--- NOTE | 2020-09-18 06:27 | Hematology/Onc Progress Note ---
Assessment/Plan Assessment/Plan Assessment and Recs # Thrombocytopenia is likely reactive, stable now is above >100 --> smear has been reviewed, no blasts --> hep and hiv ordered-->neg --> plt 110-->162 --> stable for surgery, if any bleeding given platelets --> xarelto effects out of system after 7 days # Anemia of iron deficiency --> No signs of bleeding ---> Check iron panel, ferritin, B12, folate-->shows jonathan -> per gi -> iv iron has been started x 5 d # Hypercoagulable disorder with Atrial fibrillation on Xarelto --> Continue amiodarone --> Continue Metoprolol --> Holding Xarelto as above --> per cards # Left temporal artery pseudoanerysm (stable) --> per 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 # Head trauma while on xarelto # Mechanical Fall # HTN # ERIK, suspect pre-renal etiology # h/o BPH s/p TURP # mild left hydronephrosis on renal ultrasound # Chronic LE edema, non painful - improving # Diabetes Mellitus Type 2 # Hypothyroidism --> synthroid Appreciate consultation and dw Rn Subjective Constitutional: Denies: no symptoms, chills, fever, malaise, weakness, other HEENT: Denies: no symptoms, eye pain, blurred vision, tearing, double vision, ear pain, ear discharge, nose pain, nose congestion, throat pain, throat swelling, mouth pain, mouth swelling, other Respiratory: Denies: no symptoms, cough, shortness of breath, SOB with excertion, SOB at rest, sputum, wheezing, other Gastrointestinal/Abdominal: Denies: no symptoms, abdomen distended, abdominal pain, black stools, tarry stools, blood in stool, constipated, diarrhea, difficulty swallowing, nausea, poor appetite, poor fluid intake, rectal bleeding, vomiting, other Neurologic/Psychiatric: Denies: no symptoms, anxiety, depressed, emotional problems, headache, numbness, paresthesia, pre-existing deficit, seizure, tingling, tremors, weakness, other Endocrine: Denies: no symptoms, excessive sweating, flushing, intolerance to cold, intolerance to heat, increased hunger, increased thirst, increased urine, unexplained weight gain, unexplained weight loss, other Hematologic/Lymphatic: Denies: no symptoms, anemia, easy bleeding, easy bruising, adenopathy, other Allergies: Coded Allergies: No Known Allergies (Verified Allergy, Mild, 06/18/10) Subjective 09/17 labs reviewed, meds noted, plt better, s/p surgery 09/18 labs reviewed, meds noted, no night sweats, feeling better Objective Objective Current Medications Medications (Trade) Dose Ordered Sig/Radha Route PRN Reason Start Time Stop Time Status Last Admin Dose Admin Acetaminophen (Tylenol) 650 mg Q4H PRN ORAL FEVER 09/16/20 13:00 10/16/20 12:59 Acetaminophen/ Hydrocodone Bitart ([place] 5/325) 1 tab Q4H PRN ORAL Moderate Pain (Pain Scale 4-6) 09/16/20 13:00 09/23/20 12:59 09/17/20 06:06 Al Hydroxide/Mg Hydroxide (Mylanta) 15 ml Q6H PRN ORAL DYSPEPSIA 09/16/20 13:00 10/16/20 12:59 Amiodarone HCl (Cordarone) 200 mg DAILY ORAL 09/11/20 19:00 12/10/20 18:59 09/17/20 09:17 Amlodipine Besylate (Norvasc) 10 mg DAILY ORAL 09/11/20 19:00 10/11/20 18:59 09/17/20 09:17 Bethanechol Chloride (Urecholine) 25 mg THREE TIMES A DAY ORAL 09/15/20 09:00 10/15/20 08:59 09/17/20 18:40 Bisacodyl (Dulcolax) 10 mg HSPRN PRN RECTAL Constipation 09/11/20 15:45 12/10/20 15:44 Cefazolin Sodium 1 gm/Dextrose 55 ml @ 110 mls/hr Q12H IVPB 09/15/20 18:00 09/22/20 17:59 09/18/20 05:58 Dextrose (Dextrose 50%) 25 ml Q30M PRN IV Hypoglycemia 09/11/20 18:00 12/10/20 17:59 Dextrose (Dextrose 50%) 50 ml Q30M PRN IV Hypoglycemia 09/11/20 18:00 12/10/20 17:59 Dextrose/Sodium Chloride 1,000 ml @ 75 mls/hr [id number] IV 09/15/20 22:00 10/15/20 21:59 09/18/20 03:23 Diphenhydramine HCl (Benadryl) 25 mg Q8H PRN ORAL Itching/Pruritis 09/16/20 13:00 10/16/20 12:59 Docusate Sodium (Colace) 100 mg TWICE A DAY ORAL 09/16/20 18:00 10/16/20 17:59 09/17/20 18:40 Famotidine (Pepcid) 40 mg DAILY ORAL 09/12/20 09:00 12/11/20 08:59 09/17/20 09:17 Heparin Sodium (Porcine) (Heparin 5000 units/ml) 5,000 units EVERY 8 HOURS SUBQ 09/14/20 14:00 10/29/20 13:59 09/18/20 06:00 Insulin Aspart (NovoLOG) BEFORE MEALS AND HS SUBQ 09/11/20 21:00 12/10/20 20:59 09/17/20 21:25 Iron Sucrose 100 mg/Sodium Chloride 60 ml @ 240 mls/hr BEDTIME IVPB 09/16/20 21:00 09/20/20 21:14 09/17/20 21:29 Levothyroxine Sodium (Synthroid) 88 mcg DAILY@0630 ORAL 09/14/20 06:30 10/12/20 06:29 09/18/20 05:58 Lorazepam (Ativan) 1 mg Q4H PRN ORAL For Anxiety 09/11/20 15:45 09/18/20 15:44 Magnesium Hydroxide (Mom) 30 ml BIDPRN PRN ORAL Constipation 09/16/20 13:00 10/16/20 12:59 Morphine Sulfate (Morphine Sulfate) 2 mg Q4H PRN IVP pain 7-10 09/11/20 15:45 09/18/20 15:44 Nitroglycerin (Ntg) 0.4 mg Q5M X 3 DOSES PRN SL Prn Chest Pain 09/11/20 15:45 10/11/20 15:44 Ondansetron HCl (Zofran) 4 mg Q6H PRN IVP Nausea & Vomiting 09/16/20 13:00 10/16/20 12:59 Sodium Chloride 550 ml @ 0 mls/hr Q0M IV 09/11/20 13:00 10/11/20 12:59 Temazepam (RestoriL) 7.5 mg DAILYPRN PRN ORAL Insomnia 09/16/20 13:00 09/23/20 12:59 Last 24 Hour Vital Signs Date Time Temp Pulse Resp B/P (MAP) Pulse Ox O2 Delivery O2 Flow Rate FiO2 09/18/20 04:00 79 86 84 09/18/20 04:00 79 09/18/20 04:00 97.9 82 20 139/74 (95) 97 09/18/20 00:00 77 09/18/20 00:00 97.7 85 20 140/80 (100) 97 09/17/20 21:00 Room Air 09/17/20 21:00 95 Room Air 21 09/17/20 20:00 81 09/17/20 20:00 97.7 88 20 141/77 (98) 97 09/17/20 16:00 97.9 75 18 141/72 (95) 99 09/17/20 16:00 80 84 89 09/17/20 16:00 80 09/17/20 12:00 97.2 78 138/68 (91) 09/17/20 12:00 68 09/17/20 09:25 68 20 98 09/17/20 09:17 83 129/69 09/17/20 09:00 Room Air 09/17/20 08:00 97.9 83 20 129/69 (89) 99 09/17/20 08:00 86 09/17/20 04:11 97.6 101 20 132/61 (84) 99 09/17/20 04:00 68 09/17/20 04:00 101 98 99 09/17/20 00:00 71 09/17/20 00:00 97.8 92 20 134/68 (90) 98 09/16/20 21:00 Room Air 09/16/20 20:16 98 Room Air 21 09/16/20 20:00 97.5 80 20 126/67 (86) 99 09/16/20 20:00 77 09/16/20 16:00 97.6 98 20 135/70 (91) 98 09/16/20 16:00 88 90 98 09/16/20 16:00 80 09/16/20 12:30 98.5 73 17 129/71 98 Nasal Cannula 3 09/16/20 12:15 71 16 128/66 96 Nasal Cannula 3 09/16/20 12:00 72 19 125/67 97 Nasal Cannula 3 09/16/20 12:00 76 09/16/20 11:50 68 15 121/64 98 Simple Mask 6 09/16/20 11:45 68 16 115/65 100 Simple Mask 6 09/16/20 11:40 68 15 116/55 99 Simple Mask 6 09/16/20 11:40 67 20 99 09/16/20 11:33 99.0 68 20 110/56 68 Simple Mask 6 09/16/20 09:00 Room Air 09/16/20 08:30 98 160/83 09/16/20 08:00 90 09/16/20 08:00 98.1 98 20 160/83 (108) 98 Intake and Output 09/17/20 09/18/20 19:00 07:00 Intake Total 435 ml 915 ml Output Total 550 ml 2100 ml Balance -115 ml -1185 ml Intake Oral 360 ml 240 ml IV Total 75 ml 675 ml Output Urine Total 550 ml 2100 ml # Voids 6 Labs Test 09/15/20 07:45 09/15/20 17:13 09/15/20 21:43 09/16/20 05:30 Urine Color Pale yellow Urine Appearance Clear Urine pH 7 (4.5-8.0) Urine Specific [place] 1.010 (1.005-1.035) Urine Protein Negative (NEGATIVE) Urine Glucose (UA) Negative (NEGATIVE) Urine Ketones Negative (NEGATIVE) Urine Blood Negative (NEGATIVE) Urine Nitrite Positive (NEGATIVE) Urine Bilirubin Negative (NEGATIVE) Urine Urobilinogen Normal MG/DL (0.0-1.0) Urine Leukocyte Esterase 2+ (NEGATIVE) Urine RBC 0 /HPF (0 - 0) Urine WBC 2-4 /HPF (0 - 0) Urine Squamous Epithelial Cells Occasional /LPF Urine Bacteria Moderate /HPF (NONE) POC Whole Blood Glucose 165 MG/DL (74-106) 156 MG/DL (74-106) White Blood Count 5.0 K/UL (4.8-10.8) Red Blood Count 3.48 M/UL (4.70-6.10) Hemoglobin 9.6 G/DL (14.2-18.0) Hematocrit 30.4 % (42.0-52.0) Mean Corpuscular Volume 87 FL (80-99) Mean Corpuscular Hemoglobin 27.7 PG (27.0-31.0) Mean Corpuscular Hemoglobin Concent 31.7 G/DL (32.0-36.0) Red Cell Distribution Width 15.0 % (11.6-14.8) Platelet Count 154 K/UL (150-450) Mean Platelet Volume 7.2 FL (6.5-10.1) Neutrophils (%) (Auto) 74.7 % (45.0-75.0) Lymphocytes (%) (Auto) 10.1 % (20.0-45.0) Monocytes (%) (Auto) 12.2 % (1.0-10.0) Eosinophils (%) (Auto) 1.9 % (0.0-3.0) Basophils (%) (Auto) 1.1 % (0.0-2.0) Differential Total Cells Counted 100 Neutrophils % (Manual) 74 % (45-75) Lymphocytes % (Manual) 14 % (20-45) Monocytes % (Manual) 11 % (1-10) Eosinophils % (Manual) 1 % (0-3) Basophils % (Manual) 0 % (0-2) Band Neutrophils 0 % (0-8) Other Cell Type Pathologist review Platelet Estimate Decreased Platelet Morphology Normal Anisocytosis 1+ Sodium Level 142 MMOL/L (136-145) Potassium Level 4.3 MMOL/L (3.5-5.1) Chloride Level 109 MMOL/L (98-107) Carbon Dioxide Level 28 MMOL/L (21-32) Anion Gap 5 mmol/L (5-15) Blood Urea Nitrogen 15 mg/dL (7-18) Creatinine 1.2 MG/DL (0.55-1.30) Estimat Glomerular Filtration Rate > 60 mL/min (>60) Glucose Level 149 MG/DL (74-106) Calcium Level 8.2 MG/DL (8.5-10.1) Phosphorus Level 2.8 MG/DL (2.5-4.9) Magnesium Level 1.8 MG/DL (1.8-2.4) Total Bilirubin 0.3 MG/DL (0.2-1.0) Aspartate Amino Transf (AST/SGOT) 23 U/L (15-37) Alanine Aminotransferase (ALT/SGPT) 23 U/L (12-78) Alkaline Phosphatase 55 U/L (46-116) Total Protein 6.0 G/DL (6.4-8.2) Albumin 3.0 G/DL (3.4-5.0) Globulin 3.0 g/dL Albumin/Globulin Ratio 1.0 (1.0-2.7) Test 09/16/20 05:37 09/16/20 08:35 09/16/20 16:03 09/16/20 19:59 POC Whole Blood Glucose 151 MG/DL (74-106) 176 MG/DL (74-106) 149 MG/DL (74-106) Reticulocyte Count 1.0 % (0.5-2.0) Prothrombin Time 10.7 SEC (9.30-11.50) Prothromb Time International Ratio 1.0 (0.9-1.1) Ferritin 22 NG/ML (8-388) Folate 17.0 NG/ML (8.6-58.9) Hepatitis A IgM Antibody Negative (Negative) Hepatitis B Surface Antigen Negative (Negative) Hepatitis B Core IgM Antibody Negative (Negative) Hepatitis C Antibody <0.1 s/co ratio HIV (1&2) Antibody Rapid Negative (NEGATIVE) Test 09/17/20 05:04 09/17/20 09:40 09/17/20 16:30 09/17/20 20:11 POC Whole Blood Glucose 141 MG/DL (74-106) 125 MG/DL (74-106) 170 MG/DL (74-106) White Blood Count 4.5 K/UL (4.8-10.8) Red Blood Count 3.71 M/UL (4.70-6.10) Hemoglobin 10.1 G/DL (14.2-18.0) Hematocrit 30.7 % (42.0-52.0) Mean Corpuscular Volume 83 FL (80-99) Mean Corpuscular Hemoglobin 27.1 PG (27.0-31.0) Mean Corpuscular Hemoglobin Concent 32.8 G/DL (32.0-36.0) Red Cell Distribution Width 16.2 % (11.6-14.8) Platelet Count 166 K/UL (150-450) Mean Platelet Volume 6.8 FL (6.5-10.1) Neutrophils (%) (Auto) 62.6 % (45.0-75.0) Lymphocytes (%) (Auto) 20.0 % (20.0-45.0) Monocytes (%) (Auto) 13.1 % (1.0-10.0) Eosinophils (%) (Auto) 3.0 % (0.0-3.0) Basophils (%) (Auto) 1.2 % (0.0-2.0) Sodium Level 141 MMOL/L (136-145) Potassium Level 4.3 MMOL/L (3.5-5.1) Chloride Level 109 MMOL/L (98-107) Carbon Dioxide Level 27 MMOL/L (21-32) Anion Gap 5 mmol/L (5-15) Blood Urea Nitrogen 13 mg/dL (7-18) Creatinine 1.2 MG/DL (0.55-1.30) Estimat Glomerular Filtration Rate > 60 mL/min (>60) Glucose Level 168 MG/DL (74-106) Calcium Level 7.8 MG/DL (8.5-10.1) Phosphorus Level 2.6 MG/DL (2.5-4.9) Magnesium Level 1.7 MG/DL (1.8-2.4) Test 09/18/20 04:14 White Blood Count 3.4 K/UL (4.8-10.8) Red Blood Count 3.73 M/UL (4.70-6.10) Hemoglobin 10.2 G/DL (14.2-18.0) Hematocrit 30.9 % (42.0-52.0) Mean Corpuscular Volume 83 FL (80-99) Mean Corpuscular Hemoglobin 27.2 PG (27.0-31.0) Mean Corpuscular Hemoglobin Concent 32.8 G/DL (32.0-36.0) Red Cell Distribution Width 15.7 % (11.6-14.8) Platelet Count 158 K/UL (150-450) Mean Platelet Volume 6.8 FL (6.5-10.1) Neutrophils (%) (Auto) % (45.0-75.0) Lymphocytes (%) (Auto) % (20.0-45.0) Monocytes (%) (Auto) % (1.0-10.0) Eosinophils (%) (Auto) % (0.0-3.0) Basophils (%) (Auto) % (0.0-2.0) Sodium Level 143 MMOL/L (136-145) Potassium Level 4.0 MMOL/L (3.5-5.1) Chloride Level 110 MMOL/L (98-107) Carbon Dioxide Level 29 MMOL/L (21-32) Anion Gap 4 mmol/L (5-15) Blood Urea Nitrogen 9 mg/dL (7-18) Creatinine 1.2 MG/DL (0.55-1.30) Estimat Glomerular Filtration Rate > 60 mL/min (>60) Glucose Level 143 MG/DL (74-106) Calcium Level 8.1 MG/DL (8.5-10.1) Height (Feet): 5 Height (Inches): 6.00 Weight (Pounds): 186 Objective Physical Exam Narrative General: WDWN, NAD, A&O x 4 HEENT: Normocephalic cephalic atraumatic, + left temporal mass No bleeding CV: Regular rate regular rhythm, no murmurs, rubs, or gallops Pulm: Lungs clear to auscultation bilaterally. No wheezes, rhonchi, or rales GI: Soft, nontender, nondistended, bowel sounds present Neuro: CN 2-12 intact bilaterally, no focal signs. Ext: No lower extremity edema bilaterally + 3+ LE edema Skin: no rashes lesions or ulcers Msk: Joints symmetrical in upper extremity and lower extremity bilaterally Lymph: No lymphadenopathy in upper extremity and lower extremity Brady Treviño MD Sep 18, 2020 06:27
[2020-09-18] MEDS: NovoLOG Insulin Flexpen SUBQ SCH ×2 (06:30→12:09)
--- NOTE | 2020-09-18 07:25 | NUR ---
NURSE NOTES: PATIENT APPEARED TO BE ENTHUSIASTIC. EATING IN BED AND ABLE TO FEED SELF. ABLE TO VERBALIZE NEEDS. UTILIZE URINAL WHEN VOIDS. CLEAR YELLOW COLORED URINE. HOB ELEVATED. INSTRUCTED TO CALL NURSE WHEN AMBULATING. PIV PATENT AND INTACT. IVF INFUSING WELL. GAUZE ON FOREHEAD DRY AND INTACT. NO C/O PAIN. THOUGH C/O CONSTIPATION. WILL GIVE MOM. KEPT BED IN THE LOWEST POSITION. SIDERAILS ARE UPX3. BED ALARM AND LOCK ENGAGED. WILL CONT TO MONITOR.
--- NOTE | 2020-09-18 07:38 | NUR ---
NURSE HAND-OFF REPORT: Important Events on Shift: Patient Status: Diet: Pending Orders: Pending Results/Labs: Pending MD notification: Latest Vital Signs: Temperature 97.9 , Pulse 82 , B/P 139 /74 , Respiratory Rate 20 , O2 SAT 97 , Nasal Cannula, O2 Flow Rate 3 . Vital Sign Comment: EKG Rhythm: SR w/ BBB Rhythm change?: N MD Notified?: Steve Garcia MD Response: Message left await call Latest Yang Fall Score: 85 Fall Risk: High Risk Safety Measures: Call light Within Reach, Bed Alarm Zone 1, Side Rails Side Rails x2, Bed position Low and Locked. Fall Precautions: Yellow Socks Yellow Gown Door Sign Patient Fall Education Report given to .
--- NOTE | 2020-09-18 07:45 | NUR ---
CASE MANAGEMENT:REVIEW 09/18/20 SI: POD #2 S/P LIGATION & EXCISION OF LT SUPERFICIAL TEMPORAL ARTERY ANEURYSM 97.9 79 20 139/74 97% ON RA H/H-10.230.9 IS: IV VENOFER QHS NORCO PO Q4HRS PRN IVF@75/HR IV ANCEF Q12 HEPARIN SQ Q8HRS NORVASC PO QD AMIODARONE PO QD : TELEMETRY STATUS DCP: HOME W/HOME HEALTH
[2020-09-18 08:00] VITALS: BP 146/91
[2020-09-18] MEDS: Amiodarone 200mg tab ORAL SCH (08:02)
[2020-09-18] MEDS: Docusate 100mg cap ORAL SCH (08:02)
[2020-09-18] MEDS: Bethanechol 25mg Tab ORAL SCH ×2 (08:03→13:26)
--- NOTE | 2020-09-18 08:05 | Urology Progress Note ---
Assessment/Plan Assessment/Plan: 1. Left-sided hydronephrosis, which is mild and may be because of recent elevated postvoid residuals. 2. History of mild chronic kidney disease. 3. BPH history. 4. Atonic neurogenic bladder. 5. Nephrolithiasis. 6. Renal cyst. 7. UTI history. monitor clinically flomax dc'd restarted urecholine f/u on urine C+S empiric abx added consider CT A/P f/u on PVR Subjective Allergies: Coded Allergies: No Known Allergies (Verified Allergy, Mild, 06/18/10) Subjective all noted, voiding, PVR ? 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 09/16 Objective Last 24 Hour Vital Signs Date Time Temp Pulse Resp B/P (MAP) Pulse Ox O2 Delivery O2 Flow Rate FiO2 09/18/20 04:00 79 86 84 09/18/20 04:00 79 09/18/20 04:00 97.9 82 20 139/74 (95) 97 09/18/20 00:00 77 09/18/20 00:00 97.7 85 20 140/80 (100) 97 09/17/20 21:00 Room Air 09/17/20 21:00 95 Room Air 21 09/17/20 20:00 81 09/17/20 20:00 97.7 88 20 141/77 (98) 97 09/17/20 16:00 97.9 75 18 141/72 (95) 99 09/17/20 16:00 80 84 89 09/17/20 16:00 80 09/17/20 12:00 97.2 78 138/68 (91) 09/17/20 12:00 68 09/17/20 09:25 68 20 98 09/17/20 09:17 83 129/69 09/17/20 09:00 Room Air Intake and Output 09/17/20 09/18/20 19:00 07:00 Intake Total 435 ml 915 ml Output Total 550 ml 2100 ml Balance -115 ml -1185 ml Intake Oral 360 ml 240 ml IV Total 75 ml 675 ml Output Urine Total 550 ml 2100 ml # Voids 6 Microbiology Date/Time Source Procedure Growth Status 09/15/20 07:45 Urine,Clean Catch Urine Culture - Preliminary Gram Negative Gelacio Resulted 09/11/20 14:00 Nasopharynx SARS-CoV-2 RdRp Gene Assay - Final Complete Current Medications Medications (Trade) Dose Ordered Sig/Radha Route PRN Reason Start Time Stop Time Status Last Admin Dose Admin Acetaminophen (Tylenol) 650 mg Q4H PRN ORAL FEVER 09/16/20 13:00 10/16/20 12:59 Acetaminophen/ Hydrocodone Bitart ([place] 5/325) 1 tab Q4H PRN ORAL Moderate Pain (Pain Scale 4-6) 09/16/20 13:00 09/23/20 12:59 09/17/20 06:06 Al Hydroxide/Mg Hydroxide (Mylanta) 15 ml Q6H PRN ORAL DYSPEPSIA 09/16/20 13:00 10/16/20 12:59 Amiodarone HCl (Cordarone) 200 mg DAILY ORAL 09/11/20 19:00 12/10/20 18:59 09/17/20 09:17 Amlodipine Besylate (Norvasc) 10 mg DAILY ORAL 09/11/20 19:00 10/11/20 18:59 09/17/20 09:17 Bethanechol Chloride (Urecholine) 25 mg THREE TIMES A DAY ORAL 09/15/20 09:00 10/15/20 08:59 09/17/20 18:40 Bisacodyl (Dulcolax) 10 mg HSPRN PRN RECTAL Constipation 09/11/20 15:45 12/10/20 15:44 Cefazolin Sodium 1 gm/Dextrose 55 ml @ 110 mls/hr Q12H IVPB 09/15/20 18:00 09/22/20 17:59 09/18/20 05:58 Dextrose (Dextrose 50%) 25 ml Q30M PRN IV Hypoglycemia 09/11/20 18:00 12/10/20 17:59 Dextrose (Dextrose 50%) 50 ml Q30M PRN IV Hypoglycemia 09/11/20 18:00 12/10/20 17:59 Dextrose/Sodium Chloride 1,000 ml @ 75 mls/hr [id number] IV 09/15/20 22:00 10/15/20 21:59 09/18/20 03:23 Diphenhydramine HCl (Benadryl) 25 mg Q8H PRN ORAL Itching/Pruritis 09/16/20 13:00 10/16/20 12:59 Docusate Sodium (Colace) 100 mg TWICE A DAY ORAL 09/16/20 18:00 10/16/20 17:59 09/17/20 18:40 Famotidine (Pepcid) 40 mg DAILY ORAL 09/12/20 09:00 12/11/20 08:59 09/17/20 09:17 Heparin Sodium (Porcine) (Heparin 5000 units/ml) 5,000 units EVERY 8 HOURS SUBQ 09/14/20 14:00 10/29/20 13:59 09/18/20 06:00 Insulin Aspart (NovoLOG) BEFORE MEALS AND HS SUBQ 09/11/20 21:00 12/10/20 20:59 09/17/20 21:25 Iron Sucrose 100 mg/Sodium Chloride 60 ml @ 240 mls/hr BEDTIME IVPB 09/16/20 21:00 09/20/20 21:14 09/17/20 21:29 Levothyroxine Sodium (Synthroid) 88 mcg DAILY@0630 ORAL 09/14/20 06:30 10/12/20 06:29 09/18/20 05:58 Lorazepam (Ativan) 1 mg Q4H PRN ORAL For Anxiety 09/11/20 15:45 09/18/20 15:44 Magnesium Hydroxide (Mom) 30 ml BIDPRN PRN ORAL Constipation 09/16/20 13:00 10/16/20 12:59 Morphine Sulfate (Morphine Sulfate) 2 mg Q4H PRN IVP pain 7-10 09/11/20 15:45 09/18/20 15:44 Nitroglycerin (Ntg) 0.4 mg Q5M X 3 DOSES PRN SL Prn Chest Pain 09/11/20 15:45 10/11/20 15:44 Ondansetron HCl (Zofran) 4 mg Q6H PRN IVP Nausea & Vomiting 09/16/20 13:00 10/16/20 12:59 Sodium Chloride 550 ml @ 0 mls/hr Q0M IV 09/11/20 13:00 10/11/20 12:59 Temazepam (RestoriL) 7.5 mg DAILYPRN PRN ORAL Insomnia 09/16/20 13:00 09/23/20 12:59 Laboratory Tests 09/17/20 09:40: White Blood Count 4.5L, Red Blood Count 3.71L, Hemoglobin 10.1L, Hematocrit 30.7 L, Mean Corpuscular Volume 83, Mean Corpuscular Hemoglobin 27.1, Mean Corpuscular Hemoglobin Concent 32.8, Red Cell Distribution Width 16.2H, Platelet Count 166, Mean Platelet Volume 6.8, Neutrophils (%) (Auto) 62.6, Lymphocytes (%) (Auto) 20.0, Monocytes (%) (Auto) 13.1H, Eosinophils (%) (Auto) 3.0, Basophils (%) (Auto) 1.2, Sodium Level 141, Potassium Level 4.3, Chloride Level 109H, Carbon Dioxide Level 27, Anion Gap 5, Blood Urea Nitrogen 13, Creatinine 1.2, Estimat Glomerular Filtration Rate > 60, Glucose Level 168H, Calcium Level 7.8L, Phosphorus Level 2.6, Magnesium Level 1.7L 09/17/20 16:30: POC Whole Blood Glucose 125H 09/17/20 20:11: POC Whole Blood Glucose 170H 09/18/20 04:14: White Blood Count 3.4L, Red Blood Count 3.73L, Hemoglobin 10.2L, Hematocrit 30.9L, Mean Corpuscular Volume 83, Mean Corpuscular Hemoglobin 27.2, Mean Corpuscular Hemoglobin Concent 32.8, Red Cell Distribution Width 15.7H, Platelet Count 158, Mean Platelet Volume 6.8, Neutrophils (%) (Auto) , Lymphocytes (%) (Auto) , Monocytes (%) (Auto) , Eosinophils (%) (Auto) , Basophils (%) (Auto) , Sodium Level 143, Potassium Level 4.0, Chloride Level 110H, Carbon Dioxide Level 29, Anion Gap 4L, Blood Urea Nitrogen 9, Creatinine 1.2, Estimat Glomerular Filtration Rate > 60, Glucose Level 143H, Calcium Level 8.1L Height (Feet): 5 Height (Inches): 6.00 Weight (Pounds): 186 Objective exam stable Salvatore Dunlap MD Sep 18, 2020 08:05
--- NOTE | 2020-09-18 08:42 | Nephrology Progress Note ---
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 #DM #BPH -s/p ligation of the pseudoaneurysm and removal - monitor UOP - defer renal US for now - neurology eval - continue flomax 0.4mg daily - continue amlodipine 10mg daily - on amiodarone - holding xarelto - monitor renal function - avoid nephrotoxins time spent 65 min Subjective Subjective cr 1.2 stable Objective Objective Last 24 Hour Vital Signs Date Time Temp Pulse Resp B/P (MAP) Pulse Ox O2 Delivery O2 Flow Rate FiO2 09/18/20 08:03 95 146/91 09/18/20 04:00 79 86 84 09/18/20 04:00 79 09/18/20 04:00 97.9 82 20 139/74 (95) 97 09/18/20 00:00 77 09/18/20 00:00 97.7 85 20 140/80 (100) 97 09/17/20 21:00 Room Air 09/17/20 21:00 95 Room Air 21 09/17/20 20:00 81 09/17/20 20:00 97.7 88 20 141/77 (98) 97 09/17/20 16:00 97.9 75 18 141/72 (95) 99 09/17/20 16:00 80 84 89 09/17/20 16:00 80 09/17/20 12:00 97.2 78 138/68 (91) 09/17/20 12:00 68 09/17/20 09:25 68 20 98 09/17/20 09:17 83 129/69 09/17/20 09:00 Room Air Intake and Output 09/17/20 09/18/20 19:00 07:00 Intake Total 435 ml 915 ml Output Total 550 ml 2100 ml Balance -115 ml -1185 ml Intake Oral 360 ml 240 ml IV Total 75 ml 675 ml Output Urine Total 550 ml 2100 ml # Voids 6 Laboratory Tests 09/17/20 09:40: White Blood Count 4.5L, Red Blood Count 3.71L, Hemoglobin 10.1L, Hematocrit 30 .7L, Mean Corpuscular Volume 83, Mean Corpuscular Hemoglobin 27.1, Mean Corpuscular Hemoglobin Concent 32.8, Red Cell Distribution Width 16.2H, Platelet Count 166, Mean Platelet Volume 6.8, Neutrophils (%) (Auto) 62.6, Lymphocytes (%) (Auto) 20.0, Monocytes (%) (Auto) 13.1H, Eosinophils (%) (Auto) 3.0, Basophils (%) (Auto) 1.2, Sodium Level 141, Potassium Level 4.3, Chloride Level 109H, Carbon Dioxide Level 27, Anion Gap 5, Blood Urea Nitrogen 13, Creatinine 1.2, Estimat Glomerular Filtration Rate > 60, Glucose Level 168H, Calcium Level 7.8L, Phosphorus Level 2.6, Magnesium Level 1.7L 09/17/20 16:30: POC Whole Blood Glucose 125H 09/17/20 20:11: POC Whole Blood Glucose 170H 09/18/20 04:14: White Blood Count 3.4L, Red Blood Count 3.73L, Hemoglobin 10.2L, Hematocrit 30.9L, Mean Corpuscular Volume 83, Mean Corpuscular Hemoglobin 27.2, Mean Corpuscular Hemoglobin Concent 32.8, Red Cell Distribution Width 15.7H, Platelet Count 158, Mean Platelet Volume 6.8, Neutrophils (%) (Auto) , Lymphocytes (%) (Auto) , Monocytes (%) (Auto) , Eosinophils (%) (Auto) , Basophils (%) (Auto) , Sodium Level 143, Potassium Level 4.0, Chloride Level 110H, Carbon Dioxide Level 29, Anion Gap 4L, Blood Urea Nitrogen 9, Creatinine 1.2, Estimat Glomerular Filtration Rate > 60, Glucose Level 143H, Calcium Level 8.1L Height (Feet): 5 Height (Inches): 6.00 Weight (Pounds): 186 Judah Richmond M.D. Sep 18, 2020 08:42
--- NOTE | 2020-09-18 09:57 | Neurology Progress Note ---
Interim History Interim History ROS Limited/Unobtainable: No Interim History no new deficits Objective Physical Exam Last Vital Signs Date Time Temp Pulse Resp B/P (MAP) Pulse Ox O2 Delivery O2 Flow Rate FiO2 09/18/20 08:03 95 146/91 09/18/20 08:00 98.7 18 97 09/17/20 21:00 Room Air 09/17/20 21:00 21 09/16/20 12:30 3 Laboratory Tests Test 09/17/20 16:30 09/17/20 20:11 09/18/20 04:14 POC Whole Blood Glucose 125 MG/DL (74-106) H 170 MG/DL (74-106) H White Blood Count 3.4 K/UL (4.8-10.8) L Red Blood Count 3.73 M/UL (4.70-6.10) L Hemoglobin 10.2 G/DL (14.2-18.0) L Hematocrit 30.9 % (42.0-52.0) L Mean Corpuscular Volume 83 FL (80-99) Mean Corpuscular Hemoglobin 27.2 PG (27.0-31.0) Mean Corpuscular Hemoglobin Concent 32.8 G/DL (32.0-36.0) Red Cell Distribution Width 15.7 % (11.6-14.8) H Platelet Count 158 K/UL (150-450) Mean Platelet Volume 6.8 FL (6.5-10.1) Neutrophils (%) (Auto) % (45.0-75.0) Lymphocytes (%) (Auto) % (20.0-45.0) Monocytes (%) (Auto) % (1.0-10.0) Eosinophils (%) (Auto) % (0.0-3.0) Basophils (%) (Auto) % (0.0-2.0) Sodium Level 143 MMOL/L (136-145) Potassium Level 4.0 MMOL/L (3.5-5.1) Chloride Level 110 MMOL/L (98-107) H Carbon Dioxide Level 29 MMOL/L (21-32) Anion Gap 4 mmol/L (5-15) L Blood Urea Nitrogen 9 mg/dL (7-18) Creatinine 1.2 MG/DL (0.55-1.30) Estimat Glomerular Filtration Rate > 60 mL/min (>60) Glucose Level 143 MG/DL (74-106) H Calcium Level 8.1 MG/DL (8.5-10.1) L Head: normocophalic Neck: no rigidity EENT: benign Neurologic Exam Mental Status: awake, alert Cranial Nerve II: fundus normal Cranial Nerves III, IV, : PERRLA Cranial Nerve V: normal facial sensations Cranial Nerve VII: no facial asymmetry Cranial Nerve VIII: normal hearing Cranial Nerve IX: normal palate elevation Cranial Nerve X: no voice hoarseness Cranial Nerve XI: SCM symmetric Cranial Nerve XII: tongue midline Motor System: normal muscle tone Objective non focal exam ataxic Impression/Recommendations Problems: (1) Hematoma (2) Arrhythmia (3) Diabetes (4) Hyperlipidemia (5) Abdominal pain (6) Hypertension (7) Pseudoaneurysm Diagnostic Impression sp fall , seems mechanical more than syncope left forehead expansile mass, pseudoaneurysm sp resection post op pt Marbin Mack MD Sep 18, 2020 09:57
--- NOTE | 2020-09-18 10:34 | NUR ---
RD ASSESSMENT & RECOMMENDATIONS SEE CARE ACTIVITY FOR COMPLETE ASSESSMENT DAILY ESTIMATED NEEDS: Needs based on DM, surgery 69.6kg abw 25-35 kcals/kg [id number] total kcals 1-2 g protein/kg 70-139 g total protein 25-30ml/kcal mL/kg 7696-0629 total fluid mLs NUTRITION DIAGNOSIS: Increased pro needs r/t surgery as evidenced by s/p resection of L-temporal artery pseudoanerysm CURRENT DIET: Regular-> now CCHO LOW/ Soft easy chew PO DIET RECOMMENDATIONS: CCHO MED/ LOW NA texture as tolerated ADDITIONAL RECOMMENDATIONS: 1) Monitor for continued good po intake 2) On added D5, monitor for continued need w/ elevated BG 3) Surgical wound care: add DAMARI FRUIT PUNCH in 8oz H2O BID 4) Snacks as tolerated
[2020-09-18 11:46] VITALS: BP 133/73
--- NOTE | 2020-09-18 11:58 | Discharge Instructions ---
Discharge Instructions Discharge Instructions Follow up with: primary care physician, Dr. Tse, Dr. Elaine Call MD/Return to Hospital if: symptoms worsen or fail to improve Services at Discharge: home health services Resume Normal Activity?: Yes Special Instructions Follow up with Dr. Tse, surgery, on September 25 at 10 AM. Follow up with Dr. Elaine, cardiology, in 1 week to determine when to restart Xarelto. Follow up with your primary care physician in 1-2 weeks. For Surgical Patients Contact your physician for: bleeding, redness For Congestive Heart Failure Reminder Report to your physician any weight gain of 5 pounds or more in one week. Antonino Andrea M.D. Sep 18, 2020 11:57
[2020-09-18] MEDS ORDERED: SYNTHROID88 MCG ORAL (12:01)
--- NOTE | 2020-09-18 12:03 | Discharge Summary ---
Discharge Summary Hospital Course Date of Admission Sep 11, 2020 at 14:18 Date of Discharge Admitting Diagnosis Pseudoaneurysm AGUS Christensen is a 84 year old male who was admitted on Sep 11, 2020 at 14:18 for Pseudoaneurysm Discharge Condition Upon Discharge: improving Discharge Vital Signs Last Vital Signs Date Time Temp Pulse Resp B/P (MAP) Pulse Ox O2 Delivery O2 Flow Rate FiO2 09/18/20 11:46 72 73 93 09/18/20 11:46 97.6 19 133/73 (93) 100 09/18/20 10:20 Room Air 09/17/20 21:00 21 09/16/20 12:30 3 Discharge Disposition Patient was discharged to home with home health Discharge Diagnoses: (1) Pseudoaneurysm (2) Hypothyroid (3) Arrhythmia Discharge Instructions Discharge Instructions Follow up with: primary care physician, Dr. Tse, Dr. Chele Lewis MD/Return to Hospital if: symptoms worsen or fail to improve Services Upon Discharge: home health services For Surgical Patients Contact your physician for: bleeding, redness Antonino Andrea M.D. Sep 18, 2020 12:03
--- NOTE | 2020-09-18 14:30 | NUR ---
NURSE NOTES: D/C HOME WITH [facility]. REMOVED IV HEPLOCK AND INSPECTOR SHELLS. PERSONAL BELONGINGS NOTED. D/C INSTRUCTIONS GIVEN. PATIENT CALLED BROTHER, [facility] FOR TRANSPORTATION. INSTABLE CONDITION. VERBALIZED UNDERSTANDING.
--- NOTE | 2020-09-18 16:47 | Cardiology Progress Note ---
Assessment/Plan Assessment/Plan 1. 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 2. Paroxysmal atrial fibrillation, resume Xarelto in the outpatient setting. Continue amiodarone. 3. HTN, well controlled, continue amlodipine. 4. ERIK on CKD, creat at 1.2. Subjective Subjective Sinus rhythm at rate of 92. 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 Objective Last 24 Hour Vital Signs Date Time Temp Pulse Resp B/P (MAP) Pulse Ox O2 Delivery O2 Flow Rate FiO2 09/18/20 13:13 97 Room Air 21 09/18/20 12:00 92 09/18/20 11:46 72 73 93 09/18/20 11:46 97.6 88 19 133/73 (93) 100 09/18/20 10:20 Room Air 09/18/20 08:03 95 146/91 09/18/20 08:00 94 09/18/20 08:00 98.7 95 18 146/91 (109) 97 09/18/20 04:00 79 86 84 09/18/20 04:00 79 09/18/20 04:00 97.9 82 20 139/74 (95) 97 09/18/20 00:00 77 09/18/20 00:00 97.7 85 20 140/80 (100) 97 09/17/20 21:00 Room Air 09/17/20 21:00 95 Room Air 21 09/17/20 20:00 81 09/17/20 20:00 97.7 88 20 141/77 (98) 97 Intake and Output 09/17/20 09/18/20 19:00 07:00 Intake Total 435 ml 990 ml Output Total 550 ml 2100 ml Balance -115 ml -1110 ml Intake Oral 360 ml 240 ml IV Total 75 ml 750 ml Output Urine Total 550 ml 2100 ml # Voids 6 2D Echo: LVEF 60%, DALIA, RVSP 13 mmHg Laboratory Tests Test 09/17/20 20:11 09/18/20 04:14 09/18/20 11:12 POC Whole Blood Glucose 170 MG/DL (74-106) H Pending White Blood Count 3.4 K/UL (4.8-10.8) L Red Blood Count 3.73 M/UL (4.70-6.10) L Hemoglobin 10.2 G/DL (14.2-18.0) L Hematocrit 30.9 % (42.0-52.0) L Mean Corpuscular Volume 83 FL (80-99) Mean Corpuscular Hemoglobin 27.2 PG (27.0-31.0) Mean Corpuscular Hemoglobin Concent 32.8 G/DL (32.0-36.0) Red Cell Distribution Width 15.7 % (11.6-14.8) H Platelet Count 158 K/UL (150-450) Mean Platelet Volume 6.8 FL (6.5-10.1) Neutrophils (%) (Auto) % (45.0-75.0) Lymphocytes (%) (Auto) % (20.0-45.0) Monocytes (%) (Auto) % (1.0-10.0) Eosinophils (%) (Auto) % (0.0-3.0) Basophils (%) (Auto) % (0.0-2.0) Sodium Level 143 MMOL/L (136-145) Potassium Level 4.0 MMOL/L (3.5-5.1) Chloride Level 110 MMOL/L (98-107) H Carbon Dioxide Level 29 MMOL/L (21-32) Anion Gap 4 mmol/L (5-15) L Blood Urea Nitrogen 9 mg/dL (7-18) Creatinine 1.2 MG/DL (0.55-1.30) Estimat Glomerular Filtration Rate > 60 mL/min (>60) Glucose Level 143 MG/DL (74-106) H Calcium Level 8.1 MG/DL (8.5-10.1) L Objective HEENT: Atraumatic. Dressing on the left temporal region, otherwise pupils are equal, round, and reactive to light and accommodation. Extraocular muscles intact. NECK: JVP less than 5 cm. No carotid bruit. Carotid upstrokes 2+ bilaterally. CARDIOVASCULAR: Normal S1 and S2. Regular rate and rhythm. No murmurs, gallops, or rubs. LUNGS: Clear to auscultation bilaterally. ABDOMEN: Soft, nontender, nondistended. No hepatosplenomegaly. Positive bowel sounds. EXTREMITIES: No evidence of edema, clubbing, or cyanosis. Joseph Elaine MD Sep 18, 2020 16:46
== END 2020-09-18 16:40 | disposition home health service (06) | DRG 253 ==
LOC: EMR 12:04 → 4E 14:18 → EDBEDREQ 15:52 → 4E 19:08 → 2E 20:33
PROC: 03BT0ZZ Excision of Left Temporal Artery, Open Approach (ICD-10-PCS; principal; 2020-09-16 10:00)
PROC: 03L Upper Arteries, Occlusion (ICD-10-PCS; principal; 2020-09-16 10:00)
DX: I72.8 Aneurysm of other specified arteries (principal); N17.9 Acute kidney failure, unspecified; N13.2 Hydronephrosis with renal and ureteral calculous obstruction; S00.03XA Contusion of scalp, initial encounter; W19.XXXA Unspecified fall, initial encounter; Y92.9 Unspecified place or not applicable; I13.10 Hypertensive heart and chronic kidney disease without heart failure, with stage 1 through stage 4 chronic kidney disease, or unspecified chronic kidney disease; E11.22 Type 2 diabetes mellitus with diabetic chronic kidney disease; N18.9 Chronic kidney disease, unspecified; I48.0 Paroxysmal atrial fibrillation; Z79.01 Long term (current) use of anticoagulants; N40.0 Benign prostatic hyperplasia without lower urinary tract symptoms; E03.9 Hypothyroidism, unspecified; N31.9 Neuromuscular dysfunction of bladder, unspecified; N28.1 Cyst of kidney, acquired; R53.1 Weakness
CPT/HCPCS: 36415; 70496; 70551; 71045; 76770; 80048; 80053; 80061; 81003; 82550; 82570; 82607; 82728; 82746; 82962; 83036; 83540; 83550; 83735; 83880; 84100; 84153; 84300; 84439; 84443; 84484; 85007; 85025; 85044; 85060; 85610; 85730; 86703; 86705; 86709; 86803; 87086; 87181; 87340; 93005; 93306; 93970; 94003; 94150; 99285; J1815; U0002